=== PATIENT | female | born 1940 | race Caucasian/White ===

== ENCOUNTER 2017-02-10 20:47 | Observation (INO) | payer MEDICARE, OTHER ==
[2017-02-10 20:57] VITALS: BMI 27.1
--- NOTE | 2017-02-10 21:11 | ED PDOC ---
Arrival/HPI - General Chief Complaint: Dizziness/Lightheaded Time Seen by Provider: 02/10/17 21:02 Historian: Patient - History of Present Illness Narrative History of Present Illness (Text): 02/10/17 21:09 Susana Pena is a 76 year old female, whose past medical history includes CAD with 1 coronary stent, hypertension, cholelithiasis, and UTIs, who presents to the Emergency department complaining of near-syncope and high blood pressure. Patient states she has been feeling near-syncopal with unsteady gait, light-headedness, nausea, and dizziness since waking up this morning . Patient notes her blood pressure has been elevated throughout the day, around 180/90. Patient also complaining of frequent urination. Patient denies any fever, chills , chest pain, shortness of breath, vomiting, diarrhea, urinary symptoms, back pain, neck pain, or any other complaints. Time/Duration: Other (this morning) Symptom Onset: Gradual Symptom Course: Unchanged Activities at Onset: Rest, Light Context: Home Past Medical History - Provider Review Nursing Documentation Reviewed: Yes - Travel History If Yes, travel location?: [facility] - Infectious Disease Hx of Infectious Diseases: None - Tetanus Immunization Tetanus Immunization: Unknown - Cardiac Hx Cardiac Disorders: Yes Hx Hypertension: Yes - Pulmonary Hx Respiratory Disorders: No - Neurological Hx Neurological Disorder: No Hx Paralysis: No - HEENT Hx HEENT Disorder: Yes Hx Cataracts: Yes - Renal Hx Renal Disorder: Yes Hx Pyelonephritis: Yes - Endocrine/Metabolic Hx Endocrine Disorders: No - Hematological/Oncological Hx Blood Disorders: No Hx Blood Transfusions: No - Integumentary Hx Dermatological Disorder: No - Musculoskeletal/Rheumatological Hx Musculoskeletal Disorders: Yes (osteopenia, spinal stenosis) - Gastrointestinal Hx Gastrointestinal Disorders: Yes Hx Gastroesophageal Reflux: Yes - Genitourinary/Gynecological Hx Genitourinary Disorders: Yes Hx Urinary Tract Infection: Yes - Psychiatric Hx Psychophysiologic Disorder: No Hx Emotional Abuse: No Hx Physical Abuse: No Hx Substance Use: No - Surgical History Hx Cataract Extraction: Yes Hx Cardiac Catheterization: Yes Hx Coronary Stent: Yes - Anesthesia Hx Anesthesia Reactions: No Hx Malignant Hyperthermia: No - Suicidal Assessment Feels Threatened In Home Enviroment: No Family/Social History - Physician Review Nursing Documentation Reviewed: Yes Family/Social History: No Known Family HX Smoking Status: Never Smoked Hx Alcohol Use: No Hx Substance Use: No Hx Substance Use Treatment: No Allergies/Home Meds Allergies/Adverse Reactions: Allergies No Known Allergies Allergy (Verified 02/10/17 20:57) Home Medications: Home Meds Medication Instructions Recorded Confirmed Aspirin [Ecotrin] 81 mg PO DAILY 05/15/16 02/10/17 Clopidogrel [Plavix] 75 mg PO DAILY 05/15/16 02/10/17 Famotidine [Pepcid] 20 mg PO BID 05/15/16 02/10/17 Losartan [Cozaar] 25 mg PO DAILY 05/15/16 02/10/17 Metoprolol Tartrate [Lopressor] 50 mg PO BID 05/15/16 02/10/17 Simvastatin [Zocor] 40 mg PO DAILY 05/15/16 02/10/17 Ursodiol [Actigall] 300 mg PO BID 05/15/16 02/10/17 amLODIPine [Norvasc] 5 mg PO DAILY 05/15/16 02/10/17 Review of Systems - Physician Review All systems were reviewed & negative as marked: Yes - Review of Systems Constitutional: Normal. absent: Fevers Eyes: Normal ENT: Normal Respiratory: Normal. absent: SOB, Cough Cardiovascular: Other (+near-syncopal, +hypertension). absent: Chest Pain Gastrointestinal: Nausea. absent: Vomiting Genitourinary Female: Frequency. absent: Dysuria, Hematuria, Urine Output Changes Musculoskeletal: Normal. absent: Back Pain, Neck Pain Skin: Normal. absent: Rash Neurological: Dizziness, Gait Changes (+unsteady gait), Other (+light-headedness ) Endocrine: Normal Hemo/Lymphatic: Normal Psychiatric: Normal Physical Exam Vital Signs Reviewed: Yes Vital Signs Temp Pulse Resp BP Pulse Ox 02/11/17 01:30 98.3 F 68 16 148/74 98 02/11/17 00:01 61 16 129/74 100 02/10/17 20:57 98.4 F 62 16 159/80 H 98 Temperature: Afebrile Blood Pressure: Hypertensive Pulse: Regular Respiratory Rate: Normal Appearance: Positive for: Well-Appearing, Non-Toxic, Comfortable Pain Distress: None Mental Status: Positive for: Alert and Oriented X 3 - Systems Exam Head: Present: Atraumatic, Normocephalic Pupils: Present: PERRL Extroacular Muscles: Present: EOMI Conjunctiva: Present: Normal Mouth: Present: Moist Mucous Membranes Neck: Present: Normal Range of Motion Respiratory/Chest: Present: Clear to Auscultation, Good Air Exchange. No: Respiratory Distress, Accessory Muscle Use Cardiovascular: Present: Regular Rate and Rhythm, Normal S1, S2. No: Murmurs Abdomen: Present: Normal Bowel Sounds. No: Tenderness, Distention, Peritoneal Signs Back: Present: Normal Inspection Upper Extremity: Present: Normal Inspection. No: Cyanosis, Edema Lower Extremity: Present: Normal Inspection. No: Edema Neurological: Present: GCS=15, CN II-XII Intact, Speech Normal Skin: Present: Warm, Dry, Normal Color. No: Rashes Psychiatric: Present: Alert, Oriented x 3, Normal Insight, Normal Concentration Medical Decision Making ED Course and Treatment: 02/10/17 21:09 Impression: 76 year old female complaining of near-syncope, dizziness, light-headedness, dizziness, high blood pressure, and frequent urination. Differential Diagnosis include but are not limited to: near syncope vs hypertension Plan: -- CT Head w/o contrast -- EKG -- Chest X-ray -- Labs, cardiac enzymes -- Urinalysis -- Reassess and disposition Prior Visits: Notes and results from previous visits were reviewed. On 01/20/2015, pt was seen in the Emergency department for abdominal pain and chest pain. Pt was admitted to the hospital for further evaluation. Progress Notes: Reviewed EKG, NSR at [address]-segment elevations or depressions, no T-wave inversions, normal intervals. 02/10/17 23:41 Reviewed radiology, Chest X-ray shows no active disease. CT Head shows: Atrophy and small vessel disease, no bleed. 02/10/17 23:[address] Marcus, who is aware and agrees with plan. Accepts pt in to her service. Pt will go to [facility] for near-syncope and labile hypertension. Pt in no acute distress. Discussed results and plan with pt, who is aware and verbalizes understanding. - Lab Interpretations Lab Results: 02/10/17 21:52 02/10/17 21:52 Lab Results 02/10/17 21:52: WBC 9.3, RBC 4.49, Hgb 14.4, Hct 40.9, MCV 91.1, MCH 32.1, MCHC 35.2, RDW 12.2, Plt Count 360, MPV 8.3 02/10/17 21:52: Sodium 134, Potassium 4.1, Chloride 94 L, Carbon Dioxide 29, Anion Gap 15, BUN 19, Creatinine 0.8, Est GFR ( Amer) > 60, Est GFR (Non- Af Amer) > 60, Random Glucose 121 H, Calcium 10.0, Total Bilirubin 0.8, AST 39, ALT 35, Alkaline Phosphatase 84, Lactate Dehydrogenase 500, Total Creatine Kinase 110, Troponin I < 0.01, Total Protein 9.5 H, Albumin 4.7, Globulin 4.8, Albumin/Globulin Ratio 1.0 L 02/10/17 21:52: PT 10.3, INR 0.95, APTT 27.3 02/10/17 20:48: Urine Color Straw, Urine Appearance Sl cloudy, Urine pH 6.5, Ur Specific [place] <= 1.005, Urine Protein Negative, Urine Glucose (UA) Negative, Urine Ketones Negative, Urine Blood Trace-intact H, Urine Nitrate Negative, Urine Bilirubin Negative, Urine Urobilinogen 0.2, Ur Leukocyte Esterase Large H , Urine RBC 1 - 3, Urine WBC 20 - 25, Ur Epithelial Cells 3 - 4, Urine Bacteria Few I have reviewed the lab results: Yes - RAD Interpretation Narrative RAD Interpretations (Text): Chest X-ray shows no active disease. CT Head shows: Brain: There is dilatation of sulci gyri and ventricles. There is no midline shift. There is decreased attenuation in periventricular white matter. There are no focal masses. There are no focal hemorrhages.There are basal ganglia calcifications. Mandujano-white differentiation is visualized. Ventricles: See above. Bones: Cranial vault is intact. Soft tissues: unremarkable Vasculature: There are calcifications in the carotid siphons. Sinuses: There is no acute sinusitis. Ears and mastoids: Middle ears and mastoids are unremarkable. Orbits: There are no acute orbital abnormalities. There is deformity of the right globe area IMPRESSION: Atrophy and small vessel disease, no bleed. Radiology Orders: 02/10/17 21:09 HEAD W/O CONTRAST [CT] Stat 02/10/17 21:10 CHEST PORTABLE [RAD] Stat Library Consultant: ED Physician, Radiologist - EKG Interpretation Interpreted by ED Physician: Yes Type: 12 lead EKG - Scribe Statement The provider has reviewed the documentation as recorded by the El Zarate All medical record entries made by the El were at my direction and personally dictated by me. I have reviewed the chart and agree that the record accurately reflects my personal performance of the history, physical exam, medical decision making, and the department course for this patient. I have also personally directed, reviewed, and agree with the discharge instructions and disposition. Disposition/Present on Arrival - Present on Arrival Any Indicators Present on Arrival: No History of DVT/PE: No History of Uncontrolled Diabetes: No Urinary Catheter: No History of Decub. Ulcer: No History Surgical Site Infection Following: None - Disposition Have Diagnosis and Disposition been Completed?: Yes Diagnosis: Near syncope, Labile hypertension, UTI (urinary tract infection) Disposition: HOSPITALIZED Disposition Time: 23:56 Patient Problems: Current Active Problems Problem Status Onset Labile hypertension Acute Near syncope Acute Condition: GOOD
[2017-02-10 22:13] LABS: HEMATOCRIT 40.9 % (36.0-48.0); MEAN CELL VOLUME 91.1 fL (80.0-105.0); MEAN CORPUSCULAR HEMOGLOBIN 32.1 pg (25.0-35.0); MEAN CORPUSCULAR HGB CONC 35.2 g/dl (31.0-37.0); MEAN PLATELET VOLUME 8.3 fl (7.0-11.0); RED CELL DISTRIBUTION WIDTH 12.2 % (11.5-14.5); WHITE BLOOD COUNT 9.3 10^3/ul (4.5-11.0)
[2017-02-10 22:23] LABS: ALKALINE PHOSPHATASE 84 U/L (38-133); ALT/SGPT 35 U/L (7-56); AST/SGOT 39 U/L (15-39); BILIRUBIN,TOTAL 0.8 mg/dL (0.2-1.3); BLOOD UREA NITROGEN 19 mg/dL (7-21); CARBON DIOXIDE 29 mmol/L (21-33); CHLORIDE 94 mmol/L (98-107); GFR AFRICAN-AMERICAN > 60; GLUCOSE,RANDOM 121 mg/dL (70-110); POTASSIUM 4.1 mmol/L (3.6-5.0); SODIUM 134 mmol/L (132-148); TOTAL PROTEIN 9.5 g/dL (5.8-8.3)
[2017-02-10 22:38] LABS: INR 0.95 (0.93-1.08); PARTIAL THROMBOPLASTIN TIME 27.3 Seconds (23.7-30.8)
[2017-02-10 22:59] LABS: TROPONIN I < 0.01 ng/mL
--- NOTE | 2017-02-10 23:40 | CT ---
EXAM: CT Head Without Intravenous Contrast CLINICAL HISTORY: 76 years old, female; Signs and symptoms; Dizziness; Additional info: Near syncope TECHNIQUE: Axial computed tomography images of the head/brain without intravenous contrast. This CT exam was performed using one or more of the following dose reduction techniques: automated exposure control, adjustment of the mA and/or kV according to patient size, and/or use of iterative reconstruction technique. EXAM DATE/TIME: 02/10/2017 9:09 PM COMPARISON: There are no prior studies for comparison. FINDINGS: Brain: There is dilatation of sulci gyri and ventricles. There is no midline shift. There is decreased attenuation in periventricular white matter. There are no focal masses. There are no focal hemorrhages.There are basal ganglia calcifications. Mandujano-white differentiation is visualized. Ventricles: See above. Bones: Cranial vault is intact. Soft tissues: unremarkable Vasculature: There are calcifications in the carotid siphons. Sinuses: There is no acute sinusitis. Ears and mastoids: Middle ears and mastoids are unremarkable. Orbits: There are no acute orbital abnormalities. There is deformity of the right globe area IMPRESSION: Atrophy and small vessel disease, no bleed Additional findings as described above.
[2017-02-11 03:02] LABS: PH,URINE 6.5 (4.7-8.0); URINE APPEARANCE SL CLOUDY (CLEAR); URINE BILIRUBIN NEGATIVE (NEGATIVE); URINE BLOOD TRACE-INTACT (NEGATIVE); URINE COLOR STRAW (YELLOW); URINE GLUCOSE (UA) NEGATIVE (NEGATIVE); URINE KETONE NEGATIVE (NEGATIVE); URINE LEUKOCYTE ESTERASE LARGE Leu/uL (NEGATIVE); URINE PROTEIN NEGATIVE mg/dL (<30 mg/dL); URINE UROBILINOGEN 0.2 E.U./dL (<1 E.U./dL)
[2017-02-11 03:04] LABS: URINE WBC 20 - 25 /hpf (0-6)
[2017-02-11 03:05] LABS: URINE BACTERIA FEW (NEG)
[2017-02-11] MEDS ORDERED: cefTRIAXone 1 gm 1 GM/100 ML BAG IV STA (03:12)
--- NOTE | 2017-02-11 07:15 | RAD ---
HISTORY: fever COMPARISON: 01/19/2015 FINDINGS: LUNGS: No active pulmonary disease. PLEURA: No significant pleural effusion identified, no pneumothorax apparent. CARDIOVASCULAR: Normal. OSSEOUS STRUCTURES: Thoracic spondylosis VISUALIZED UPPER ABDOMEN: Normal. OTHER FINDINGS: None. IMPRESSION: No active disease.
[2017-02-11] MEDS ORDERED: cefTRIAXone 1 gm 100 ML IVPB SCH (10:00)
[2017-02-11 12:15] LABS: CHOLESTEROL 170 mg/dL (130-200)
--- NOTE | 2017-02-11 12:29 | CON ---
DATE: 02/11/2017 REASON FOR CONSULTATION: Cardiac evaluation, near syncope. BRIEF CLINICAL HISTORY: This is a 76-year-old female with a past medical history significant for justin betes, hypertension, hyperlipidemia, coronary artery disease status post PTCA of LAD with a drug-elut ing stent in 12/2008, came in to the hospital because complaining of nauseous feeling and has a UTI f or a couple of days. The patient feels that she is going to pass out, but did not pass out, so she c raj to the Emergency Room. Denies any chest pain, denies any palpitation, denies any shortness of br eath. PAST MEDICAL HISTORY: Significant for diabetes, hypertension, hyperlipidemia, obesity, coronary [place] disease status post PTCA of LAD with a drug-eluting stent on 01/13/2009. Repeat catheterization o n 01/18/2009 shows patent stent, unremarkable RCA and circ. Last stress test was that shows essentially normal, no reversible ischemia. The patient walked on the treadmill for 6 minutes and 9 seconds, ejection fraction ____%. The patient had a ____ echocardiography done in 12/2012 that shows normal ejection fraction 75%, mode rate mitral regurgitation, mild aortic regurgitation, mild tricuspid regurgitation. The patient had ____ echocardiography as mentioned ____ that mentioned normal chamber size, ejection fraction 60-65%, trace ____, ____ TR, mild ____, RV systolic pressure 34, dated ____. The patient had a Holter monitor on 06/30/2014 that shows no high grade AV block, sinus tachycardia, occasional APCs. The lowest heart rate was 44, maximum was 104, and recommendation does not need pac emaker at that time, and suggested to hold the beta jasen because the patient becomes very bradycar diac with the beta jasen at that time, and the patient's baseline ____ so she should not be on the beta jasen since then. After that, the patient restarted beta jasen, is tolerating well. Denies any chest pain, shortness of breath, any palpitation. SOCIAL HISTORY: Denies smoking. Denies any history of alcohol abuse. Last stress test, as mentioned, ____ was a Lexiscan scan, was essentially normal myocardial perfusion study, ejection fraction ____%. When compared from the previous stress test ____, no significant ch eleni. CURRENT MEDICATIONS: The patient is taking amlodipine 5 mg, Actigall 300, Zocor 40, metoprolol 50 mg b.i.d., losartan 25 daily, ____, Pepcid 20 mg, Plavix 75 mg, aspirin 81 mg. REVIEW OF SYSTEMS: A 14-point review of systems as per HPI, and found to be negative except as per H PI. PHYSICAL EXAMINATION: VITAL SIGNS: Temperature afebrile, heart rate 60, blood pressure 140/61. HEENT: PERRLA. Extraocular muscles intact. NECK: Supple. No carotid bruits. No thyromegaly. CHEST: Clear to auscultation. HEART: S1, S2 regular. ABDOMEN: Soft. EXTREMITIES: Clubbing and cyanosis negative. BLOOD WORKUP: As follows: WBC 9.3, hemoglobin 14.4, hematocrit 40.9, platelet count 360. Chemistry shows sodium 134, potassium 4.1, chloride 94, carbon dioxide 20, anion gap of 15, BUN 19, creatinine 0.9. Troponin 0.01. IMPRESSION: No evidence of acute myocardial infarction. Electrocardiogram shows normal sinus at rat e of 64. Nausea, vomiting, nauseous. Previous workup is negative. History of cardiac catheterization and percutaneous transluminal coronary angioplasty in 12/2008. Repeat catheterization after this because of the chest pain was a patent stent. Repeat stress test twice in 2012 and 2013 in June essentially negative. Echocardiogram also shows normal chamber size in ____, ____ mitral regurgitation, ____ tricuspid regu rgitation, right ventricular systolic pressure of 34. Rule out orthostatic hypotension, diabetes, hy pertension, hyperlipidemia. RECOMMENDATION: Will get echo to assess LV function, lipid profile, TSH, hemoglobin A1c. Will also get cardiac enzymes and get orthostatic hypotension. If remains stable, will discontinue telemetry. Thank you, Dr. Marcus, for providing the opportunity in taking care of this patient. Eleazar Odonnell MD cc:Pricila Marcus MD [id number] TT: 02/11/2017 12:25:50 Confirmation # [id number] Dictation # [id number] mn
[2017-02-11 12:31] LABS: TROPONIN I < 0.01 ng/mL
--- NOTE | 2017-02-11 13:32 | CON ---
DATE: 02/11/2017 CHIEF COMPLAINT: Dizziness and lightheadedness. HISTORY OF PRESENT ILLNESS: A 76-year-old woman with history of coronary artery disease, status post 1 stent, hypertension, cholelithiasis, history of UTIs, who presented with near syncope, felt like l ightheaded, nauseous and no spinning sensation of the room, but more lightheaded and felt pressure in her eyes. Her blood pressure was elevated throughout the day, approximately 180/90 mmHg. Currently , she was also complaining of frequent urination, found to have an elevated leukocyte esterase on her urine culture, was given 1 dose of Rocephin. Currently, she is no longer dizzy. She feels her head pressure is much more stable and her blood pressure is currently better controlled. She is moving a round with no difficulty. No focal neurological deficits. CT head showed no acute intracranial abno rmalities. PAST MEDICAL HISTORY: History of hypertension, cholelithiasis, UTIs, coronary artery disease, status post stent. FAMILY HISTORY: Noncontributory. MEDICATIONS: Reviewed via nurse's reconciliation sheet. ALLERGIES: No known drug allergies. REVIEW OF SYSTEMS: A 14-point review of systems negative except for the HPI. LABORATORY DATA: Sodium is 134, potassium 4.1, chloride 94, carbon dioxide 29, BUN of 19, creatinine 0.8. Random glucose 121. Triglycerides 246, LDL is pending, HDL is 74. PHYSICAL EXAMINATION: VITAL SIGNS: Temperature of 98, pulse rate of 70, blood pressure 135/74, respiratory rate of 16. GENERAL: The patient is sitting up in bed in no acute distress. HEENT: Atraumatic, normocephalic. PERRLA. Extraocular muscles intact. NECK: Supple, no JVD, no adenopathy noted. LUNGS: Clear to auscultation. No adventitious sounds. HEART: S1, S2, normal rate and rhythm. No murmurs, rubs, or gallops. ABDOMEN: Soft, nontender, nondistended. Bowel sounds are present. EXTREMITIES: No clubbing, no cyanosis. Peripheral pulses 2+ felt bilaterally. NEUROLOGIC: The patient is alert, oriented to person, place, month and year. Speech is fluent witho ut any errors. Cranial nerves II-XII are intact. MOTOR: Moves all extremities equally. Toes downgoing bilaterally. SENSORY: Light touch, pinprick, proprioception, and vibration intact. DTRs are 2+ throughout. COORDINATION: Irdgjl-[id number] intact. GAIT: Normal. ASSESSMENT AND PLAN: This is a 76-year-old woman with history of hypertension, coronary artery disea se, status post stent, cholelithiasis, history of urinary tract infections, who presented with dizzin ess, pressure behind the eye and nausea and found to have elevated systolic and diastolic blood press ure at home. Currently, her blood pressure is much more stabilized. Likely, she had a transient hyp ertensive urgency causing her dizziness and lightheadedness as well as head pressure behind the eyes as well as nausea. Currently, she is much more stable. Neurologic exam is nonfocal. At this time, continue with current present medical management. 1. Keep her blood pressure between 120-130 mmHg with Norvasc and metoprolol. 2. Aspirin 81 mg, Plavix 75 mg, and statin such as Lipitor 20 mg for stroke prevention. 3. Continue antibiotics of ceftriaxone for underlying urinary tract infection and continue with curr ent present medical history: No further neurological workup needed at this time. We will sign off. Please reconsult if necessary. Albino Mtz MD cc: [id number] TT: 02/11/2017 13:31:51 Confirmation # [id number] Dictation # [id number] tn
--- NOTE | 2017-02-11 16:29 | CARD ---
APPROVED REPORT EKG Measurement Heart [id number] <Conclusion> Normal sinus rhythm Normal ECG
--- NOTE | 2017-02-11 19:11 | CON ---
DATE: 02/11/2017 REFERRING PHYSICIAN: ____ REASON FOR CONSULT: Status post near syncopal episode, uncontrolled hypertension, may have sleep pecan sheller ea syndrome. HISTORY OF PRESENT ILLNESS: This is a 76-year-old female with past medical history significant for trisha pierre, hypertension, hyperlipidemia, obesity, coronary artery disease, history of coronary stent in the past, comes into the Emergency Room with near syncopal episodes, lying in the bed, feels okay, s till when she gets up feels like she is going to pass out. She admits to have loud snoring, daytime sleepy and tired. No cough, no sputum production, no nausea, no vomiting, no diarrhea. No leg pain or leg swelling. PAST MEDICAL HISTORY: As per history of present illness. SOCIAL HISTORY: Denied any smoking or alcohol use. FAMILY HISTORY: No significant cardiopulmonary disease reported. ALLERGIES: None known. MEDICATIONS: She is on Actigall 300 mg twice a day, Cozaar 25 mg daily, Ecotrin 81 mg daily, Lipitor 20 mg daily, metoprolol tartrate 50 mg twice a day, Norvasc 5 mg daily, Pepcid 20 mg twice a day, Pl avix 75 mg daily, Rocephin 1 g IV daily. REVIEW OF SYSTEMS: No headache, no rhinitis. Had a near-syncopal episode, feeling foggy in the bed. Admitted to have loud snoring, daytime sleepy and tired. No chest pain, no nausea, no vomiting, no diarrhea. No dysuria. No leg pain or leg swelling. PHYSICAL EXAMINATION: GENERAL: Lying in the bed in no acute distress. VITAL SIGNS: Temp is 98, heart rate is 92, respiratory rate is 20, blood pressure 135/74. There was some drop in blood pressure while standing up due to . HEENT: Moist mucous membrane. Crowded airway. Mallampati score is 4. NECK: Short, thick neck. LUNGS: Has a fair airflow with few rhonchi. HEART: S1, S2. ABDOMEN: Soft, nontender. No organomegaly. EXTREMITIES: There is no edema. NEUROLOGIC: Awake, alert, follows simple commands. LABORATORY DATA: Shows hemoglobin 14.4, hematocrit 40.9, WBC 9.3, platelet is . INR is 0.95, P TT is 27. Sodium 134, potassium 4.1, chloride 94, bicarbonate 29, BUN 19, creatinine 0.8, glucose 12 1, calcium 10, total bilirubin 0.8, AST 39, ALT 35, alkaline phosphatase is 84. LDH 431. Troponin l ess than 0.01, albumin 4.7. Triglycerides 246, cholesterol is 170. TSH is 1.65. Urinalysis shows l eukocyte esterase is positive. WBC 20-25. CAT scan of the head was done on admission in the ER and shows atrophy and small vessel disease. No other significant findings. Chest x-ray shows no infiltr ate or effusion. IMPRESSION AND PLAN: Near syncopal episodes, uncontrolled hypertension, coronary artery disease, his tory of coronary stent, cholelithiasis in the past, urinary tract infection. I spoke to the patient in detail. The patient was seen by neurology as well as cardiology. Blood pressure medicine being a djusted. There is no leg tenderness to suggest any deep venous thrombosis. We will get a venous Dop pler, anyway. Will suggest outpatient attempted sleep study to rule out sleep apnea syndrome. That may be one of the causes of uncontrolled hypertension. We will get ABG and make sure there is no CO2 retention. Thank you and we will follow with you. Eleazar Cruz MD cc: [id number] TT: 02/11/2017 19:10:24 Confirmation # [id number] Dictation # [id number] adal
--- NOTE | 2017-02-11 19:11 | US ---
HISTORY: Leg pain and swelling. Evaluate for DVT PHYSICIAN(S): Everett Garzon MD. TECHNIQUE: Duplex sonography and color-flow Doppler with graded compression were used to evaluate the deep venous systems of both lower extremities. FINDINGS: The visualized deep venous systems of both lower extremities are sonographically normal and compressible. Normal wave forms and augmentation are seen. There is no sonographic evidence for deep venous thrombosis in the visualized segments of both lower extremities. IMPRESSION: No sonographic evidence for deep venous thrombosis in the visualized segments of both lower extremities.
--- NOTE | 2017-02-11 19:55 | CARD ---
APPROVED REPORT EXAM: Two-dimensional and M-mode echocardiogram with Doppler and color Doppler. INDICATION Cardiac Disease: CAD NEAR SYNCOPE 2D DIMENSIONS Left Atrium (2D)3.9 (1.6-4.0cm)IVSd1.1 (0.7-1.1cm) LVDd3.7 (3.9-5.9cm)PWd1.0 (0.7-1.1cm) LVDs2.6 (2.5-4.0cm)FS (%) 29.3 % LVEF (%)57.2 (>50%) M-Mode DIMENSIONS Aortic Root3.40 (2.2-3.7cm)Aortic Cusp Exc.1.60 (1.5-2.0cm) Aortic Valve AoV Peak Nxwfoode630.0cm/Susan Peak GR.10mmHgAI P 1/2 [id number] Mitral Valve MV E Gqyyhvrd78.5cm/sMV A Dzgcchns24.1cm/sE/A ratio0.9 TDI Lateral E' Peak V5.85cm/sMedial E' Peak V6.73cm/sE/Lateral E'13.1 E/Medial E'11.4 Pulmonary Valve PV Peak Wthyidiu83.3cm/sPV Peak Grad.1mmHg Tricuspid Valve TR Peak Cgausmem773mc/sRAP [id number] Peak Gr.28mmHg [id number] LEFT VENTRICLE The left ventricle is normal size. There is normal left ventricular wall thickness. The left ventricular function is normal.EF-55-60% There is normal LV segmental wall motion. Transmitral Doppler flow pattern is Grade III-reversible restrictive diastolic dysfunction. No left ventricle thrombus noted on this study. There is no ventricular septal defect visualized. There is no left ventricular aneurysm. There is no mass noted in the left ventricle. RIGHT VENTRICLE The right ventricle is normal size. There is normal right ventricular wall thickness. The right ventricular systolic function is normal. ATRIA The left atrium size is normal. The right atrium size is normal. The interatrial septum is intact with no evidence for an atrial septal defect. AORTIC VALVE The aortic valve is calcified but opens well. The aortic valve is moderately sclerotic. There is mild aortic regurgitation. Aortic Sclerosis Vs Mild There is no aortic valvular vegetation. MITRAL VALVE The mitral valve is thickened but opens well. Mitral annular calcification is mild to moderate. Mitral regurgitation is mild. There is no mitral valve stenosis. There is no evidence of mitral valve prolapse. TRICUSPID VALVE The tricuspid valve leaflets are thickened , but open well. There is mild tricuspid regurgitation.RVSP-38 mmof hg. There is no tricuspid valve stenosis. There is no tricuspid valve prolapse or vegetation. PULMONIC VALVE The pulmonary valve is normal in structure. GREAT VESSELS The aortic root is normal in size. The ascending aorta is normal in size. The pulmonary artery is normal. The IVC is normal in size and collapses >50% with inspiration. PERICARDIAL EFFUSION There is no pleural effusion. There is no pericardial effusion. <Conclusion> Normal chamber Size. EF-55-60% There is mild aortic regurgitation. Aortic Sclerosis Vs Mild Mitral regurgitation is mild. There is mild tricuspid regurgitation.RVSP-38 mmof hg. The IVC is normal in size and collapses >50% with inspiration. There is no pericardial effusion.
--- NOTE | 2017-02-11 21:46 | HP ---
CHIEF COMPLAINT: Dizziness, lightheadedness, feeling of passing out. HISTORY OF PRESENT ILLNESS: The patient is a 76-year-old, my private patient, with past medical history of coronary artery disease with one coronary stent, hypertension, cholelithiasis, obstructive sleep apnea syndrome, multiple times UTIs, came to the Emergency Room with near syncope and high blood pressure. According to her home blood pressure check, it was really high. The patient stated that she is feeling like she will pass out, unsteady gait, lightheadedness, nausea and dizziness since waking up of last day of morning. The patient noted that her blood pressure has been elevated throughout the day, about 180/90. The patient is also complaining about frequent urination. The patient denies any fever, chills, chest pain, shortness of breath, vomiting, diarrhea, back pain, neck pain. PAST MEDICAL HISTORY: Hypertension, cataracts, pyelonephritis, osteopenia, spinal stenosis, gastroesophageal reflux disease, cataract extraction, cardiac catheterization, coronary stents. FAMILY HISTORY: Father and mother noncontributory. HABITS: No smoking, no drugs, no ethanol. ALLERGIES: The patient is not allergic to any medications. HOME MEDICATIONS: Ecotrin, Plavix, Pepcid, Cozaar, Lopressor, Zocor, Actigall, Norvasc. REVIEW OF SYSTEMS: The patient seen and examined on the bedside in the telemetry while having lunch. Feels a little bit better. No motor or dizziness. No more feelings of presyncope, but in ER she was having feeling of presyncope and high blood pressure, but patient is unsteady in gait. No dysuria , no hematuria. PHYSICAL EXAMINATION: VITAL SIGNS: Temperature 98, pulse 74, blood pressure 134/72, respiratory rate 20. HEENT: Head normocephalic, atraumatic. Eyes: PERRLA. Extraocular muscles intact. Conjunctivae are clear. Nose patent. Mucous membranes moist. NECK: Supple. No carotid bruit, JVD or thyromegaly. CHEST: Bilaterally symmetrical. HEART: S1, S2 positive. LUNGS: Clear to auscultation. ABDOMEN: Soft. Bowel sounds positive. No organomegaly. EXTREMITIES: No edema, no cyanosis. NEUROLOGIC: The patient is awake, alert. Moving all 4 extremities. No focal deficit. LABORATORY DATA: White blood cells 9.3, hemoglobin 14.4, hematocrit 40.9, platelets 360. Sodium 134, potassium 4.1, BUN 19, creatinine 0.9, random glucose 121, triglycerides 246. ASSESSMENT AND PLAN: The patient is a 76-year-old lady with hypertriglyceridemia, hematuria, urinary tract infection, presyncope, ataxia, lightheadedness, history of coronary artery disease, diabetes mellitus, hypertension, obesity, history of coronary artery stents in the past, near syncope, uncontrolled hypertension, cholelithiasis. Supervisor [employer] and neurologist on the case. Blood pressure medicine adjusted. No leg tenderness to suggest deep vein thrombosis, but according to Dr. Cruz, he will get a venous Doppler. Doppler ultrasound of the leg was done. According to Dr. Everett Garzon, no sonographic evidence of deep vein thrombosis in the visualized segment of both lower extremities. Seen by Dr. Albino Mtz, and tailor's aide , Dr. Odonnell. May be transient hypertensive urgency causes the dizziness, lightheadedness and presyncope. Keep blood pressure between 120 and 130. Aspirin, Plavix, Lipitor restarted. Continue antibiotics, ceftriaxone, for underlying urinary tract infection. Per Dr. Mtz, no neurological workup is required at this moment. Went for CAT scan of the head, reviewed by me. Called Dr. Odonnell. No evidence of acute myocardial infarction. Electrocardiogram shows normal sinus at a rate of 64. Has history of repeat stress test and catheterization. Dr. Odonnell is recommending again echocardiography to assess left ventricle function. Hemoglobin A1c, TSH, phospholipid profile ordered. Will restart medicine for hypertriglyceridemia. Out of bed, physical therapy. We will follow up. Pricila Marcus MD cc: [id number] TT: 02/11/2017 21:45:06 nuvia MARIN
[2017-02-12] MEDS ORDERED: cefTRIAXone 1 gm 1 GM/100 ML BAG IVPB SCH (10:00)
--- NOTE | 2017-02-12 15:06 | PN ---
DATE: 02/12/2017 REASON FOR CONSULTATION AND FOLLOWUP: Cardiac evaluation, near syncope. BRIEF CLINICAL HISTORY: This is a 76-year-old female with a past medical history significant for cor onary artery disease in 12/2008, repeat catheterization in 2012. Repeat catheterization because patient came with chest pain, had patent stent. Recent stress test was negative. Admitted with wing r syncope. The patient had a Holter monitor on the last admission, bradycardia beta blockers w ere kept on hold. The patient yesterday got beta jasen. Heart rate was slow, so it was discontinu ed. Denies any chest pain, shortness of breath, any palpitation. PHYSICAL EXAMINATION: VITAL SIGNS: Temperature afebrile, heart rate 60, blood pressure 130/80. HEENT: PERRLA. Extraocular muscles intact. NECK: Supple. No carotid bruits. No thyromegaly. CHEST: Clear to auscultation. HEART: S1, S2 regular. ABDOMEN: Soft. EXTREMITIES: Clubbing, cyanosis negative. BLOOD WORKUP: Pending as [employer] system is down. IMPRESSION: Near syncope, orthostatic hypotension, coronary artery disease, diabetes. RECOMMENDATION: Continue IV fluid. When the orthostatic resolves, IV fluid can be discontinued. Fo llow up the labs when the [employer] system is back. We will follow with you. Thank you, Dr. Marcus, for providing us the opportunity in taking care of the patient. Beta jasen is discontinued and advised not to take beta jasen because patient becomes very sensitive, becomes significant bradycardic. Eleazar Odonnell MD cc: [id number] TT: 02/12/2017 13:50:17 Confirmation # [id number] Dictation # [id number] en
--- NOTE | 2017-02-12 21:16 | PN ---
DATE: 02/12/2017 REFERRING PHYSICIAN: Dr. Marcus. SUBJECTIVE: She is lying in the bed, head at 45 degrees. Night was unremarkable. Feels a little be tter. Denies any dizzy spells at present time. No nausea, no vomiting, no diarrhea. No leg pain or leg swelling. OBJECTIVE: GENERAL: No acute distress. VITAL SIGNS: Temperature is 98, heart rate 74, respiratory rate is 20, blood pressure 134/72. HEENT: Moist mucous membranes. Crowded airway. Mallampati score is 4. NECK: Supple. No JVD. LUNGS: Have a fair airflow with few rhonchi. HEART: S1, S2. ABDOMEN: Soft, nontender. No organomegaly. EXTREMITIES: There is no edema. NEUROLOGIC: Awake, alert, follows simple commands. MEDICATIONS: She is on Actigall 300 mg twice a day, Cozaar 25 mg daily, Ecotrin 81 mg daily, Lipitor 20 mg daily, metoprolol tartrate 25 mg twice a day, Norvasc 5 mg daily, Pepcid 20 mg twice a day, Pl avix 75 mg daily, Rocephin 1 gram daily, Tricor 145 mg daily. LABORATORY DATA: Reviewed. No new lab is available. IMPRESSION AND PLAN: Near syncopal episode, uncontrolled hypertension, pulmonary artery disease, his tory of coronary stent, history of cholelithiasis, urinary tract infection, may have sleep apnea synd sadie. Had echocardiogram done, which shows right ventricular systolic pressure is 38, left ventricul ar ejection fraction 55%-60%, mild aortic regurg. Venous Doppler of lower extremity shows no deep dulce maria ous thrombosis. Once the cardiac workup is completed, after discharge, will need attended sleep stud y as outpatient to rule out sleep apnea syndrome. Will also get ABG for the morning to assess CO2. Will follow with you. Eleazar Cruz MD cc: [id number] TT: 02/12/2017 21:15:25 Confirmation # [id number] Dictation # [id number] nuvia
--- NOTE | 2017-02-12 21:54 | CP.PCM.PN ---
Subjective - Date & Time of Evaluation Date of Evaluation: 02/12/17 Time of Evaluation: 21:53 - Subjective Subjective: Patient was seen at bedside because she complained of chest pain and had pause of 4.61 sec. on monitor. States that she has 'tightness' for both side of chest in lower region of chest for past 10 minutes, never had a feeling like that before. Also felt like heavy breathing. Also has some sweating.Denies nausea, palpitation, cough. No other complaints. Medical record was reviewed. This 76 year old white woman was admitted with dizziness, lightheadedness, feeling of passing out, near syncope. Has PMH of HTN,CAD, coronary stent placement ,COPD, cataract ,pyelonephritis, GERD, spinal stenosis. Objective - Vital Signs/Intake and Output Vital Signs (last 24 hours): Temp Pulse Resp BP Pulse Ox 98 F 74 20 134/72 98 02/11/17 18:00 02/11/17 22:00 02/11/17 18:00 02/11/17 18:00 02/11/17 06:00 - Medications Medications: Current Medications Amlodipine Besylate (Norvasc) 5 mg PO DAILY [facility] Last Admin: 02/11/17 10:33 Dose: 5 mg Aspirin (Ecotrin) 81 mg PO DAILY [facility] Last Admin: 02/11/17 10:34 Dose: 81 mg Atorvastatin Calcium (Lipitor) 20 mg PO DAILY [facility] Last Admin: 02/11/17 10:34 Dose: 20 mg Clopidogrel Bisulfate (Plavix) 75 mg PO DAILY [facility] Last Admin: 02/11/17 10:34 Dose: 75 mg Famotidine (Pepcid) 20 mg PO BID [facility] Last Admin: 02/11/17 17:42 Dose: 20 mg Fenofibrate (Tricor) 145 mg PO DAILY [facility] Ceftriaxone Sodium (Rocephin 1 Gram Ivpb) 1 gm in 100 mls @ 100 mls/hr IVPB DAILY [facility] PRN Reason: Protocol Losartan Potassium (Cozaar) 25 mg PO DAILY [facility] Last Admin: 02/11/17 10:34 Dose: 25 mg Metoprolol Tartrate (Lopressor) 25 mg PO BRKDIN [facility] Ursodiol (Actigall) 300 mg PO BID [facility] Last Admin: 02/11/17 17:42 Dose: 300 mg - Labs Labs: PT 10.3 Seconds (9.9-11.8) 02/10/17 21:52 INR 0.95 (0.93-1.08) 02/10/17 21:52 APTT 27.3 Seconds (23.7-30.8) 02/10/17 21:52 - Constitutional Appears: Well, No Acute Distress - Head Exam Head Exam: ATRAUMATIC, NORMAL INSPECTION, NORMOCEPHALIC - Eye Exam Eye Exam: Normal appearance - ENT Exam ENT Exam: Normal External Ear Exam - Neck Exam Neck Exam: Normal Inspection - Respiratory Exam Respiratory Exam: NORMAL BREATHING PATTERN - Cardiovascular Exam Cardiovascular Exam: absent: JVD - GI/Abdominal Exam GI & Abdominal Exam: absent: Distended - Rectal Exam Rectal Exam: Deferred - Extremities Exam Extremities Exam: Normal Inspection - Back Exam Back Exam: NORMAL INSPECTION - Neurological Exam Neurological Exam: Alert, Oriented x3 - Psychiatric Exam Psychiatric exam: Normal Affect, Normal Mood - Skin Skin Exam: Normal Color Assessment and Plan - Assessment and Plan (Free Text) Assessment: A/P:Chest pain. CAD. HTN. GERD. EKG-------->NSR. Troponin ,serial. Sublingua NTG.----------> After 3rd NTG, chest pain was almost gone. Oxygen. Continue present management.
[2017-02-13 06:41] LABS: ARTERIAL BLOOD GAS HCO3 26.6 mmol/L (21-28); ARTERIAL BLOOD GAS O2 CAPACITY 20.4 mL/dl (16-24); ARTERIAL BLOOD GAS O2 CONTENT 20.1 ML/dl (15-23); ARTERIAL BLOOD GAS PH 7.42 (7.35-7.45); CARBOXYHEMOGLOBIN 0.8 % (0.5-1.5); HHB 1.6 % (0-5); METHEMOGLOBIN 0.5 % (0.0-3.0)
--- NOTE | 2017-02-13 11:54 | US ---
PROCEDURE: Ultrasound of the Kidneys HISTORY: rule out hydronephrosis COMPARISON: 06/21/2014. TECHNIQUE: Sonogram of the kidneys. FINDINGS: RIGHT KIDNEY: Measures: 4.6 x 11 cm. Normal in size, contour and echogenicity. No stone, solid mass lesion or hydronephrosis visualized. LEFT KIDNEY: Measures: 4.2 x 9.5 cm. Mildly atrophic left kidney compared to right a similar finding identified previously. No stone, solid mass lesion or hydronephrosis visualized. OTHER FINDINGS: None. IMPRESSION: No acute findings related to/accounting for the clinical presentation. No significant interval change compared to the prior examination(s).
[2017-02-13 14:00] LABS: BLOOD UREA NITROGEN 19 mg/dL (7-21); CALCIUM 9.6 mg/dL (8.4-10.5); CARBON DIOXIDE 28 mmol/L (21-33); CHLORIDE 100 mmol/L (98-107); GFR AFRICAN-AMERICAN > 60; GLUCOSE,RANDOM 96 mg/dL (70-110); POTASSIUM 4.4 mmol/L (3.6-5.0); SODIUM 139 mmol/L (132-148); TOTAL PROTEIN 8.5 g/dL (5.8-8.3)
[2017-02-13 14:01] LABS: ALKALINE PHOSPHATASE 86 U/L (38-133); ALT/SGPT 30 U/L (7-56); AST/SGOT 34 U/L (15-39); BILIRUBIN,TOTAL 0.8 mg/dL (0.2-1.3)
--- NOTE | 2017-02-13 15:07 | PN ---
DATE: 02/13/2017 SUBJECTIVE: The patient seen and examined on the bedside. Yesterday she had episode of chest pain, but today feels better. Seen by the mailroom assistant, but found patient has infection in the urine, getting antibiotics. Waiting for Dr. Daniels for checking the sensitivity and finalizing about antibiotics. PHYSICAL EXAMINATION: VITAL SIGNS: Temperature is 97.9, pulse rate of 98, blood pressure 144/93, respiratory rate 20. HEAD: Normocephalic, atraumatic. EYES: PERRLA. Extraocular muscles intact. Conjunctivae clear. Nose is patent. NECK: Supple. No carotid bruit, JVD or thyromegaly. CHEST: Bilaterally symmetrical. HEART: S1, S2 positive. LUNGS: Clear to auscultation. ABDOMEN: Soft. Bowel sounds present. No organomegaly. EXTREMITIES: No edema, no cyanosis. NEUROLOGIC: The patient is awake, alert. Moving all 4 extremities. No focal deficit. LABORATORY DATA: White blood cells 9.3, hemoglobin 14.4, hematocrit 40.9, platelets 360. Sodium 139, potassium 4.4, BUN 19, creatinine 0.9, Triglycerides 226. ASSESSMENT AND PLAN: The patient is a 76-year-old lady with hypertriglyceridemia, hypercholesterolemia, has hematuria, urinary tract infection. Went for ultrasound . No acute findings related to accounting for the clinical presentation. No significant interval change compared to prior examination, progress note of Dr. Varma, about patient's chest pain, anxiety, dizziness and shortness of breath. The patient came with a near syncopal attack , uncontrolled hypertension, pulmonary artery disease, history of coronary stent , history of cholelithiasis, sleep apnea syndrome. Had an echocardiography done and it shows right ventricular systolic , ejection fraction of 55, mild aortic regurgitation. Venous Doppler of the lower extremity shows no deep vein thrombosis. Cardiac workup is in the process. I reviewed Dr. Cruz's notes. According to him, the patient needs leg study and pulmonary function test as outpatient. Gastrointestinal and deep venous thrombosis prophylaxis. Repeat labs. We will follow up. Pricila Marcus MD cc: [id number] TT: 02/13/2017 15:06:38 Confirmation # [id number] Dictation # [id number] nuvia MARIN
[2017-02-13 16:56] LABS: HEMATOCRIT 41.3 % (36.0-48.0); MEAN CELL VOLUME 92.2 fL (80.0-105.0); MEAN CORPUSCULAR HEMOGLOBIN 31.7 pg (25.0-35.0); MEAN CORPUSCULAR HGB CONC 34.4 g/dl (31.0-37.0); MEAN PLATELET VOLUME 8.3 fl (7.0-11.0); RED CELL DISTRIBUTION WIDTH 12.5 % (11.5-14.5); WHITE BLOOD COUNT 8.7 10^3/ul (4.5-11.0)
--- NOTE | 2017-02-13 18:24 | PN ---
DATE: 02/13/2017 REFERRING PHYSICIAN: Dr. Marcus. SUBJECTIVE: She is sitting side of the bed, having lunch, night was unremarkable. Feels a little be tter. Decreased dizziness, did walk with help. No nausea, no vomiting, no diarrhea. No leg pain or leg swelling. OBJECTIVE: GENERAL: No acute distress. VITAL SIGNS: Temperature is 98, heart rate is 98, respiratory rate is 20, blood pressure 144/83, pul se ox 98% on room air. HEENT: Moist mucous membranes. Crowded airway. Mallampati score is 4. NECK: Supple. No JVD. LUNGS: Has a fair airflow with few rhonchi. HEART: S1, S2. ABDOMEN: Soft, nontender. No organomegaly. EXTREMITIES: There is not much edema. NEUROLOGIC: Awake, alert, follows simple commands. MEDICATIONS: Shows she is on Actigall 300 mg twice a day, Cozaar 25 mg daily, Ecotrin 81 mg daily, L ipitor 20 mg daily, metoprolol tartrate mg twice a day, Norvasc 5 mg daily, Pepcid 20 mg twice a day, Plavix 75 mg daily, Rocephin 1 gram daily, Tricor 145 mg daily. LABORATORY DATA: Reviewed. Troponin this morning was less than 0.01. Urine culture has Klebsiella pneumoniae. IMPRESSION AND PLAN: Urinary tract infection, near syncopal episode, still is unsteady on the feet, hypertension, pulmonary hypertension, history of coronary stent, cholelithiasis, urinary tract infect ion, may have sleep apnea syndrome. Continue antibiotics, bronchodilator, keep head elevated at 45 d egrees. Fall precaution. Physical therapy. Sleep apnea precaution. Outpatient attended sleep stud y. Thank you and we will follow with you. Eleazar Cruz MD cc: [id number] TT: 02/13/2017 18:24:17 Confirmation # [id number] Dictation # [id number] mn
--- NOTE | 2017-02-13 20:17 | CP.PCM.CON ---
History of Present Illness - History of Present Illness History of Present Illness: 76 year old female with PMH of CAD S/P PCI, HTN, history of cholelithiasis, history of UTI's came in because of near syncope and high blood pressure. Syncope work up is being done during this admission. The patient was also complaining of urinary frequency but no burning sensation on urination, no flank pain, no urinary urgency. She denies fever or chills, no nausea or vomiting, no headache, no blurring of vision, no chest pain, no SOB, no cough or colds, no diarrhea, no abdominal pain. She is currently being treated for possible UTI and Infectious diseases consult is requested to further evaluate and manage. Review of Systems - Review of Systems All systems: reviewed and no additional remarkable complaints except (as per HPI ) Past Patient History - Infectious Disease Hx of Infectious Diseases: None - Tetanus Immunizations Tetanus Immunization: Unknown - Past Social History Smoking Status: Never Smoked - CARDIAC Hx Cardiac Disorders: Yes Hx Hypertension: Yes - PULMONARY Hx Respiratory Disorders: No - NEUROLOGICAL Hx Neurological Disorder: No - HEENT Hx HEENT Problems: Yes Hx Cataracts: Yes - RENAL Hx Chronic Kidney Disease: Yes Hx Pyelonephritis: Yes - ENDOCRINE/METABOLIC Hx Endocrine Disorders: No - HEMATOLOGICAL/ONCOLOGICAL Hx Blood Disorders: No - INTEGUMENTARY Hx Dermatological Problems: No - MUSCULOSKELETAL/RHEUMATOLOGICAL Hx Falls: No - GASTROINTESTINAL Hx Gastrointestinal Disorders: Yes Hx Gastroesophageal Reflux: Yes - GENITOURINARY/GYNECOLOGICAL Hx Genitourinary Disorders: Yes Hx Urinary Tract Infection: Yes - PSYCHIATRIC Hx Psychophysiologic Disorder: No Hx Emotional Abuse: No Hx Physical Abuse: No - SURGICAL HISTORY Hx Surgeries: Yes Hx Cardiac Catheterization: Yes Hx Coronary Stent: Yes - ANESTHESIA Hx Anesthesia Reactions: No Hx Malignant Hyperthermia: No Meds Allergies/Adverse Reactions: Allergies Allergy/AdvReac Type Severity Reaction Status Date / Time No Known Allergies Allergy Verified 02/10/17 20:57 - Medications Medications: Current Medications Amlodipine Besylate (Norvasc) 5 mg PO DAILY [facility] Last Admin: 02/11/17 10:33 Dose: 5 mg Aspirin (Ecotrin) 81 mg PO DAILY [facility] Last Admin: 02/11/17 10:34 Dose: 81 mg Atorvastatin Calcium (Lipitor) 20 mg PO DAILY [facility] Last Admin: 02/11/17 10:34 Dose: 20 mg Clopidogrel Bisulfate (Plavix) 75 mg PO DAILY [facility] Last Admin: 02/11/17 10:34 Dose: 75 mg Famotidine (Pepcid) 20 mg PO BID [facility] Last Admin: 02/11/17 17:42 Dose: 20 mg Fenofibrate (Tricor) 145 mg PO DAILY [facility] Ceftriaxone Sodium (Rocephin 1 Gram Ivpb) 1 gm in 100 mls @ 100 mls/hr IVPB DAILY [facility] PRN Reason: Protocol Losartan Potassium (Cozaar) 25 mg PO DAILY [facility] Last Admin: 02/11/17 10:34 Dose: 25 mg Metoprolol Tartrate (Lopressor) 25 mg PO BRKDIN [facility] Ursodiol (Actigall) 300 mg PO BID [facility] Last Admin: 02/11/17 17:42 Dose: 300 mg Physical Exam - Constitutional Appears: Non-toxic, No Acute Distress - Head Exam Head Exam: NORMAL INSPECTION - ENT Exam ENT Exam: Mucous Membranes Moist - Neck Exam Neck exam: Negative for: Lymphadenopathy, Meningismus - Respiratory Exam Respiratory Exam: Decreased Breath Sounds - Cardiovascular Exam Cardiovascular Exam: +S1, +S2 - GI/Abdominal Exam GI & Abdominal Exam: Soft. absent: Tenderness Results - Vital Signs Recent Vital Signs: Last Vital Signs Temp 98.2 F 02/13/17 00:01 Pulse 60 02/13/17 02:00 Resp 20 02/13/17 00:01 BP 106/60 02/13/17 00:01 Pulse Ox 98 02/11/17 06:00 - Labs Result Diagrams: 02/12/17 07:05 02/12/17 07:05 Labs: Laboratory Results - last 24 hr 02/12/17 21:57 Troponin I < 0.01 Assessment & Plan - Assessment and Plan (Free Text) Plan: Assessment lower urinary tract infection with Klebsiella CAD S/P PCI HTN history of cholelithiasis history of UTI's Plan Continue Rocephin; when ready for discharge, she can be switched to PO Keflex to complete a 5-7 day course; reviewed renal ultrasound which did not show hydronephrosis will monitor clinically
--- NOTE | 2017-02-13 23:00 | CARD ---
APPROVED REPORT EKG Measurement Heart [id number] <Conclusion> Atrial fibrillation with rapid ventricular response Abnormal ECG
[2017-02-14 00:41] VITALS: RESP 20; O2SAT 95
[2017-02-14 13:12] VITALS: BP 144/87; PULSE 68; TEMP 98.2
--- NOTE | 2017-02-14 18:47 | CP.PCM.PN ---
Subjective - Date & Time of Evaluation Date of Evaluation: 02/14/17 Time of Evaluation: 08:20 - Subjective Subjective: Les urinary frequency, no fevers overnight, no nausea. Objective - Vital Signs/Intake and Output Vital Signs (last 24 hours): Temp Pulse Resp BP Pulse Ox 98.2 F 68 20 144/87 95 02/14/17 12:00 02/14/17 14:00 02/14/17 12:00 02/14/17 12:00 02/14/17 06:00 Intake and Output: 02/14/17 02/14/17 06:59 18:59 Intake Total 920 Balance 920 - Labs Labs: 02/12/17 07:05 02/12/17 07:05 PT 10.3 Seconds (9.9-11.8) 02/10/17 21:52 INR 0.95 (0.93-1.08) 02/10/17 21:52 APTT 27.3 Seconds (23.7-30.8) 02/10/17 21:52 - Constitutional Appears: No Acute Distress - Head Exam Head Exam: NORMAL INSPECTION - ENT Exam ENT Exam: Mucous Membranes Moist - Neck Exam Neck Exam: absent: Lymphadenopathy, Meningismus - Cardiovascular Exam Cardiovascular Exam: +S1, +S2 - GI/Abdominal Exam GI & Abdominal Exam: Soft. absent: Tenderness Assessment and Plan - Assessment and Plan (Free Text) Plan: Assessment lower urinary tract infection with Klebsiella CAD S/P PCI HTN history of cholelithiasis history of UTI's Plan on Rocephin; when ready for discharge, she can be switched to PO Keflex to complete a 5-7 day course; reviewed renal ultrasound which did not show hydronephrosis
--- NOTE | 2017-02-14 21:14 | PN ---
DATE: 02/14/2017 REFERRING PHYSICIAN: Dr. Marcus. SUBJECTIVE: She is out of bed to chair, being discharged home, feels better. Admitted to having jessica d snoring, daytime sleepy and tired. No nausea, no vomiting, no diarrhea. No leg pain or leg swelli ng. OBJECTIVE: GENERAL: In no acute distress. VITAL SIGNS: Temperature is 98, heart rate is 68, respiratory rate is 20, blood pressure 144/87 and pulse ox 97% on room air. HEENT: Moist mucous membranes. Small oral cavity. Crowded airway. NECK: Supple. No JVD. LUNGS: Has a fair airflow with a few rhonchi. HEART: S1, S2. ABDOMEN: Soft, nontender. No organomegaly. EXTREMITIES: There is no edema. NEUROLOGIC: Awake, alert, follows simple commands. MEDICATIONS: No new changes in medication reported since yesterday. LABORATORY DATA: No new lab is available since yesterday. Laboratory data reviewed and noted. IMPRESSION AND PLAN: Urinary tract infection, status post syncopal episode, hypertension, pulmonary hypertension, history of coronary stent, cholelithiasis, may have sleep apnea syndrome. I spoke to t he patient about sleep apnea and its relation to pulmonary hypertension and daytime sleepiness. Will schedule an outpatient attended sleep study. Fall precaution. Thank you. Eleazar Cruz MD cc: [id number] TT: 02/14/2017 21:13:30 Confirmation # [id number] Dictation # [id number] dn
--- NOTE | 2017-02-16 08:32 | PN ---
DATE: 02/13/2017 REASON FOR CONSULTATION AND FOLLOWUP: Near syncope. BRIEF CLINICAL HISTORY: This is a 76-year-old female with a past medical history significant for cor onary artery disease, status post PTCA of LAD with a drug-eluting stent 01/13/2009, came in with a com plaint of nauseous feeling and a urinary tract infection. The patient was readmitted after the stent for the chest pain, so at that time, a repeat catheterization was done after a week and found a oakes nt stent and no significant disease in circ and RCA. Recently, the patient admitted with bradycardia and beta jasen was held and repeat Holter was done that shows the lowest heart rate of 44 and the recommendation was no pacemaker needed on 07/27/2014. At this time, the patient was nauseous feeling and the patient was on metoprolol 50 b.i.d., resumed. The patient had slowed down yesterday a nd the patient had a 4-second pause so beta jasen was held and reduced to 12.5 b.i.d. Denies any c hest pain, shortness of breath or any palpitation. PHYSICAL EXAMINATION: VITAL SIGNS: Temperature afebrile, heart rate 50, blood pressure 144/83. HEENT: PERRLA. Extraocular muscles intact. NECK: Supple. No carotid bruits. No thyromegaly. CHEST: Clear to auscultation. HEART: S1, S2 regular. ABDOMEN: Soft. EXTREMITIES: Clubbing and cyanosis negative. LABORATORY DATA: Blood workup as follows: WBC 9.3, hemoglobin , hematocrit 40.9, platelet coun t 360. Chemistry shows sodium 139, potassium 4.4, chloride , carbon dioxide 20, anion gap 19, B UN 15, creatinine 0.9, troponin 0.01. IMPRESSION: No evidence of acute myocardial infarction, no evidence of acute coronary syndrome, his tory of coronary artery disease, status post percutaneous transluminal coronary angioplasty with a st ent in the left anterior descending 01/13/2009. Repeat cardiac catheterization a week after because o f chest pain, a patent stent in left anterior descending, no significant disease of circumflex and ri ght coronary artery dated 01/18/2009. Recent stress test was essentially negative. The patient walke d on a treadmill 6-minutes and 9 seconds and it was essentially negative. The patient had a signific ant bradycardia on 50 mg of beta jasen so it was held to 12.5 b.i.d. PLAN: The plan is to continue to observe and if the patient remains stable, possible discharge, but if the patient becomes tachybrady syndrome or hard to control heart rate, consider pacemaker in the l donte run, followed up with Dr. Lee as an outpatient. I discussed with the patient. The patient cu rrently has a UTI and is being evaluated for culture and sensitivity. Will follow with you. Thank you, Dr. Marcus, for providing the opportunity in taking care of this patient. Eleazar Odonnell MD cc: [id number] TT: 02/13/2017 18:42:09 Confirmation # [id number] Dictation # [id number] adal
--- NOTE | 2017-02-16 09:33 | CARD ---
APPROVED REPORT EKG Measurement Heart [id number] <Conclusion> Normal sinus rhythm Normal ECG
== END 2017-02-14 17:26 | disposition home or self-care (01) ==
LOC: ED 20:47 → ERH 23:49 → 2RNO 02-11 01:49 → INTOOBSV 02-11 20:57 → OBSVTOIN 02-11 20:57
PROVIDERS: ADMIT Internal Medicine; ATTEND Internal Medicine
DX: I16.0 Hypertensive urgency (principal); R55 Syncope and collapse; N39.0 Urinary tract infection, site not specified; I12.9 Hypertensive chronic kidney disease with stage 1 through stage 4 chronic kidney disease, or unspecified chronic kidney disease; E11.22 Type 2 diabetes mellitus with diabetic chronic kidney disease; N18.9 Chronic kidney disease, unspecified; I27.2 Other secondary pulmonary hypertension; K80.20 Calculus of gallbladder without cholecystitis without obstruction; B96.1 Klebsiella pneumoniae [K. pneumoniae] as the cause of diseases classified elsewhere; I25.10 Atherosclerotic heart disease of native coronary artery without angina pectoris; G47.33 Obstructive sleep apnea (adult) (pediatric); K21.9 Gastro-esophageal reflux disease without esophagitis; E78.1 Pure hyperglyceridemia; I08.3 Combined rheumatic disorders of mitral, aortic and tricuspid valves; J44.9 Chronic obstructive pulmonary disease, unspecified; M48.00 Spinal stenosis, site unspecified; R31.9 Hematuria, unspecified; Z79.82 Long term (current) use of aspirin; Z95.5 Presence of coronary angioplasty implant and graft
CPT/HCPCS: 36415; 70450; 71010; 76770; 80053; 80061; 81001; 82550; 82803; 83036; 83615; 84443; 84484; 85027; 85610; 85730; 87086; 87181; 93005; 93306; 93970; 96365; 96366; 99285; G0378; J0696

== ENCOUNTER 2017-07-07 18:44 | Inpatient (IN) | payer MEDICARE, OTHER ==
[2017-07-07 19:00] VITALS: BMI 28.1
--- NOTE | 2017-07-07 19:38 | ED PDOC ---
Arrival/HPI - General Chief Complaint: Dizziness/Lightheaded Time Seen by Provider: 07/07/17 19:09 Historian: Patient - History of Present Illness Narrative History of Present Illness (Text): 07/07/17 19:37 A 76 year old female, whose past medical history includes hypertension, cardiac stent, UTIs and cholelithiasis, presents to the emergency department complaining of dizziness, right sided headache and chills since this morning. Patient reports dizziness and lightheadedness worse when standing feels similar to previous symptoms. Notes right sided headache resolved after taking Tylenol. Patient reports high blood pressure in PMD office earlier this morning and was given medication. Notes nausea but denies any cough, vomiting, diarrhea or any other complaints at this time. PMD: Dr. Marcus Symptom Onset: Sudden Symptom Course: Unchanged Activities at Onset: Rest Context: Home Past Medical History - Provider Review Nursing Documentation Reviewed: Yes - Infectious Disease Hx of Infectious Diseases: None - Tetanus Immunization Tetanus Immunization: Unknown - Cardiac Hx Cardiac Disorders: Yes Hx Hypertension: Yes Other/Comment: cardiac cath x 1 stent - Pulmonary Hx Respiratory Disorders: No - Neurological Hx Neurological Disorder: No - HEENT Hx HEENT Disorder: Yes Hx Cataracts: Yes - Renal Hx Renal Disorder: Yes Hx Pyelonephritis: Yes - Endocrine/Metabolic Hx Endocrine Disorders: No - Hematological/Oncological Hx Blood Disorders: No - Integumentary Hx Dermatological Disorder: No - Musculoskeletal/Rheumatological Hx Falls: No - Gastrointestinal Hx Gastrointestinal Disorders: Yes Hx Gastroesophageal Reflux: Yes - Genitourinary/Gynecological Hx Genitourinary Disorders: Yes Hx Urinary Tract Infection: Yes - Psychiatric Hx Psychophysiologic Disorder: No Hx Emotional Abuse: No Hx Physical Abuse: No Hx Substance Use: No - Surgical History Hx Cardiac Catheterization: Yes Hx Coronary Stent: Yes - Anesthesia Hx Anesthesia: Yes Hx Anesthesia Reactions: No Hx Malignant Hyperthermia: No - Suicidal Assessment Feels Threatened In Home Enviroment: No Family/Social History - Physician Review Nursing Documentation Reviewed: Yes Family/Social History: Other (non contributory) Smoking Status: Never Smoked Hx Alcohol Use: No Hx Substance Use: No Hx Substance Use Treatment: No Allergies/Home Meds Allergies/Adverse Reactions: Allergies No Known Allergies Allergy (Verified 02/10/17 20:57) Home Medications: Home Meds Medication Instructions Recorded Confirmed Aspirin [Ecotrin] 81 mg PO DAILY 05/15/16 07/07/17 Clopidogrel [Plavix] 75 mg PO DAILY 05/15/16 07/07/17 Famotidine [Pepcid] 20 mg PO BID 05/15/16 07/07/17 Losartan [Cozaar] 50 mg PO DAILY 05/15/16 07/07/17 Metoprolol Tartrate [Lopressor] 50 mg PO DAILY 05/15/16 07/07/17 Simvastatin [Zocor] 40 mg PO DAILY 05/15/16 07/07/17 Ursodiol [Actigall] 300 mg PO BID 05/15/16 07/07/17 amLODIPine [Norvasc] 5 mg PO DAILY 05/15/16 07/07/17 Hydrochlorothiazide [Microzide] 1 tab PO DAILY 07/07/17 07/07/17 Review of Systems - Physician Review All systems were reviewed & negative as marked: Yes - Review of Systems Constitutional: Other (chills) Respiratory: absent: Cough Gastrointestinal: Nausea. absent: Diarrhea, Vomiting Neurological: Headache (right sided, currently resolved), Dizziness Physical Exam Vital Signs Reviewed: Yes Vital Signs Temp Pulse Resp BP Pulse Ox 07/07/17 19:33 97.9 F 07/07/17 19:08 166/69 H 07/07/17 19:01 97.6 F 74 18 199/83 H 98 Appearance: Positive for: Well-Appearing, Non-Toxic, Comfortable Pain Distress: None Mental Status: Positive for: Alert and Oriented X 3 Finger Stick Blood Glucose: 99 - Systems Exam Head: Present: Atraumatic, Normocephalic Pupils: Present: PERRL Extroacular Muscles: Present: EOMI Conjunctiva: Present: Normal Mouth: Present: Moist Mucous Membranes Neck: Present: Normal Range of Motion Respiratory/Chest: Present: Clear to Auscultation, Good Air Exchange. No: Respiratory Distress, Accessory Muscle Use Cardiovascular: Present: Regular Rate and Rhythm, Normal S1, S2. No: Murmurs Abdomen: Present: Normal Bowel Sounds. No: Tenderness, Distention, Peritoneal Signs Back: Present: Normal Inspection Upper Extremity: Present: Normal Inspection. No: Cyanosis, Edema Lower Extremity: Present: Normal Inspection. No: Edema Neurological: Present: GCS=15, CN II-XII Intact, Speech Normal Skin: Present: Warm, Dry, Normal Color. No: Rashes Psychiatric: Present: Alert, Oriented x 3, Normal Insight, Normal Concentration Medical Decision Making ED Course and Treatment: 07/07/17 20:48 EKG: Ordered, reviewed, and independently interpreted the EKG. Rate : 74 BPM Rhythm : NSR Interpretation : Normal axis, no STEMI CT Head Without Intravenous Contrast FINDINGS: Brain: Dzss-uh-btgmocqj atrophy. No intracranial hemorrhage. No mass. Senescent calcifications of basal ganglia. Few scattered foci of decreased attenuation within periventricular/subcortical white matter. No definite edema. Ventricles: No hydrocephalus. Bones/joints: No acute fracture. Soft tissues: Unremarkable. Vasculature: Atherosclerotic disease of intracranial arteries. Sinuses: No acute sinusitis. Mastoid air cells: Partial opacification of RIGHT mastoid, grossly stable. Orbits: Postsurgical changes of RIGHT globe. IMPRESSION: 1. Nonspecific white matter changes. Acute infarction may be CT occult within first 24 hours. If a focal deficit persists, consider followup CT or MRI for further evaluation. 2. Incidental/non-acute findings are described above. Dictated and Authenticated by: Philippe Morales MD 07/07/2017 9:45 PM Eastern Time ([place] & [place]) disc w Dr Marcus who will admit - Lab Interpretations Microbiology Results: Microbiology Results 07/07/17 20:10 Urine Urine Culture - Final Escherichia Coli Lab Results: 07/09/17 06:00 07/09/17 06:00 Lab Results 07/09/17 06:00: TSH 3rd Generation 1.28 07/09/17 06:00: Sodium 136, Potassium 4.4, Chloride 98, Carbon Dioxide 26, Anion Gap 16, BUN 21, Creatinine 1.1, Est GFR ( Amer) 58, Est GFR (Non- Af Amer) 48, Random Glucose 97, Calcium 9.4, Total Bilirubin 0.6, AST 35, ALT 27 , Alkaline Phosphatase 60, Total Protein 8.0, Albumin 4.3, Globulin 3.6, Albumin /Globulin Ratio 1.2, Triglycerides 102, Cholesterol 123 L, LDL Cholesterol Direct 35, HDL Cholesterol 60 07/09/17 06:00: WBC 10.6, RBC 4.54, Hgb 14.1, Hct 41.5, MCV 91.4, MCH 31.1, MCHC 34.0, RDW 12.4, Plt Count 346, MPV 8.0 07/07/17 20:10: Urine Color Yellow, Urine Appearance Clear, Urine pH 7.0, Ur Specific [place] 1.015, Urine Protein 30 H, Urine Glucose (UA) Negative, Urine Ketones Negative, Urine Blood Trace-intact H, Urine Nitrate Negative, Urine Bilirubin Negative, Urine Urobilinogen 0.2, Ur Leukocyte Esterase Small H, Urine RBC 1 - 3, Urine WBC 5 - 10, Ur Epithelial Cells 0 - 2, Urine Bacteria Few 07/07/17 19:39: Sodium 133, Potassium 4.7, Chloride 92 L, Carbon Dioxide 26, Anion Gap 20, BUN 23 H, Creatinine 1.1, Est GFR ( Amer) 58, Est GFR (Non- Af Amer) 48, Random Glucose 106, Calcium 9.9, Total Bilirubin 0.7, AST 54 H, ALT 24, Alkaline Phosphatase 64, Troponin I < 0.01, Total Protein 9.0 H, Albumin 4.8, Globulin 4.2, Albumin/Globulin Ratio 1.1 07/07/17 19:39: WBC 9.9, RBC 4.58, Hgb 14.5, Hct 41.7, MCV 91.0, MCH 31.7, MCHC 34.8, RDW 12.1, Plt Count 336, MPV 7.9, Gran % 56.2, Lymph % (Auto) 27.0, [place] % (Auto) 12.7 H, Eos % (Auto) 3.7, Baso % (Auto) 0.4, Gran # 5.54, Lymph # 2.7, [place] # 1.3 H, Eos # 0.4, Baso # 0.04 I have reviewed the lab results: Yes - RAD Interpretation Radiology Orders: 07/07/17 19:26 HEAD W/O CONTRAST [CT] Stat CHEST PORTABLE [RAD] Stat - EKG Interpretation Interpreted by ED Physician: Yes Type: 12 lead EKG - Medication Orders Current Medication Orders: Amlodipine Besylate (Norvasc) 5 mg PO DAILY [facility] Last Admin: 07/10/17 11:28 Dose: Aspirin (Ecotrin) 81 mg PO DAILY [facility] Last Admin: 07/10/17 11:27 Dose: Atorvastatin Calcium (Lipitor) 20 mg PO DIN [facility] Last Admin: 07/10/17 17:47 Dose: 20 mg Cephalexin Monohydrate (Keflex) 250 mg PO TID [facility] PRN Reason: Protocol Stop: 07/14/17 23:59 Last Admin: 07/10/17 17:47 Dose: 250 mg Clopidogrel Bisulfate (Plavix) 75 mg PO DAILY [facility] Last Admin: 07/10/17 11:28 Dose: Doxycycline Hyclate (Doryx) 100 mg PO Q12 [facility] PRN Reason: Protocol Last Admin: 07/10/17 11:07 Dose: 100 mg Fluticasone Propionate (Flonase) 1 actuation NS Q12 [facility] Last Admin: 07/10/17 11:36 Dose: 1 spr Hydrochlorothiazide (Microzide) 12.5 mg PO DAILY [facility] Last Admin: 07/10/17 11:27 Dose: Loratadine (Claritin) 10 mg PO DAILY [facility] Last Admin: 07/10/17 11:08 Dose: 10 mg Losartan Potassium (Cozaar) 50 mg PO DAILY [facility] Last Admin: 07/10/17 11:27 Dose: Metoprolol Tartrate (Lopressor) 25 mg PO BID [facility] Last Admin: 07/10/17 17:47 Dose: 25 mg MAR Pulse and Blood Pressure Document 07/10/17 17:47 SOUSV (Rec: 07/10/17 17:47 SOUSV [id number]) Pulse Pulse Rate (60-90) 61 Blood Pressure Blood Pressure (100/60-150/90) 129/72 Montelukast Sodium (Singulair) 10 mg PO HS [facility] Last Admin: 07/09/17 22:16 Dose: 10 mg Prednisone (Prednisone Tab) 10 mg PO DAILY [facility] Last Admin: 07/10/17 11:08 Dose: 10 mg Ursodiol (Actigall) 300 mg PO BID [facility] Last Admin: 07/10/17 17:47 Dose: 300 mg Discontinued Medications Atenolol (Tenormin) 12.5 mg PO STAT STA Stop: 07/09/17 18:43 Last Admin: 07/09/17 18:54 Dose: 12.5 mg MAR Pulse and Blood Pressure Document 07/09/17 18:54 SML (Rec: 07/09/17 18:54 SML [id number]) Pulse Pulse Rate (60-90) 99 Blood Pressure Blood Pressure (100/60-150/90) 157/99 Sodium Chloride (Sodium Chloride 0.9%) 1,000 mls @ 999 mls/hr IV .Q1H1M STA Stop: 07/07/17 22:56 Last Admin: 07/07/17 22:10 Dose: 999 mls/hr eMAR Start Stop Document 07/07/17 22:10 OCS (Rec: 07/07/17 22:10 OCS [id number]) Intravenous Solution Start Date 07/07/17 Start Time 22:10 Sodium Chloride (Sodium Chloride 0.9%) 1,000 mls @ 50 mls/hr IV .Q20H [facility] Stop: 07/10/17 20:00 Metoprolol Tartrate (Lopressor) 50 mg PO DAILY [facility] Last Admin: 07/09/17 09:31 Dose: 50 mg MAR Pulse and Blood Pressure Document 07/09/17 09:31 SML (Rec: 07/09/17 09:31 L [id number]) Pulse Pulse Rate (60-90) 70 Blood Pressure Blood Pressure (100/60-150/90) 112/66 Non-Formulary Medication (Simvastatin [Zocor]) 40 mg PO DAILY [facility] - Scribe Statement The provider has reviewed the documentation as recorded by the [place] Provider Scribe Attestation: All medical record entries made by the Estephanieibbiju were at my direction and personally dictated by me. I have reviewed the chart and agree that the record accurately reflects my personal performance of the history, physical exam, medical decision making, and the department course for this patient. I have also personally directed, reviewed, and agree with the discharge instructions and disposition. Disposition/Present on Arrival - Present on Arrival Any Indicators Present on Arrival: No History of DVT/PE: No History of Uncontrolled Diabetes: No Urinary Catheter: No History of Decub. Ulcer: No History Surgical Site Infection Following: None - Disposition Have Diagnosis and Disposition been Completed?: Yes Diagnosis: Near syncope Disposition: HOSPITALIZED Disposition Time: 22:50 Condition: STABLE
[2017-07-07 19:59] LABS: BASO # 0.04 K/mm3 (0.0-2.0); BASO % 0.4 % (0.0-3.0); EOS # 0.4 (0.0-0.7); EOS % 3.7 % (1.5-5.0); GRAN # 5.54 (1.4-6.5); GRAN % 56.2 % (50.0-68.0); HEMATOCRIT 41.7 % (36.0-48.0); LYMPH # 2.7 (1.2-3.4); MEAN CORPUSCULAR HEMOGLOBIN 31.7 pg (25.0-35.0); MEAN CORPUSCULAR HGB CONC 34.8 g/dl (31.0-37.0); MEAN PLATELET VOLUME 7.9 fl (7.0-11.0); MONO # 1.3 (0.1-0.6); MONO % 12.7 % (1.0-6.0); RED CELL DISTRIBUTION WIDTH 12.1 % (11.5-14.5); WHITE BLOOD COUNT 9.9 10^3/ul (4.5-11.0)
[2017-07-07 20:08] LABS: ALB/GLOB RATIO 1.1 (1.1-1.8); ALKALINE PHOSPHATASE 64 U/L (38-126); ALT/SGPT 24 U/L (7-56); AST/SGOT 54 U/L (14-36); BILIRUBIN,TOTAL 0.7 mg/dL (0.2-1.3); BLOOD UREA NITROGEN 23 mg/dL (7-21); CALCIUM 9.9 mg/dL (8.4-10.5); CARBON DIOXIDE 26 mmol/L (21-33); CHLORIDE 92 mmol/L (98-107); GFR AFRICAN-AMERICAN 58; GLUCOSE,RANDOM 106 mg/dL (70-110); POTASSIUM 4.7 mmol/L (3.6-5.0); SODIUM 133 mmol/L (132-148)
[2017-07-07 20:22] LABS: TROPONIN I < 0.01 ng/mL
[2017-07-07 20:30] LABS: URINE BILIRUBIN NEGATIVE (NEGATIVE); URINE BLOOD TRACE-INTACT (NEGATIVE); URINE GLUCOSE (UA) NEGATIVE (NEGATIVE); URINE KETONE NEGATIVE (NEGATIVE); URINE LEUKOCYTE ESTERASE SMALL Leu/uL (NEGATIVE); URINE PROTEIN 30 mg/dL (<30 mg/dL); URINE UROBILINOGEN 0.2 E.U./dL (<1 E.U./dL)
[2017-07-07 20:38] LABS: URINE APPEARANCE CLEAR (CLEAR); URINE COLOR YELLOW (YELLOW)
[2017-07-07 20:50] LABS: URINE BACTERIA FEW (NEG); URINE EPITHELIAL CELLS 0 - 2 /hpf (0-5)
--- NOTE | 2017-07-07 21:46 | CT ---
EXAM: CT Head Without Intravenous Contrast CLINICAL HISTORY: 76 years old, female; Signs and symptoms; Dizziness; Additional info: Dizzy headache TECHNIQUE: Axial computed tomography images of the head/brain without intravenous contrast. All CT scans at this facility use one or more dose reduction techniques, viz.: automated exposure control; ma/kV adjustment per patient size (including targeted exams where dose is matched to indication; i.e. head); or iterative reconstruction technique. COMPARISON: CT - HEAD W/O CONTRAST 02/10/2017 10:55:00 PM FINDINGS: Brain: Rpxo-xi-dylwomkf atrophy. No intracranial hemorrhage. No mass. Senescent calcifications of basal ganglia. Few scattered foci of decreased attenuation within periventricular/subcortical white matter. No definite edema. Ventricles: No hydrocephalus. Bones/joints: No acute fracture. Soft tissues: Unremarkable. Vasculature: Atherosclerotic disease of intracranial arteries. Sinuses: No acute sinusitis. Mastoid air cells: Partial opacification of RIGHT mastoid, grossly stable. Orbits: Postsurgical changes of RIGHT globe. IMPRESSION: 1. Nonspecific white matter changes. Acute infarction may be CT occult within first 24 hours. If a focal deficit persists, consider followup CT or MRI for further evaluation. 2. Incidental/non-acute findings are described above.
[2017-07-07] MEDS ORDERED: Sodium Chloride 0.9% 1,000 ML IV STA (21:56)
--- NOTE | 2017-07-08 09:30 | CP.PCM.CON ---
<RaysaAna - Last Filed: 07/08/17 12:35> History of Present Illness - History of Present Illness History of Present Illness: Neurology Consult Note for Clarissa Rincon PGY2 Reason for consult: near syncope This is a 76Y F with PMH HTN, CAD s/p stent and UTIs who came to ED for R sided headache and dizziness. Patient reports she woke up in the morning and felt dizzy with a R sided headache that radiated to her neck. The headache was relieved by Tylenol. Later that morning, she went to her appointment with Dr. Marcus and her BP was found to be elevated. She described her symptoms to Dr. Marcus and patient was sent to the ED. Patient denies having any vision changes , CP, SOB, n/v/d, numbness/tingling, weakness, fever/chills, dysuria or hematuria. In the ED, patient's head CT was noted to be negative and SBP was 199. In January 2017, Dr. Mtz saw the patient for similar symptoms with SBP in the 190s. Her symptoms were thought to be secondary to transient hypertensive urgency. This am, patient denies having any headache or dizziness. PMH: HTN, CAD s/p stent, UTIs PSH: cardiac stents Home meds: As per MAR All: NKDA SH: Denies EtOH, drug or tobacco use. Lives with . Review of Systems - Review of Systems All systems: reviewed and no additional remarkable complaints except Review of Systems: + headache, dizziness Past Patient History - Infectious Disease Hx of Infectious Diseases: None - Tetanus Immunizations Tetanus Immunization: Unknown - Past Social History Smoking Status: Never Smoked Alcohol: None Drugs: Denies Home Situation {Lives}: With Family - CARDIAC Hx Cardiac Disorders: Yes Hx Hypertension: Yes Other/Comment: cardiac cath x 1 stent - PULMONARY Hx Respiratory Disorders: No - NEUROLOGICAL Hx Neurological Disorder: No Hx Dizziness: Yes - HEENT Hx HEENT Problems: Yes Hx Cataracts: Yes - RENAL Hx Chronic Kidney Disease: Yes Hx Pyelonephritis: Yes - ENDOCRINE/METABOLIC Hx Endocrine Disorders: No - HEMATOLOGICAL/ONCOLOGICAL Hx Blood Disorders: No - INTEGUMENTARY Hx Dermatological Problems: No - MUSCULOSKELETAL/RHEUMATOLOGICAL Hx Falls: No - GASTROINTESTINAL Hx Gastrointestinal Disorders: Yes Hx Gastroesophageal Reflux: Yes - GENITOURINARY/GYNECOLOGICAL Hx Genitourinary Disorders: Yes Hx Urinary Tract Infection: Yes - PSYCHIATRIC Hx Psychophysiologic Disorder: No Hx Emotional Abuse: No Hx Physical Abuse: No Hx Substance Use: No - SURGICAL HISTORY Hx Surgeries: Yes Hx Cardiac Catheterization: Yes Hx Coronary Stent: Yes - ANESTHESIA Hx Anesthesia: Yes Hx Anesthesia Reactions: No Hx Malignant Hyperthermia: No Meds Allergies/Adverse Reactions: Allergies Allergy/AdvReac Type Severity Reaction Status Date / Time No Known Allergies Allergy Verified 02/10/17 20:57 Physical Exam - Constitutional Appears: No Acute Distress - Head Exam Head Exam: ATRAUMATIC, NORMAL INSPECTION, NORMOCEPHALIC - Eye Exam Eye Exam: Normal appearance, PERRL Pupil Exam: NORMAL ACCOMODATION, PERRL - ENT Exam ENT Exam: Mucous Membranes Moist - Respiratory Exam Respiratory Exam: Clear to Auscultation Bilateral, NORMAL BREATHING PATTERN. absent: Rales, Rhonchi, Wheezes - Cardiovascular Exam Cardiovascular Exam: REGULAR RHYTHM, +S1, +S2. absent: Gallop, Rubs, Systolic Murmur - GI/Abdominal Exam GI & Abdominal Exam: Normal Bowel Sounds, Soft. absent: Rigid, Tenderness - Extremities Exam Extremities exam: Positive for: normal inspection. Negative for: calf tenderness, pedal edema - Neurological Exam Neurological exam: Alert, CN II-XII Intact, Oriented x3 - Psychiatric Exam Psychiatric exam: Normal Affect, Normal Mood - Skin Skin Exam: Dry, Intact, Normal Color, Warm Results - Vital Signs Recent Vital Signs: Last Vital Signs Temp 97.9 F 07/08/17 01:16 Pulse 59 L 07/08/17 06:00 Resp 20 07/08/17 01:16 BP 143/77 07/08/17 01:16 Pulse Ox 98 07/07/17 19:01 - Labs Result Diagrams: 07/07/17 19:39 07/07/17 19:39 Assessment & Plan - Assessment and Plan (Free Text) Assessment: This is a 76Y F with PMH HTN, CAD s/p stent and UTIs who came to ED for R sided headache and dizziness. Head CT was noted to be negative and SBP on arrival was >190. Patient was evaluated for similar symptoms in January 2017. Dizziness and headache is secondary to transient hypertensive urgency. Plan: - Avoid fluctuations in BP (Maintain SBP <150) - Continue ASA, Lipitor, Plavix - No focal deficits noted at this time - Recommend low salt diet No further neurological work up needed. Thank you for this consultation. Will sign off. Please re-consult if needed. Case seen, discussed and reviewed with attending, Dr. Mtz. Clarissa Tabares PGY2 - Date & Time Date: 07/08/17 Time: 09:35 <Albino Mtz - Last Filed: 07/08/17 13:46> Meds - Medications Medications: Current Medications Amlodipine Besylate (Norvasc) 5 mg PO DAILY [facility] Aspirin (Ecotrin) 81 mg PO DAILY [facility] Atorvastatin Calcium (Lipitor) 20 mg PO DIN [facility] Clopidogrel Bisulfate (Plavix) 75 mg PO DAILY [facility] Hydrochlorothiazide (Microzide) 12.5 mg PO DAILY [facility] Losartan Potassium (Cozaar) 50 mg PO DAILY [facility] Metoprolol Tartrate (Lopressor) 50 mg PO DAILY [facility] Ursodiol (Actigall) 300 mg PO BID [facility] Results - Vital Signs Recent Vital Signs: Last Vital Signs Temp 97.9 F 07/08/17 01:16 Pulse 59 L 07/08/17 06:00 Resp 20 07/08/17 01:16 BP 143/77 07/08/17 01:16 Pulse Ox 98 07/07/17 19:01 - Labs Result Diagrams: 07/07/17 19:39 07/07/17 19:39 Attending/Attestation - Attestation I have personally seen and examined this patient.: Yes I have fully participated in the care of the patient.: Yes I have reviewed all pertinent clinical information: Yes
--- NOTE | 2017-07-08 10:22 | CARD ---
APPROVED REPORT EKG Measurement Heart [id number] <Conclusion> Normal sinus rhythm Normal ECG
--- NOTE | 2017-07-08 12:41 | RAD ---
HISTORY: dizzy COMPARISON: 02/10/2017 FINDINGS: LUNGS: No active pulmonary disease. PLEURA: No significant pleural effusion identified, no pneumothorax apparent. CARDIOVASCULAR: Normal. OSSEOUS STRUCTURES: No significant abnormalities. VISUALIZED UPPER ABDOMEN: Normal. OTHER FINDINGS: None. IMPRESSION: No active disease.
--- NOTE | 2017-07-08 15:14 | CON ---
DATE: 07/08/2017 LOCATION: The patient is in room 361, bed 2. REASON FOR CONSULTATION: Dizziness, unsteady gait, hypertension, coronary artery disease, history of stent insertion, history renal failure. HISTORY OF PRESENT ILLNESS: The patient is a 76-year-old female with known case of hypertension, coronary artery disease, history of stent insertion to LAD in 2007, hypertension since 1994, admitted with the history that on the day of admission, she started feeling dizzy and unsteady gait. She did not settle down, she did not pass out, but she felt like that she is going to fall down due to unsteady gait. Denies any chest pain, shortness of breath or palpitation associated with these symptoms. PAST MEDICAL HISTORY: The patient is known to have hypertension, coronary artery disease, history of stent insertion to LAD in 2007. The patient was also told that she had cholelithiasis and she also was treated for UTIs. PAST SURGICAL HISTORY: The patient had cataract surgery in both eyes. FAMILY HISTORY: Positive for high blood pressure. PERSONAL HISTORY: Denies smoking. Denies drinking. ALLERGIES: DENIES ANY ALLERGIES. LIST OF MEDICATIONS AT HOME: The patient was taking Lopressor 50 mg daily, Cozaar 50 daily, hydrochlorothiazide 1 tablet daily, Pepcid 20 mg b.i.d, Plavix 75 mg daily, Norvasc 5 mg daily, Zocor 40 mg daily. REVIEW OF SYSTEMS: All other systems reviewed. Positive mentioned in the history, others are negative. PHYSICAL EXAMINATION: VITAL SIGNS: Blood pressure 143/77. On admission, blood pressure was 199/83, respirations 20, pulse 62. The patient is afebrile. HEENT: Head is normocephalic. Eyes: Pupils normal. Conjunctivae normal. Nose and throat normal. NECK: JVP low. Carotids are equal. THORAX: AP diameter normal. LUNGS: Clear. CARDIOVASCULAR: S1 and S2. ABDOMEN: Soft and nontender. No organomegaly. Bowel sounds normal. EXTREMITIES: No clubbing. No cyanosis. LABORATORY DATA: Shows, WBC 9.9, hemoglobin 14.5, hematocrit 41.7, platelet 336. Sodium 133, potassium 4.7, BUN 23, creatinine 1.1, calcium 9.9, AST 54, ALT 24, troponin less than 0.01. Total protein 9.0, albumin 4.8. CAT scan of the head showed nonspecific white matter changes. EKG showed normal sinus rhythm. Chest x-ray lungs, no acute pulmonary disease. DIAGNOSES: Dizziness, unsteady gait, uncontrolled hypertension, coronary artery disease, history of stent insertion to left anterior descending, hyperlipidemia. CARDIAC WORKUP: The patient had a stress test on 05/15/2016 which was negative with LV ejection fraction of 78%. The patient had echo at our office on 04/24/2016, which showed normal size LV with LV function systolic normal with ejection fraction of 60% to 65%. Moderate aortic regurgitation, moderate mitral regurgitation, [id number] tricuspid regurgitation. PLAN: We will check the patient's orthostatic blood pressures. In the meantime, the patient is on Actigall 300 mg p.o. b.i.d., Losartan 50 daily, aspirin 81 mg daily, Lipitor 20 mg daily, metoprolol 50 mg daily, hydrochlorothiazide 12.5 mg p.o. daily, amlodipine 5 mg daily and Plavix 75 mg daily. We will check lipid profile and TSH also. We will continue present therapy. We will follow with you clinically. Cardiac status is stable. The patient has no anginal symptoms. Eleazar Lee MD
--- NOTE | 2017-07-09 04:32 | CON ---
PULMONARY CONSULTATION DATE: 07/08/2017 REFERRING PHYSICIAN: Pricila Marcus MD REASON FOR CONSULT: Dizzy spell, rhinitis, loud snoring, daytime sleepy, and tired. HISTORY OF PRESENT ILLNESS: This is a 76-year-old female with known history of hypertension, coronary artery disease, history of coronary stent, hypertension, seasonal allergy, has some stuffy nose with some rhinitis, and admitted with loud snoring in nighttime. Apparently, she got up and felt unsteady and dizzy spell, came to Emergency Room, presently sitting at side of the bed, and no acute distress. According to her , she had loud snoring, daytime sleepy, and tired. No chest pain. No nausea. No vomiting. No diarrhea. No leg pain. No leg swelling. PAST MEDICAL HISTORY: Hypertension, coronary artery disease, coronary stent, history of cholelithiasis, and seasonal allergies. ALLERGIES: DENIED ANY ALLERGIES. SOCIAL HISTORY: Denied any smoking or alcohol use. FAMILY HISTORY: Has high blood pressure. REVIEW OF SYSTEMS: No headache or rhinitis. Ringing of the right ear. Not much cough. No sputum production. No nausea. No vomiting. No diarrhea. No leg pain. No leg swelling. Daytime sleepy and tired. PHYSICAL EXAMINATION: GENERAL: Sitting at side of the bed, no acute distress. VITAL SIGNS: Temperature is 99, heart rate is 72, respiratory rate is 18, and blood pressure 146/86. There was no orthostatic hypotension. Respiratory rate is 20. Pulse ox 98% on room air. HEENT: Moist mucous membranes. Small oral cavity. Crowded airway. Mallampati score is IV. No facial tenderness. Nasal mucosa is mildly erythematous. NECK: Has a short thick neck. LUNGS: Fair airflow with few rhonchi. HEART: S1 and S2. ABDOMEN: Soft and nontender. No organomegaly. EXTREMITIES: There is no edema. NEUROLOGIC: Awake and alert. Follow simple command. MEDICATIONS: She is on Actigall 300 mg twice a day, Cozaar 50 mg daily, Ecotrin 81 mg daily, Lipitor 20 mg daily, metoprolol tartrate 50 mg daily, hydrochlorothiazide 12.5 mg daily, Norvasc 5 mg daily, and Plavix 75 mg daily. LABORATORY DATA: CAT scan of the head is unremarkable. Chest x-ray does not show any infiltrate. IMPRESSION AND PLAN: Admitted with dizzy spell, has a coronary artery disease, history of coronary stent, hypertension, and may have a sleep apnea syndrome. Case discussed with the patient and at the bedside, all the questions answered. We will add Flonase one spray each nostril twice a day, Singulair 10 mg at bedtime, and Claritin 10 mg at bedtime. We will give prednisone 20 mg in the morning, may give doxycycline 100 mg twice a day for 5 days, outpatient pulmonary function test and sleep study, and cardiac workup. The patient was seen by Neurology. Workup is in progress. Thank you and we will follow with you. Eleazar Cruz MD
[2017-07-09] MEDS: Fluticasone Nasal 50 mcg/Spray NS SCH ×3 (05:39→22:16)
--- NOTE | 2017-07-09 06:37 | HP ---
CHIEF COMPLAINT: Dizziness, lightheadedness. HISTORY OF PRESENT ILLNESS: Ms. Susana Pena is a 76-year-old female with past medical history of hypertension, cardiac stenting, UTIs, cholelithiasis, came to the Emergency Room Department complaining of dizziness, right-sided headache, chills since this morning. The patient report dizziness and lightheadedness, worse when standing and feeling similar to previous symptoms, noticed right-sided headache has resolved after taking Tylenol. The patient reports that her blood pressure was high. Actually, she came in my office daytime with the same complaints. At that time, her blood pressure was high and some changes was happening in her family, some family member and the patient was not satisfied with her current medication regimen then she was taking hydrochlorothiazide 25 and she do not want hydrochlorothiazide 25, I made 12.5 and I added amlodipine and told her if signs and symptoms will increase go to the emergency room; as per patient, her signs and symptoms increased that is why she came to the emergency room, seen by emergency room doctor. We admitted the patient for Cardiology consult and we started home medications. PAST MEDICAL HISTORY: Hypertension, cardiac cath with stenting, cataract, renal disorder, pyelonephritis, cholelithiasis, gastroesophageal reflux disease, urinary tract infection, coronary stent, cardiac catheterization. FAMILY HISTORY: Father and mother noncontributory. HABITS: Never smoked. No drug. No ethanol. ALLERGIES: THE PATIENT IS NOT ALLERGIC WITH ANY MEDICATIONS. HOME MEDICATIONS: Ecotrin, Plavix, Pepcid, Cozaar, Lopressor, Zocor, Actigall, Norvasc, hydrochlorothiazide. REVIEW OF SYSTEMS: The patient was seen and examined on the bedside in the room. Looking comfortable. No nausea, vomiting or diarrhea. No hematuria. No hematochezia. No swelling of the leg. No chest pain. No palpitation. Right now, no headache, no dizziness, resting comfortably. No dyspnea. No fever. No chills. PHYSICAL EXAMINATION: VITAL SIGNS: Temperature 97.6, pulse 74, respiratory rate 18, blood pressure 199/83, repeat was 156/69, pulse oximetry 98. HEENT: Head; normocephalic and atraumatic. Eyes; PERRLA. Extraocular muscles are intact. Conjunctivae are clear. Nose is patent. Mucous membranes are moist. NECK: Supple. No carotid bruits, JVD or thyromegaly. CHEST: Bilaterally symmetrical. HEART: S1 and S2 positive. LUNGS: Clear to auscultation. ABDOMEN: Soft. Bowel sounds positive. No organomegaly. EXTREMITIES: No edema. No cyanosis. NEUROLOGIC: The patient is awake and alert. Moving all four extremities. No focal deficits. LABORATORY DATA: White blood cells 9.9, hemoglobin 14.5, hematocrit 41.7, platelets 336. Sodium 133, potassium 4.7, BUN 23, creatinine 1.1, glucose 106. ASSESSMENT AND PLAN: Ms. Susana Pena is a 76-year-old lady came with headache, did CAT scan of the head, there is nonspecific white matter changes, acute infarction may be CT occurred within post 24 hours, hypertension, history of hypercholesterolemia, hypertriglyceridemia, hypercholesterolemia, cholelithiasis, history of coronary artery disease, status post cardiac stenting, history of cataract surgery, pyelonephritis, gastroesophageal reflux disease, dyspepsia, came with dizziness, lightheadedness, admitted, call Cardiac consult with Dr. Lee and Neurology with Dr. Mtz. Dr. Lee want to check the patient's orthostatic blood pressure and want to continue present medications. According to Dr. Lee, the patient do not have any anginal symptoms, seen by Dr. Albino Mtz; according to him, the patient has history of multiple urinary tract infections, discussion done with neurologist. We will continue home medication. BUN is a little bit high, carbon dioxide is a little bit low. We will follow up. Gastrointestinal and deep venous thrombosis prophylaxis. Pricila Marcus MD
[2017-07-09 06:39] LABS: HEMATOCRIT 41.5 % (36.0-48.0); MEAN CELL VOLUME 91.4 fl (80.0-105.0); MEAN CORPUSCULAR HEMOGLOBIN 31.1 pg (25.0-35.0); RED CELL DISTRIBUTION WIDTH 12.4 % (11.5-14.5); WHITE BLOOD COUNT 10.6 10^3/ul (4.5-11.0)
[2017-07-09 06:55] LABS: ALB/GLOB RATIO 1.2 (1.1-1.8); BILIRUBIN,TOTAL 0.6 mg/dL (0.2-1.3); CALCIUM 9.4 mg/dL (8.4-10.5); POTASSIUM 4.4 mmol/L (3.6-5.0)
--- NOTE | 2017-07-09 15:51 | PN ---
DATE: 07/09/2017 LOCATION: The patient is in room 361, bed 2. REASON FOR CONSULTATION: Dizziness, unsteady gait, hypertension, coronary artery disease, history of stent insertion. SUBJECTIVE: The patient is conscious and alert now. Denies any chest pain, shortness of breath, or palpitations. Denies unsteady gait now and her dizziness has also improved, but on the monitor the patient has episodes of bradycardia. The patient was on Lopressor. PHYSICAL EXAMINATION: VITAL SIGNS: Blood pressure lying down 113/57, sitting 122/67, standing 110/66; respirations 18; pulse 70; temperature 98.1. HEENT: Head is normocephalic. Eyes: Pupils are normal, conjunctivae normal. Nose and throat normal. NECK: JVP low. Carotids equal. THORAX: AP diameter normal. LUNGS: Clear. CARDIOVASCULAR: S1 and S2. ABDOMEN: Soft. No tenderness. No organomegaly. Bowel sounds normal. EXTREMITIES: No clubbing. No cyanosis. LABORATORY DATA: Sodium 136, potassium 4.4, BUN 21, creatinine 1.1. Calcium, bilirubin, AST, ALT normal. Total protein and albumin normal. TSH is 1.28. Total cholesterol 123, LDL 35, HDL 60. The patient's stress test on 05/15/2016 was normal with an ejection fraction of 78%. Echo on 04/24/2016 at our office showed normal sized LV and ejection fraction 60% to 65%, moderate aortic regurgitation, moderate mitral regurgitation, moderate tricuspid regurgitation. DIAGNOSES: Dizziness, unsteady gait, uncontrolled hypertension, coronary artery disease, history of stent insertion in the left anterior descending artery, hyperlipidemia, episodes of bradycardia this morning. PLAN: We will stop the patient's Lopressor and monitor the heart rate. In the meantime, blood pressure is under control. The patient will continue Actigall 300 mg p.o. b.i.d., Cozaar 50 mg daily, aspirin 81 mg daily, hydrochlorothiazide 12.5 mg daily, amlodipine 5 mg daily, Plavix 75 mg daily, prednisone 10 mg daily, Singulair 10 mg at bedtime. We will follow. Eleazar Lee MD
--- NOTE | 2017-07-09 17:37 | CARD ---
APPROVED REPORT EKG Measurement Heart [id number] <Conclusion> Sinus rhythm with frequent premature ventricular complexes Prolonged QT Abnormal ECG
--- NOTE | 2017-07-10 03:31 | PN ---
SUBJECTIVE: The patient is a 76-year-old female. The patient was seen and examined at the bedside. Looking comfortable. No nausea, vomiting or diarrhea. Daughter is sitting on the bedside also. Dizziness is a little bit better. Denies chest pain, shortness of breath, or palpitation. Denies unsteady gait. No shortness of breath. The patient has couple of time episodes of bradycardia. The patient was on Lopressor. We hold the Lopressor. PHYSICAL EXAMINATION: VITAL SIGNS: Blood pressure 113/54 lying down, sitting 122/67, standing 110/66; respiratory rate 18, pulse 70, temperature 98.1. HEENT: Head is normocephalic, atraumatic. Eyes; PERRLA. Extraocular muscles intact. Conjunctivae clear. Nose patent. Mucous membrane moist. NECK: Supple. No carotid bruits, JVD, or thyromegaly. CHEST: Bilaterally symmetrical. HEART: S1 and S2 positive. LUNGS: Clear to auscultation. ABDOMEN: Soft. Bowel sounds positive. No organomegaly. EXTREMITIES: No edema. No cyanosis. NEUROLOGICAL: The patient is awake and alert. Moving all four extremities. No focal deficit. MEDICATIONS: Actigall, Claritin, Cozaar, doxycycline, Ecotrin, Flonase, Lipitor, hydrochlorothiazide, Norvasc, Plavix, Singulair, Tenormin. LABORATORY DATA: White blood cells 10.6, hemoglobin 14.1, hematocrit 41.5, platelets 346. Sodium 136, potassium 4.4, BUN 21, creatinine 1.1. AST 54. Cholesterol 123. Reviewed results of old stress test and echocardiography. ASSESSMENT AND PLAN: The patient is a 76-year-old lady came with dizziness, light headedness, has episodes of bradycardia, uncontrolled hypertension, coronary artery disease, history of cardiac stenting in the left anterior descending artery, hypercholesterolemia, has episodes of bradycardia at least 2 to 3 times in 24 hours. Stop the Lopressor, but in the evening, nurse called me that now the patient is having at.fib. Orthostatic is negative. We will continue Actigall for cholelithiasis, aspirin, hydrochlorothiazide, amlodipine and Plavix 75 mg p.o. daily, the patient's prednisone also. Electrocardiography done. Sleep apnea syndrome. Dr. Cruz added the Flonase, add the doxycycline. EKG shows sinus rhythm with frequent premature ventricular complexes, prolonged Q-T interval, abnormal ECG. Scrap Wheeler is on the case. We will follow up. Pricila Marcus MD MTDConnie
[2017-07-10 09:27] LABS: BASO # 0.04 K/mm3 (0.0-2.0); BASO % 0.3 % (0.0-3.0); EOS # 0.3 (0.0-0.7); EOS % 2.2 % (1.5-5.0); GRAN # 7.42 (1.4-6.5); HEMATOCRIT 44.2 % (36.0-48.0); LYMPH % 25.3 % (22.0-35.0); MEAN CELL VOLUME 91.3 fl (80.0-105.0); MEAN CORPUSCULAR HEMOGLOBIN 31.8 pg (25.0-35.0); MEAN CORPUSCULAR HGB CONC 34.8 g/dl (31.0-37.0); MEAN PLATELET VOLUME 8.4 fl (7.0-11.0); MONO # 1.1 (0.1-0.6); MONO % 9.2 % (1.0-6.0); RED CELL DISTRIBUTION WIDTH 12.2 % (11.5-14.5); WHITE BLOOD COUNT 11.8 10^3/ul (4.5-11.0)
[2017-07-10 09:29] LABS: BLOOD UREA NITROGEN 25 mg/dL (7-21); CALCIUM 9.7 mg/dL (8.4-10.5); CARBON DIOXIDE 30 mmol/L (21-33); CHLORIDE 93 mmol/L (98-107); GFR AFRICAN-AMERICAN > 60; GLUCOSE,RANDOM 121 mg/dL (70-110); POTASSIUM 4.3 mmol/L (3.6-5.0); SODIUM 135 mmol/L (132-148)
[2017-07-10 09:31] LABS: INR 1.02 (0.93-1.08)
--- NOTE | 2017-07-10 10:40 | PN ---
REASON FOR CONSULTATION: Followup tachy-petra syndrome, sick sinus syndrome. SUBJECTIVE: The patient is sitting in the chair. Occasionally tired and feels dizzy. OBJECTIVE: Now sitting in a chair, not in apparent distress. Whole night went into tachy-petra syndrome. Went to atrial fibrillation. Heart rate went to 130 and then, dropped down to junctional 30. 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 PHYSICAL EXAMINATION: VITAL SIGNS: Temperature afebrile, heart rate 70, blood pressure 122/66. Orthostatic was as follows: lying blood pressure 113/57, sitting 122/67, standing 110/56. HEENT: Eyes: PERRLA, intact. NECK: Supple. No carotid bruits or thyromegaly. CHEST: Clear to auscultation. HEART: S1 and S2 regular. ABDOMEN: Soft. EXTREMITIES: Clubbing, cyanosis negative. LABORATORY DATA: Blood workup as follows: WBC 10.6, hemoglobin 14.0, hematocrit 41.5, platelet count 346. Chemistry shows, sodium 130, potassium 4.4, chloride 98, carbon dioxide 26, anion gap of 15, BUN 21, creatinine 1.1. Telemetry strip shows junctional petra heart rate of 30. Last night the patient's heart rate went to 130. Give 12.5 of atenolol but the patient becomes bradycardia. IMPRESSION: Sick sinus syndrome, tachy-petra syndrome, coronary artery disease status post multiple stents, that also needs a beta jasen. Without beta jasen the patient goes atrial fibrillation with rapid ventricular rate and with the beta jasen the patient's heart rate drops to 30 and symptomatic and dizziness and near syncope. The patient's recent stress test 05/15/2016 shows normal ejection fraction of 78%. Last echo 04/24/[address] Kaur's office showed ejection fraction 60 to 65% moderate aortic regurgitation, moderate mitral regurgitation, moderate tricuspid regurgitation. RECOMMENDATION: Discussed with the patient about pacemaker. The patient was in here in January and we put the Holter, did not show heart rate below 40. But this time patient shows significant bradycardia with typical sick sinus syndrome and multiple pauses. In view of the above, the patient is scheduled for pacemaker at 3 p.m. I explained the benefits to the patient, also explained to the patient's daughter Rosaline on telephone # [phone]. The patient has been scheduled for pacemaker at 3 p.m., we will keep n.p.o. after midnight. Also include the discussion with the nurse taking care at night. We will also notify Dr. Marcus of above development and the patient's condition and the plan. Eleazar Odonnell MD cc: Dr. Marcus.
[2017-07-10] MEDS: Fluticasone Nasal 50 mcg/Spray NS SCH ×2 (11:36→21:30)
--- NOTE | 2017-07-10 12:48 | CARD ---
APPROVED REPORT EKG Measurement Heart [id number] <Conclusion> Sinus bradycardia Otherwise normal ECG
[2017-07-10] MEDS ORDERED: Lidocaine 2% Inj (20ml) ONE (14:39)
[2017-07-10] MEDS ORDERED: Midazolam 2 MG/2 ML VIAL ONE ×2 (14:51→15:27)
--- NOTE | 2017-07-10 15:38 | CARD ---
APPROVED REPORT EKG Measurement Heart [id number] <Conclusion> Atrial fibrillation Moderate Rate.
[2017-07-10] MEDS ORDERED: Sodium Chloride 0.9% 1,000 ML IV SCH (16:30)
--- NOTE | 2017-07-10 16:50 | RAD ---
HISTORY: Post Pacemaker Technique: Single view portable semi erect @ 16:22. COMPARISON: 07/07/2017 FINDINGS: LUNGS: No active pulmonary disease. PLEURA: No significant pleural effusion identified, no pneumothorax apparent. CARDIOVASCULAR: No radiographic findings to suggest acute or significant cardiovascular disease. Position/ configuration of pacemaker device: Satisfactory. No adverse findings, no evidence of pneumothorax following unipolar pacemaker device insertion. OSSEOUS STRUCTURES: No significant abnormalities. VISUALIZED UPPER ABDOMEN: Normal. OTHER FINDINGS: None. IMPRESSION: Status post pacemaker insertion. No active pulmonary disease. No pneumothorax identified.
--- NOTE | 2017-07-10 18:22 | CARD ---
APPROVED REPORT HISTORY The Patient is a 76 year-old male with a history of SSS, tachy-petra , and PAF PROCEDURES Insertion Single Chamber Ventricle Pacemaker INDICATIONS Syncope Tachybrady Syndrome SSS PAF Multiple pauses CONSCIOUS SEDATION AGENTS Versed Fentanyl IMPLANTED DEVICES Medtronic Sensia OPERATIVE NOTE The patient was brought to the Cardiac Catheterization Laboratory in a fasting state and was prepped and draped in a sterile manner. The left subclavian region was infiltrated with 2% Lidocaine, subcutaneous anesthesia. A transverse incision was made in the left subclavicular area. The subcutaneous pocket was formed via blunt dissection, Percutaneous venous access was achieved and an introducer sheath was inserted into the Lt Subclavian vein. Through the introducer sheath, the ventricular lead wire was postitioned in the right ventricular apex utilizing fluoroscopic guidance. The ventricular was advanced over the wire under fluoroscopic guidance and positioned in the right ventricle. Capturing and sensing thresholds were verified. THE VENTRICULAR ELECTRODE PARAMETERS R WAVE 14.5 THRESHOLD0.4 RESISTANCE 994 The ventricular lead was then secured using Silk. The subcutaneous pocket was irrigated with Betadine. The ventricular lead was attached to the appropriate receptacle on the pulse generator and set screws firmly tightened to insure adequate contact and stability. The lead and pulse generator were placed into the subcutaneous pocket. Sharp and sponge counts were confirmed to be correct. At this time the pocket was closed subcutaneously with a Vicryl 2.0 and the skin was closed with a Vicryl 4.0 .The operative site was dressed in sterile fashion. The patient tolerated the procedure well and was transferred to the floor in stable condition. COMPLICATIONS The patient tolerated the procedure well and there were no complications associated with the procedure. CONCLUSION Successful Implantation of PPM, Medtronic Sensia, VVIR CC; / Jesus.
--- NOTE | 2017-07-10 21:08 | PN ---
DATE: 07/10/2017 PULMONARY PROGRESS NOTE REFERRING PHYSICIAN: Pricila Marcus MD. SUBJECTIVE: Lying in the bed. Overnight events noted. Has a petra-trachy syndrome even with paroxysmal atrial fibrillation. No cough, no sputum production. No nausea. No vomiting. No leg pain or leg swelling OBJECTIVE: GENERAL: In no acute distress. VITAL SIGNS: Temperature is 98, heart rate is 63, respiratory rate is 16, blood pressure is 129/66, pulse ox 97% on 3 liters nasal cannula. HEENT: Moist mucous membranes. Small oral cavity. Crowded airway. NECK: Supple. No JVD. LUNGS: Has a fair airflow with few rhonchi. HEART: S1 and S2. ABDOMEN: Soft and nontender. No organomegaly. EXTREMITIES: There is no edema. NEUROLOGICAL: Awake and alert. Follows simple commands. MEDICATIONS: She is on Actigall 300 mg twice a day, Claritin 10 mg daily, Cozaar 50 mg daily, doxycycline 100 mg twice a day, Ecotrin 81 mg daily, Flonase 1 spray each nostril twice a day, Keflex 250 mg 3 times a day, Lipitor 20 mg daily, metoprolol tartrate 25 mg twice a day, hydrochlorothiazide 12.5 mg daily, Norvasc 5 mg daily, Plavix 75 mg daily, prednisone 10 mg, Singulair 10 mg daily, IV fluid normal saline 50 mL/hour. LABORATORY DATA: Shows hemoglobin 15.4, hematocrit 44.2, WBC 11.8, platelets 391. INR is 1.02. Sodium 135, potassium 4.3, chloride 93, bicarbonate 30, BUN 25, creatinine 1.0, glucose is 121, calcium is 9.7. Urine culture has Escherichia coli. DIAGNOSTIC DATA: Chest x ray, which is done after the pacemaker insertion shows no active pulmonary disease, no pneumothorax identified. IMPRESSION AND PLAN: Coronary artery disease, history of coronary stents, hypertension, cardiac arrhythmia, paroxysmal atrial fibrillation overnight, also has a bradycardia. Pacemaker today, need to rule out sleep apnea syndrome. Also has history of bronchitis and rhinitis. Continue tapered dose of prednisone, Singulair, inhaled bronchodilator, keep at 45 degrees. After completing cardiac workup, will need to attend a sleep study to assure there is no sleep apnea syndrome. Thank you and we will follow with you. Eleazar Curz MD
--- NOTE | 2017-07-10 22:33 | PN ---
DATE: SUBJECTIVE: The patient is a 76-year-old female. The patient was seen and examined at the bedside early in the morning, sitting on the chair, Today has petra-tachy syndrome with paroxysmal atrial fibrillation. No cough. No shortness of breath. Still feeling dizzy and lightheadedness. No fever. No chills. No swelling of the legs. PHYSICAL EXAMINATION: VITAL SIGNS: Temperature 98, heart rate 63, respiratory rate 16, blood pressure 129/66 and pulse oximetry 97% on 3 L nasal cannula. HEENT: Head is normocephalic, atraumatic. Eyes; PERRLA. Extraocular muscles intact. Conjunctivae clear. Nose patent. Mucous membrane moist. NECK: Supple. No carotid bruits, JVD or thyromegaly. LUNGS: Has fair airflow with few rhonchi. HEART: S1 and S2 positive. ABDOMEN: Soft and nontender. No organomegaly. EXTREMITIES: No edema. No cyanosis. NEUROLOGICAL: The patient is awake and alert. Follows simple commands. Still feeling dizziness and lightheadedness. MEDICATIONS: Actigall, Claritin, Cozaar, doxycycline, Ecotrin, Flonase, Keflex, Lipitor, metoprolol, hydralazine, Norvasc, Plavix, prednisone, Singulair and IV fluids. LABORATORY DATA: Hemoglobin 15.4, hematocrit 44.2, white blood cells 11.8 and platelets 361. Sodium 135, potassium 4.3, BUN 25, creatinine 1.0 and glucose 121. Urine culture has E. coli. ASSESSMENT AND PLAN: The patient has pacemaker insertion today. Coronary artery disease, status post coronary artery stent, hypertension, cardiac arrhythmia, bradytachycardia, paroxysmal atrial fibrillation. Overnight, the patient has history of bradycardia. Need to rule out sleep apnea syndrome as per Dr. Cruz. History of bronchitis and rhinitis, cholelithiasis, hypertension. She is on tapering dose of steroid, having Singulair. We will watch the patient overnight after putting pacemaker. pacemaker reviewed by me. Gastrointestinal and deep venous thrombosis prophylaxis. Repeat labs. We will follow up. Pricila Marcus MD MTDD
[2017-07-11 07:35] VITALS: BP 123/74; RESP 20; TEMP 97.7; O2SAT 96
[2017-07-11] MEDS: Fluticasone Nasal 50 mcg/Spray NS SCH (09:27)
[2017-07-11 11:25] VITALS: PULSE 69
--- NOTE | 2017-07-11 12:07 | RAD ---
PROCEDURE: Chest 07/11/2017 HISTORY: S/p PPM R/o pneumothorax COMPARISON: Comparison chest 07/10/2017 FINDINGS: LUNGS: Minor bibasilar atelectasis. PLEURA: No pneumothorax or pleural fluid seen. CARDIOVASCULAR: Re- demonstrated is in situ single lead pacemaker unchanged. Heart size remains enlarged. OSSEOUS STRUCTURES: No significant abnormalities. VISUALIZED UPPER ABDOMEN: Normal. OTHER FINDINGS: None. IMPRESSION: No change single lead pacemaker. Cardiomegaly. No definitive radiographic evidence of a pneumothorax Minor bibasilar atelectasis
--- NOTE | 2017-07-11 14:27 | CARD ---
APPROVED REPORT EKG Measurement Heart [id number] <Conclusion> Electronic ventricular pacemaker Underlying NSR
--- NOTE | 2017-07-11 18:15 | PN ---
DATE: 07/11/2017 REASON FOR CONSULTATION AND FOLLOWUP: Tachybrady syndrome and sick sinus syndrome, status post permanent pacemaker, single chamber VVI. SUBJECTIVE: The patient denies any dizziness. Feels better. Feels a lot of energy. PHYSICAL EXAMINATION: VITAL SIGNS: As follows: Heart rate 69 and blood pressure /74. HEENT: PERRLA. Extraocular muscles intact. NECK: Supple. No carotid bruits or thyromegaly. CHEST: Clear to auscultation. HEART: S1 and S2 regular. ABDOMEN: Soft. EXTREMITIES: Clubbing and cyanosis negative. LABORATORY DATA: WBC as of yesterday 11.8, hemoglobin 15.4, hematocrit 44.2, and platelet count 391. Chemistry shows sodium 135, potassium 4.3, chloride 93, bicarbonate 30, anion gap of 16, BUN 25, and creatinine 1.0. IMPRESSION: Tachybrady syndrome, sick sinus syndrome, coronary artery disease status post permanent pacemaker, history of coronary artery disease, status post multiple stents, paroxysmal atrial fibrillation. Last stress test on 05/15/2016 showed normal ejection fraction of 78%. Last echocardiogram from 04/24/[address] Lee's office, 60% to 65% moderate aortic regurgitation, moderate mitral regurgitation, and moderate tricuspid regurgitation. RECOMMENDATION: Resume back beta-jasen. Continue aspirin. Continue Keflex for 5 days. Continue 25 mg of metoprolol tartrate. We will follow with you. The patient is okay to be discharged. Upon discharge, the patient will be followed up in office in 1 to [address] Marcus for the providing us the opportunity in taking care of Susana Pena. Eleazar Odonnell MD
--- NOTE | 2017-07-11 19:43 | PN ---
DATE: 07/11/2017 PULMONARY PROGRESS NOTE REFERRING PHYSICIAN: Pricila Marcus MD SUBJECTIVE: She is out of bed to chair. Night was unremarkable. Some soreness at the pacemaker site with some left shoulder discomfort. No nausea. No vomiting or diarrhea. No leg pain or leg swelling. OBJECTIVE: GENERAL: In no acute distress. VITAL SIGNS: Temperature is 98, heart rate is 69, respiratory rate is 20, blood pressure 123/74, pulse ox 96% on 3 liters nasal cannula. HEENT: Moist mucous membranes. Crowded airway. Mallampati score is IV. NECK: Supple. No JVD. LUNGS: Has a fair airflow with few rhonchi. Left upper chest has a pacemaker. HEART: S1 and S2. ABDOMEN: Soft and nontender. No organomegaly. EXTREMITIES: No edema. NEUROLOGICAL: Awake and alert. Follows simple commands. MEDICATIONS: Reviewed and noted. No new changes in medications since yesterday. LABORATORY DATA: Reviewed. No new lab is available since yesterday. Microbiology urine culture has E. coli. Chest x-ray done today shows no change in single lead pacemaker, cardiomegaly. No definite radiographic evidence of pneumothorax. Minor bibasilar atelectasis. IMPRESSION AND PLAN: Coronary artery disease, history of coronary stents, hypertension, cardiac arrhythmia with paroxysmal atrial fibrillation, bradycardia. May have a component of sleep apnea syndrome, status post cardiac pacemaker. Will be discharged home today. Outpatient, needs pulmonary function test and attended sleep study. Gastric prophylaxis. Thank you, and we will follow with you. Eleazar Cruz MD
--- NOTE | 2017-07-13 09:17 | DS ---
CHIEF COMPLAINT: Dizziness and lightheadedness. HISTORY OF PRESENT ILLNESS: Ms. Susana Pena is a 76-year-old female with past medical history of hypertension, cardiac stenting, UTI, cholelithiasis, came to the Emergency Room complaining of dizziness, right-sided headache , chills since this morning. The patient report dizziness and lightheadedness worse when standing up and feeling similar to the previous symptoms. We admitted the patient, did CAT scan of the head, consult called with Dr. Albino Mtz, Neurologist; Dr. Lee / Dr. Odonnell, Cell Efficiency Supervisor; Dr. Cruz, Breastfeeding Peer Counselor. The patient was admitted on the remote tele and the patient has bradycardia then we hold the beta-blockers then the patient went to atrial fibrillations and there was petra-tachy arrhythmias, so the patient went for veterinary laboratory diagnostician procedure, pacemaker was put by Dr. Odonnell. The patient tolerated the procedure very well. Discharge home with followup primary care physician and head strength and conditioning coach. PAST MEDICAL HISTORY: Hypertension, cardiac catheterization with stenting, cataract, renal disease, pyelonephritis, cholelithiasis, gastroesophageal reflux disease, urinary tract infection, coronary artery disease, cardiac stenting. FAMILY HISTORY: Father and mother noncontributory. HABITS: No smoking. No drug. No ethanol. ALLERGIES: THE PATIENT IS NOT ALLERGIC WITH ANY MEDICATIONS. HOME MEDICATIONS: Ecotrin, Plavix, Pepcid, Cozaar, Lopressor, Zocor, Actigall, Norvasc, hydrochlorothiazide. REVIEW OF SYSTEMS: The patient was seen and examined on the bedside, looking comfortable, tolerated the procedure very well. No nausea, vomiting, diarrhea. No hematuria. No hematochezia. No swelling of the leg. No chest pain except the place of pacemaker. PHYSICAL EXAMINATION: VITAL SIGNS: Temperature 98, heart rate 69, respiratory rate 20, blood pressure 123/74, pulse oximetry 96% on 3 liters nasal cannula. HEENT: Head is normocephalic, atraumatic. Eyes; PERRLA. Extraocular muscles intact. Conjunctivae clear. Nose patent. Mucous membrane moist. NECK: Supple. No carotid bruits. No JVD or thyromegaly. CHEST: Bilaterally symmetrical. HEART: S1 and S2 positive. LUNGS: Clear to auscultation. ABDOMEN: Soft. Bowel sounds positive. No organomegaly. EXTREMITIES: No edema. No cyanosis. NEUROLOGIC: The patient is awake and alert. Moving all four extremities. No focal deficit. MEDICATIONS: Reviewed by me. LABORATORY DATA: White blood cells 11.8, hemoglobin 15.4, hematocrit 44.2, platelets 391. Sodium 135, potassium 4.3, BUN 25, creatinine 1.0, glucose of 121. ASSESSMENT AND PLAN: Ms. Susana Pena is a 76-year-old lady with multiple medical problems; coronary artery disease, status post cardiac stenting; hypertension; cardiac arrhythmia with paroxysmal atrial fibrillation; bradytachycardia arrhythmias; sleep apnea syndrome, status post cardiac pacemaker. Discharged home today. We will followup primary care physician and head strength and conditioning coach. Gastrointestinal and deep venous thrombosis prophylaxis. Repeat labs. We will followup. Pricila Marcus MD MTDD
== END 2017-07-11 13:37 | disposition home or self-care (01) | DRG 244 ==
LOC: ED 18:44 → ERH 22:50 → 3RNO 07-08 00:58 → OBSVTOIN 07-09 21:33
PROVIDERS: ADMIT Internal Medicine; ATTEND Internal Medicine
PROC: 0JH604Z Insertion of Pacemaker, Single Chamber into Chest Subcutaneous Tissue and Fascia, Open Approach (ICD-10-PCS; principal; 2017-07-10)
PROC: 02HK3JZ Insertion of Pacemaker Lead into Right Ventricle, Percutaneous Approach (ICD-10-PCS; 2017-07-10)
DX: I49.5 Sick sinus syndrome (principal); R00.1 Bradycardia, unspecified; I08.3 Combined rheumatic disorders of mitral, aortic and tricuspid valves; I25.10 Atherosclerotic heart disease of native coronary artery without angina pectoris; E78.00 Pure hypercholesterolemia, unspecified; E78.1 Pure hyperglyceridemia; E78.5 Hyperlipidemia, unspecified; G47.30 Sleep apnea, unspecified; I12.9 Hypertensive chronic kidney disease with stage 1 through stage 4 chronic kidney disease, or unspecified chronic kidney disease; N18.9 Chronic kidney disease, unspecified; I16.0 Hypertensive urgency; I48.0 Paroxysmal atrial fibrillation; J31.0 Chronic rhinitis; K21.9 Gastro-esophageal reflux disease without esophagitis; K80.20 Calculus of gallbladder without cholecystitis without obstruction; Z79.02 Long term (current) use of antithrombotics/antiplatelets; Z79.82 Long term (current) use of aspirin; Z79.899 Other long term (current) drug therapy; Z87.440 Personal history of urinary (tract) infections; Z95.5 Presence of coronary angioplasty implant and graft; Z87.448 Personal history of other diseases of urinary system; Z98.42 Cataract extraction status, left eye; Z98.41 Cataract extraction status, right eye

== ENCOUNTER 2017-08-05 17:07 | Observation (INO) | payer MEDICARE, OTHER ==
[2017-08-05 17:07] VITALS: BMI 28.1
[2017-08-05] MEDS ORDERED: Metoprolol 1 mg/ml Inj IVP STA ×2 (17:23→18:04)
--- NOTE | 2017-08-05 17:34 | ED PDOC ---
Arrival/HPI - General Chief Complaint: Shortness Of Breath Time Seen by Provider: 08/05/17 17:13 Historian: Patient - History of Present Illness Narrative History of Present Illness (Text): 08/05/17 17:30 A 76 year old female, whose past medical history includes CAD with stents, paroxysmal atrial fibrillation, pacemaker placed on 07/12/15 for tachycardia- bradycardia syndrome and sick sinus syndrome on Metoprolol 25 mg BID, presents to the emergency department complaining of chest pain and palpitations since today. Contrary to triage patient denies shortness of breath on evaluation. Patient denies any fever, chills, nausea, vomiting, abdominal pain, urinary symptoms, cough or any other complaints. PMD: Dr. Marcus Time/Duration: Other (today) Symptom Course: Unchanged Quality: Other Context: Home Past Medical History - Provider Review Nursing Documentation Reviewed: Yes - Infectious Disease Hx of Infectious Diseases: None - Tetanus Immunization Tetanus Immunization: Unknown - Cardiac Hx Cardiac Disorders: Yes Hx Hypertension: Yes Hx Pacemaker: Yes (Jul 11 2017) Other/Comment: cardiac cath x 1 stent - Pulmonary Hx Respiratory Disorders: No - Neurological Hx Neurological Disorder: No - HEENT Hx HEENT Disorder: Yes Hx Cataracts: Yes - Renal Hx Renal Disorder: Yes Hx Pyelonephritis: Yes - Endocrine/Metabolic Hx Endocrine Disorders: No - Hematological/Oncological Hx Blood Disorders: No - Integumentary Hx Dermatological Disorder: No - Musculoskeletal/Rheumatological Hx Falls: No - Gastrointestinal Hx Gastrointestinal Disorders: Yes Hx Gastroesophageal Reflux: Yes - Genitourinary/Gynecological Hx Genitourinary Disorders: Yes Hx Urinary Tract Infection: Yes - Psychiatric Hx Psychophysiologic Disorder: No Hx Emotional Abuse: No Hx Physical Abuse: No Hx Substance Use: No - Surgical History Hx Cardiac Catheterization: Yes Hx Coronary Stent: Yes - Anesthesia Hx Anesthesia: Yes Hx Anesthesia Reactions: No Hx Malignant Hyperthermia: No - Suicidal Assessment Feels Threatened In Home Enviroment: No Family/Social History - Physician Review Nursing Documentation Reviewed: Yes Family/Social History: No Known Family HX Smoking Status: Never Smoked Hx Alcohol Use: No Hx Substance Use: No Hx Substance Use Treatment: No Allergies/Home Meds Allergies/Adverse Reactions: Allergies No Known Allergies Allergy (Verified 02/10/17 20:57) Home Medications: Home Meds Medication Instructions Recorded Confirmed Aspirin [Ecotrin] 81 mg PO DAILY 05/15/16 08/05/17 Clopidogrel [Plavix] 75 mg PO DAILY 05/15/16 08/05/17 Famotidine [Pepcid] 20 mg PO BID 05/15/16 08/05/17 Losartan [Cozaar] 50 mg PO DAILY 05/15/16 08/05/17 Ursodiol [Actigall] 300 mg PO BID 05/15/16 08/05/17 amLODIPine [Norvasc] 5 mg PO DAILY 05/15/16 08/05/17 Hydrochlorothiazide [Microzide] 1 tab PO DAILY 07/07/17 08/05/17 Review of Systems - Physician Review All systems were reviewed & negative as marked: Yes - Review of Systems Constitutional: absent: Fevers, Night Sweats Respiratory: absent: SOB, Cough Cardiovascular: Chest Pain, Palpitations Gastrointestinal: absent: Abdominal Pain, Nausea, Vomiting Genitourinary Female: absent: Dysuria, Frequency, Hematuria, Urine Output Changes Physical Exam Vital Signs Pulse Resp BP Pulse Ox 08/05/17 19:00 104 H 18 142/96 H 97 08/05/17 18:09 118 H 170/118 H 08/05/17 18:06 18 08/05/17 18:05 89 17 139/76 97 Appearance: Positive for: Well-Appearing, Non-Toxic, Comfortable Pain Distress: None Mental Status: Positive for: Alert and Oriented X 3 - Systems Exam Head: Present: Atraumatic, Normocephalic Pupils: Present: PERRL Extroacular Muscles: Present: EOMI Conjunctiva: Present: Normal Mouth: Present: Moist Mucous Membranes Neck: Present: Normal Range of Motion Respiratory/Chest: Present: Clear to Auscultation, Good Air Exchange, Other ( Surgical incision to left upper chest with no surrounding erythema). No: Respiratory Distress, Accessory Muscle Use Cardiovascular: Present: Normal S1, S2, Irregular Rhythm. No: Murmurs Abdomen: Present: Normal Bowel Sounds. No: Tenderness, Distention, Peritoneal Signs Back: Present: Normal Inspection Upper Extremity: Present: Normal Inspection. No: Cyanosis, Edema Lower Extremity: Present: Normal Inspection. No: Edema Neurological: Present: GCS=15, CN II-XII Intact, Speech Normal Skin: Present: Warm, Dry, Normal Color. No: Rashes Psychiatric: Present: Alert, Oriented x 3, Normal Insight, Normal Concentration Medical Decision Making ED Course and Treatment: 08/05/17 17:30 Impression: A 76 year old female with chest pain and palpitations Plan: -- Chest xray -- Labs -- Aspirin and Metoprolol -- Reassess and disposition Progress Notes: EKG shows atrial fibrillation at 119 BPM. Interpreted by me. Spoke with raised printer upon patients arrival to emergency room, recommends beta blockers for rate control. 08/05/17 18:04 Heart rate improved to 94 after 5mg lopressor. Cxray negative. Trop negative. Dr. Odonnell evaluating at bedside and will place additional orders. Spoke to Dr. Marcus and will admit to tele. - Lab Interpretations Lab Results: 08/05/17 17:20 08/05/17 17:20 Lab Results 08/05/17 17:20: Sodium 133, Potassium 5.0, Chloride 92 L, Carbon Dioxide 28, Anion Gap 18, BUN 21, Creatinine 0.9, Est GFR ( Amer) > 60, Est GFR (Non- Af Amer) > 60, Random Glucose 286 H, Calcium 10.3, Total Bilirubin 0.7, AST 34, ALT 38, Alkaline Phosphatase 102, Total Creatine Kinase 131, Troponin I < 0.01, NT-Pro-B Natriuret Pep 309, Total Protein 9.2 H, Albumin 5.0 H, Globulin 4.2, Albumin/Globulin Ratio 1.2 08/05/17 17:20: PT 10.5, INR 0.96, APTT 31.9 08/05/17 17:20: WBC 10.9, RBC 4.90, Hgb 15.6, Hct 45.2, MCV 92.2, MCH 31.8, MCHC 34.5, RDW 12.8, Plt Count 461 H, MPV 8.3, Gran % 82.6 H, Lymph % (Auto) 14.6 L, [place] % (Auto) 2.5, Eos % (Auto) 0.0 L, Baso % (Auto) 0.3, Gran # 9.04 H , Lymph # 1.6, [place] # 0.3, Eos # 0.0, Baso # 0.03 I have reviewed the lab results: Yes - RAD Interpretation Radiology Orders: 08/05/17 17:24 CHEST PORTABLE [RAD] Stat - Medication Orders Current Medication Orders: Apixaban (Eliquis) 5 mg PO BID ZOEY PRN Reason: Protocol Aspirin (Ecotrin) 81 mg PO DAILY ZOEY Atorvastatin Calcium (Lipitor) 20 mg PO DIN ZOEY Diltiazem HCl (Cardizem Cd) 120 mg PO DAILY ZOEY Hydrochlorothiazide (Microzide) 12.5 mg PO DAILY ZOEY Metoprolol Tartrate (Lopressor) 25 mg PO BID ZOEY Discontinued Medications Apixaban (Eliquis) 5 mg PO STAT STA PRN Reason: Protocol Stop: 08/05/17 19:11 Aspirin (Aspirin Chewable) 324 mg PO STAT STA Stop: 08/05/17 17:25 Last Admin: 08/05/17 17:48 Dose: 324 mg Diltiazem HCl (Cardizem) 30 mg PO STAT STA Stop: 08/05/17 19:12 Metoprolol Tartrate (Lopressor) 5 mg IVP STAT STA Stop: 08/05/17 18:05 Last Admin: 08/05/17 18:09 Dose: 5 mg IVP Administration Document 08/05/17 18:09 IT (Rec: 08/05/17 18:10 IT [id number]) Charges for Administration # of IVP Administrations 1 MAR Pulse and Blood Pressure Document 08/05/17 18:09 IT (Rec: 08/05/17 18:10 IT [id number]) Pulse Pulse Rate (60-90) 118 Blood Pressure Blood Pressure (100/60-150/90) 170/118 Metoprolol Tartrate (Lopressor) 25 mg PO STAT STA Stop: 08/05/17 19:09 - Scribe Statement The provider has reviewed the documentation as recorded by the [place] Provider Scribe Attestation: All medical record entries made by the Estephanieibbiju were at my direction and personally dictated by me. I have reviewed the chart and agree that the record accurately reflects my personal performance of the history, physical exam, medical decision making, and the department course for this patient. I have also personally directed, reviewed, and agree with the discharge instructions and disposition. Disposition/Present on Arrival - Present on Arrival Any Indicators Present on Arrival: No History of DVT/PE: No History of Uncontrolled Diabetes: No Urinary Catheter: No History of Decub. Ulcer: No History Surgical Site Infection Following: None - Disposition Have Diagnosis and Disposition been Completed?: Yes Diagnosis: Atrial fibrillation with RVR Disposition: HOSPITALIZED Disposition Time: 19:18 Patient Plan: Observation Condition: FAIR
[2017-08-05 17:38] LABS: BASO # 0.03 K/mm3 (0.0-2.0); BASO % 0.3 % (0.0-3.0); GRAN # 9.04 (1.4-6.5); GRAN % 82.6 % (50.0-68.0); HEMATOCRIT 45.2 % (36.0-48.0); LYMPH # 1.6 (1.2-3.4); LYMPH % 14.6 % (22.0-35.0); MEAN CELL VOLUME 92.2 fl (80.0-105.0); MEAN CORPUSCULAR HEMOGLOBIN 31.8 pg (25.0-35.0); MEAN CORPUSCULAR HGB CONC 34.5 g/dl (31.0-37.0); MEAN PLATELET VOLUME 8.3 fl (7.0-11.0); MONO # 0.3 (0.1-0.6); MONO % 2.5 % (1.0-6.0); RED CELL DISTRIBUTION WIDTH 12.8 % (11.5-14.5); WHITE BLOOD COUNT 10.9 10^3/ul (4.5-11.0)
[2017-08-05 17:47] LABS: ALB/GLOB RATIO 1.2 (1.1-1.8); ALKALINE PHOSPHATASE 102 U/L (38-126); ALT/SGPT 38 U/L (7-56); AST/SGOT 34 U/L (14-36); BILIRUBIN,TOTAL 0.7 mg/dL (0.2-1.3); BLOOD UREA NITROGEN 21 mg/dL (7-21); CALCIUM 10.3 mg/dL (8.4-10.5); CARBON DIOXIDE 28 mmol/L (21-33); CHLORIDE 92 mmol/L (98-107); GFR AFRICAN-AMERICAN > 60; GLUCOSE,RANDOM 286 mg/dL (70-110); SODIUM 133 mmol/L (132-148); TOTAL PROTEIN 9.2 g/dL (5.8-8.3)
[2017-08-05 17:48] LABS: INR 0.96 (0.93-1.08); PARTIAL THROMBOPLASTIN TIME 31.9 Seconds (25.1-36.5)
[2017-08-05 18:01] LABS: TROPONIN I < 0.01 ng/mL
--- NOTE | 2017-08-05 19:41 | CARD ---
APPROVED REPORT EKG Measurement Heart [id number] <Conclusion> Atrial fibrillation with rapid ventricular response Abnormal ECG
[2017-08-05] MEDS: Fluticasone Nasal 50 mcg/Spray NS SCH (23:11)
[2017-08-06 06:57] LABS: BASO # 0.04 K/mm3 (0.0-2.0); BASO % 0.3 % (0.0-3.0); EOS # 0.1 (0.0-0.7); EOS % 0.5 % (1.5-5.0); GRAN # 8.58 (1.4-6.5); GRAN % 60.4 % (50.0-68.0); HEMATOCRIT 41.6 % (36.0-48.0); LYMPH # 3.9 (1.2-3.4); LYMPH % 27.2 % (22.0-35.0); MEAN CORPUSCULAR HEMOGLOBIN 31.6 pg (25.0-35.0); MEAN CORPUSCULAR HGB CONC 34.4 g/dl (31.0-37.0); MONO # 1.7 (0.1-0.6); MONO % 11.6 % (1.0-6.0); WHITE BLOOD COUNT 14.2 10^3/ul (4.5-11.0)
[2017-08-06 07:19] LABS: ALB/GLOB RATIO 1.1 (1.1-1.8); ALKALINE PHOSPHATASE 88 U/L (38-126); ALT/SGPT 33 U/L (7-56); AST/SGOT 33 U/L (14-36); BILIRUBIN,TOTAL 0.9 mg/dL (0.2-1.3); BLOOD UREA NITROGEN 22 mg/dL (7-21); CALCIUM 9.7 mg/dL (8.4-10.5); CARBON DIOXIDE 29 mmol/L (21-33); CHLORIDE 96 mmol/L (98-107); CHOLESTEROL 163 mg/dL (130-200); GFR AFRICAN-AMERICAN > 60; GLUCOSE,RANDOM 97 mg/dL (70-110); PHOSPHOROUS 4.2 mg/dL (2.5-4.5); POTASSIUM 3.9 mmol/L (3.6-5.0); SODIUM 134 mmol/L (132-148); TOTAL PROTEIN 8.3 g/dL (5.8-8.3)
--- NOTE | 2017-08-06 08:21 | CON ---
DATE: 08/05/2017 REASON FOR CONSULTATION: Atrial fibrillation with rapid ventricular rate, recently permanent pacemaker placed, history of coronary artery disease. BRIEF CLINICAL HISTORY: This is a 76-year-old female with a past medical history of hypertension, coronary artery disease, history of stent placement in 2007, hypertension since 1994, admitted with complaint that the patient feels flushed face, palpitation and swollen all over the body, and chest pain, a little sharp pain in the left side of the chest then feel headache and dizzy, so called the [facility] and came to the Emergency Room. While the patient came to the Emergency Room found to be in Afib with a rate of 125 of AFib. Denies any syncope, but feel that head is little bit dizzy and she did not feel the symptoms , but feels that she is getting headache and she feel that she is going to pass out, but she did not pass out. PAST MEDICAL HISTORY: Significant for tachybrady syndrome, history of recently permanent pacemaker was placed and the patient admitted recently on 07/09/2014, found to be tachybrady syndrome, sick sinus syndrome. The patient goes AFib with rapid ventricular rate. On the last admission, the patient with tachybrady syndrome and multiple pauses was noted. While the patient was last time in the front desk monitor shows bradycardic heart rate of 35, then heart rate go to 130 and becomes very bradycardic, so pacemaker was placed dated 07/10/2017. Previous cardiac workup as follows. The patient has recently pacemaker was placed because of the tachybrady syndrome when the patient admitted with symptoms of dizziness, while in the front desk monitor, heart rate goes through 30 and then went to 130 and multiple pauses with junctional bradycardia, the patient had a pacemaker was done on 07/10/2017. History of coronary artery disease, history of stent in 2007, history of recent stress test was done on 05/15/2016 that shows normal myocardial perfusion study ejection fraction 78%. The patient had echocardiography on 02/11/2017 at [facility] that showed ejection fraction 55% to 60%, mild aortic regurgitation, aortic sclerosis, mild mitral regurgitation, mild tricuspid regurgitation, RV systolic pressure of 38, history of paroxysmal atrial fibrillation, history of multiple stent in the past. CURRENT MEDICATIONS: The patient is taking at home prednisone tapering dose, Norvasc 5 mg daily, Actigall, Singulair, Lopressor 25 b.i.d., Losartan 50 mg, loratadine 10 mg, hydrochlorothiazide, Flonase, Pepcid, clopidogrel, cephalexin, and Lipitor. REVIEW OF SYSTEMS: As per HPI. PHYSICAL EXAMINATION: VITAL SIGNS: As follows; temperature afebrile, heart rate 118, blood pressure 142/96. HEENT: PERRLA. Extraocular muscles intact. NECK: Supple. No carotid bruits or thyromegaly. CHEST: Clear to auscultation. HEART: S1 and S2 regular. ABDOMEN: Soft. EXTREMITIES: Clubbing and cyanosis negative. LABORATORY DATA: Blood workup as follows: WBC 10.9, hemoglobin 15.7, hematocrit 45.2 and platelet count 461. Chemistry shows sodium 130, potassium 5.9, chloride 92, carbon dioxide 28, anion gap of 18, BUN 21 and creatinine 0.9. Troponin 0.01. EKG shows atrial fibrillation at the rate of 120. IMPRESSION: Paroxysmal atrial fibrillation, tachybrady syndrome, sick sinus syndrome status post permanent pacemaker on 07/10/2017. The patient admitted with atrial fibrillation with rapid ventricular rate, paroxysmal atrial fibrillation, history of coronary artery disease, history of stent in 2007. The patient had percutaneous transluminal coronary angioplasty of left anterior descending with drug-eluting stent done in 01/13/2009 and then 5 days later the patient came in with chest pain, positive troponin and repeat CAT scan was done on 01/18/2009 that showed patent stent in RCA and circumflex. Recent stress test as mentioned in 2016, no reversible ischemia, recent echo as mentioned preserved left ventricular function, aortic sclerosis versus mild aortic stenosis preserved left ventricular function, mild tricuspid regurgitation and mild mitral regurgitation. Ejection fraction 55% to 60%, tachybrady syndrome, sick sinus syndrome status post permanent pacemaker 07/11/2017 admitted with atrial fibrillation with rapid ventricular rate, given 5 mg of Lopressor, converted to normal sinus. Currently, the patient is in normal sinus. RECOMMENDATIONS: We will start Eliquis, discontinue Plavix, discontinue Norvasc, discontinue Losartan because of the hacking cough is from the Losartan ARB and plan is we will give Lopressor 25 b.i.d., start Cardizem 30 mg stat and then 120 mg from tomorrow. Start Eliquis, continue baby aspirin. Continue Lipitor. We will get the lipid profile, TSH, hemoglobin A1c. I have discussed with the daughter. We will follow with you. If remain stable, possible discharge in a day or two. We will follow with you. We will repeat stat EKG to see the patient converted to normal sinus. Thank you Dr. Marcus for providing us the opportunity in taking care of Susana Pena. Eleazar Odonnell MD CC: MD Pricila Du MD
--- NOTE | 2017-08-06 08:45 | RAD ---
HISTORY: chest pain COMPARISON: 07/11/2017 FINDINGS: LUNGS: Minimal vascular congestion PLEURA: No significant pleural effusion identified, no pneumothorax apparent. CARDIOVASCULAR: Mild cardiomegaly. Single lead pacemaker OSSEOUS STRUCTURES: No significant abnormalities. VISUALIZED UPPER ABDOMEN: Normal. OTHER FINDINGS: None. IMPRESSION: No active disease.
--- NOTE | 2017-08-06 09:06 | HP ---
CHIEF COMPLAINT: Shortness of breath, palpitation. HISTORY OF PRESENT ILLNESS: Ms. 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 The patient denies shortness of breath on evaluation as per . The patient denies any fever, chills. No nausea, vomiting, or diarrhea. No urinary symptoms, coughing or other symptoms. PAST MEDICAL HISTORY: As above. Hypertension, pacemaker, cardiac catheterization, cataract, renal disorder, pyelonephritis, urinary tract infection, and coronary artery stenting. FAMILY HISTORY: Father and mother noncontributory. HABITS: No smoking, no drugs, no ethanol. ALLERGIES: THE PATIENT IS NOT ALLERGIC TO ANY MEDICATIONS. HOME MEDICATIONS: Aspirin, Plavix, Pepcid, Cozaar, Actigall, Norvasc, Microzide. REVIEW OF SYSTEMS: The patient seen and examined on the bedside, looking comfortable. No nausea, vomiting, or diarrhea. No hematuria or hematochezia. No swelling of the legs. The patient complaining of chest pain, palpitation, shortness of breath. No dysuria, no hematuria. PHYSICAL EXAMINATION VITAL SIGNS: Pulse 180, respiratory rate 18, blood pressure 142/96, pulse oxymetry 97%. HEENT: Head; normocephalic and atraumatic. Eyes; PERRLA. Extraocular muscle intact. Conjunctivae clear. Nose patent. Mucous membrane moist. NECK: Supple. No carotid bruits, JVD, or thyromegaly. CHEST: Bilateral symmetrical. HEART: S1, S2 positive. LUNGS: Clear to auscultation. ABDOMEN: Soft. Positive bowel sounds. No organomegaly. EXTREMITIES: No edema, no cyanosis. NEUROLOGICAL: The patient is awake, alert. Moving all four extremities. No focal deficits. LABORATORY DATA: White blood cells 10.9, hemoglobin 16.6, hematocrit 45.2, platelets 451. Sodium 133, potassium 5.0, BUN 21, creatinine 0.9, glucose 286. ASSESSMENT AND PLAN: Ms. Jean Meza is a 76-year-old lady with thrombocytosis, hyperglycemia, came with chest pain, atrial fibrillation with RVR, shortness of breath, history of coronary artery disease with stent, pacemaker placement on 07/12/2015 and tachybrady arrhythmia syndrome, sick sinus syndrome, cholelithiasis, history of chronic obstructive pulmonary disease, gastrointestinal and deep venous thrombosis prophylaxis. Cardiology consult called. Pulmonary consult called. We will follow. Pricila Marcus MD MTDD
--- NOTE | 2017-08-06 09:12 | CARD ---
APPROVED REPORT EKG Measurement Heart [id number] <Conclusion> Normal sinus rhythm Possible Left atrial enlargement
[2017-08-06] MEDS: diltiaZEM 120 mg/24 Hours CD Cap PO SCH (09:51)
[2017-08-06] MEDS: Fluticasone Nasal 50 mcg/Spray NS SCH ×2 (09:52→22:05)
[2017-08-06] MEDS: POLYETHYLENE GLYCOL 3350 17 GM/Dose PACKET PO SCH (17:53)
--- NOTE | 2017-08-07 03:05 | CON ---
PULMONARY CONSULTATION DATE: 08/06/2017 REFERRING PHYSICIAN: Pricila Marcus MD REASON FOR CONSULTATION: Admitted with shortness of breath and palpitations. HISTORY OF PRESENT ILLNESS: This is a 76-year-old female with a known history of coronary artery disease with history of stent, paroxysmal atrial fibrillation, recently had bradycardia, syncopal episode requiring pacemaker, found to have sick sinus syndrome. She is scheduled outpatient for sleep study, but awaiting further scheduled and then comes in with palpitations, found to have a atrial fibrillation with rapid ventricular response present. She feels better. No headache and no rhinitis. No nausea, vomiting or diarrhea. PAST MEDICAL HISTORY: As per history of present illness. FAMILY HISTORY: No significant cardiopulmonary disease reported. ALLERGIES: NONE KNOWN. SOCIAL HISTORY: Nonsmoker and nondrinker. MEDICATIONS: She is on Actigall 300 mg twice a day, Cardizem CD 120 mg daily, Claritin 10 mg daily, Ecotrin 81 mg daily, Eliquis 5 mg twice a day, Flonase 1 spray each nostril twice a day, Lipitor 20 mg daily, metoprolol tartarate 25 mg twice a day, hydrochlorothiazide 25 mg daily, MiraLax 17 grams twice a day, Pepcid 20 mg twice a day, and Singulair 10 mg daily. REVIEW OF SYSTEMS: No headache. Rhinitis is better and cough is better. No nausea, no vomiting, and no diarrhea. No leg pain or leg swelling. PHYSICAL EXAMINATION GENERAL: Sitting up on side of the bed, in no acute distress. VITAL SIGNS: Temperature is 98, heart rate is 69, respiratory rate is 18, blood pressure is 130/66 and pulse oximetry is 100% on room air. HEENT: Moist mucous membrane. Crowded airway. Mallampati score is 4. NECK: Supple. No JVD. LUNGS: Has a few scattered rhonchi. HEART: S1 and S2. ABDOMEN: Soft and nontender. No organomegaly. EXTREMITIES: No edema. NEUROLOGICAL: Awake and alert. Follow simple commands. LABORATORY DATA: Shows hemoglobin of 14.3, hematocrit of 41.6, WBC of 14.2, and platelet count is 396. Sodium is 134, potassium is 3.9, chloride is 96, bicarbonate is 29, BUN is 22, and creatinine is 1.0. Hemoglobin A1c is 6.6. Calcium is 9.7 and phosphorus is 4.2. AST is 33, ALT is 33, alkaline phosphatase is 88, albumin is 4.3, and cholesterol is 83. Chest x-ray done today shows no infiltrate or effusion. IMPRESSION AND PLAN: Cardiac arrhythmia, atrial fibrillation with rapid ventricular response, status post bradycardia requiring pacemaker, coronary artery disease with history of coronary stent, status post upper respiratory infection treated as outpatient, also has chronic obstructive lung disease. We will stabilize the heart rate and continue anticoagulants, outpatient PFT and attended sleep study, sleep apnea precaution . Thank you and we will follow with you. Eleazar Cruz MD
[2017-08-07 06:15] LABS: BASO # 0.06 K/mm3 (0.0-2.0); BASO % 0.5 % (0.0-3.0); EOS # 0.2 (0.0-0.7); EOS % 1.7 % (1.5-5.0); GRAN # 6.32 (1.4-6.5); GRAN % 52.2 % (50.0-68.0); HEMATOCRIT 41.3 % (36.0-48.0); MEAN CORPUSCULAR HEMOGLOBIN 31.2 pg (25.0-35.0); MEAN CORPUSCULAR HGB CONC 33.9 g/dl (31.0-37.0); MEAN PLATELET VOLUME 8.1 fl (7.0-11.0); MONO # 1.5 (0.1-0.6); MONO % 12.6 % (1.0-6.0); RED CELL DISTRIBUTION WIDTH 12.9 % (11.5-14.5); WHITE BLOOD COUNT 12.1 10^3/ul (4.5-11.0)
[2017-08-07 06:43] LABS: ALB/GLOB RATIO 1.1 (1.1-1.8); CALCIUM 9.4 mg/dL (8.4-10.5); MAGNESIUM 2.1 mg/dL (1.7-2.2); PHOSPHOROUS 4.6 mg/dL (2.5-4.5); POTASSIUM 4.6 mmol/L (3.6-5.0); TOTAL PROTEIN 7.8 g/dL (5.8-8.3)
--- NOTE | 2017-08-07 08:38 | PN ---
DATE: 08/06/2017 REASON FOR CONSULTATION: Followup atrial fibrillation with rapid ventricular rate. SUBJECTIVE: Recently permanent pacemaker placed, history of coronary artery disease. The patient denies any chest pain. Feels a lot better since yesterday. No palpitation. No chest pain. OBJECTIVE: GENERAL: Not in apparent distress. VITAL SIGNS: As follows: Temperature afebrile, heart rate 77, blood pressure 135/75. HEENT: PERRLA. Extraocular muscles intact. NECK: Supple. No carotid bruit or thyromegaly. CHEST: Clear to auscultation. HEART: S1 and S2, regular. ABDOMEN: Soft. EXTREMITIES: Clubbing and cyanosis negative. LABORATORY DATA: Blood workup as follows: WBC 14.2, hemoglobin 14.0, hematocrit 41.6, and platelet count 396. Chemistry shows sodium 134, potassium 3.9, chloride 96, carbon dioxide 29, anion gap of 13, BUN 20, and creatinine 1.0. TSH is 1.12. Total protein is 8.3, albumin 4.0, albumin-globulin ratio 1.1, triglycerides 144, cholesterol 163, LDL 47, HDL 83. EKG shows normal sinus. Admitting EKG atrial fibrillation. IMPRESSION: Paroxysmal atrial fibrillation, admitted with atrial fibrillation with rapid ventricular rate, tachybrady syndrome, history of coronary artery disease, history of stent in 2007 followed by repeat CAT because of chest pain, troponin positive, patent stent, history of stress test done in 05/15/2016 shows normal myocardial perfusion studies. Ejection fraction 78%. The patient had echo 02/11/2017 at [facility] with ejection fraction , mild aortic regurgitation, aortic sclerosis, mild mitral regurgitation, mild tricuspid regurgitation, RV systolic pressure 38. History of tachybrady syndrome on admission. Last admission with significant bradycardia multiple pauses as well as status post permanent pacemaker. Cough, possibly likely secondary to ARB inhibitor that is the patient's Losartan. RECOMMENDATION: Discontinue Losartan, discontinue Norvasc, continue metoprolol 25 mg b.i.d. Start Cardizem, yesterday, then I changed to Cardizem from this morning. I started also Eliquis 5 mg b.i.d., Discontinue Plavix if more than 9 years . Continue baby aspirin. Possible discharge home tonight or tomorrow if remain stable. We will follow with you. Thank you Dr. Marcus for providing us the opportunity in taking care of Susana Pena. I discussed with the patient and the daughter. Continue also hydrochlorothiazide 12.5 mg daily. We will follow with you. We will get EKG tomorrow and possible discharge home in either tonight or tomorrow. Eleazar Odonnell MD
--- NOTE | 2017-08-07 08:47 | PN ---
DATE: 08/06/2017 SUBJECTIVE: The patient was seen and examined on the bedside, looking comfortable, sitting on the bedside actually. No nausea, vomiting, or diarrhea. No shortness of breath. No chest pain. No palpitation. No headache, no dizziness. No fever, no chills. PHYSICAL EXAMINATION VITAL SIGNS: Temperature 98, pulse 77, blood pressure 135/75, respiratory rate 20. HEENT: Head: Normocephalic and atraumatic. Eyes: PERRLA. Extraocular muscles intact. Conjunctivae clear. Nose patent. NECK: Supple. No carotid bruits, JVD, or thyromegaly. CHEST: Bilaterally symmetrical. HEART: S1 and S2 positive. LUNGS: Clear to auscultation. ABDOMEN: Soft. Bowel sounds positive. No organomegaly. EXTREMITIES: No edema. No cyanosis. NEUROLOGICAL: The patient is awake and alert. Moving all 4 extremities. No focal deficit. MEDICATIONS: Risperdal, Actigall, Diltiazem, Claritin, Ecotrin, Eliquis, Flonase, Lipitor, metoprolol, hydrochlorothiazide, Pepcid, and Singulair. LABORATORY DATA: White blood cells 14.2, hemoglobin 14.3, hematocrit 41.6, platelet 396. Sodium 135, potassium 3.9, BUN 22, creatinine 1.0. Hemoglobin A1c 6.6. Cholesterol: HDL is 83. ASSESSMENT AND PLAN: a 76-year-old lady with hypochloridemia, increased BUN, uncontrolled diabetes mellitus, leukocytosis, history of cholelithiasis stable, history of tachybrady arrhythmia, recently got permanent pacemaker, sick sinus syndrome. The patient with atrial fibrillation with rapid ventricular response. On last admission, the patient's heart rate dropped to 35 and goes up to 130s, then pacemaker was placed. The patient had history of dizziness, history of coronary artery disease, Recent stress test done on 05/15/2016 that shows myocardial perfusion, ejection fraction of 78%. Started the patient on Eliquis, discontinued Plavix, discontinued Norvasc, Losartan because the hacking cough . Plan is we will give Lopressor, start Cardizem 30 mg and then 120 mg from tomorrow, Eliquis, continue baby aspirin and Lipitor. GI and prophylaxis. Repeats labs. We will follow up. The patient has constipation, we will add MiraLax. Pricila Marcus MD TOMAS
--- NOTE | 2017-08-07 09:07 | CARD ---
APPROVED REPORT EKG Measurement Heart [id number] <Conclusion> Demand pacemaker, interpretation is based on intrinsic rhythm Sinus rhythm with fusion complexes and premature atrial complexes Otherwise normal ECG
[2017-08-07] MEDS: diltiaZEM 120 mg/24 Hours CD Cap PO SCH (09:50)
[2017-08-07] MEDS: POLYETHYLENE GLYCOL 3350 17 GM/Dose PACKET PO SCH ×2 (09:50→17:32)
[2017-08-07] MEDS: Fluticasone Nasal 50 mcg/Spray NS SCH ×2 (09:52→21:30)
--- NOTE | 2017-08-07 13:20 | PN ---
DATE: 08/07/2017 REASON FOR CONSULTATION AND FOLLOWUP: AFib with rapid rate, recently placed pacemaker, history of coronary artery disease, converted to normal sinus. SUBJECTIVE: The patient feels a lot better, denies any chest pain, denies any dizziness, denies any shortness of breath. OBJECTIVE: GENERAL: Sitting at bedside, wanted to go home. VITAL SIGNS: Temperature afebrile, heart rate 62, blood pressure 109/62. HEENT: PERRLA, intact. NECK: Supple. No carotid bruit or thyromegaly. CHEST: Clear to auscultation. HEART: S1 and S2, regular. ABDOMEN: Soft. EXTREMITIES: Clubbing and cyanosis negative. LABORATORY DATA: Blood workup as follows: WBC 12.1, hemoglobin 14, hematocrit 41.3, platelet count 387. Chemistry shows sodium 130, potassium 4.6, chloride 93, carbon dioxide 31, anion gap of 11, BUN 26, creatinine 1.1. IMPRESSION: Paroxysmal atrial fibrillation, admitted with rapid ventricular rate, sick sinus syndrome, tachybrady syndrome, status post permanent pacemaker, history of coronary artery disease, status post a stent in the past, recent stress test on 05/15/2016, normal myocardial perfusion study, ejection fraction 78%. Recent echo on 02/11/[address] [facility], ejection fraction 55% to 60%, mild aortic regurgitation, aortic sclerosis, mild tricuspid regurgitation, mild mitral regurgitation, right ventricular systolic pressure 78. History of a stent in 2008 in left anterior descending, no evidence of acute myocardial infarction, but admitted with atrial fibrillation, converted to normal sinus. RECOMMENDATION: Continue Eliquis as mentioned, discontinue Plavix, continue baby aspirin, discontinue Norvasc, discontinue losartan because patient gets hacking cough from losartan, continue Lopressor 25 b.i.d., and continue Cardizem CD 120 mg daily. Explained the patient, discussed in length about the medication and went over. Possible discharge home today. The patient is stable from cardiology point of view. Thank you Dr. Marcus for providing us the opportunity in taking care of the patient, Susana Pena. Eleazar Odonnell MD [facility] # [id number]
--- NOTE | 2017-08-07 22:31 | CP.PCM.PN ---
<Nasrin Booth - Last Filed: 08/07/17 22:27> Subjective - Date & Time of Evaluation Date of Evaluation: 08/07/17 Time of Evaluation: 22:27 - Subjective Subjective: 76 yr female history of Cardiac Arrhythmia, Afib w/ RVR, s/p Bradycardia w / PPM/ICD insertion 07/14, CAD w/ stent, COPD, & URI. She is sitting comfortably on her bed with her at the bedside. She reports dry cough, constipation, and abdominal bloating. She denies any fever, chills, N/V, or urinary symptoms. No distress noted Objective - Vital Signs/Intake and Output Vital Signs (last 24 hours): Temp Pulse Resp BP Pulse Ox 98 F 67 16 129/87 98 08/07/17 11:38 08/07/17 18:00 08/07/17 11:38 08/07/17 17:32 08/07/17 09:00 Intake and Output: 08/07/17 08/08/17 18:59 06:59 Intake Total 540 Output Total 500 Balance 40 - Medications Medications: Current Medications Apixaban (Eliquis) 5 mg PO BID [facility] PRN Reason: Protocol Last Admin: 08/07/17 17:32 Dose: 5 mg Aspirin (Ecotrin) 81 mg PO DAILY [facility] Last Admin: 08/07/17 09:51 Dose: 81 mg Atorvastatin Calcium (Lipitor) 20 mg PO DIN [facility] Last Admin: 08/07/17 17:33 Dose: 20 mg Diltiazem HCl (Cardizem Cd) 120 mg PO DAILY [facility] Last Admin: 08/07/17 09:50 Dose: 120 mg Docusate Sodium (Colace) 100 mg PO BID [facility] Famotidine (Pepcid) 20 mg PO BID [facility] Last Admin: 08/07/17 17:33 Dose: 20 mg Fluticasone Propionate (Flonase) 1 actuation NS Q12 [facility] Last Admin: 08/07/17 21:30 Dose: 1 spr Hydrochlorothiazide (Microzide) 12.5 mg PO DAILY [facility] Last Admin: 08/07/17 09:51 Dose: 12.5 mg Loratadine (Claritin) 10 mg PO DAILY [facility] Last Admin: 08/07/17 09:51 Dose: 10 mg Metoprolol Tartrate (Lopressor) 25 mg PO BID [facility] Last Admin: 08/07/17 17:32 Dose: 25 mg Montelukast Sodium (Singulair) 10 mg PO HS [facility] Last Admin: 08/07/17 21:30 Dose: 10 mg Polyethylene Glycol (Miralax) 17 gm PO BID [facility] Last Admin: 08/07/17 17:32 Dose: 17 gm Ursodiol (Actigall) 300 mg PO BID [facility] Last Admin: 08/07/17 17:33 Dose: 300 mg - Labs Labs: 08/07/17 06:00 08/07/17 06:00 PT 10.5 SECONDS (9.4-12.5) 08/05/17 17:20 INR 0.96 (0.93-1.08) 08/05/17 17:20 APTT 31.9 Seconds (25.1-36.5) 08/05/17 17:20 - Constitutional Appears: Well, No Acute Distress - Head Exam Head Exam: NORMAL INSPECTION - Eye Exam Eye Exam: Normal appearance Pupil Exam: NORMAL ACCOMODATION - ENT Exam ENT Exam: Mucous Membranes Moist - Neck Exam Neck Exam: Full ROM - Respiratory Exam Respiratory Exam: Clear to Ausculation Bilateral Additional comments: (+) cough, dry, (-)sputum - Cardiovascular Exam Cardiovascular Exam: Irregular Rhythm, +S1, +S2 - GI/Abdominal Exam GI & Abdominal Exam: Distended, Tenderness, Normal Bowel Sounds - Extremities Exam Extremities Exam: Full ROM - Neurological Exam Neurological Exam: Alert, Awake, Oriented x3 - Psychiatric Exam Psychiatric exam: Normal Affect, Normal Mood - Skin Skin Exam: Dry, Intact, Normal Color, Warm Assessment and Plan (1) Leukocytosis Status: Acute (2) Liver function abnormality Status: Acute (3) Hyponatremia Status: Acute (4) Atrial fibrillation with RVR Status: Chronic (5) HTN (hypertension) Status: Chronic (6) COPD (chronic obstructive pulmonary disease) Status: Chronic (7) GERD (gastroesophageal reflux disease) Status: Chronic - Assessment and Plan (Free Text) Plan: Leukocytosis * WBC trending down WBC 12.1 Abnormal LFT * Lft trending up AST 46 * Will continue to monitor. Hyponatremia * Sodium trending down NA 130 * Needs replacement. Afib w RVR * Dr. Andrés Odonnell - Cardio * Paroxysmal Afib, rapid ventricular rate, sick sinus syndrome, tachybrady syndrome, EF = 55-60%, continue eliquis, D/C plavix HTN * 08/07/17 = ECG (-)WNL * Stable COPD * Dr. Cruz - Pulmonary * 08/05/17 = CXR (-)WNL * outpatient PFT, sleep apnea precautions GERD * Stable <Pricila Marcus - Last Filed: 08/08/17 09:10> Objective - Vital Signs/Intake and Output Vital Signs (last 24 hours): Temp Pulse Resp BP Pulse Ox 98.4 F 61 19 129/75 96 08/08/17 06:00 08/08/17 06:00 08/08/17 06:00 08/08/17 06:00 08/08/17 06:00 Intake and Output: 08/08/17 08/08/17 06:59 18:59 Intake Total 1070 Balance 1070 - Medications Medications: Current Medications Apixaban (Eliquis) 5 mg PO BID [facility] PRN Reason: Protocol Last Admin: 08/07/17 17:32 Dose: 5 mg Aspirin (Ecotrin) 81 mg PO DAILY [facility] Last Admin: 08/07/17 09:51 Dose: 81 mg Atorvastatin Calcium (Lipitor) 20 mg PO DIN [facility] Last Admin: 08/07/17 17:33 Dose: 20 mg Diltiazem HCl (Cardizem Cd) 120 mg PO DAILY [facility] Last Admin: 08/07/17 09:50 Dose: 120 mg Docusate Sodium (Colace) 100 mg PO BID [facility] Famotidine (Pepcid) 20 mg PO BID [facility] Last Admin: 08/07/17 17:33 Dose: 20 mg Fluticasone Propionate (Flonase) 1 actuation NS Q12 [facility] Last Admin: 08/07/17 21:30 Dose: 1 spr Hydrochlorothiazide (Microzide) 12.5 mg PO DAILY [facility] Last Admin: 08/07/17 09:51 Dose: 12.5 mg Loratadine (Claritin) 10 mg PO DAILY [facility] Last Admin: 08/07/17 09:51 Dose: 10 mg Metoprolol Tartrate (Lopressor) 25 mg PO BID [facility] Last Admin: 08/07/17 17:32 Dose: 25 mg Montelukast Sodium (Singulair) 10 mg PO HS [facility] Last Admin: 08/07/17 21:30 Dose: 10 mg Polyethylene Glycol (Miralax) 17 gm PO BID [facility] Last Admin: 08/07/17 17:32 Dose: 17 gm Ursodiol (Actigall) 300 mg PO BID [facility] Last Admin: 08/07/17 17:33 Dose: 300 mg - Labs Labs: 08/07/17 06:00 08/07/17 06:00 PT 10.5 SECONDS (9.4-12.5) 08/05/17 17:20 INR 0.96 (0.93-1.08) 08/05/17 17:20 APTT 31.9 Seconds (25.1-36.5) 08/05/17 17:20 Assessment and Plan - Assessment and Plan (Free Text) Assessment: 76 yr female history of Cardiac Arrhythmia, Afib w/ RVR, s/p Bradycardia w / PPM/ICD insertion 07/14, CAD w/ stent, COPD, & URI. She is sitting comfortably on her bed with her at the bedside. She reports dry cough, constipation, and abdominal bloating. She denies any fever, chills, N/V, or urinary symptoms. No distress not, pt is s/e at bed side , agreed all above , d/ d with N.P . ab. lft . will repeat and f/u
--- NOTE | 2017-08-08 01:43 | PN ---
DATE: 08/07/2017 PULMONARY PROGRESS NOTE REFERRING PHYSICIAN: Dr. Marcus. SUBJECTIVE: She is lying in the bed, head at 45 degrees, feels okay. No headache. No shortness of breath. Does have some rhinitis. No nausea. No vomiting. No diarrhea. No leg pain or leg swelling. OBJECTIVE: GENERAL: No acute distress. VITAL SIGNS: Temperature is 98, heart rate is 67, respiratory rate is 18, blood pressure 129/87 and pulse ox 98% on room air. HEENT: Moist mucous membranes. Carotid airway. NECK: Supple. No JVD. LUNGS: Has a fair airflow with few rhonchi. HEART: S1 and S2. ABDOMEN: Soft and nontender. No organomegaly. EXTREMITIES: No edema. NEUROLOGIC: Awake and alert. Follows simple commands. MEDICATIONS: She is on Actigall 300 mg twice a day, Cardizem CD 120 mg daily, Claritin 10 mg daily, Colace 100 mg twice a day, Ecotrin 81 mg daily, Eliquis 5 mg twice a day, Flonase one spray each nostril twice a day, Lipitor 20 mg daily, metoprolol tartrate 25 mg twice a day, hydrochlorothiazide 12.5 mg daily, MiraLax 17 g twice a day, Pepcid 20 mg twice a day and Singulair 10 mg daily. LABORATORY DATA: Shows hemoglobin 14.0, hematocrit 41.3, WBC 12.1 and platelets 387. Sodium 130, potassium 4.6, chloride 93, bicarbonate 31, BUN 26, creatinine 1.1, glucose 100, calcium is 9.4, phosphorus is 4.6, AST 46, ALT 43, alk phos is 73, albumin is 4.0. IMPRESSION AND PLAN: Cardiac arrhythmia, atrial fibrillation with rapid ventricular response, status post bradycardia requiring pacemaker, coronary artery disease, history of coronary stent, status post upper respiratory illness, chronic obstructive lung disease, presently stable, heart rate is under control. Pulmonary point of view, doing okay. Upon discharge, we will schedule sleep study and pulmonary function tests. We will follow with you. Eleazar Cruz MD
--- NOTE | 2017-08-08 10:10 | CARD ---
APPROVED REPORT EKG Measurement Heart [id number] <Conclusion> Normal sinus rhythm Inferior infarct, age undetermined Abnormal ECG
[2017-08-08] MEDS: Fluticasone Nasal 50 mcg/Spray NS SCH ×2 (11:00→22:17)
[2017-08-08] MEDS: diltiaZEM 120 mg/24 Hours CD Cap PO SCH (11:00)
[2017-08-08] MEDS: POLYETHYLENE GLYCOL 3350 17 GM/Dose PACKET PO SCH ×2 (11:05→17:54)
--- NOTE | 2017-08-08 11:44 | PN ---
DATE: 08/08/2017 REASON FOR CONSULTATION: Atrial fibrillation with rapid ventricular rate. Recently pacemaker, history of coronary artery disease converted into normal sinus. SUBJECTIVE: Feeling better. Denies any chest pain, shortness of breath, any palpitation, not in apparent distress, lying flat, had good night sleep. Cough also significantly reduced. PHYSICAL EXAMINATION: VITAL SIGNS: As follows: Temperature afebrile, heart rate of 60, blood pressure 110/75. HEENT: PERRLA. Extraocular muscles are intact. NECK: Supple. No carotid bruit or thyromegaly. CHEST: Clear to auscultation. HEART: S1 and S2 regular. ABDOMEN: Soft. EXTREMITIES: Clubbing and cyanosis negative. LABORATORY DATA: Blood workup as follows: WBC 12.3, hemoglobin 14, hematocrit 41.3, and platelet count 387. Chemistry shows sodium 130, potassium 4.3, chloride 96, carbon dioxide 31, anion gap of 11, BUN 26, and creatinine 1.1. Telemetry shows normal sinus. EKG shows normal sinus. IMPRESSION: Atrial fibrillation with rapid ventricular rate converted to normal sinus. Since then, the patient in normal sinus, tachybrady syndrome, sick sinus syndrome with status post permanent pacemaker. Most recent stress test on 05/15/2017, normal myocardial perfusion study. Recent echo 02/11/2017 at [facility] with ejection fraction 5 to 6%, mild aortic regurgitation, mild aortic stenosis, mild tricuspid regurgitation, mild mitral regurgitation, right ventricular systolic pressure of 78, history of percutaneous transluminal coronary angioplasty in 2008, left anterior descending artery, no evidence of acute myocardial infarction. RECOMMENDATIONS: Continue Eliquis as mentioned, discontinue Plavix as mentioned, continue Cardizem CD 120 mg daily, baby aspirin 81 mg daily, continue metoprolol 25 mg daily, continue hydrochlorothiazide 12.5 mg daily. The previous medication discontinued again, Plavix. Discontinue Norvasc and discontinue Losartan. The patient developed cough with BUSTER and ARB inhibitor, so should not be given. The bronchitis could be secondary to intolerance to ARB. Discussed with Discussed with . We will discontinue telemetry. CVS status is stable. Upon discharge, the patient will be followed up with doctors. Thank you Dr. Marcus for providing us the opportunity in taking care of the patient. Eleazar Odonnell MD TOMAS
--- NOTE | 2017-08-08 20:27 | PN ---
PULMONARY PROGRESS NOTE DATE: 08/08/2017 REFERRING PHYSICIAN: Pricila Marcus MD SUBJECTIVE: The patient is lying in the bed, head at 45 degrees. Night was unremarkable. Feels better. Decreased rhinitis, cough, and shortness of breath. No nausea, no vomiting, no diarrhea. No leg pain, no leg swelling. No palpitations. PHYSICAL EXAMINATION: GENERAL: No acute distress. VITAL SIGNS: Temperature is 98, heart rate is 72, respiratory rate is 20, blood pressure 145/88 and pulse oximetry 96% on room air. HEENT: Moist mucous membranes. Carotid airway. Mallampati score is 4. NECK: Supple. No JVD. LUNGS: Has a fair airflow with few rhonchi. HEART: S1 and S2. ABDOMEN: Soft and nontender. No organomegaly. EXTREMITIES: No edema. NEUROLOGIC: Awake and alert. Follows simple commands. MEDICATIONS: She is on Actigall 300 mg twice a day, Cardizem CD 120 mg daily, Claritin 10 mg daily, Colace 100 mg daily, Ecotrin 81 mg daily, Eliquis 5 mg twice a day, Flonase one spray each nostril twice a day, Lipitor 20 mg daily, metoprolol tartrate 25 mg twice a day, hydrochlorothiazide 12.5 mg daily, MiraLax 17 g twice a day, Pepcid 20 mg twice a day and Singulair 10 mg daily. LABORATORY DATA: Reviewed. No new lab is available since yesterday. Had EKG done today, which shows normal sinus rhythm rate of 76. IMPRESSION AND PLAN: Cardiac arrhythmia, atrial fibrillation presently in sinus rhythm, history of bradycardia requiring pacemaker, coronary artery disease, history of coronary stent. May have sleep apnea syndrome. May discharge if okay with Cardiology. Outpatient pulmonary function test and sleep study. Sleep apnea precaution, avoid sedation. Thank you, and we will follow with you. Eleazar Cruz MD
[2017-08-09 06:43] LABS: HEMATOCRIT 41.3 % (36.0-48.0); MEAN CELL VOLUME 91.2 fl (80.0-105.0); MEAN CORPUSCULAR HEMOGLOBIN 31.8 pg (25.0-35.0); MEAN CORPUSCULAR HGB CONC 34.9 g/dl (31.0-37.0); MEAN PLATELET VOLUME 8.2 fl (7.0-11.0); RED CELL DISTRIBUTION WIDTH 12.7 % (11.5-14.5); WHITE BLOOD COUNT 13.2 10^3/ul (4.5-11.0)
[2017-08-09 06:59] LABS: BLOOD UREA NITROGEN 18 mg/dL (7-21); CALCIUM 9.3 mg/dL (8.4-10.5); CARBON DIOXIDE 30 mmol/L (21-33); CHLORIDE 94 mmol/L (95-110); GFR AFRICAN-AMERICAN > 60; GLUCOSE,RANDOM 108 mg/dL (70-110); POTASSIUM 3.9 mmol/L (3.6-5.0); SODIUM 131 mmol/L (132-148)
[2017-08-09] MEDS: diltiaZEM 120 mg/24 Hours CD Cap PO SCH (09:39)
[2017-08-09] MEDS: POLYETHYLENE GLYCOL 3350 17 GM/Dose PACKET PO SCH ×2 (09:39→09:49)
[2017-08-09] MEDS: Fluticasone Nasal 50 mcg/Spray NS SCH (09:40)
[2017-08-09 09:49] VITALS: BP 148/82; PULSE 62
[2017-08-09 09:59] VITALS: RESP 20; TEMP 98; O2SAT 98
--- NOTE | 2017-08-10 00:10 | PN ---
DATE: 08/09/2017 REFERRING PHYSICIAN: Pricila Marcus MD SUBJECTIVE: She is lying in the bed, feels better. Not much cough or shortness of breath. No nausea, no vomiting. No diarrhea. No leg pain or leg swelling. OBJECTIVE: GENERAL: In no acute distress. VITAL SIGNS: Temperature is 98, heart rate is 62, respiratory rate is 20, blood pressure 148/82 and pulse ox 98% on room air. HEENT: Moist mucous membranes. Crowded airway. Mallampati score is 4. NECK: Supple. No JVD. LUNGS: Has a fair airflow with few rhonchi. HEART: S1 and S2. ABDOMEN: Soft and nontender. No organomegaly. EXTREMITIES: No edema. NEUROLOGIC: Awake and alert. Follows simple commands. MEDICATIONS: Reviewed. No new medications reported since yesterday. LABORATORY DATA: Reviewed and shows hemoglobin 14.4, hematocrit 41.3, WBC of 13.2 and platelets are 299. Sodium 131, potassium 3.9, chloride 94, bicarbonate 30, BUN 18, creatinine 0.9, glucose 108 and calcium 9.3. IMPRESSION AND PLAN: Cardiac arrhythmia; atrial fibrillation, currently in sinus rhythm; bradycardia requiring pacemaker; coronary artery disease, history of coronary stent. May have sleep apnea syndrome. From Pulmonary point of view, doing okay, to be discharged home. Outpatient sleep study and pulmonary function tests. Continue Singulair, Flonase, antihistamine for now. Thank you, and we will follow with you. Eleazar Cruz MD
--- NOTE | 2017-08-10 09:00 | CARD ---
APPROVED REPORT EKG Measurement Heart [id number] <Conclusion> Demand pacemaker, interpretation is based on intrinsic rhythm Undetermined rhythm Right bundle branch block Abnormal ECG
--- NOTE | 2017-08-10 09:15 | PN ---
DATE: 08/09/2017 REASON FOR CONSULTATION AND FOLLOWUP: Atrial fibrillation with rapid rate, recently placed pacemaker, history of coronary artery disease, converted to normal sinus, seemed to got stable. SUBJECTIVE: Feeling better. Denies any chest pain, shortness of breath or any palpitation. Last 2 nights slept well. Cough significantly decreased. PHYSICAL EXAMINATION GENERAL: Sitting at bedside, not in apparent distress. VITAL SIGNS: Temperature afebrile, heart rate 60 and blood pressure 142/82. HEENT: PERRLA. Extraocular muscles are intact. NECK: Supple. No carotid bruit or thyromegaly. CHEST: Clear to auscultation. HEART: S1 and S2, regular. ABDOMEN: Soft. EXTREMITIES: Clubbing and cyanosis negative. LABORATORY DATA: WBC 13.8, hemoglobin 14.5, hematocrit 41.3, and platelet count 399. Chemistry shows sodium of 131, potassium of 3.9, chloride of 94, carbon dioxide of 30, anion gap of 11, BUN of 18, and creatinine of 0.9. IMPRESSION: Paroxysmal atrial fibrillation with rapid ventricular rate, converted to normal sinus; cough secondary to BUSTER and ARB inhibitor; sick sinus syndrome, status post permanent pacemaker. Recent stress test on 05/15/2017, essentially normal, negative myocardial perfusion study. Echo on 02/11/2017 at [facility] with ejection fraction of 78% by stress test, mild aortic regurgitation, mild aortic stenosis, mild tricuspid regurgitation, mild mitral regurgitation, right ventricular systolic pressure of 38, consistent with hypertension, history of percutaneous transluminal coronary angioplasty with stent in left anterior descending artery in 2008. Followup repeat CAT in 2008 because of the chest pain. Cough is secondary to BUSTER and ARB inhibitor. RECOMMENDATIONS: Continue Cardizem CD 120 mg daily, continue metoprolol 25 mg b.i.d., continue atorvastatin, continue baby aspirin, and continue Apixaban. As mentioned in previous note, discontinue Losartan, discontinue Norvasc, and discontinue Plavix. CVS status is stable. We will follow with you. Thank you Dr. Marcus for providing us the opportunity in taking care of the patient, Jean Meza. Eleazar Odonnell MD
--- NOTE | 2017-08-10 09:37 | PN ---
DATE: 08/08/2017 SUBJECTIVE: The patient is a 76-year-old female. The patient seen and examined on the bedside, looking comfortable. was sitting on the bedside also. As per nurse, the patient has episodes of bradycardia, for this Dr. Odonnell circuit walker was informed and he got order to repeat EKG. Sometimes, the patient is feeling palpitations and shortness of breath. Also, no fever. No chills. No nausea, vomiting, or diarrhea. No hematemesis. No hematochezia. No swelling of the legs. No headache. No dizziness, but do not look like in apparent distress. No overnight episode happened, PHYSICAL EXAMINATION: VITAL SIGNS: Temperature 98.6, heart rate 60s and 40s, blood pressure 110/75, and respiratory rate 18. HEENT: Head is normocephalic and atraumatic. Eyes; PERRLA. Extraocular muscles intact. Conjunctivae clear. Nose patent. Mucous membranes moist. NECK: Supple. No carotid bruits, JVD, or thyromegaly. CHEST: Bilaterally symmetrical. HEART: S1 and S2 positive. LUNGS: Clear to auscultation. ABDOMEN: Soft. Bowel sounds positive. No organomegaly. EXTREMITIES: No edema. No cyanosis. NEUROLOGICAL: The patient is awake and alert. Moving all 4 extremities. No focal deficit. LABORATORY DATA: White blood cell 12.3, hemoglobin 14, hematocrit 41.3, and platelets 387. Sodium 130 and potassium 4.3. BUN 26 and creatinine 1.1. EKG shows normal sinus rhythm. ASSESSMENT AND PLAN: Ms. Susana Pena is a 76-year-old lady with atrial fibrillation with rapid ventricular rate, converted to normal sinus, the patient was in normal sinus rhythm. The patient had tachybrady syndrome and sick sinus syndrome with status post permanent pacemaker placement, history of coronary artery disease, angioplasty, history of cholelithiasis, history of coronary artery stent, out of bed, physical therapy, and leukocytosis improved. Liver function tests were trending up. Gastrointestinal and deep venous thrombosis prophylaxis. Repeat labs. We will follow. Pricila Marcus MD
== END 2017-08-09 15:22 | disposition home or self-care (01) ==
LOC: ED 17:07 → ERH 18:10 → 2RSO 20:57 → OBSVTOIN 08-06 12:20 → INTOOBSV 08-06 12:20 → 3RNO 08-08 18:21
PROVIDERS: ADMIT Internal Medicine; ATTEND Internal Medicine
DX: I48.0 Paroxysmal atrial fibrillation (principal); I25.10 Atherosclerotic heart disease of native coronary artery without angina pectoris; I10 Essential (primary) hypertension; J44.9 Chronic obstructive pulmonary disease, unspecified; E11.9 Type 2 diabetes mellitus without complications; K59.00 Constipation, unspecified; E87.1 Hypo-osmolality and hyponatremia; K21.9 Gastro-esophageal reflux disease without esophagitis; D72.829 Elevated white blood cell count, unspecified; I08.3 Combined rheumatic disorders of mitral, aortic and tricuspid valves; J31.0 Chronic rhinitis; Z79.02 Long term (current) use of antithrombotics/antiplatelets; Z79.82 Long term (current) use of aspirin; Z79.899 Other long term (current) drug therapy; Z95.5 Presence of coronary angioplasty implant and graft; Z95.810 Presence of automatic (implantable) cardiac defibrillator
CPT/HCPCS: 36415; 71010; 80048; 80053; 80061; 82550; 83036; 83735; 83880; 84100; 84443; 84484; 85025; 85027; 85610; 85730; 93005; 96374; 99285; G0378

== ENCOUNTER 2017-08-12 12:59 | Inpatient (IN) | payer MEDICARE, OTHER ==
[2017-08-12 13:15] VITALS: BMI 27.6
[2017-08-12 14:00] LABS: BASO # 0.04 K/mm3 (0.0-2.0); BASO % 0.3 % (0.0-3.0); EOS # 0.1 (0.0-0.7); EOS % 0.4 % (1.5-5.0); GRAN # 13.06 (1.4-6.5); GRAN % 81.9 % (50.0-68.0); LYMPH # 1.7 (1.2-3.4); LYMPH % 10.6 % (22.0-35.0); MEAN CELL VOLUME 87.9 fl (80.0-105.0); MEAN CORPUSCULAR HEMOGLOBIN 31.8 pg (25.0-35.0); MEAN CORPUSCULAR HGB CONC 36.2 g/dl (31.0-37.0); MEAN PLATELET VOLUME 8.4 fl (7.0-11.0); MONO # 1.1 (0.1-0.6); MONO % 6.8 % (1.0-6.0); RED CELL DISTRIBUTION WIDTH 12.1 % (11.5-14.5); WHITE BLOOD COUNT 15.9 10^3/ul (4.5-11.0)
[2017-08-12 14:08] LABS: INR 1.21 (0.93-1.08); PARTIAL THROMBOPLASTIN TIME 35.3 Seconds (25.1-36.5)
[2017-08-12 14:34] LABS: ALB/GLOB RATIO 1.1 (1.1-1.8); ALKALINE PHOSPHATASE 92 U/L (38-126); ALT/SGPT 30 U/L (7-56); AST/SGOT 45 U/L (14-36); BLOOD UREA NITROGEN 11 mg/dL (7-21); CALCIUM 9.6 mg/dL (8.4-10.5); CARBON DIOXIDE 23 mmol/L (21-33); CHLORIDE 80 mmol/L (98-107); GFR AFRICAN-AMERICAN > 60; GLUCOSE,RANDOM 136 mg/dL (70-110); SODIUM 117 mmol/L (132-148); TOTAL PROTEIN 8.9 g/dL (5.8-8.3)
[2017-08-12 14:36] LABS: TROPONIN I < 0.01 ng/mL
--- NOTE | 2017-08-12 15:02 | ED PDOC ---
Arrival/HPI - General Historian: Patient EM Caveat: Acuity of Condition - History of Present Illness Time/Duration: Prior to Arrival, 24 hours Symptom Onset: Gradual Symptom Course: Unchanged Quality: Aching, Pressure Severity Level: 4 Activities at Onset: Rest, Light Context: Sitting, Standing <Michelle Patel - Last Filed: 08/12/17 23:02> <Herbert Lawson - Last Filed: 08/13/17 19:20> - General Chief Complaint: Dizziness/Lightheaded Time Seen by Provider: 08/12/17 13:15 - History of Present Illness Narrative History of Present Illness (Text): 08/12/17 15:04 76 years old female with PMH afib, bradycardia requiring pacemaker (inserted [address] Odonnell), HTN, GERD, cardiac cath s/p stents, asthma, presents for dizziness that started last night. Pt also c/o generalized weakness, fatigue, nausea, and chest tightness, states that her heart rate is low in 40s as per her home monitor. She wanted to go her Cradiologist Dr Odonnell, but he is not available currently. Thus she decided to come to ED. Denies hearing changes, tinnitus, poor oral intake, diaphoresis, palpitations, syncope, vomiting, abdominal pain, vision changes, focal weakness, cough, sob. [employer] pacemaker PMD: Angeline Cardio Blas (Michelle Patel) Associated Symptoms (Text): 08/12/17 15:14 Denies hearing changes, poor oral intake, diaphoresis, palpitations, syncope, vomiting, abdominal pain, vision changes, focal weakness, cough, sob. (Michelle Patel) Past Medical History - Provider Review Nursing Documentation Reviewed: Yes - Infectious Disease Hx of Infectious Diseases: None - Tetanus Immunization Tetanus Immunization: Unknown - Reproductive Menopause: Yes - Cardiac Hx Cardiac Disorders: Yes Hx Hypertension: Yes Hx Pacemaker: Yes (Jul 11 2017) Other/Comment: cardiac cath x 1 stent - Pulmonary Hx Respiratory Disorders: No - Neurological Hx Neurological Disorder: No - HEENT Hx HEENT Disorder: Yes Hx Cataracts: Yes - Renal Hx Renal Disorder: Yes Hx Pyelonephritis: Yes - Endocrine/Metabolic Hx Endocrine Disorders: No - Hematological/Oncological Hx Blood Disorders: No - Integumentary Hx Dermatological Disorder: No - Musculoskeletal/Rheumatological Hx Falls: No - Gastrointestinal Hx Gastrointestinal Disorders: Yes Hx Gastroesophageal Reflux: Yes - Genitourinary/Gynecological Hx Genitourinary Disorders: Yes Hx Urinary Tract Infection: Yes - Psychiatric Hx Psychophysiologic Disorder: No Hx Substance Use: No - Surgical History Hx Cardiac Catheterization: Yes Hx Coronary Stent: Yes - Anesthesia Hx Anesthesia: Yes Hx Anesthesia Reactions: No Hx Malignant Hyperthermia: No - Suicidal Assessment Feels Threatened In Home Enviroment: No <Michelle Patel - Last Filed: 08/12/17 23:02> Family/Social History - Physician Review Nursing Documentation Reviewed: Yes Family/Social History: No Known Family HX Smoking Status: Never Smoked Hx Alcohol Use: No Hx Substance Use: No Hx Substance Use Treatment: No <Michelle Patel - Last Filed: 08/12/17 23:02> Allergies/Home Meds <Michelle Patel - Last Filed: 08/12/17 23:02> <Herbert Lawson - Last Filed: 08/13/17 19:20> Allergies/Adverse Reactions: Allergies No Known Allergies Allergy (Verified 08/12/17 17:02) Home Medications: Home Meds Medication Instructions Recorded Confirmed Aspirin [Ecotrin] 81 mg PO DAILY 05/15/16 08/12/17 Famotidine [Pepcid] 20 mg PO BID 05/15/16 08/12/17 Ursodiol [Actigall] 300 mg PO BID 05/15/16 08/12/17 Hydrochlorothiazide [Microzide] 12.5 mg PO DAILY 07/07/17 08/12/17 Review of Systems - Physician Review All systems were reviewed & negative as marked: Yes - Review of Systems Constitutional: Fatigue. absent: Fevers Eyes: absent: Vision Changes ENT: absent: Hearing Changes, Tinnitus Respiratory: absent: SOB, Cough Cardiovascular: Chest Pain. absent: Palpitations, Calf Pain, Orthopnea, Syncope Gastrointestinal: Nausea. absent: Abdominal Pain, Constipation, Diarrhea, Vomiting Genitourinary Female: absent: Dysuria, Hematuria Musculoskeletal: absent: Back Pain Skin: absent: Rash Neurological: Dizziness. absent: Headache, Focal Weakness Endocrine: absent: Diaphoresis Psychiatric: Anxiety <Michelle Patel - Last Filed: 08/12/17 23:02> Physical Exam Vital Signs Reviewed: Yes Temperature: Afebrile Blood Pressure: Hypertensive Pulse: Irregular Respiratory Rate: Normal Appearance: Positive for: Uncomfortable Pain Distress: Mild Mental Status: Positive for: Alert and Oriented X 3 - Systems Exam Head: Present: Atraumatic, Normocephalic Pupils: Present: PERRL Extroacular Muscles: Present: EOMI <Michelle Patel - Last Filed: 08/12/17 23:02> - Systems Exam Head: Present: Atraumatic, Normocephalic Pupils: Present: PERRL Extroacular Muscles: Present: EOMI Conjunctiva: Present: Normal Mouth: Present: Moist Mucous Membranes Pharnyx: Present: Normal Neck: Present: Normal Range of Motion Respiratory/Chest: Present: Clear to Auscultation, Good Air Exchange. No: Respiratory Distress Cardiovascular: Present: Regular Rate and Rhythm, Murmurs, Normal S1, S2 Abdomen: Present: Normal Bowel Sounds. No: Tenderness, Distention, Peritoneal Signs Upper Extremity: Present: Normal Inspection. No: Edema Lower Extremity: Present: Normal Inspection. No: CALF TENDERNESS Neurological: Present: GCS=15, Speech Normal Skin: Present: Warm, Dry. No: Rashes Psychiatric: Present: Alert, Oriented x 3, Normal Insight <Herbert Lawson P - Last Filed: 08/13/17 19:20> Vital Signs Temp Pulse Resp BP Pulse Ox 08/12/17 15:50 75 18 156/74 H 98 08/12/17 13:00 98.7 F 83 18 159/86 H 98 Medical Decision Making - Lab Interpretations I have reviewed the lab results: Yes Interpretation: Abnormal lab values - RAD Interpretation Model Maker Apprentice: Radiologist - EKG Interpretation Interpreted by ED Physician: Yes Type: 12 lead EKG Comparison: Com.w/previous EKG - Transfer of Care Patient signed out to Dr:: Angeline Awaiting call back from Dr:: Jesus <Michelle Patel - Last Filed: 08/12/17 23:02> <Herbert Lawson - Last Filed: 08/13/17 19:20> ED Course and Treatment: 08/12/17 14:59 76 years old female, with PMH afib, bradycardia requiring pacemaker, cardiac cath, presents for dizziness and chest pain: - CBC, CMP, Mg - EKG, CXR, UA - Check pacemaker - reassess 08/12/17 15:36 Negative orthostatic VS. Na low 117, Cl 80, leukocytosis 15.9. Needs pacemaker interrogation. Will admit to Tele. (Michelle Patel) Patient Seen With Resident: In agreement with resident note which contains more details about the patient. Patient was seen and evaluated with resident. Came up with plan and treatment together. pt was admitted for hyponatremia and pacemaker interrogation. given Maintenance fluids for repletion of sodium, however this is likely acute hyponatremia. perhaps diuretic induced. 08/13/17 19:18 (Herbert Lawson) - Lab Interpretations Narrative Lab Interpretation (Text): 08/12/17 18:01 Na 117 (Michelle Patel) Lab Results: 08/12/17 13:45 08/12/17 13:45 Lab Results 08/12/17 13:45: Serum Osmolality 329 H 08/12/17 13:45: Magnesium 1.7 08/12/17 13:45: Sodium 117 L*, Potassium 4.0, Chloride 80 L, Carbon Dioxide 23, Anion Gap 18, BUN 11, Creatinine 0.8, Est GFR ( Amer) > 60, Est GFR (Non- Af Amer) > 60, Random Glucose 136 H, Calcium 9.6, Total Bilirubin 1.0, AST 45 H , ALT 30, Alkaline Phosphatase 92, Lactate Dehydrogenase 616, Total Creatine Kinase 108, Troponin I < 0.01, Total Protein 8.9 H, Albumin 4.7, Globulin 4.2, Albumin/Globulin Ratio 1.1 08/12/17 13:45: PT 13.2 H, INR 1.21 H, APTT 35.3 08/12/17 13:45: WBC 15.9 H D, RBC 4.78, Hgb 15.2, Hct 42.0, MCV 87.9 D, MCH 31.8, MCHC 36.2, RDW 12.1, Plt Count 453 H, MPV 8.4, Gran % 81.9 H, Lymph % ( Auto) 10.6 L, [place] % (Auto) 6.8 H, Eos % (Auto) 0.4 L, Baso % (Auto) 0.3, Gran # 13.06 H, Lymph # 1.7, [place] # 1.1 H, Eos # 0.1, Baso # 0.04 - RAD Interpretation Narrative RAD Interpretations (Text): 08/12/17 15:41 CXR: no infiltrates or cardiomegaly. (AmandaMichelle) Radiology Orders: 08/12/17 13:42 CHEST PORTABLE [RAD] Stat - EKG Interpretation EKG Interpretation (Text): 08/12/17 15:42 EKG: HR 88. Irregular, not paced (AmandaMichelle) - Medication Orders Current Medication Orders: Apixaban (Eliquis) 5 mg PO BID [facility] PRN Reason: Protocol Last Admin: 08/13/17 18:26 Dose: 5 mg Aspirin (Ecotrin) 81 mg PO DAILY [facility] Last Admin: 08/13/17 09:26 Dose: 81 mg Atorvastatin Calcium (Lipitor) 20 mg PO DIN [facility] Last Admin: 08/13/17 18:26 Dose: 20 mg Fluticasone Propionate (Flonase) 1 actuation NS Q12 [facility] Last Admin: 08/13/17 09:26 Dose: Not Given Non-Admin Reason: Patient Refused Sodium Chloride (Hypertonic Saline 3%) 500 mls @ 30 mls/hr IV .[id number] [facility] Last Admin: 08/13/17 02:44 Dose: 30 mls/hr eMAR Start Stop Document 08/13/17 02:44 SBO (Rec: 08/13/17 02:44 SBO [id number]) Intravenous Solution Start Date 08/13/17 Start Time 02:44 Metoprolol Tartrate (Lopressor) 25 mg PO BID [facility] Last Admin: 08/13/17 18:26 Dose: 25 mg MAR Pulse and Blood Pressure Document 08/13/17 18:26 MELBA (Rec: 08/13/17 18:26 MELBA [id number]) Pulse Pulse Rate (60-90) 99 Blood Pressure Blood Pressure (100/60-150/90) 151/73 Montelukast Sodium (Singulair) 10 mg PO HS [facility] Last Admin: 08/12/17 22:04 Dose: 10 mg Ursodiol (Actigall) 300 mg PO BID [facility] Last Admin: 08/13/17 18:26 Dose: 300 mg Discontinued Medications Acetaminophen (Tylenol 325mg Tab) 650 mg PO ONCE ONE Stop: 08/12/17 19:51 Last Admin: 08/12/17 20:05 Dose: 650 mg MAR Pain/Vitals Document 08/12/17 20:05 SBO (Rec: 08/12/17 20:06 SBO [id number]) Pain Reassessment Is This A Pain ReAssessment? Yes Sleep Is patient sleeping during reassessment? No Presence of Pain Presence of Pain Yes Pain Scale Used Pain Scale Used Numeric Location Pain Location Body Site Chest Description Intermittent Intensity 8 Scale Used Numeric Pain Behavior Guarding Re-Assess: MAR Pain/Vitals Document 08/12/17 21:05 SBO (Rec: 08/12/17 23:54 SBO [id number]) Pain Reassessment Is This A Pain ReAssessment? Yes Sleep Is patient sleeping during reassessment? No Presence of Pain Presence of Pain No Al Hydrox/Mg Hydrox/Simethicone (Maalox Plus 30 Ml) 30 ml PO ONCE STA Stop: 08/12/17 20:21 Last Admin: 08/12/17 20:32 Dose: 30 ml Bisacodyl (Dulcolax) 10 mg RC ONCE ONE Stop: 08/12/17 20:23 Last Admin: 08/12/17 20:33 Dose: 10 mg Sodium Chloride (Sodium Chloride 0.9%) 1,000 mls @ 125 mls/hr IV .Q8H [facility] Last Admin: 08/12/17 15:41 Dose: 125 mls/hr eMAR Start Stop Document 08/12/17 15:41 SF (Rec: 08/12/17 15:41 SF [id number]) Intravenous Solution Start Date 08/12/17 Start Time 15:41 End Date 08/12/17 End time 23:41 Total Infusion Time 480 Sodium Chloride (Hypertonic Saline 3%) 500 mls @ 20 mls/hr IV .Q24H [facility] Last Admin: 08/12/17 18:41 Dose: 20 mls/hr eMAR Start Stop Document 08/12/17 18:41 JZA (Rec: 08/12/17 18:41 JZA [id number]) Intravenous Solution Start Date 08/12/17 Start Time 18:41 Sodium Chloride (Hypertonic Saline 3%) 500 mls @ 20 mls/hr IV .Q24H [facility] Last Admin: 08/12/17 19:07 Dose: 20 mls/hr eMAR Start Stop Document 08/12/17 19:07 JZA (Rec: 08/12/17 19:07 JZA [id number]) Intravenous Solution Start Date 08/12/17 Start Time 19:07 Pantoprazole Sodium (Protonix Ec Tab) 40 mg PO STAT STA Stop: 08/12/17 20:20 Last Admin: 08/12/17 20:32 Dose: 40 mg Pneumococcal Polyvalent Vaccine (Pneumovax 23 Vaccine) 0.5 ml IM .ONCE ONE Stop: 08/12/17 17:32 Last Admin: 08/12/17 17:42 Dose: Comments: up to date Immunization Registry Document 08/12/17 17:42 EleuterioKALE (Rec: 08/12/17 17:42 EleuterioKALE [id number]) Immunization Registry Consent Date 08/06/17 - PA / SPECIAL NEEDS TUTOR / Resident Statement / has reviewed & agrees with the documentation as recorded. / has examined the patient and agrees with the treatment plan. <Michelle Patel - Last Filed: 08/12/17 23:02> - PA / SPECIAL NEEDS TUTOR / Resident Statement CYRUS has examined the patient and agrees with the treatment plan. <Herbert Lawson - Last Filed: 08/13/17 19:20> Disposition/Present on Arrival - Present on Arrival Any Indicators Present on Arrival: No History of DVT/PE: No History of Uncontrolled Diabetes: No Urinary Catheter: No History of Decub. Ulcer: No History Surgical Site Infection Following: None - Disposition Have Diagnosis and Disposition been Completed?: Yes Disposition Time: 17:00 Patient Plan: Admission, Telemetry <Michelle Patel - Last Filed: 08/12/17 23:02> <Herbert Lawson - Last Filed: 08/13/17 19:20> - Disposition Diagnosis: Hyponatremia, Dizziness Disposition: HOSPITALIZED Patient Problems: Current Active Problems Problem Status Onset Chest pain Acute Dizziness Acute Hematuria Acute Hyponatremia Acute Condition: FAIR
[2017-08-12] MEDS ORDERED: Sodium Chloride 0.9% 1,000 ML IV SCH ×2 (15:15→16:35)
--- NOTE | 2017-08-12 15:35 | RAD ---
HISTORY: dizziness COMPARISON: 08/05/2017 FINDINGS: LUNGS: No active pulmonary disease. PLEURA: No significant pleural effusion identified, no pneumothorax apparent. CARDIOVASCULAR: Cardiomegaly similar. Pulmonary vascularity/ venous status- probably top-normal. Single lead pacemaker device as before. Aortic knob atherosclerotic vascular calcification OSSEOUS STRUCTURES: Thoracic spondylosis VISUALIZED UPPER ABDOMEN: Normal. OTHER FINDINGS: None. IMPRESSION: No interval cardiopulmonary pathology noted.
[2017-08-12 16:06] LABS: PH,URINE 6.5 (4.7-8.0); URINE BILIRUBIN NEGATIVE (NEGATIVE); URINE BLOOD MODERATE (NEGATIVE); URINE GLUCOSE (UA) NEGATIVE (NEGATIVE); URINE KETONE NEGATIVE (NEGATIVE); URINE LEUKOCYTE ESTERASE NEGATIVE Leu/uL (NEGATIVE); URINE PROTEIN 100 mg/dL (<30 mg/dL); URINE UROBILINOGEN 0.2 E.U./dL (<1 E.U./dL)
[2017-08-12 16:07] LABS: URINE APPEARANCE SL CLOUDY (CLEAR); URINE COLOR YELLOW (YELLOW)
[2017-08-12 16:19] LABS: URINE BACTERIA MOD (NEG); URINE RBC 25 - 30 /hpf (0-2)
--- NOTE | 2017-08-12 17:03 | CARD ---
APPROVED REPORT EKG Measurement Heart [id number] <Conclusion> Sinus rhythm with aberrantly conducted Atrial Bigeminy Possible Inferior infarct, age undetermined ST & T wave abnormality, consider lateral ischemia Abnormal ECG
[2017-08-12] MEDS ORDERED: Influenza Vaccine 60 mcg/0.5 mL SYR (4YR UP) IM ONE (17:31)
[2017-08-12] MEDS ORDERED: Pneumococcal 23-Valent Vaccine IM ONE (17:31)
[2017-08-12] MEDS ORDERED: Sodium Chloride 3% 500 ML IV SCH ×2 (18:30→19:15)
[2017-08-12 18:58] LABS: BLOOD UREA NITROGEN 10 mg/dL (7-21); CARBON DIOXIDE 25 mmol/L (21-33); CHLORIDE 81 mmol/L (98-107); GFR AFRICAN-AMERICAN > 60; GLUCOSE,RANDOM 136 mg/dL (70-110); POTASSIUM 4.4 mmol/L (3.6-5.0); SODIUM 116 mmol/L (132-148)
[2017-08-12 19:03] LABS: IRON 97 ug/dL (45-180)
[2017-08-12] MEDS ORDERED: Pantoprazole 40 mg EC Tab PO STA (20:19)
[2017-08-12] MEDS ORDERED: Alum-Mag Hydrox-Simethicone Susp (30 mL) PO STA (20:20)
--- NOTE | 2017-08-12 21:03 | CP.PCM.PN ---
Subjective - Date & Time of Evaluation Date of Evaluation: 08/12/17 Time of Evaluation: 20:10 - Subjective Subjective: Patient seen stat for her c/o epigastric discomfort,nausea,a bloated feeling in her abdomen,a feeling of tightness in her upper abdomen and constipation today. She also states she feels like she has to belch ,this makes her feel better. She denies c/o chest pain,back pain,SOB,calf pain or an other symptoms. Patient was admitted for her c/o dizziness and lightheadedness. Chart reviewed,labs noted.Pt has leukocytosis and hyponatremia. PMH: AFib,bradycardia,had a PPM placed on 07/17/17,HTN,Gerd,CAD,S/P stents, Asthma. Objective - Vital Signs/Intake and Output Vital Signs (last 24 hours): Temp Pulse Resp BP Pulse Ox 97.9 F 76 18 164/75 H 95 08/12/17 17:06 08/12/17 18:15 08/12/17 17:06 08/12/17 17:06 08/12/17 16:50 - Medications Medications: Current Medications Apixaban (Eliquis) 5 mg PO BID ON LICENSE OF [facility] PRN Reason: Protocol Last Admin: 08/12/17 17:43 Dose: 5 mg Aspirin (Ecotrin) 81 mg PO DAILY ON LICENSE OF [facility] Last Admin: 08/12/17 17:08 Dose: Not Given Atorvastatin Calcium (Lipitor) 20 mg PO DIN ON LICENSE OF [facility] Last Admin: 08/12/17 17:10 Dose: Not Given Fluticasone Propionate (Flonase) 1 actuation NS Q12 ON LICENSE OF [facility] Sodium Chloride (Hypertonic Saline 3%) 500 mls @ 20 mls/hr IV .Q24H ON LICENSE OF [facility] Last Admin: 08/12/17 19:07 Dose: 20 mls/hr Montelukast Sodium (Singulair) 10 mg PO HS ON LICENSE OF [facility] Ursodiol (Actigall) 300 mg PO BID ON LICENSE OF [facility] Last Admin: 08/12/17 17:43 Dose: 300 mg - Labs Labs: 08/12/17 18:32 PT 13.2 SECONDS (9.4-12.5) H 08/12/17 13:45 INR 1.21 (0.93-1.08) H 08/12/17 13:45 APTT 35.3 Seconds (25.1-36.5) 08/12/17 13:45 - Constitutional Appears: No Acute Distress - Head Exam Head Exam: ATRAUMATIC, NORMAL INSPECTION, NORMOCEPHALIC - Eye Exam Eye Exam: PERRL - ENT Exam ENT Exam: Mucous Membranes Moist - Neck Exam Neck Exam: Normal Inspection - Respiratory Exam Respiratory Exam: Clear to Ausculation Bilateral - Cardiovascular Exam Cardiovascular Exam: REGULAR RHYTHM Additional comments: PPM noted in L upper anterior chest wall. - GI/Abdominal Exam GI & Abdominal Exam: Soft, Tenderness (mild epigastric tenderness noted,no guarding.), Normal Bowel Sounds. absent: Rebound - Extremities Exam Extremities Exam: absent: Calf Tenderness, Pedal Edema - Neurological Exam Neurological Exam: Alert, Oriented x3 - Psychiatric Exam Psychiatric exam: Normal Affect - Skin Skin Exam: Dry, Normal Color, Warm Assessment and Plan - Assessment and Plan (Free Text) Assessment: Epigastric discomfort Constipation Leukocytosis. Plan: EKG done stat showed NSR,old inferior wall AR(same as before). Troponin 1 ordered stat.then to be repeated in AM Protonix,Maalox and Dulcolax suppository ordered now. Diiscussed with Dr Marcus who happened to be here,about Leukocytosis noted on pt 's labwork.She ordered blood and urine cultures.
[2017-08-12] MEDS: Fluticasone Nasal 50 mcg/Spray NS SCH (22:15)
[2017-08-12 23:28] LABS: FOLATE 9.3 ng/mL
[2017-08-13 00:01] LABS: SODIUM 115 mmol/L (132-148)
[2017-08-13 00:03] LABS: BLOOD UREA NITROGEN 11 mg/dL (7-21); CALCIUM 8.9 mg/dL (8.4-10.5); CARBON DIOXIDE 25 mmol/L (21-33); CHLORIDE 82 mmol/L (98-107); GFR AFRICAN-AMERICAN > 60; GLUCOSE,RANDOM 122 mg/dL (70-110); POTASSIUM 4.9 mmol/L (3.6-5.0)
[2017-08-13] MEDS ORDERED: Sodium Chloride 3% 500 ML IV SCH (02:06)
--- NOTE | 2017-08-13 06:06 | CP.PCM.CON ---
History of Present Illness - History of Present Illness History of Present Illness: 76 yo F w/ pmh of htn, CAD s/p stents, tachy-petra syndrome s/p PPM, afib on eliquis, presented with feeling of "dizziness" since 1 day; found to be severely hyponatremic with serum Na 117, nephrology therefore consulted; Patient was discharged from [facility] just 3 days before presentation with admission for afib w/ RVR; patient had her BP meds adjusted at that time with losartan and amlodipine being stopped, and cardizem being added; hydrochlorothiazide 12.5 mg was continued; patient also reports being started on bactrim upon d/c for UTI but this med is not listed in her list of d/ c meds; Patient reports that the first 1-2 days after d/c were uneventful; she does report somewhat decreased food intake; on the night before presentation, patient started having feeling of "dizziness" which she describes as being unsteady on her feet, denies feeling of room moving; she reports some nausea but no vomiting; also reports headache toward the back of her head/upper neck bilaterally which is new; only took tylenol (denies any other pain med including NSAIDS); she also reports increased urinary frequency lately but denies dysuria; Patient continued to take all her med including HCTZ and bactrim this morning before presentation; Review of Systems - EENT Eyes: absent: Change in Vision Additional comments: post nasal drip, recently started on flonase and singulair - Cardiovascular Cardiovascular: absent: Dyspnea on Exertion, Leg Edema Additional comments: pain on L lower lateral chest wall since PPM placement; feels slow heart rate at times; - Respiratory Respiratory: absent: Cough - Gastrointestinal Gastrointestinal: absent: Diarrhea, Vomiting - Genitourinary Genitourinary: As Per HPI - Musculoskeletal Additional comments: sciatica with L leg shooting pain; - Neurological Neurological: As Per HPI - Psychiatric Psychiatric: Abnormal Sleep Pattern - Hematologic/Lymphatic Hematologic: absent: Easy Bruising Past Patient History - Infectious Disease Hx of Infectious Diseases: None - Tetanus Immunizations Tetanus Immunization: Unknown - Past Medical History & Family History Pertinent Family History: HTN - Past Social History Smoking Status: Never Smoked - CARDIAC Hx Cardiac Disorders: Yes Hx Hypertension: Yes Hx Pacemaker: Yes (Jul 11 2017) Other/Comment: cardiac cath x 1 stent - PULMONARY Hx Respiratory Disorders: No - NEUROLOGICAL Hx Neurological Disorder: No - HEENT Hx HEENT Problems: Yes Hx Cataracts: Yes - RENAL Hx Chronic Kidney Disease: Yes Hx Pyelonephritis: Yes - ENDOCRINE/METABOLIC Hx Endocrine Disorders: No - HEMATOLOGICAL/ONCOLOGICAL Hx Blood Disorders: No - INTEGUMENTARY Hx Dermatological Problems: No - MUSCULOSKELETAL/RHEUMATOLOGICAL Hx Falls: No - GASTROINTESTINAL Hx Gastrointestinal Disorders: Yes Hx Gastroesophageal Reflux: Yes - GENITOURINARY/GYNECOLOGICAL Hx Genitourinary Disorders: Yes Hx Urinary Tract Infection: Yes - PSYCHIATRIC Hx Psychophysiologic Disorder: No Hx Substance Use: No - SURGICAL HISTORY Hx Cardiac Catheterization: Yes Hx Coronary Stent: Yes - ANESTHESIA Hx Anesthesia: Yes Hx Anesthesia Reactions: No Hx Malignant Hyperthermia: No Meds Allergies/Adverse Reactions: Allergies Allergy/AdvReac Type Severity Reaction Status Date / Time No Known Allergies Allergy Verified 08/12/17 17:02 - Medications Medications: Current Medications Apixaban (Eliquis) 5 mg PO BID [facility] PRN Reason: Protocol Last Admin: 08/12/17 17:43 Dose: 5 mg Aspirin (Ecotrin) 81 mg PO DAILY [facility] Last Admin: 08/12/17 17:08 Dose: Not Given Atorvastatin Calcium (Lipitor) 20 mg PO DIN [facility] Last Admin: 08/12/17 17:10 Dose: Not Given Fluticasone Propionate (Flonase) 1 actuation NS Q12 [facility] Last Admin: 08/12/17 22:15 Dose: Not Given Sodium Chloride (Hypertonic Saline 3%) 500 mls @ 30 mls/hr IV .[id number] [facility] Last Admin: 08/13/17 02:44 Dose: 30 mls/hr Montelukast Sodium (Singulair) 10 mg PO HS [facility] Last Admin: 08/12/17 22:04 Dose: 10 mg Ursodiol (Actigall) 300 mg PO BID [facility] Last Admin: 08/12/17 17:43 Dose: 300 mg Physical Exam - Constitutional Appears: Non-toxic, No Acute Distress - Head Exam Head Exam: NORMAL INSPECTION - Eye Exam Eye Exam: Normal appearance. absent: Scleral icterus - ENT Exam ENT Exam: Mucous Membranes Moist - Neck Exam Neck exam: Positive for: Normal Inspection. Negative for: Lymphadenopathy - Respiratory Exam Respiratory Exam: absent: Rhonchi, Wheezes, Respiratory Distress Additional comments: mild basal rales - Cardiovascular Exam Cardiovascular Exam: REGULAR RHYTHM, +S1, +S2 - GI/Abdominal Exam GI & Abdominal Exam: Soft. absent: Distended, Tenderness - Extremities Exam Extremities exam: Positive for: pedal pulses present Additional comments: no signficant leg edema - Neurological Exam Neurological exam: Alert, Oriented x3 - Psychiatric Exam Psychiatric exam: Normal Affect, Normal Mood - Skin Skin Exam: Normal Color Additional comments: no ulcers of feet; Results - Vital Signs Recent Vital Signs: Last Vital Signs Temp 98.4 F 08/13/17 05:53 Pulse 72 08/13/17 05:53 Resp 20 08/13/17 05:53 BP 137/72 08/13/17 05:53 Pulse Ox 98 08/13/17 05:53 - Labs Result Diagrams: 08/13/17 05:30 08/12/17 23:10 Labs: Laboratory Results - last 24 hr 08/12/17 08/12/17 08/12/17 15:54 15:54 15:55 Sodium Potassium Chloride Carbon Dioxide Anion Gap BUN Creatinine Est GFR ( Amer) Est GFR (Non-Af Amer) Random Glucose Hemoglobin A1c Calcium Iron TIBC % Saturation Troponin I Vitamin B12 Folate Urine Color Yellow Urine Appearance Sl cloudy Urine pH 6.5 Ur Specific [place] 1.025 Urine Protein 100 H Urine Glucose (UA) Negative Urine Ketones Negative Urine Blood Moderate H Urine Nitrate Negative Urine Bilirubin Negative Urine Urobilinogen 0.2 Ur Leukocyte Esterase Negative Urine RBC 25 - 30 Urine WBC 2 - 5 Ur Epithelial Cells 10 - 12 Urine Bacteria Mod Urine Osmolality 450 Ur Random Sodium 141 08/12/17 08/12/17 08/12/17 18:32 18:32 18:32 Sodium 116 L* Potassium 4.4 Chloride 81 L Carbon Dioxide 25 Anion Gap 14 BUN 10 Creatinine 0.8 Est GFR ( Amer) > 60 Est GFR (Non-Af Amer) > 60 Random Glucose 136 H Hemoglobin A1c 6.5 Calcium 9.0 Iron 97 TIBC 343 % Saturation 28 Troponin I Vitamin B12 490 Folate 9.3 Urine Color Urine Appearance Urine pH Ur Specific [place] Urine Protein Urine Glucose (UA) Urine Ketones Urine Blood Urine Nitrate Urine Bilirubin Urine Urobilinogen Ur Leukocyte Esterase Urine RBC Urine WBC Ur Epithelial Cells Urine Bacteria Urine Osmolality Ur Random Sodium 08/12/17 08/12/17 18:32 23:10 Sodium 115 L* Potassium 4.9 Chloride 82 L Carbon Dioxide 25 Anion Gap 13 BUN 11 Creatinine 0.8 Est GFR ( Amer) > 60 Est GFR (Non-Af Amer) > 60 Random Glucose 122 H Hemoglobin A1c Calcium 8.9 Iron TIBC % Saturation Troponin I < 0.01 Vitamin B12 Folate Urine Color Urine Appearance Urine pH Ur Specific [place] Urine Protein Urine Glucose (UA) Urine Ketones Urine Blood Urine Nitrate Urine Bilirubin Urine Urobilinogen Ur Leukocyte Esterase Urine RBC Urine WBC Ur Epithelial Cells Urine Bacteria Urine Osmolality Ur Random Sodium Assessment & Plan (1) Hyponatremia Assessment and Plan: Severe; etiology likely multifactorial; patient with mild but stable hyponatremia (Na 131) on day of d/c 3 days ago; may have represented some underlying propensity for hyponatremia (such as SIADH); has some possible iatrogenic causes for current worsening; reports starting bactrim recently which can cause hyponatremia by blocking distal tubular Na re-absorption (still need to confirm whether patient was actually on this med); furthermore, patient was on low dose HCTZ which can also predispose to hyponatremia; patient may have had decreased PO intake and increased free water intake which would have been contibutory; No overt signs of intravascular volume depletion (orthostatics reportedly normal ); -agree with 3% hypertonic saline at 20 cc/hr (desired increased in serum Na is ~ 8-10 meq per day) -will monitor bmp q4-6h -awaiting urine osm -fluid restriction to < 1L per day Status: Acute (2) UTI (urinary tract infection) Assessment and Plan: Patient still symptomatic with increased frequency; -repeat urine culture -avoid bactrim (will worsen hyponatremia) Status: Acute (3) HTN (hypertension) Assessment and Plan: BP elevated; continue current meds, agree with stopping HCTZ; Status: Chronic (4) Hematuria Assessment and Plan: Unclear why patient has hematuria and proteinuria by dipstick (UTI may be contributory to proteinuria); will repeat UA and order further workup as indicated; Status: Acute
[2017-08-13 06:35] LABS: HEMATOCRIT 39.4 % (36.0-48.0); MEAN CELL VOLUME 87.9 fl (80.0-105.0); MEAN CORPUSCULAR HEMOGLOBIN 31.3 pg (25.0-35.0); MEAN CORPUSCULAR HGB CONC 35.5 g/dl (31.0-37.0); MEAN PLATELET VOLUME 8.1 fl (7.0-11.0); RED CELL DISTRIBUTION WIDTH 12.4 % (11.5-14.5); WHITE BLOOD COUNT 12.2 10^3/ul (4.5-11.0)
[2017-08-13 07:21] LABS: TROPONIN I 0.02 ng/mL
[2017-08-13 08:02] LABS: ALB/GLOB RATIO 1.1 (1.1-1.8); ALKALINE PHOSPHATASE 81 U/L (38-126); ALT/SGPT 25 U/L (7-56); AST/SGOT 34 U/L (14-36); BILIRUBIN,TOTAL 1.3 mg/dL (0.2-1.3); BLOOD UREA NITROGEN 11 mg/dL (7-21); CARBON DIOXIDE 25 mmol/L (21-33); CHLORIDE 87 mmol/L (98-107); GFR AFRICAN-AMERICAN > 60; GLUCOSE,RANDOM 98 mg/dL (70-110); POTASSIUM 4.6 mmol/L (3.6-5.0); SODIUM 121 mmol/L (132-148); TOTAL PROTEIN 7.5 g/dL (5.8-8.3)
[2017-08-13] MEDS: Fluticasone Nasal 50 mcg/Spray NS SCH ×2 (09:26→22:20)
[2017-08-13 11:12] LABS: BLOOD UREA NITROGEN 12 mg/dL (7-21); CALCIUM 8.8 mg/dL (8.4-10.5); CARBON DIOXIDE 23 mmol/L (21-33); CHLORIDE 91 mmol/L (98-107); GFR AFRICAN-AMERICAN > 60; GLUCOSE,RANDOM 110 mg/dL (70-110); POTASSIUM 4.6 mmol/L (3.6-5.0); SODIUM 122 mmol/L (132-148)
--- NOTE | 2017-08-13 11:17 | CP.PCM.PN ---
Subjective - Date & Time of Evaluation Date of Evaluation: 08/13/17 Time of Evaluation: 11:09 - Subjective Subjective: 76 yo F w/ pmh of htn, CAD s/p stent, tachy-petra syndrome s/p PPM, afib on eliquis, admitted with severe hyponatremia; Patient reporting heartburn last night, gets this symptom periodically; no longer urinating frequently; reports drinking about 9 cups of water daily; Objective - Vital Signs/Intake and Output Vital Signs (last 24 hours): Temp Pulse Resp BP Pulse Ox 98.8 F 77 18 117/64 96 08/13/17 08:00 08/13/17 10:00 08/13/17 08:00 08/13/17 08:00 08/13/17 08:00 Intake and Output: 08/13/17 08/13/17 06:59 18:59 Intake Total 1000 Balance 1000 - Medications Medications: Current Medications Apixaban (Eliquis) 5 mg PO BID [facility] PRN Reason: Protocol Last Admin: 08/13/17 09:26 Dose: 5 mg Aspirin (Ecotrin) 81 mg PO DAILY [facility] Last Admin: 08/13/17 09:26 Dose: 81 mg Atorvastatin Calcium (Lipitor) 20 mg PO DIN [facility] Last Admin: 08/12/17 17:10 Dose: Not Given Fluticasone Propionate (Flonase) 1 actuation NS Q12 [facility] Last Admin: 08/13/17 09:26 Dose: Not Given Sodium Chloride (Hypertonic Saline 3%) 500 mls @ 30 mls/hr IV .[id number] [facility] Last Admin: 08/13/17 02:44 Dose: 30 mls/hr Montelukast Sodium (Singulair) 10 mg PO HS [facility] Last Admin: 08/12/17 22:04 Dose: 10 mg Ursodiol (Actigall) 300 mg PO BID [facility] Last Admin: 08/13/17 09:26 Dose: 300 mg - Labs Labs: 08/13/17 05:30 08/13/17 05:30 PT 13.2 SECONDS (9.4-12.5) H 08/12/17 13:45 INR 1.21 (0.93-1.08) H 08/12/17 13:45 APTT 35.3 Seconds (25.1-36.5) 08/12/17 13:45 - Constitutional Appears: Non-toxic, No Acute Distress - Head Exam Head Exam: NORMAL INSPECTION - Eye Exam Eye Exam: Normal appearance. absent: Scleral icterus - ENT Exam ENT Exam: Mucous Membranes Moist - Respiratory Exam Respiratory Exam: absent: Rhonchi, Wheezes, Respiratory Distress Additional comments: basal rales, more on L - Cardiovascular Exam Cardiovascular Exam: Irregular Rhythm, +S1, +S2. absent: Gallop - GI/Abdominal Exam GI & Abdominal Exam: Soft. absent: Distended, Tenderness - Extremities Exam Additional comments: no leg edema; - Neurological Exam Neurological Exam: Alert, Awake - Psychiatric Exam Psychiatric exam: Normal Affect, Normal Mood - Skin Skin Exam: Warm. absent: Cyanosis Assessment and Plan (1) Hyponatremia Assessment & Plan: Serum Na improving from 117 to 121 on 3% hypertonic saline, rate increased last night to 30 cc/hr after serum Na decreased further; etiology likely multifactorial with bactrim and HCTZ contributory; question of volume depletion ; no orthostatic changes on exam today, however, still complaining of lightheadedness, worse on standing; also, SBP has dropped from 160s to 110 on giving volume back (which can happen with a renin dependent htn); -awaiting repeat labs late this morning, will hold 3% until then (goal is no more than 8-10 meq/L increase in serum Na over 24 hrs); -awaiting repeat urine Na and osm; Status: Acute (2) UTI (urinary tract infection) Assessment & Plan: s/p treatment with bactrim for 3 days; awaiting urine culture; Status: Acute (3) HTN (hypertension) Assessment & Plan: BP on lower end of normal, BP meds on hold (cardizem, metoprolol and hctz); continue to hold for now; Status: Chronic (4) Hematuria Assessment & Plan: Has 2+ dipstick proteinuria as well; awaiting repeat UA; Status: Acute
[2017-08-13 12:12] LABS: URINE BILIRUBIN NEGATIVE (NEGATIVE); URINE BLOOD SMALL (NEGATIVE); URINE GLUCOSE (UA) NEGATIVE (NEGATIVE); URINE KETONE NEGATIVE (NEGATIVE); URINE LEUKOCYTE ESTERASE NEGATIVE Leu/uL (NEGATIVE); URINE PROTEIN 30 mg/dL (<30 mg/dL); URINE UROBILINOGEN 0.2 E.U./dL (<1 E.U./dL)
[2017-08-13 12:13] LABS: URINE APPEARANCE CLEAR (CLEAR); URINE COLOR YELLOW (YELLOW)
[2017-08-13 12:30] LABS: URINE AMORPHOUS SEDIMENT FEW; URINE BACTERIA MANY (NEG); URINE WBC 0 - 2 /hpf (0-6)
--- NOTE | 2017-08-13 15:20 | PN ---
DATE: 08/13/2017 REASON FOR CONSULTATION AND FOLLOWUP: Dizziness, lightheadedness, and admitted with hyponatremia who was recently discharged home with history of coronary artery disease, paroxysmal atrial fibrillation, sick sinus syndrome, history of tachy-petra syndrome, and status post permanent pacemaker. BRIEF CLINICAL HISTORY: This is a 76-year-old female with a past medical history significant for coronary artery disease, status post PTCA in 2008 with LAD, repeat catheterization after four months with a patent stent, recently stress test was abnormal, who recently admitted with paroxysmal atrial fibrillation and discharged on Eliquis, Cardizem, and metoprolol, went home with drinking a lot of water, came with dizziness, found to be hyponatremic, admitting sodium was 121. Denies any chest pain. Denies any palpitations with complaint of mild shortness of breath occasionally. PAST MEDICAL HISTORY: Past history significant for tachy-petra syndrome, sick sinus syndrome, status post permanent pacemaker, placed on 07/09/2014 in the left side of the chest secondary to tachy-petra syndrome, sick sinus syndrome, history of paroxysmal atrial fibrillation, on Eliquis. History of coronary artery disease status post stent in 2008. PREVIOUS CARDIAC WORKUP: As follows, history of coronary stent in 2007, history of recent stress test on 05/15/2016, does shows normal myocardial perfusion study, ejection fraction 78%. The patient had echocardiogram on 02/11/2017 at [facility], does shows ejection fraction 55% to 60%, mild aortic regurgitation, aortic sclerosis, mild mitral regurgitation, mild tricuspid regurgitation, RV systolic pressure 38, history of paroxysmal atrial fibrillation, history of multiple stent in the past, history of permanent pacemaker on 07/09/2014. SOCIAL HISTORY: Denies any history of smoking. Denies any history of alcohol abuse. CURRENT MEDICATIONS: The patient is taking at home Cardizem CD 120 mg daily, Eliquis 5 mg daily, aspirin 81 mg daily, atorvastatin 20 mg daily, and metoprolol 25 mg p.o. b.i.d. REVIEW OF SYSTEMS: As per HPI. PHYSICAL EXAMINATION: VITAL SIGNS: Temperature afebrile, heart rate 77, blood pressure 117/64. HEENT: PERRLA. Extraocular muscles intact. NECK: Supple. No carotid bruits. No thyromegaly. CHEST: Clear to auscultation. HEART: S1 and S2 regular. ABDOMEN: Soft. EXTREMITIES: Clubbing and cyanosis negative. LABORATORY DATA: EKG shows V-paced rhythm underlying sinus, but the telemetry sometimes shows AFib. Blood workup as follows; WBC 12.2, hemoglobin 14, hematocrit 39.4, platelet 424. Chemistry shows sodium 122, potassium 4.6, chloride 91, carbon dioxide 23, anion gap of 13, BUN 12, and creatinine 0.9. Troponin remains negative, flat as expected. Chest x-ray shows no CHF noted. IMPRESSION: A 76-year-old female with past medical history significant for coronary artery disease, status post percutaneous transluminal coronary angioplasty of left anterior descending in 2007, recent stress test was negative, history of tachy-petra syndrome, history of sick sinus syndrome, status post permanent pacemaker, single-chamber VVI on 07/07/2017, admitted with dizziness, found to be severe hyponatremic. Admitting sodium was 115. History of coronary artery disease, history of diabetes, hypertension, hyperlipidemia, obesity, and paroxysmal atrial fibrillation. RECOMMENDATION: Continue Eliquis, continue beta-jasen, hold Cardizem because of low blood pressure, 3% saline at 20 mL an hour, give Lasix for free excretion of the water. So far, no evidence of acute myocardial infarction. We will follow with you. Further recommendation depends on the hospital course. Discussed with the patient, discussed with the patient's . We will follow the repeat lytes in the morning given the TSH also. Continue interim Eliquis and atorvastatin as well as beta-jasen to prevent going into AFib. We will restart metoprolol. If the blood pressure remains okay in the lower side, then we will restart Cardizem, for now we will hold. Continue 3% saline, repeat the lytes in the morning. We will discontinue telemetry. Thank you Dr. Marcus, for providing us the opportunity in taking care of the patient, Susana Pena. Eleazar Odonnell MD
[2017-08-13 18:52] LABS: CALCIUM 8.9 mg/dL (8.4-10.5); POTASSIUM 4.7 mmol/L (3.6-5.0)
--- NOTE | 2017-08-13 19:59 | HP ---
CHIEF COMPLAINT: Dizziness and lightheadedness. HISTORY OF PRESENT ILLNESS: Ms. Susana Pena is a 76-year-old lady with a history of atrial fibrillation, petra-tachy arrhythmias, has pacemaker inserted on 07/17/[address] Odonnell, history of hypertension, GERD, dyspepsia, cholelithiasis, COPD, insomnia, history of cardiac catheterization, asthma, and came with dizziness that started last night. The patient is complaining of generalized weakness, fatigue, nauseous, and chest tightness. States that her heart rate is low in the 40s checked by her daughter according to home monitor. Actually, she called my office about complaints and then called Dr. Odonnell's office also by the patient's docking pilot and then the patient was informed to go to emergency room. Denies hearing changes, tinnitus, poor oral intake, feeling gassy, dyspepsia, feeling constipation, and bloating, but no vomiting. PAST MEDICAL HISTORY: As above. History of hypertension, pacemaker, cardiac cath with cardiac stenting, pyelonephritis, gastroesophageal reflux disease, history of urinary tract infection last admission, cardiac catheterization, coronary stent, and history of cholelithiasis. FAMILY HISTORY: Father and mother noncontributory. HABITS: Never smoked. No drugs. ALLERGIES: THE PATIENT IS NOT ALLERGIC WITH ANY MEDICATION. HOME MEDICATIONS: Ecotrin, Pepcid, Actigall, and hydrochlorothiazide. REVIEW OF SYSTEMS: The patient is seen and examined on the bedside in presence of the patient's nurse, Susanne, talked to house physician, Bel . The patient is feeling still dizzy, lightheadedness, feeling has constipation, and bloating. No back pain. No diaphoresis. Feeling a little bit anxious. No fever. No chills. No visual changes. No hearing changes. No tinnitus. No shortness of breath or coughing. PHYSICAL EXAMINATION: VITAL SIGNS: Temperature 98.7, pulse 83, respiratory rate 18, blood pressure 115/86, and pulse oximetry 98%. HEENT: Head is normocephalic and atraumatic. Eyes; PERRLA. Extraocular muscles intact. Conjunctivae clear. Nose patent. Mucous membranes moist. NECK: Supple. No carotid bruits, JVD, or thyromegaly. CHEST: Bilaterally symmetrical. HEART: S1 and S2 positive. LUNGS: Clear to auscultation. ABDOMEN: Soft. Bowel sounds present. No organomegaly. EXTREMITIES: No edema. No cyanosis. NEUROLOGIC: The patient is awake and alert. Moving all four extremities. No focal deficit. LABORATORY DATA: White blood cell is 15.9, hemoglobin 15.2, hematocrit 42.0, and platelets 453. Sodium 117, potassium 4, chloride 80, BUN 11, creatinine 0.8, and glucose 136. ASSESSMENT AND PLAN: Ms. Susana Pena is a 76-year-old lady with leukocytosis, thrombocytosis, hyponatremia, hyperglycemia, came with gastroesophageal reflux disease, dyspepsia, constipation, dizziness, lightheadedness, petra-tachy arrhythmias, we call consult with Dr. Amando Stern, coin rolling machine operator for hyponatremia, stop hydrochlorothiazide. The patient educated do not drink too much water, giving NS. The patient has a history of cholelithiasis, coronary artery disease, history of cardiac stenting, asthma, has recent admission for urinary tract infection, hydronephrosis, nephrolithiasis, and petra-tachy arrhythmias status post pacemaker. Discussion done with the patient, nursing staff, and rashawn Staples physician. We will follow up. Pricila Marcus MD MTDD
--- NOTE | 2017-08-13 20:15 | CON ---
DATE: 08/12/2017 LOCATION: The patient is in room 270, bed 1. REASON FOR CONSULTATION: Cardiac arrhythmia, PACs on EKG, history of pacemaker insertion, coronary artery disease, low sodium. HISTORY OF PRESENT ILLNESS: The patient is a 76-year-old female admitted with history since last two days she feeling weak and dizzy. The patient came to the emergency room, found to have sodium 117, which is a low. The patient is known case of coronary artery disease, history of stent placement, hypertension since 1994. The patient denies any chest pain, shortness of breath, or palpitations. 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 PREVIOUS CARDIAC WORKUP: As follows, the patient as mentioned above recently had pacemaker insertion. History of stent insertion in 2007 for coronary artery disease. Recent stress on 05/15/2016 showed normal with normal LV ejection fraction of 78%. Echo was done on 02/11/2017 at [facility] that showed ejection fraction of 55-60% mild aortic regurg, mild mitral regurg, mild tricuspid regurg, RV systolic pressure of 38 mmHg. The patient also has history of paroxysmal atrial fibrillation. PERSONAL HISTORY: Denies smoking. Denies drinking. ALLERGIES: THE PATIENT DENIES ANY ALLERGIES. REVIEW OF SYSTEMS: All the system reviewed, positive mentioned in the history, otherwise negative. HOME MEDICATIONS: Included Actigall 300 b.i.d, diltiazem CD 120 mg p.o. daily, Ecotrin 81 mg p.o. daily, Eliquis 5 mg b.i.d., Lipitor 20 mg daily, metoprolol tartrate 25 mg b.i.d, hydrochlorothiazide 12.5 mg daily, Pepcid 20 mg p.o. b.i.d., Singulair 10 mg daily. PHYSICAL EXAMINATION: VITAL SIGNS: Blood pressure 164/75, respirations 18, pulse 76, temperature 97.9. HEENT: Head is normocephalic. Eyes: Pupils normal, conjunctivae normal. Nose and throat normal. NECK: JVP low. Carotids equal. THORAX: AP diameter normal. LUNGS: Clear. CARDIOVASCULAR: S1 and S2. ABDOMEN: Soft. No tenderness. No organomegaly. Bowel sounds normal. EXTREMITIES: No clubbing, no cyanosis. LABORATORY DATA: WBC 15.9, hemoglobin 15.2, hematocrit 42.0, platelet 453. Sodium 117 repeat sodium 116, BUN 10, creatinine 0.8, random sugar 136, calcium 9.6, AST 45, ALT 30. Troponin less than 0.01. Total protein 8.9, albumin 4.7. Chest x-ray showed pacemaker electrode. EKG showed sinus rhythm with PACs, some of the PACs were apparently conducted. DIAGNOSES: Severe hyponatremia, coronary artery disease, history of stent insertion, recent pacemaker insertion for tachybrady syndrome, paroxysmal atrial fibrillation, mild mitral regurgitation, preserved left ventricular function. PLAN: Plan is to stop hydrochlorothiazide because the patient already sodium very low. We will give 3% sodium chloride, BUN and creatinine are normal, so I will give 3% sodium chloride. The patient getting Actigall 300 mg daily, aspirin 81 mg daily, Eliquis 5 mg b.i.d., Lipitor 20 daily, Singulair 10 mg at bedtime. Repeat SMA-7 in the morning and we will follow with you. Eleazar Lee MD
--- NOTE | 2017-08-13 22:14 | CARD ---
APPROVED REPORT EKG Measurement Heart [id number] CT 182P41 [id number] <Conclusion> Normal sinus rhythm Inferior infarct, age undetermined Abnormal ECG
--- NOTE | 2017-08-14 00:37 | PN ---
DATE: SUBJECTIVE: The patient is a 76-year-old female with a past medical history of coronary artery disease status post cardiac stenting, tachy-petra arrhythmias, status post PPM, atrial fibrillation on Eliquis, history of severe hyponatremia, came with lightheadedness, dizziness, and palpitation. No fever and no chills. No nausea, vomiting or diarrhea. Last night, has episodes of heart burn. She has got PPI and felt better. Actually upon interview, came to know the patient was drinking lot of water at home, at least 9 cups of water daily, and was urinating a lot. PHYSICAL EXAMINATION VITAL SIGNS: Temperature is 98.8, pulse is 77, respiratory rate is 18, blood pressure is 117/64, and pulse oximetry of 96%.. HEENT: Head is normocephalic and atraumatic. Eyes, PERRLA. Extraocular muscles intact. Conjunctivae clear. Nose is patent. Mucous membranes are moist. NECK: Supple. No carotid bruits. No JVD or thyromegaly. CHEST: Bilaterally symmetrical. HEART: S1 and S2 positive. LUNGS: Clear to auscultation. ABDOMEN: Soft. Bowel sounds positive. No organomegaly. EXTREMITIES: No edema and no cyanosis. NEUROLOGIC: The patient is awake and alert. Moving all 4 extremities. No focal deficits. MEDICATIONS: Eliquis, Ecotrin, Lipitor, Flonase, NS, Singulair, and Actigall. LABORATORY DATA: White blood cell count is 12.2, hemoglobin is 14.0, hematocrit is 39.4, and platelets are 424. Sodium is 141, potassium is 4.6, BUN is 11, creatinine is 1.0, and glucose is 98. ASSESSMENT AND PLAN: Susana Pena is a 76-year-old lady with leukocytosis, severe hyponatremia improving slowly, hypochloremia, hypertension is under control, holding Cardizem, metoprolol and hydrochlorothiazide. Hematuria, has 2+ dipstick proteinuria. Handicrafts Teacher is on the case. Urinary tract infection , treatment with Bactrim for three days, waiting for urine culture. Urine sodium on admission was 117, now 121 on 3% hypertonic saline. Etiology looks like multifactorial with Bactrim, hydrochlorothiazide and drinking lot of water. No orthostatic change on examination. Still having lightheadedness on standing. Blood pressure dropped from 116 to 110 on giving the volume back which can happen with renal independent hypertension. History of hypercholesterolemia and cholelithiasis. Continue present treatment. Gastrointestinal and deep venous thrombosis prophylaxis. Repeat laboratories. Pricila Marcus MD MTDConnie
--- NOTE | 2017-08-14 02:54 | CON ---
PULMONARY CONSULT REFERRING PHYSICIAN: Pricila Marcus MD REASON FOR CONSULTATION: Chronic lung disease, may have sleep apnea syndrome, cardiac arrhythmia requiring pacemaker, admitted with severe hyponatremia. HISTORY OF PRESENT ILLNESS: This is a 76-year-old female, recently discharged from the hospital after bradycardia and pacemaker install, comes in with lightheadedness, dizzy spell, found to have severe hyponatremia. According to the patient, she had been drinking a lot of free water, just trying to hydrate herself. She was started on hypertonic saline, admitted for further close follow up. PAST MEDICAL HISTORY: Chronic lung disease, history of sinusitis, may have sleep apnea syndrome, hypertension, cardiac arrhythmia requiring pacemaker, atrial fibrillation, history of pyelonephritis, GERD. ALLERGIES: NONE KNOWN. SOCIAL HISTORY: Nonsmoker, nondrinker. FAMILY HISTORY: No significant cardiopulmonary disease reported. MEDICATIONS: She is on Actigall 300 mg twice a day, Ecotrin 81 mg daily, Eliquis 5 mg twice a day, Flonase 1 spray each nostril twice a day, hypertonic saline 3%, 30 mL/hour, Lipitor 20 mg daily, metoprolol tartrate 25 mg daily, Singulair 10 mg daily. REVIEW OF SYSTEMS: Presently, there is no headache, no rhinitis, not much cough. No nausea, no vomiting, diarrhea. No leg pain or leg swelling. PHYSICAL EXAMINATION: GENERAL: Sitting at the side of the bed having dinner, no acute distress. VITAL SIGNS: Temperature is 98, heart rate 99, respiratory rate 20, blood pressure 151/73, pulse ox 96% on 2 L nasal cannula. HEENT: Moist mucous membrane. Crowded airway. NECK: Supple. No JVD. LUNGS: Has fair airflow with few rhonchi. HEART: S1 and S2. ABDOMEN: Soft, nontender. No organomegaly. EXTREMITIES: No edema. NEUROLOGIC: Awake and alert, follows simple commands. LABORATORY DATA: Shows hemoglobin 14.0, hematocrit 39.4, WBC 12.2, platelet count is 424. Sodium 128, potassium 4.7, chloride 96, bicarbonate 27, BUN 15, creatinine 1.1, glucose 147, calcium is 8.9. On admission, sodium was 115. IMPRESSION AND PLAN: Severe hyponatremia, probably secondary to water intoxication with taking a lot of free water, history of coronary artery disease, history of coronary stent, hypertension, cardiac arrhythmia requiring pacemaker, history of pyelonephritis, history of paroxysmal atrial fibrillation. From pulmonary point of view, she is doing okay. Keep head at 45 degrees. Continue Singulair. Continue Flonase, on hypertonic saline. SMA-7 in the morning. Spoke to the patient in detail, discussed about fluid intake. She expressed understanding. Followup labs in the morning. Thank you and we will follow with you. Eleazar Cruz MD
[2017-08-14 06:15] LABS: HEMATOCRIT 38.4 % (36.0-48.0); MEAN CORPUSCULAR HEMOGLOBIN 31.5 pg (25.0-35.0); MEAN CORPUSCULAR HGB CONC 34.6 g/dl (31.0-37.0); MEAN PLATELET VOLUME 8.1 fl (7.0-11.0); RED CELL DISTRIBUTION WIDTH 12.9 % (11.5-14.5); WHITE BLOOD COUNT 9.8 10^3/ul (4.5-11.0)
[2017-08-14 07:06] LABS: ALB/GLOB RATIO 1.1 (1.1-1.8); ALKALINE PHOSPHATASE 65 U/L (38-126); ALT/SGPT 38 U/L (7-56); AST/SGOT 45 U/L (14-36); BLOOD UREA NITROGEN 13 mg/dL (7-21); CALCIUM 9.2 mg/dL (8.4-10.5); CARBON DIOXIDE 27 mmol/L (21-33); CHLORIDE 100 mmol/L (98-107); GFR AFRICAN-AMERICAN > 60; GLUCOSE,RANDOM 90 mg/dL (70-110); POTASSIUM 4.4 mmol/L (3.6-5.0); SODIUM 133 mmol/L (132-148); TOTAL PROTEIN 7.3 g/dL (5.8-8.3)
--- NOTE | 2017-08-14 09:12 | CP.PCM.CON ---
Addendum entered and electronically signed by Juan Alberto Chin DO 08/14/17 12:49 : Addition to plan: -Avoid sudden drops in blood pressure; maintain SBP between 120-130 Original Note: <Juan Alberto Chin - Last Filed: 08/14/17 11:37> History of Present Illness - History of Present Illness History of Present Illness: Neurology consult note for Dr. Mtz's service - Manuela Chin PGY2 Reason for consult: dizziness HPI: Patient is a 76 year-old female with past medical history of atrial fibrillation on eliquis, tachy-petra syndrome s/p pacemaker placement by Dr. Odonnell on 06/2017, hypertension, GERD, CAD s/p PCI with stent placement and asthma presents [facility] with complaints of dizziness that started the night prior to presentation. She described her dizziness as unsteadiness on her feet (denied the perception of the room spinning) and was associated with generalized weakness, fatigue and chest discomfort. Of note, the patient was discharged from [facility] 3 days prior to presentation for atrial fibrillation with RVR at which time she had her medications adjusted and subsequently discharged home. Patient stated that her home heart monitor was notable for a heart rate in the 40's prompting her to come to the emergency room for evaluation. She denied focal weakness, numbness, tingling, loss of consciousness, vision/hearing changes including tinnitus, fever, chills, cough. Neurology consulted for evaluation of dizziness. 12point ROS as per HPI above otherwise negative PMH: as stated above PSH: medtronic pacemaker 06/2017 Allergies: NKDA Family Hx: Non-contributory Social Hx: Denies tobacco, alcohol and illicit drug use PMD: Dr. Marcus Bioinformatics Engineer: Dr. Odonnell Past Patient History - Infectious Disease Hx of Infectious Diseases: None - Tetanus Immunizations Tetanus Immunization: Unknown - Past Social History Smoking Status: Never Smoked - CARDIAC Hx Cardiac Disorders: Yes Hx Hypertension: Yes Hx Pacemaker: Yes (Jul 11 2017) Other/Comment: cardiac cath x 1 stent - PULMONARY Hx Respiratory Disorders: No - NEUROLOGICAL Hx Neurological Disorder: No - HEENT Hx HEENT Problems: Yes Hx Cataracts: Yes - RENAL Hx Chronic Kidney Disease: Yes Hx Pyelonephritis: Yes - ENDOCRINE/METABOLIC Hx Endocrine Disorders: No - HEMATOLOGICAL/ONCOLOGICAL Hx Blood Disorders: No - INTEGUMENTARY Hx Dermatological Problems: No - MUSCULOSKELETAL/RHEUMATOLOGICAL Hx Falls: No - GASTROINTESTINAL Hx Gastrointestinal Disorders: Yes Hx Gastroesophageal Reflux: Yes - GENITOURINARY/GYNECOLOGICAL Hx Genitourinary Disorders: Yes Hx Urinary Tract Infection: Yes - PSYCHIATRIC Hx Psychophysiologic Disorder: No Hx Substance Use: No - SURGICAL HISTORY Hx Cardiac Catheterization: Yes Hx Coronary Stent: Yes - ANESTHESIA Hx Anesthesia: Yes Hx Anesthesia Reactions: No Hx Malignant Hyperthermia: No Meds Allergies/Adverse Reactions: Allergies Allergy/AdvReac Type Severity Reaction Status Date / Time No Known Allergies Allergy Verified 08/12/17 17:02 - Medications Medications: Current Medications Apixaban (Eliquis) 5 mg PO BID [facility] PRN Reason: Protocol Last Admin: 08/13/17 18:26 Dose: 5 mg Aspirin (Ecotrin) 81 mg PO DAILY [facility] Last Admin: 08/13/17 09:26 Dose: 81 mg Atorvastatin Calcium (Lipitor) 20 mg PO DIN [facility] Last Admin: 08/13/17 18:26 Dose: 20 mg Diltiazem HCl (Cardizem Cd) 120 mg PO DAILY [facility] Fluticasone Propionate (Flonase) 1 actuation NS Q12 [facility] Last Admin: 08/13/17 22:20 Dose: 1 spr Meclizine HCl (Antivert) 25 mg PO TID [facility] Metoprolol Tartrate (Lopressor) 25 mg PO BID [facility] Last Admin: 08/13/17 18:26 Dose: 25 mg Montelukast Sodium (Singulair) 10 mg PO HS [facility] Last Admin: 08/13/17 22:20 Dose: 10 mg Ursodiol (Actigall) 300 mg PO BID [facility] Last Admin: 08/13/17 18:26 Dose: 300 mg Physical Exam - Constitutional Appears: No Acute Distress - Head Exam Head Exam: ATRAUMATIC, NORMAL INSPECTION, NORMOCEPHALIC - Eye Exam Eye Exam: EOMI, PERRL - ENT Exam ENT Exam: Mucous Membranes Moist - Neck Exam Neck exam: Positive for: Normal Inspection - Respiratory Exam Respiratory Exam: Clear to Auscultation Bilateral. absent: Rales, Rhonchi, Wheezes - Cardiovascular Exam Cardiovascular Exam: +S1, +S2. absent: Clicks, Gallop, JVD, Rubs - GI/Abdominal Exam GI & Abdominal Exam: Soft. absent: Distended, Firm, Guarding, Rebound, Tenderness - Extremities Exam Extremities exam: Positive for: normal inspection. Negative for: pedal edema - Back Exam Back exam: NORMAL INSPECTION - Neurological Exam Neurological exam: Alert, CN II-XII Intact, Oriented x3 Additional comments: awake, alert, oriented x3; answering questions appropriately EOMI PERRL CN2-12 grossly intact moves all extremities spontaneously sensory exam intact throughout proprioception intact no drift gait deferred - Psychiatric Exam Psychiatric exam: Normal Affect, Normal Mood - Skin Skin Exam: Dry, Intact, Normal Color, Warm Results - Vital Signs Recent Vital Signs: Last Vital Signs Temp 98 F 08/14/17 06:00 Pulse 59 L 08/14/17 06:00 Resp 20 08/14/17 06:00 BP 132/78 08/14/17 06:00 Pulse Ox 98 08/14/17 00:01 - Labs Result Diagrams: 08/14/17 05:35 08/14/17 05:35 Labs: Laboratory Results - last 24 hr 08/13/17 08/13/17 08/13/17 10:45 12:00 18:21 WBC RBC Hgb Hct MCV MCH MCHC RDW Plt Count MPV Sodium 122 L 128 L Potassium 4.6 4.7 Chloride 91 L 96 L Carbon Dioxide 23 27 Anion Gap 13 11 BUN 12 15 Creatinine 0.9 1.1 Est GFR ( Amer) > 60 58 Est GFR (Non-Af Amer) > 60 48 Random Glucose 110 147 H Calcium 8.8 8.9 Total Bilirubin AST ALT Alkaline Phosphatase Total Protein Albumin Globulin Albumin/Globulin Ratio Urine Color Yellow Urine Appearance Clear Urine pH 6.0 Ur Specific Epworth <= 1.005 Urine Protein 30 H Urine Glucose (UA) Negative Urine Ketones Negative Urine Blood Small H Urine Nitrate Negative Urine Bilirubin Negative Urine Urobilinogen 0.2 Ur Leukocyte Esterase Negative Urine RBC 10 - 15 Urine WBC 0 - 2 Ur Epithelial Cells 4 - 5 Amorphous Sediment Few Urine Bacteria Many Urine Other Uyeast 08/14/17 08/14/17 05:35 05:35 WBC 9.8 RBC 4.22 Hgb 13.3 Hct 38.4 MCV 91.0 D MCH 31.5 MCHC 34.6 RDW 12.9 Plt Count 430 MPV 8.1 Sodium 133 Potassium 4.4 Chloride 100 Carbon Dioxide 27 Anion Gap 10 BUN 13 Creatinine 1.0 Est GFR ( Amer) > 60 Est GFR (Non-Af Amer) 54 Random Glucose 90 Calcium 9.2 Total Bilirubin 1.0 AST 45 H D ALT 38 Alkaline Phosphatase 65 Total Protein 7.3 Albumin 3.9 Globulin 3.5 Albumin/Globulin Ratio 1.1 Urine Color Urine Appearance Urine pH Ur Specific Epworth Urine Protein Urine Glucose (UA) Urine Ketones Urine Blood Urine Nitrate Urine Bilirubin Urine Urobilinogen Ur Leukocyte Esterase Urine RBC Urine WBC Ur Epithelial Cells Amorphous Sediment Urine Bacteria Urine Other Assessment & Plan - Assessment and Plan (Free Text) Plan: 76yo female with history of afib, tachy-petra syndrome s/p PPM, hypertension, GERD, CAD s/p PCI with stent placement and asthma presents with c/o dizziness and chest discomfort. Neurology consulted for evaluation of dizziness. 1. Altered mental status/Dizziness 2. Tachy-petra syndrome s/p PPM 3. Atrial fibrillation on eliquis 4. CAD 5. HTN 6. GERD -Altered mental status/dizziness secondary to metabolic encephalopathy due to her notable hyponatremia of 117 of admission; recommend slowly correcting the sodium as per nephrology recommendations. -Delirium precautions -Avoid sedating medications -Physical therapy/occupational therapy evaluation -Continue ASA, eliquis and lipitor for stroke prevention -Recommend follow up with cardiology recommendations -CT Head reviewed; revealed no acute intracranial abnormalities and right-sided mastoiditis; recommend f/u regarding mastoiditis treatment -CXR and EKG reviewed; see full reports Patient seen and case to be discussed/reviewed with attending, Dr. Mtz - Date & Time Date: 08/14/17 Time: 09:27 <Albino Mtz - Last Filed: 08/14/17 16:22> Meds - Medications Medications: Current Medications Apixaban (Eliquis) 5 mg PO BID [facility] PRN Reason: Protocol Last Admin: 08/14/17 10:19 Dose: 5 mg Aspirin (Ecotrin) 81 mg PO DAILY [facility] Last Admin: 08/14/17 10:19 Dose: 81 mg Atorvastatin Calcium (Lipitor) 20 mg PO DIN [facility] Last Admin: 08/13/17 18:26 Dose: 20 mg Diltiazem HCl (Cardizem Cd) 120 mg PO DAILY [facility] Last Admin: 08/14/17 10:19 Dose: 120 mg Fluticasone Propionate (Flonase) 1 actuation NS Q12 [facility] Last Admin: 08/14/17 10:25 Dose: 1 spr Meclizine HCl (Antivert) 25 mg PO TID [facility] Last Admin: 08/14/17 13:53 Dose: 25 mg Metoprolol Tartrate (Lopressor) 25 mg PO BID [facility] Last Admin: 08/14/17 10:25 Dose: 25 mg Montelukast Sodium (Singulair) 10 mg PO HS [facility] Last Admin: 08/13/17 22:20 Dose: 10 mg Ursodiol (Actigall) 300 mg PO BID [facility] Last Admin: 08/14/17 10:19 Dose: 300 mg Results - Vital Signs Recent Vital Signs: Last Vital Signs Temp 97.5 F L 08/14/17 12:00 Pulse 62 08/14/17 12:00 Resp 20 08/14/17 12:00 BP 115/72 08/14/17 12:00 Pulse Ox 98 08/14/17 00:01 - Labs Result Diagrams: 08/14/17 05:35 08/14/17 05:35 Labs: Laboratory Results - last 24 hr 08/13/17 08/14/17 08/14/17 18:21 05:35 05:35 WBC 9.8 RBC 4.22 Hgb 13.3 Hct 38.4 MCV 91.0 D MCH 31.5 MCHC 34.6 RDW 12.9 Plt Count 430 MPV 8.1 Sodium 128 L 133 Potassium 4.7 4.4 Chloride 96 L 100 Carbon Dioxide 27 27 Anion Gap 11 10 BUN 15 13 Creatinine 1.1 1.0 Est GFR ( Amer) 58 > 60 Est GFR (Non-Af Amer) 48 54 Random Glucose 147 H 90 Calcium 8.9 9.2 Total Bilirubin 1.0 AST 45 H D ALT 38 Alkaline Phosphatase 65 Total Protein 7.3 Albumin 3.9 Globulin 3.5 Albumin/Globulin Ratio 1.1 Ur Random Sodium 08/14/17 15:50 WBC RBC Hgb Hct MCV MCH MCHC RDW Plt Count MPV Sodium Potassium Chloride Carbon Dioxide Anion Gap BUN Creatinine Est GFR ( Amer) Est GFR (Non-Af Amer) Random Glucose Calcium Total Bilirubin AST ALT Alkaline Phosphatase Total Protein Albumin Globulin Albumin/Globulin Ratio Ur Random Sodium 62 Attending/Attestation - Attestation I have personally seen and examined this patient.: Yes I have fully participated in the care of the patient.: Yes I have reviewed all pertinent clinical information: Yes
--- NOTE | 2017-08-14 09:56 | CT ---
PROCEDURE: CT HEAD WITHOUT CONTRAST. HISTORY: dizziness COMPARISON: 07/07/2017 TECHNIQUE: Axial computed tomography images were obtained through the head/brain without intravenous contrast. Radiation dose: Total exam DLP = 759 mGy-cm. This CT exam was performed using one or more of the following dose reduction techniques: Automated exposure control, adjustment of the mA and/or kV according to patient size, and/or use of iterative reconstruction technique. FINDINGS: HEMORRHAGE: No intracranial hemorrhage. BRAIN: No mass effect or edema. No atrophy or chronic microvascular ischemic changes. VENTRICLES: Unremarkable. No hydrocephalus. CALVARIUM: Unremarkable. PARANASAL SINUSES: Unremarkable as visualized. No significant inflammatory changes. MASTOID AIR CELLS: There is partial opacification of the right mastoid air cells which has increased since the previous study OTHER FINDINGS: None. IMPRESSION: No acute intracranial findings. Right-sided mastoiditis
[2017-08-14] MEDS: diltiaZEM 120 mg/24 Hours CD Cap PO SCH (10:19)
[2017-08-14] MEDS: Fluticasone Nasal 50 mcg/Spray NS SCH ×2 (10:25→22:05)
--- NOTE | 2017-08-14 12:44 | CP.PCM.PN ---
<Amando Stern - Last Filed: 08/14/17 12:44> Objective - Vital Signs/Intake and Output Vital Signs (last 24 hours): Temp Pulse Resp BP Pulse Ox 97.5 F L 62 20 115/72 98 08/14/17 12:00 08/14/17 12:00 08/14/17 12:00 08/14/17 12:00 08/14/17 00:01 Intake and Output: 08/14/17 08/14/17 06:59 18:59 Intake Total 720 Balance 720 - Medications Medications: Current Medications Apixaban (Eliquis) 5 mg PO BID [facility] PRN Reason: Protocol Last Admin: 08/14/17 10:19 Dose: 5 mg Aspirin (Ecotrin) 81 mg PO DAILY [facility] Last Admin: 08/14/17 10:19 Dose: 81 mg Atorvastatin Calcium (Lipitor) 20 mg PO DIN [facility] Last Admin: 08/13/17 18:26 Dose: 20 mg Diltiazem HCl (Cardizem Cd) 120 mg PO DAILY [facility] Last Admin: 08/14/17 10:19 Dose: 120 mg Fluticasone Propionate (Flonase) 1 actuation NS Q12 [facility] Last Admin: 08/14/17 10:25 Dose: 1 spr Meclizine HCl (Antivert) 25 mg PO TID [facility] Last Admin: 08/14/17 10:34 Dose: 25 mg Metoprolol Tartrate (Lopressor) 25 mg PO BID [facility] Last Admin: 08/14/17 10:25 Dose: 25 mg Montelukast Sodium (Singulair) 10 mg PO HS [facility] Last Admin: 08/13/17 22:20 Dose: 10 mg Ursodiol (Actigall) 300 mg PO BID [facility] Last Admin: 08/14/17 10:19 Dose: 300 mg - Labs Labs: 08/14/17 05:35 08/14/17 05:35 PT 13.2 SECONDS (9.4-12.5) H 08/12/17 13:45 INR 1.21 (0.93-1.08) H 08/12/17 13:45 APTT 35.3 Seconds (25.1-36.5) 08/12/17 13:45 Assessment and Plan (1) Hyponatremia Status: Acute (2) UTI (urinary tract infection) Status: Acute (3) HTN (hypertension) Status: Chronic (4) Hematuria Status: Acute <Pamela Mtz - Last Filed: 08/14/17 13:19> Subjective - Date & Time of Evaluation Date of Evaluation: 08/14/17 Time of Evaluation: 11:55 - Subjective Subjective: Nephrology Progress Note- Dr. Stern's service Patient seen and examined in no apparent acute distress. Patient's family member present bedside. Nurse practitioner also present as well. Nurse practitioner explained that she recently started patient on Bactrim after a suspected UTI a few days prior. Patient herself, indicated that she may have been drinking more water than her norm as well. Patient does report intermittent dizziness at times. She currently denies headaches, subjective fevers or chills or nausea at this time. Objective - Vital Signs/Intake and Output Vital Signs (last 24 hours): Temp Pulse Resp BP Pulse Ox 97.5 F L 62 20 115/72 98 08/14/17 12:00 08/14/17 12:00 08/14/17 12:00 08/14/17 12:00 08/14/17 00:01 Intake and Output: 08/14/17 08/14/17 06:59 18:59 Intake Total 720 Balance 720 - Medications Medications: Current Medications Apixaban (Eliquis) 5 mg PO BID [facility] PRN Reason: Protocol Last Admin: 08/14/17 10:19 Dose: 5 mg Aspirin (Ecotrin) 81 mg PO DAILY [facility] Last Admin: 08/14/17 10:19 Dose: 81 mg Atorvastatin Calcium (Lipitor) 20 mg PO DIN [facility] Last Admin: 08/13/17 18:26 Dose: 20 mg Diltiazem HCl (Cardizem Cd) 120 mg PO DAILY [facility] Last Admin: 08/14/17 10:19 Dose: 120 mg Fluticasone Propionate (Flonase) 1 actuation NS Q12 [facility] Last Admin: 08/14/17 10:25 Dose: 1 spr Meclizine HCl (Antivert) 25 mg PO TID [facility] Last Admin: 08/14/17 10:34 Dose: 25 mg Metoprolol Tartrate (Lopressor) 25 mg PO BID [facility] Last Admin: 08/14/17 10:25 Dose: 25 mg Montelukast Sodium (Singulair) 10 mg PO HS [facility] Last Admin: 08/13/17 22:20 Dose: 10 mg Ursodiol (Actigall) 300 mg PO BID [facility] Last Admin: 08/14/17 10:19 Dose: 300 mg - Labs Labs: 08/14/17 05:35 08/14/17 05:35 PT 13.2 SECONDS (9.4-12.5) H 08/12/17 13:45 INR 1.21 (0.93-1.08) H 08/12/17 13:45 APTT 35.3 Seconds (25.1-36.5) 08/12/17 13:45 - Constitutional Appears: Non-toxic, No Acute Distress - Head Exam Head Exam: ATRAUMATIC, NORMAL INSPECTION - Eye Exam Eye Exam: EOMI, Normal appearance - ENT Exam ENT Exam: Mucous Membranes Moist - Neck Exam Neck Exam: Full ROM - Respiratory Exam Respiratory Exam: NORMAL BREATHING PATTERN. absent: Wheezes - Cardiovascular Exam Cardiovascular Exam: +S1, +S2 - GI/Abdominal Exam GI & Abdominal Exam: Soft, Normal Bowel Sounds - Extremities Exam Extremities Exam: Full ROM Additional comments: trace edema in UE - Back Exam Back Exam: Full ROM - Neurological Exam Neurological Exam: Alert, Awake, Oriented x3 - Psychiatric Exam Psychiatric exam: Normal Affect, Normal Mood - Skin Skin Exam: Dry, Normal Color, Warm Assessment and Plan - Assessment and Plan (Free Text) Assessment: Hyponatremia Assessment & Plan: Serum Na today 133. Improved Etiology likely multifactorial with Bactrim and HCTZ contributory as well as increased PO water intake as well. Question of volume depletion Recommend monitoring orthostatics; Awaiting repeat Urine Na and Osm. Was ordered but not collected. Spoke with nursing team. Will F/U Monitor Dizziness Status: Acute UTI (urinary tract infection) Assessment & Plan: s/p treatment with bactrim for 3 days; UC negative at this time. If patient is in need of continued antibiotics per primary- would recommend switching to an alternative agent other than Bactrim Status: Acute Atrial Fibrillation Assessment & Plan: On Cardizem, Metoprolol and Eliquis Cont to monitor HTN (hypertension) Assessment & Plan: Normotensive- low end of normal. Improved from yesterday Discontinue HCTZ at this time due to increased risk of hyponatremia Cardizem and Metoprolol on board. Monitor HR. Recommend that parameters be placed for low HR Status: Chronic Hematuria Assessment & Plan: Proteinuria and Hematuria are improved Cont to monitor Status: Acute Discussed with attending Dr. Stern
--- NOTE | 2017-08-14 14:21 | PN ---
DATE: REASON FOR CONSULTATION AND FOLLOWUP: Dizziness and lightheadedness, admitted with hyponatremia, recently discharged, was on 3% normal saline. SUBJECTIVE: Denies any chest pain or shortness of breath. Dizziness significantly improved. PHYSICAL EXAMINATION: GENERAL: Not in apparent distress, sitting at the bedside. VITAL SIGNS: As follows: Temperature afebrile, heart rate 69, and blood pressure 132/78. HEENT: PERRLA. Extraocular muscles intact. NECK: Supple. No carotid bruits or thyromegaly. CHEST: Clear to auscultation. HEART: S1 and S2 regular. ABDOMEN: Soft. EXTREMITIES: Clubbing and cyanosis negative. LABORATORY DATA: Blood workup: WBC 9.8, hemoglobin 13.8, hematocrit 38.4, and platelet count 430. Chemistry shows sodium 130, potassium 4.0, chloride 100, carbon dioxide 27, anion gap of 10, BUN 13, and creatinine 1.0. Total protein 7.3, albumin 3.9, and albumin-globulin ratio 1.1. IMPRESSION: Hyponatremia probably secondary to polydipsia, dizziness, history of coronary artery disease status post stent in 2007, history of stress test on 05/15/2016, normal myocardial perfusion study, ejection fraction 78%, history of echocardiogram on 02/11/2017, ejection fraction , mild mitral regurgitation, mild tricuspid regurgitation 38, paroxysmal atrial fibrillation, status post permanent pacemaker. RECOMMENDATIONS: Discontinue telemetry. Continue aspirin. Continue Eliquis. Continue metoprolol. Consider restarting Cardizem CD 120 when the blood pressure goes above 140. For now, the patient came in with low blood pressure, so we will restart with holding parameters. We will follow with you. Thank you Dr. Marcus for providing us the opportunity in taking care of the patient Susana Pena and we will discontinue telemetry if she remains stable and possible discharge. Eleazar Odonnell MD
[2017-08-14] MEDS: Amoxicillin-Clav 875-125 mg Tab PO SCH (21:44)
--- NOTE | 2017-08-14 22:16 | PN ---
PULMONARY PROGRESS NOTE DATE: 08/14/2017 REFERRING PHYSICIAN: Pricila Marcus MD SUBJECTIVE: She is sitting side of the bed, at bedside. Still feels little dizzy. No vertigo today. No nausea, no vomiting, no diarrhea. No leg pain or leg swelling. PHYSICAL EXAMINATION: GENERAL: No acute distress. VITAL SIGNS: Temperature is 98, heart rate is 62, respiratory rate is 20, blood pressure 135/70 and pulse oximetry 98% on 2 liter nasal cannula. HEENT: Moist mucous membranes. No ulcer or thrush. NECK: Supple. No JVD. LUNGS: Has a fair airflow with few rhonchi. HEART: S1 and S2. ABDOMEN: Soft and nontender. No organomegaly. EXTREMITIES: No edema. NEUROLOGIC: Awake and alert. Follows simple commands. MEDICATIONS: She is on Actigall 300 mg twice a day, Antivert 25 mg three times a day, Cardizem 120 mg daily, Ecotrin 81 mg daily, Eliquis 5 mg twice a day, Flonase one spray each nostril twice a day, Lipitor 20 mg daily, metoprolol tartrate 25 mg twice a day, and Singulair 10 mg daily. LABORATORY DATA: Shows hemoglobin 13.3, hematocrit 38.4, WBC 9.8 and platelet count is 430. Sodium 133, potassium 4.4, chloride 100, bicarbonate 27, BUN 13, creatinine 1.0, glucose 90 and calcium is 9.2. AST 45, ALT 38, alkaline phosphatase is 65 and albumin is 3.9. Microbiology blood culture and urine culture, there is no growth. A CAT scan of the head shows no acute intracranial finding, right-sided mastoiditis. IMPRESSION AND PLAN: Severe hyponatremia status post hypertonic saline which is improved, mastoiditis, coronary artery disease, history of coronary stent, hypertension, cardiac arrhythmia requiring pacemaker, history of pyelonephritis in the past, paroxysmal atrial fibrillation, may have sleep apnea syndrome. Continue antibiotics doxycycline 100 mg twice a day, anticoagulation, fall precaution and physical therapy. Thank you, and we will follow with you. Eleazar Cruz MD
--- NOTE | 2017-08-14 23:52 | CP.PCM.PN ---
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 Her is at the bedside. She is sitting comfortably in hospital bed and reports relief from the dizziness. She denies any SOB, constipation, N/V, diarrhea, chills, urinary changes, or distress. Objective - Vital Signs/Intake and Output Vital Signs (last 24 hours): Temp Pulse Resp BP Pulse Ox 98.3 F 59 L 18 135/70 98 08/14/17 16:00 08/14/17 17:05 08/14/17 16:00 08/14/17 17:05 08/14/17 16:00 - Medications Medications: Current Medications Amoxicillin/Clavulanate Potassium (Augmentin 875 Mg-125 Mg Tab) 1 tab PO Q12 [facility] PRN Reason: Protocol Last Admin: 08/14/17 21:44 Dose: 1 tab Apixaban (Eliquis) 5 mg PO BID [facility] PRN Reason: Protocol Last Admin: 08/14/17 17:05 Dose: 5 mg Aspirin (Ecotrin) 81 mg PO DAILY [facility] Last Admin: 08/14/17 10:19 Dose: 81 mg Atorvastatin Calcium (Lipitor) 20 mg PO DIN [facility] Last Admin: 08/14/17 17:05 Dose: 20 mg Diltiazem HCl (Cardizem Cd) 120 mg PO DAILY [facility] Last Admin: 08/14/17 10:19 Dose: 120 mg Fluticasone Propionate (Flonase) 1 actuation NS Q12 [facility] Last Admin: 08/14/17 22:05 Dose: 1 spr Meclizine HCl (Antivert) 25 mg PO TID [facility] Last Admin: 08/14/17 17:05 Dose: 25 mg Metoprolol Tartrate (Lopressor) 25 mg PO BID [facility] Last Admin: 08/14/17 17:05 Dose: 25 mg Montelukast Sodium (Singulair) 10 mg PO HS [facility] Last Admin: 08/14/17 21:44 Dose: 10 mg Ursodiol (Actigall) 300 mg PO BID [facility] Last Admin: 08/14/17 17:05 Dose: 300 mg - Labs Labs: 08/14/17 05:35 08/14/17 05:35 PT 13.2 SECONDS (9.4-12.5) H 08/12/17 13:45 INR 1.21 (0.93-1.08) H 08/12/17 13:45 APTT 35.3 Seconds (25.1-36.5) 08/12/17 13:45 - Constitutional Appears: Well - Head Exam Head Exam: ATRAUMATIC - Eye Exam Pupil Exam: NORMAL ACCOMODATION - ENT Exam ENT Exam: Mucous Membranes Moist - Neck Exam Neck Exam: Normal Inspection - Respiratory Exam Respiratory Exam: Clear to Ausculation Bilateral, NORMAL BREATHING PATTERN - Cardiovascular Exam Cardiovascular Exam: +S1, +S2 - GI/Abdominal Exam GI & Abdominal Exam: Soft, Normal Bowel Sounds - Extremities Exam Extremities Exam: Full ROM - Neurological Exam Neurological Exam: Alert, Awake, Oriented x3 - Psychiatric Exam Psychiatric exam: Normal Affect, Normal Mood - Skin Skin Exam: Dry, Intact, Warm Additional comments: L chest wall PPM healing scar. Assessment and Plan (1) Hyponatremia Status: Acute (2) Dizziness Status: Acute (3) Mastoiditis Status: Acute (4) UTI (urinary tract infection) Status: Acute (5) Hematuria Status: Acute (6) Atrial fibrillation with RVR Status: Chronic (7) COPD (chronic obstructive pulmonary disease) Status: Chronic (8) HTN (hypertension) Status: Chronic - Assessment and Plan (Free Text) Plan: * Hyponatremia - improving w/ 3% NS * UTI - agumentin PO * Hematuria/Proteinuria - resolved. * Afib - Cardiezem, Metoprolol, eliquis * Mastoiditis - CT head (+) partial opacification of R mastoid air cells increase since previous study. * CAD - stable. * HTN - D/C HCTZ s/t hypotension. Dr. Cruz : augmentin abx, anticoagulation, falls precaution, Physical Therapy Dr. Bauman : Hyponatremia s/t HCTZ & Bactrim concurrent use Dr. Odonnell: D/C telemetry. Continue asa, eliquis, metoprolol. plans to restart cardizem CD. Reviewed ECG (+) NSR, inferior infarct, abn. <Pricila Marcus - Last Filed: 08/15/17 10:46> Objective - Vital Signs/Intake and Output Vital Signs (last 24 hours): Temp Pulse Resp BP Pulse Ox 98.0 F 67 20 123/82 98 08/15/17 08:05 08/15/17 10:23 08/15/17 08:05 08/15/17 10:23 08/15/17 08:05 Intake and Output: 08/15/17 08/15/17 06:59 18:59 Intake Total 240 Output Total 200 Balance 40 - Medications Medications: Current Medications Amoxicillin/Clavulanate Potassium (Augmentin 875 Mg-125 Mg Tab) 1 tab PO Q12 [facility] PRN Reason: Protocol Last Admin: 08/15/17 10:22 Dose: 1 tab Apixaban (Eliquis) 5 mg PO BID [facility] PRN Reason: Protocol Last Admin: 08/15/17 10:22 Dose: 5 mg Aspirin (Ecotrin) 81 mg PO DAILY [facility] Last Admin: 08/15/17 10:22 Dose: 81 mg Atorvastatin Calcium (Lipitor) 20 mg PO DIN [facility] Last Admin: 08/14/17 17:05 Dose: 20 mg Diltiazem HCl (Cardizem Cd) 120 mg PO DAILY [facility] Last Admin: 08/15/17 10:22 Dose: 120 mg Fluticasone Propionate (Flonase) 1 actuation NS Q12 [facility] Last Admin: 08/15/17 10:23 Dose: 1 spr Meclizine HCl (Antivert) 25 mg PO TID [facility] Last Admin: 08/15/17 10:22 Dose: 25 mg Metoprolol Tartrate (Lopressor) 25 mg PO BID [facility] Last Admin: 08/15/17 10:23 Dose: 25 mg Montelukast Sodium (Singulair) 10 mg PO HS [facility] Last Admin: 08/14/17 21:44 Dose: 10 mg Ursodiol (Actigall) 300 mg PO BID [facility] Last Admin: 08/15/17 10:22 Dose: 300 mg - Labs Labs: 08/15/17 06:00 08/15/17 06:00 PT 13.2 SECONDS (9.4-12.5) H 08/12/17 13:45 INR 1.21 (0.93-1.08) H 08/12/17 13:45 APTT 35.3 Seconds (25.1-36.5) 08/12/17 13:45 Assessment and Plan - Assessment and Plan (Free Text) Plan: pt is s/e at bed side . dizziness and gutierrez improving , agreed all above , cont, same treatment , d/d with rescue worker , pt staff and chart , labs noted , no acute event noted , dc telemetry , getting po anb , and pt , will f/u
[2017-08-15 00:56] VITALS: RESP 20
[2017-08-15 06:35] LABS: MEAN CELL VOLUME 91.5 fl (80.0-105.0); MEAN CORPUSCULAR HEMOGLOBIN 31.6 pg (25.0-35.0); MEAN CORPUSCULAR HGB CONC 34.5 g/dl (31.0-37.0); MEAN PLATELET VOLUME 8.3 fl (7.0-11.0); WHITE BLOOD COUNT 10.1 10^3/ul (4.5-11.0)
[2017-08-15 06:54] LABS: ALB/GLOB RATIO 1.1 (1.1-1.8); ALKALINE PHOSPHATASE 78 U/L (38-126); ALT/SGPT 31 U/L (7-56); AST/SGOT 32 U/L (14-36); BLOOD UREA NITROGEN 14 mg/dL (7-21); CALCIUM 9.3 mg/dL (8.4-10.5); CARBON DIOXIDE 23 mmol/L (21-33); CHLORIDE 103 mmol/L (98-107); GFR AFRICAN-AMERICAN > 60; GLUCOSE,RANDOM 94 mg/dL (70-110); POTASSIUM 4.3 mmol/L (3.6-5.0); SODIUM 135 mmol/L (132-148); TOTAL PROTEIN 7.6 g/dL (5.8-8.3)
[2017-08-15] MEDS: diltiaZEM 120 mg/24 Hours CD Cap PO SCH (10:22)
[2017-08-15] MEDS: Amoxicillin-Clav 875-125 mg Tab PO SCH (10:22)
[2017-08-15] MEDS: Fluticasone Nasal 50 mcg/Spray NS SCH (10:23)
--- NOTE | 2017-08-15 10:48 | CP.PCM.PN ---
Subjective - Date & Time of Evaluation Date of Evaluation: 08/15/17 Time of Evaluation: 10:41 - Subjective Subjective: 76 yo F w/ pmh of htn, CAD s/p stent, s/p PPM, afib on eliquis, admitted with severe hyponatremia, mastoiditis; Patient reports feeling well; tolerating diet; restricting her fluid intake; denies shortness of breath; Objective - Vital Signs/Intake and Output Vital Signs (last 24 hours): Temp Pulse Resp BP Pulse Ox 98.0 F 67 20 123/82 98 08/15/17 08:05 08/15/17 10:23 08/15/17 08:05 08/15/17 10:23 08/15/17 08:05 Intake and Output: 08/15/17 08/15/17 06:59 18:59 Intake Total 240 Output Total 200 Balance 40 - Medications Medications: Current Medications Amoxicillin/Clavulanate Potassium (Augmentin 875 Mg-125 Mg Tab) 1 tab PO Q12 [facility] PRN Reason: Protocol Last Admin: 08/15/17 10:22 Dose: 1 tab Apixaban (Eliquis) 5 mg PO BID [facility] PRN Reason: Protocol Last Admin: 08/15/17 10:22 Dose: 5 mg Aspirin (Ecotrin) 81 mg PO DAILY [facility] Last Admin: 08/15/17 10:22 Dose: 81 mg Atorvastatin Calcium (Lipitor) 20 mg PO DIN [facility] Last Admin: 08/14/17 17:05 Dose: 20 mg Diltiazem HCl (Cardizem Cd) 120 mg PO DAILY [facility] Last Admin: 08/15/17 10:22 Dose: 120 mg Fluticasone Propionate (Flonase) 1 actuation NS Q12 [facility] Last Admin: 08/15/17 10:23 Dose: 1 spr Meclizine HCl (Antivert) 25 mg PO TID [facility] Last Admin: 08/15/17 10:22 Dose: 25 mg Metoprolol Tartrate (Lopressor) 25 mg PO BID [facility] Last Admin: 08/15/17 10:23 Dose: 25 mg Montelukast Sodium (Singulair) 10 mg PO HS [facility] Last Admin: 08/14/17 21:44 Dose: 10 mg Ursodiol (Actigall) 300 mg PO BID [facility] Last Admin: 08/15/17 10:22 Dose: 300 mg - Labs Labs: 08/15/17 06:00 08/15/17 06:00 PT 13.2 SECONDS (9.4-12.5) H 08/12/17 13:45 INR 1.21 (0.93-1.08) H 08/12/17 13:45 APTT 35.3 Seconds (25.1-36.5) 08/12/17 13:45 - Constitutional Appears: Well, No Acute Distress - Head Exam Head Exam: NORMAL INSPECTION - Eye Exam Eye Exam: Normal appearance. absent: Scleral icterus - ENT Exam ENT Exam: Mucous Membranes Moist - Respiratory Exam Respiratory Exam: Clear to Ausculation Bilateral, NORMAL BREATHING PATTERN. absent: Rales, Rhonchi, Wheezes - Cardiovascular Exam Cardiovascular Exam: RRR, +S1, +S2 - GI/Abdominal Exam GI & Abdominal Exam: Soft. absent: Distended, Tenderness - Extremities Exam Additional comments: no leg edema; - Neurological Exam Neurological Exam: Alert, Awake - Psychiatric Exam Psychiatric exam: Normal Affect, Normal Mood - Skin Skin Exam: Warm. absent: Cyanosis Assessment and Plan (1) Hyponatremia Assessment & Plan: Resolved; etiology likely multifactorial; repeat urine osm while hyponatremia was still correcting would have been helpful but unfortunately sample seems to have been lost; -should avoid thiazide diuretic due to pre-disposition for hyponatremia; avoid bactrim use for this same reason (although no absolute contraindication for either of these agents); -patient can resume more liberal fluid intake but in moderation Status: Acute (2) UTI (urinary tract infection) Assessment & Plan: Resolved; see above regarding bactrim; Status: Acute (3) HTN (hypertension) Assessment & Plan: BP controlled on cardizem and metoprolol, continue same; Status: Chronic (4) Hematuria Assessment & Plan: With proteinuria also seen on urine dipstick; repeat UA shows improvement; etiology is unclear but may be related to UTI and/or drug reaction; should monitor periodically as outpatient; if hematuria/proteinuria persists, needs further renal evaluation; Status: Acute - Assessment and Plan (Free Text) Assessment: Patient is stable from nephrology perspective; we will sign off at this time; please feel free to call us back with any questions.
[2017-08-15 16:40] VITALS: BP 111/64; PULSE 62; TEMP 98.3; O2SAT 99
--- NOTE | 2017-08-15 18:39 | PN ---
DATE: 08/15/2017 PULMONARY PROGRESS NOTE REFERRING PHYSICIAN: Pricila Marcus MD SUBJECTIVE: The patient is sitting side of the bed. Night was unremarkable, feels better. She has some ear ringing, which is improved from yesterday. No nausea, no vomiting, no diarrhea. No leg pain or leg swelling. OBJECTIVE: GENERAL: No acute distress. VITAL SIGNS: Temperature is 98, heart rate is 67, respiratory rate is 20, blood pressure 123/82, and pulse oximetry 98% on room air. HEENT: Moist mucous membranes. No ulcer or thrush noted. NECK: Supple. No JVD. LUNGS: Has a fair airflow with few rhonchi. HEART: S1 and S2. ABDOMEN: Soft and nontender. No organomegaly. EXTREMITIES: There is no edema. NEUROLOGIC: Awake and alert. Follows simple commands. MEDICATIONS: She is on Actigall 300 mg twice a day, Antivert 25 mg three times a day, Augmentin 875 one tab twice a day, diltiazem CD 120 mg daily, Ecotrin 81 mg daily, Eliquis 5 mg twice a day, Flonase one spray each nostril twice a day, Lipitor 20 mg daily, metoprolol tartrate 25 mg twice a day, Singulair 10 mg daily. LABORATORY DATA: Shows hemoglobin 14.5, hematocrit 42.0, WBC 10.1 and platelet count is 422. Sodium 135, potassium 4.3, chloride 103, bicarbonate 23, BUN 14, creatinine 0.9, glucose 94 and calcium is 9.3. AST 32, ALT 31, alkaline phosphatase is 78 and albumin is 4.0. Microbiology, blood culture and urine culture, there is no growth. IMPRESSION AND PLAN: Severe hyponatremia, which is improved with hypotonic saline, mastoiditis, coronary artery disease, history of coronary stent, hypertension, cardiac arrhythmia, requiring pacemaker, history of pyelonephritis, paroxysmal atrial fibrillation. Pulmonary point of view, doing okay. Continue bronchodilator, antibiotics, anticoagulation, physical therapy, fall precaution, outpatient sleep study. Thank you, and we will follow with you. Eleazar Cruz MD
--- NOTE | 2017-08-17 09:19 | PN ---
DATE: 08/15/2017 LOCATION: The patient in room 570, bed 1. REASON FOR CONSULTATION AND FOLLOWUP: Dizziness, lightheadedness, hyponatremia, pacemaker insertion, coronary artery disease, history of stent insertion. SUBJECTIVE: The patient denies any chest pain, shortness of breath, or palpitation. Her dizziness is improving slowly. PHYSICAL EXAMINATION: VITAL SIGNS: Blood pressure is 123/83, respirations 20, pulse 67, temperature 98.0. HEENT: Head is normocephalic. Eyes; pupils normal. Conjunctivae are normal. Nose and throat normal. NECK: JVP low. Carotids equal. THORAX: AP diameter normal. LUNGS: Clear. Pacemaker site healing well. ABDOMEN: Soft. No tenderness. No organomegaly. Bowel sounds normal. EXTREMITIES: No clubbing. No cyanosis. LABORATORY DATA: WBC 10.1, hemoglobin 14.5, hematocrit 42.0, and platelet 422. Chemistry; sodium 135, potassium 4.3, BUN 14, creatinine 0.9. AST and ALT normal. Total protein and albumin normal. Calcium 9.3. DIAGNOSES: Severe hyponatremia. The patient on admission had sodium 117, now is 135. The patient shows clinical improvement, probably hyponatremia was due to polydipsia, coronary artery disease, status post stent in 2007, stress test 05/15/2016 was normal with normal ejection fraction 70% to 80%. Echo on 02/11/2017 showed normal LV function, status post permanent pacemaker insertion, history of paroxysmal atrial fibrillation, dizziness, which is also slowly improving. PLAN: The patient on Actigall 300 mg b.i.d., meclizine 25 mg t.i.d., Cardizem CD 120 mg daily, aspirin 81 mg daily, Eliquis 5 mg b.i.d., Lipitor 20 mg daily, metoprolol 25 mg b.i.d., Singulair 10 mg at bedtime. We will continue present therapy. We will follow with you. Eleazar Lee MD
== END 2017-08-15 18:11 | disposition home or self-care (01) | DRG 641 ==
LOC: ED 12:59 → ERH 15:25 → 2RSO 16:39 → 5RSO 08-14 15:27
PROVIDERS: ADMIT Internal Medicine; ATTEND Internal Medicine
DX: E87.1 Hypo-osmolality and hyponatremia (principal); E11.22 Type 2 diabetes mellitus with diabetic chronic kidney disease; E11.65 Type 2 diabetes mellitus with hyperglycemia; I49.5 Sick sinus syndrome; I08.3 Combined rheumatic disorders of mitral, aortic and tricuspid valves; N39.0 Urinary tract infection, site not specified; I48.0 Paroxysmal atrial fibrillation; J44.9 Chronic obstructive pulmonary disease, unspecified; I12.9 Hypertensive chronic kidney disease with stage 1 through stage 4 chronic kidney disease, or unspecified chronic kidney disease; E87.79 Other fluid overload; E87.8 Other disorders of electrolyte and fluid balance, not elsewhere classified; N18.9 Chronic kidney disease, unspecified; I25.10 Atherosclerotic heart disease of native coronary artery without angina pectoris; K21.9 Gastro-esophageal reflux disease without esophagitis; K59.00 Constipation, unspecified; R63.1 Polydipsia; Z79.01 Long term (current) use of anticoagulants; Z79.82 Long term (current) use of aspirin; E78.00 Pure hypercholesterolemia, unspecified; E78.5 Hyperlipidemia, unspecified; H70.90 Unspecified mastoiditis, unspecified ear; Z79.899 Other long term (current) drug therapy; Z82.49 Family history of ischemic heart disease and other diseases of the circulatory system; Z87.440 Personal history of urinary (tract) infections; Z87.442 Personal history of urinary calculi; Z95.0 Presence of cardiac pacemaker; Z95.5 Presence of coronary angioplasty implant and graft; H26.9 Unspecified cataract; R40.2412 Glasgow coma scale score 13-15, at arrival to emergency department; R31.9 Hematuria, unspecified; R42 Dizziness and giddiness; G47.00 Insomnia, unspecified; K80.20 Calculus of gallbladder without cholecystitis without obstruction; I25.2 Old myocardial infarction; D72.829 Elevated white blood cell count, unspecified; R80.9 Proteinuria, unspecified; G47.30 Sleep apnea, unspecified

== ENCOUNTER 2017-09-09 17:18 | Inpatient (IN) | payer MEDICARE, OTHER ==
[2017-09-09 17:28] VITALS: BMI 27.4
[2017-09-09] MEDS ORDERED: Albuterol-Ipratrop 3 mg / 0.5 (3 ml) UD IH STA (17:49)
--- NOTE | 2017-09-09 17:51 | ED PDOC ---
Arrival/HPI - General Time Seen by Provider: 09/09/17 17:45 Historian: Patient - History of Present Illness Narrative History of Present Illness (Text): 09/09/17 17:46 A 76 year old female, whose past medical history includes includes COPD, CHF, CAD with stents and pacemaker, presents to the emergency department complaining of shortness of breath since earlier today. Patient used her inhaler at home, with mild relief. She reports her blood pressure was high today. Patient notes associated left sided chest pain but denies any fever, chills, nausea, vomiting , abdominal pain or any other complaints. PMD: Dr. Marcus Time/Duration: Other (today) Symptom Course: Unchanged Quality: Other Context: Home Past Medical History - Provider Review Nursing Documentation Reviewed: Yes - Infectious Disease Hx of Infectious Diseases: None - Tetanus Immunization Tetanus Immunization: Unknown - Cardiac Hx Cardiac Disorders: Yes Hx Hypertension: Yes Hx Pacemaker: Yes (Jul 11 2017) Other/Comment: cardiac cath x 1 stent - Pulmonary Hx Respiratory Disorders: No - Neurological Hx Neurological Disorder: No - HEENT Hx HEENT Disorder: Yes Hx Cataracts: Yes - Renal Hx Renal Disorder: Yes Hx Pyelonephritis: Yes - Endocrine/Metabolic Hx Endocrine Disorders: No - Hematological/Oncological Hx Blood Disorders: No - Integumentary Hx Dermatological Disorder: No - Musculoskeletal/Rheumatological Hx Falls: No - Gastrointestinal Hx Gastrointestinal Disorders: Yes Hx Gastroesophageal Reflux: Yes - Genitourinary/Gynecological Hx Genitourinary Disorders: Yes Hx Urinary Tract Infection: Yes - Psychiatric Hx Psychophysiologic Disorder: No Hx Substance Use: No - Surgical History Hx Cardiac Catheterization: Yes Hx Coronary Stent: Yes - Anesthesia Hx Anesthesia: Yes Hx Anesthesia Reactions: No Hx Malignant Hyperthermia: No - Suicidal Assessment Feels Threatened In Home Enviroment: No Family/Social History - Physician Review Nursing Documentation Reviewed: Yes Family/Social History: No Known Family HX Smoking Status: Never Smoked Hx Alcohol Use: No Hx Substance Use: No Hx Substance Use Treatment: No Allergies/Home Meds Allergies/Adverse Reactions: Allergies No Known Allergies Allergy (Verified 08/12/17 17:02) Home Medications: Home Meds Medication Instructions Recorded Confirmed Aspirin [Ecotrin] 81 mg PO DAILY 05/15/16 08/12/17 Famotidine [Pepcid] 20 mg PO BID 05/15/16 08/12/17 Ursodiol [Actigall] 300 mg PO BID 05/15/16 08/12/17 Review of Systems - Physician Review All systems were reviewed & negative as marked: Yes - Review of Systems Constitutional: absent: Fevers, Night Sweats Respiratory: SOB Cardiovascular: Chest Pain Gastrointestinal: absent: Abdominal Pain, Nausea, Vomiting Physical Exam Vital Signs Reviewed: Yes Vital Signs Temp Pulse Resp BP Pulse Ox 09/09/17 17:37 97.6 F 66 19 193/93 H 96 Temperature: Afebrile Blood Pressure: Hypertensive Pulse: Regular Respiratory Rate: Normal Appearance: Positive for: Well-Appearing, Non-Toxic, Comfortable Pain Distress: None Mental Status: Positive for: Alert and Oriented X 3 - Systems Exam Head: Present: Atraumatic, Normocephalic Pupils: Present: PERRL Extroacular Muscles: Present: EOMI Conjunctiva: Present: Normal Mouth: Present: Moist Mucous Membranes Neck: Present: Normal Range of Motion Respiratory/Chest: Present: Good Air Exchange, Rales (coarses breath sounds at bases). No: Respiratory Distress, Accessory Muscle Use Cardiovascular: Present: Regular Rate and Rhythm, Normal S1, S2. No: Murmurs Abdomen: Present: Normal Bowel Sounds. No: Tenderness, Distention, Peritoneal Signs Back: Present: Normal Inspection Upper Extremity: Present: Normal Inspection. No: Cyanosis, Edema Lower Extremity: Present: Normal Inspection. No: Edema Neurological: Present: GCS=15, CN II-XII Intact, Speech Normal Skin: Present: Warm, Dry, Normal Color. No: Rashes Psychiatric: Present: Alert, Oriented x 3, Normal Insight, Normal Concentration Medical Decision Making ED Course and Treatment: 09/09/17 17:46 Impression: A 76 year old female with shortness of breath and left sided chest pain. On eliquis. Plan: -- Chest xray -- EKG -- Labs -- Urinalysis -- Duoneb and Aspirin -- Reassess and disposition Progress Notes: 09/09/17 18:46 EKG shows NSR at 87bpm with pvcs, t wave inversions in III, V3-V6, new when compared to prior 6 ekgs. Qtc:531. Cxray negative. WBC mildly elevated. Transfer to [facility] under Dr. Marcus due to chest pain, shortness of breath/copd and ekg changes. 09/09/17 18:[address] Fiore and she is requesting Dr. Odonnell and Dr. grady consults - Lab Interpretations Lab Results: 09/09/17 16:00 09/09/17 16:00 Lab Results 09/09/17 18:40: Urine Color Yellow, Urine Appearance Clear, Urine pH 7.0, Ur Specific [place] 1.010, Urine Protein 30 H, Urine Glucose (UA) Negative, Urine Ketones Negative, Urine Blood Small H, Urine Nitrate Negative, Urine Bilirubin Negative, Urine Urobilinogen 0.2, Ur Leukocyte Esterase Negative, Urine RBC Pending, Urine WBC Pending 09/09/17 16:00: Sodium 141, Potassium 4.2, Chloride 104, Carbon Dioxide 25, Anion Gap 16, BUN 15, Creatinine 0.8, Est GFR ( Amer) > 60, Est GFR (Non- Af Amer) > 60, Random Glucose 132 H, Calcium 9.6, Phosphorus 3.5, Magnesium 2.0 , Total Bilirubin 0.6, AST 48 H D, ALT 30, Alkaline Phosphatase 86, Lactate Dehydrogenase 637, Total Creatine Kinase 76, Troponin I < 0.01 D, NT-Pro-B Natriuret Pep 304, Total Protein 8.6 H, Albumin 4.5, Globulin 4.1, Albumin/ Globulin Ratio 1.1 09/09/17 16:00: WBC 14.9 H D, RBC 4.71, Hgb 15.2, Hct 44.4, MCV 94.3, MCH 32.3, MCHC 34.2, RDW 12.9, Plt Count 403, MPV 8.8, Gran % 80.7 H, Lymph % (Auto) 11.4 L, [place] % (Auto) 6.8 H, Eos % (Auto) 0.9 L, Baso % (Auto) 0.2, Gran # 12.07 H, Lymph # 1.7, [place] # 1.0 H, Eos # 0.1, Baso # 0.03 I have reviewed the lab results: Yes - RAD Interpretation Radiology Orders: 09/09/17 17:46 CHEST PORTABLE [RAD] Stat - Medication Orders Current Medication Orders: Discontinued Medications Albuterol/Ipratropium (Duoneb 3 Mg/0.5 Mg (3 Ml) Ud) 3 ml IH STAT STA Stop: 09/09/17 17:50 Last Admin: 09/09/17 17:56 Dose: 3 ml Aspirin (Aspirin Chewable) 324 mg PO STAT STA Stop: 09/09/17 17:50 Last Admin: 09/09/17 17:55 Dose: 324 mg - Scribe Statement The provider has reviewed the documentation as recorded by the [place] Provider Estephanieibe Attestation: All medical record entries made by the Estephanieibbiju were at my direction and personally dictated by me. I have reviewed the chart and agree that the record accurately reflects my personal performance of the history, physical exam, medical decision making, and the department course for this patient. I have also personally directed, reviewed, and agree with the discharge instructions and disposition. Disposition/Present on Arrival - Present on Arrival Any Indicators Present on Arrival: No History of DVT/PE: No History of Uncontrolled Diabetes: No Urinary Catheter: No History Surgical Site Infection Following: None - Disposition Have Diagnosis and Disposition been Completed?: Yes Diagnosis: Chest pain, Acute electrocardiogram changes, Shortness of breath Disposition: HOSPITALIZED Disposition Time: 18:48 Patient Plan: Observation Patient Problems: Current Active Problems Problem Status Onset Acute electrocardiogram changes Acute Chest pain Acute Condition: FAIR Discharge Instructions (ExitCare): Chest Pain (ED) Referrals: Arabella Chandler, [Primary Care Provider] - Follow up with primary
[2017-09-09 18:19] LABS: BASO # 0.03 K/mm3 (0.0-2.0); BASO % 0.2 % (0.0-3.0); EOS # 0.1 (0.0-0.7); EOS % 0.9 % (1.5-5.0); GRAN # 12.07 (1.4-6.5); GRAN % 80.7 % (50.0-68.0); HEMATOCRIT 44.4 % (36.0-48.0); LYMPH # 1.7 (1.2-3.4); LYMPH % 11.4 % (22.0-35.0); MEAN CELL VOLUME 94.3 fl (80.0-105.0); MEAN CORPUSCULAR HEMOGLOBIN 32.3 pg (25.0-35.0); MEAN CORPUSCULAR HGB CONC 34.2 g/dl (31.0-37.0); MEAN PLATELET VOLUME 8.8 fl (7.0-11.0); MONO % 6.8 % (1.0-6.0); RED CELL DISTRIBUTION WIDTH 12.9 % (11.5-14.5); WHITE BLOOD COUNT 14.9 10^3/ul (4.5-11.0)
[2017-09-09 18:37] LABS: ALB/GLOB RATIO 1.1 (1.1-1.8); ALKALINE PHOSPHATASE 86 U/L (38-126); ALT/SGPT 30 U/L (7-56); AST/SGOT 48 U/L (14-36); BILIRUBIN,TOTAL 0.6 mg/dL (0.2-1.3); BLOOD UREA NITROGEN 15 mg/dL (7-21); CALCIUM 9.6 mg/dL (8.4-10.5); CARBON DIOXIDE 25 mmol/L (21-33); CHLORIDE 104 mmol/L (98-107); GFR AFRICAN-AMERICAN > 60; GLUCOSE,RANDOM 132 mg/dL (70-110); PHOSPHOROUS 3.5 mg/dL (2.5-4.5); POTASSIUM 4.2 mmol/L (3.6-5.0); SODIUM 141 mmol/L (132-148); TOTAL PROTEIN 8.6 g/dL (5.8-8.3)
[2017-09-09 18:41] LABS: TROPONIN I < 0.01 ng/mL
[2017-09-09 18:54] LABS: URINE BILIRUBIN NEGATIVE (NEGATIVE); URINE BLOOD SMALL (NEGATIVE); URINE GLUCOSE (UA) NEGATIVE (NEGATIVE); URINE KETONE NEGATIVE (NEGATIVE); URINE LEUKOCYTE ESTERASE NEGATIVE Leu/uL (NEGATIVE); URINE PROTEIN 30 mg/dL (<30 mg/dL); URINE UROBILINOGEN 0.2 E.U./dL (<1 E.U./dL)
[2017-09-09 19:01] LABS: URINE APPEARANCE CLEAR (CLEAR); URINE COLOR YELLOW (YELLOW)
[2017-09-09 19:17] LABS: URINE BACTERIA FEW (NEG); URINE RBC NEGATIVE /hpf (0-2); URINE WBC 0 - 2 /hpf (0-6)
[2017-09-09 19:33] LABS: INR 1.43 (0.93-1.08)
[2017-09-09 19:34] LABS: PARTIAL THROMBOPLASTIN TIME 39.8 Seconds (25.1-36.5)
[2017-09-09 22:41] LABS: TROPONIN I < 0.01 ng/mL
[2017-09-10 04:52] LABS: BASO # 0.03 K/mm3 (0.0-2.0); BASO % 0.2 % (0.0-3.0); EOS # 0.4 (0.0-0.7); EOS % 2.3 % (1.5-5.0); GRAN % 77.8 % (50.0-68.0); HEMATOCRIT 42.5 % (36.0-48.0); LYMPH # 1.9 (1.2-3.4); LYMPH % 12.5 % (22.0-35.0); MEAN CELL VOLUME 95.3 fl (80.0-105.0); MEAN CORPUSCULAR HEMOGLOBIN 32.5 pg (25.0-35.0); MEAN CORPUSCULAR HGB CONC 34.1 g/dl (31.0-37.0); MEAN PLATELET VOLUME 8.4 fl (7.0-11.0); MONO # 1.1 (0.1-0.6); MONO % 7.2 % (1.0-6.0); RED CELL DISTRIBUTION WIDTH 13.2 % (11.5-14.5); WHITE BLOOD COUNT 15.4 10^3/ul (4.5-11.0)
[2017-09-10 05:10] LABS: ALB/GLOB RATIO 1.1 (1.1-1.8); ALKALINE PHOSPHATASE 97 U/L (38-126); ALT/SGPT 31 U/L (7-56); AST/SGOT 27 U/L (14-36); BLOOD UREA NITROGEN 14 mg/dL (7-21); CALCIUM 9.4 mg/dL (8.4-10.5); CARBON DIOXIDE 29 mmol/L (21-33); CHLORIDE 104 mmol/L (98-107); GFR AFRICAN-AMERICAN > 60; GLUCOSE,RANDOM 126 mg/dL (70-110); POTASSIUM 3.9 mmol/L (3.6-5.0); SODIUM 144 mmol/L (132-148)
[2017-09-10 05:13] LABS: TROPONIN I 0.01 ng/mL
--- NOTE | 2017-09-10 08:05 | RAD ---
HISTORY: chest pain COMPARISON: 08/12/2017 FINDINGS: LUNGS: No active pulmonary disease. PLEURA: No significant pleural effusion identified, no pneumothorax apparent. CARDIOVASCULAR: Mild cardiomegaly. Mild vascular congestion. Single lead pacemaker OSSEOUS STRUCTURES: No significant abnormalities. VISUALIZED UPPER ABDOMEN: Normal. OTHER FINDINGS: None. IMPRESSION: No active disease.
[2017-09-10] MEDS: diltiaZEM 120 mg/24 Hours CD Cap PO SCH (10:04)
[2017-09-10] MEDS: Fluticasone Nasal 50 mcg/Spray NS SCH (11:06)
--- NOTE | 2017-09-10 19:09 | CARD ---
APPROVED REPORT EKG Measurement Heart [id number] <Conclusion> Sinus rhythm with frequent premature ventricular complexes Possible Left atrial enlargement ST & T wave abnormality, consider anterolateral ischemia Prolonged QT Abnormal ECG
[2017-09-10] MEDS: MethylPREDNISolone 40 mg Vial IVP SCH (21:40)
--- NOTE | 2017-09-11 01:06 | CON ---
DATE: 09/10/2017 CONSULT SERVICE: Cardiology. REASON FOR CONSULTATION: Cardiac evaluation status post pacemaker, paroxysmal atrial fibrillation. BRIEF CLINICAL HISTORY: This is a 76-year-old female with a past medical history significant for coronary artery disease status post PTCA to distal LAD, repeat catheterization after four months, patent stent, recently admitted with paroxysmal atrial fibrillation, discharged on Eliquis and Cardizem. History of permanent pacemaker. Past history found to be uncontrolled hypertension, so the patient called Dr. Marcus's office as running out of the inhaler and also blood pressure, so the patient decided to come to the ER. PAST MEDICAL HISTORY: Significant for tachybrady syndrome, sick sinus syndrome, history of permanent pacemaker placed on 07/09/2014. History of coronary artery disease, status post stent in 2008. Previous cardiac workup as follows; history of a stent in 2007, history of recent stress test 05/05/2016 showed normal myocardial perfusion study, EF 78%. The patient had an echocardiogram 02/11/2017 at [facility], ejection fraction 55-60%, mild aortic sclerosis, mild mitral regurgitation, mild tricuspid regurgitation, RV systolic pressure 38, history of paroxysmal atrial fibrillation, history of multiple stents in the past, history of permanent pacemaker 07/09/2014. SOCIAL HISTORY: Denies smoking. Denies any history of alcohol abuse. CURRENT MEDICATIONS: The patient is taking Cardizem CD 120 mg daily, metoprolol 25 mg daily, meclizine 12.5 mg daily, atorvastatin 20 mg, aspirin, and Eliquis 5 mg daily. ALLERGIES: NO KNOWN DRUG ALLERGIES. REVIEW OF SYSTEMS: As per HPI. PHYSICAL EXAMINATION: As follows: VITAL SIGNS: Temperature is afebrile, heart rate 80, and blood pressure 150/60. HEENT: PERRLA. Extraocular muscles are intact. NECK: Supple. No carotid bruit or thyromegaly. CHEST: Clear to auscultation. HEART: S1 and S2 regular. ABDOMEN: Soft. EXTREMITIES: Clubbing and cyanosis negative. LABORATORY DATA: Blood workup as follows: WBC 15.2, hemoglobin 14.5, hematocrit 42.5, and platelet count 361. Chemistry shows sodium 140, potassium 3.9, chloride 104, carbon dioxide 29, anion gap of 15, BUN 14, and creatinine 0.8, troponin 0.01 negative. EKG shows normal sinus rhythm with acute ST-T wave changes noted. IMPRESSION: Uncontrolled hypertension, now is fairly stable; history of coronary artery disease status post stent in the past, recent stress test negative. No evidence of acute myocardial infarction, no evidence of arrhythmia. RECOMMENDATION: Continue Cardizem CD 120 mg daily, continue aspirin, continue Eliquis, continue metoprolol. CV status is stable. We will follow with you. If CV is stable, we will discontinue telemetry. The patient said that her is also admitted and she has a lot of stress because of that. Thank you Dr. Marcus for providing me the opportunity in taking care of the patient, Susana Pena. We will follow with you. Eleazar Odonnell MD
--- NOTE | 2017-09-11 02:40 | HP ---
CHIEF COMPLAINT: Chest pain, gassy stomach, shortness of breath. HISTORY OF PRESENT ILLNESS: Ms. Susana Pena is a 76-year-old female whose past medical history include COPD, congestive heart failure, coronary artery disease with stent, pacemaker, came to the emergency room complaining of shortness of breath. On the day of admission, the patient used her inhaler at home with mild relief. Actually, she called my office and she was just using albuterol. We added Symbicort and was educated of Symbicort twice a day. The patient reports her blood pressure was high. She started feeling palpitation and chest pain on the left side, but no fever, no chills, no nausea or vomiting, no diarrhea, no abdominal pain, no hematuria or hematochezia. PAST MEDICAL HISTORY: Hypertension, pacemaker, cardiac cath with cardiac stenting, history of cataract, pyelonephritis, gastroesophageal reflux disease (GERD), dyspepsia, history of urinary tract infection, cardiac catheterization with cardiac stenting, asthma, COPD, obstructive sleep apnea syndrome. ALLERGIES: THE PATIENT IS NOT ALLERGIC TO ANY MEDICATIONS. HOME MEDICATIONS: Reviewed by me. Aspirin, famotidine and ursodiol. FAMILY HISTORY: Father and mother are noncontributory. REVIEW OF SYSTEMS: The patient seen and examined on the bedside on 09/10/2017 early in the morning, looking comfortable. No nausea or vomiting. No diarrhea. No hematuria or hematochezia. No swelling of the legs. No chest pain or palpitation. Gas is little bit better. No headache, no dizziness. Chest pain comes and goes. PHYSICAL EXAMINATION: VITAL SIGNS: Temperature 97.6, pulse 66, respiratory rate 19 and blood pressure 193/93. HEENT: Head is normocephalic and atraumatic. Eyes; PERRLA. Extraocular movements are intact. Conjunctivae clear. Nose patent. Mucous membrane moist. NECK: Supple. No carotid bruit, JVD or thyromegaly. CHEST: Bilaterally symmetrical. HEART: S1 and S2 positive. LUNGS: Clear to auscultation. ABDOMEN: Soft. Bowel sounds present. No organomegaly. EXTREMITIES: No edema. No cyanosis. NEUROLOGIC: The patient is awake and alert. Moving all 4 extremities. No focal deficits. LABORATORY DATA: White blood cell count is 15.4, hemoglobin is 14.5, hematocrit is 42.5 and platelets 351. Sodium 144, potassium 3.9, BUN 14, creatinine 0.9 and glucose is 126. AST 48. ASSESSMENT AND PLAN: Ms. Susana Pena is a 76-year-old lady with leukocytosis, hyperglycemia, abnormal liver function test, proteinuria, hematuria, came in [facility] for chest pain, gastroesophageal reflux disease, dyspepsia, shortness of breath. Cardiology consult called with Dr. Odonnell. Waiting for the input, but cardiac enzymes are negative x4. Pulmonary consult called with Dr. Cruz for shortness of breath. The patient seen by Dr. Cruz also due to gassy stomach, abdominal pain, both left and right upper quadrant. We called consult with Dr. Jin. Dr. Jin is the patient's private data power consultant. The patient has history of chronic obstructive pulmonary disease, congestive heart failure, coronary artery disease, cardiac stenting, cardiac pacemaker, hypertension, history of cataract surgery, pyelonephritis, cholelithiasis, waiting for Dr. Jin's input, meanwhile gastrointestinal and deep venous thrombosis prophylaxis. Repeat labs. We will follow up. Pricila Marcus MD
--- NOTE | 2017-09-11 04:57 | CON ---
DATE: 09/10/2017 PULMONARY CONSULT REFERRING PHYSICIAN: Pricila Marcus MD. REASON FOR CONSULT: Cough, shortness of breath. HISTORY OF PRESENT ILLNESS: This is a 76-year-old female with past medical history significant for bradycardia requiring pacemaker, chronic obstructive lung disease, status post sinusitis, came into emergency room with shortness of breath, cough, also has some uncontrolled high blood pressure. No nausea. No vomiting, diarrhea. No leg pain or leg swelling. PAST MEDICAL HISTORY: Chronic obstructive lung disease, cardiomyopathy, cardiac arrhythmia requiring pacemaker, coronary artery disease, history of coronary stent, may have sleep apnea syndrome. ALLERGIES: NONE KNOWN. SOCIAL HISTORY: Nonsmoker, nondrinker. FAMILY HISTORY: Significant for cardiopulmonary disease reported. HOME MEDICATIONS: Actigall, Pepcid, and Ecotrin. OTHER MEDICATIONS: She is on Cardizem CD 120 mg daily, Claritin 10 mg daily, Ecotrin 81 mg daily, Eliquis 5 mg twice a day, Flonase one spray each nostril daily, Lipitor 20 mg daily, metoprolol tartrate 25 mg twice a day, Pepcid 20 mg twice a day, Singulair 10 mg daily. REVIEW OF SYSTEMS: No headache. Has some rhinitis, cough, shortness of breath. No nausea. No vomiting. No diarrhea. No dysuria. No leg pain or leg swelling. PHYSICAL EXAMINATION: GENERAL: No acute distress. VITAL SIGNS: Temperature is 99, heart rate 73, respiratory rate is 18, blood pressure 161/97, pulse ox 98% on 2 L nasal cannula. HEENT: Moist mucous membrane. Crowded airway. Mallampati score is 4. No facial tenderness. LUNGS: Have a few scattered rhonchi and wheezing. HEART: S1, S2. ABDOMEN: Soft, nontender. No organomegaly. EXTREMITIES: No edema. NEUROLOGIC: Awake, alert, follows simple commands. LABORATORY DATA: Shows hemoglobin 14.5, hematocrit 42.5, WBC 15.4, platelet is 361. INR 1.43. PTT is 40. Sodium 144, potassium 3.9, chloride 104, bicarbonate 29, BUN 14, creatinine 0.9, glucose 126, calcium 9.4. AST is 27, ALT 31, alk phos is 97, albumin is 4.1. Troponin less than 0.01. Chest x-ray done today shows no infiltrate or effusion. IMPRESSION AND PLAN: Chronic obstructive lung disease, may have sleep apnea syndrome, cardiac arrhythmia requiring pacemaker, coronary artery disease, history of coronary stent, history of hyponatremia. Agree with Dr. Marcus, with the present management. We will start her IV and inhaled bronchodilator, antibiotics. Keep head at 45 degrees. Sleep apnea precaution. Follow up electrolytes. Outpatient pulmonary function test and sleep study. Continue anticoagulation. She also has paroxysmal atrial fibrillation. Thank you and we will follow with you. Eleazar Cruz MD
--- NOTE | 2017-09-11 05:25 | CON ---
DATE: 09/10/2017 GASTROENTEROLOGY CONSULTATION REQUESTING PHYSICIAN: Dr. Marcus. REASON FOR CONSULT: I have been asked to see this 76-year-old female with known history of coronary artery disease, status post stent placement, history of sick sinus syndrome with recent permanent pacemaker placement approximately 2 months ago, known history of COPD, CHF, gallstones, who came to the emergency room with shortness of breath and was found to have uncontrolled hypertension. Her blood pressure in the emergency room was 193/93. I have been asked to see this patient for upper abdominal pain. The patient states that she gets the pain mostly at night when she is lying down. The pain radiates across her upper abdomen and around to her back. The pain is not related to meals. She also has sciatica on her left side. The patient states that she has a history of herniated disks. Again, her upper abdominal pain is not related to meals. She denies any nausea, vomiting, fevers, chills. She also has occasional left-sided chest pain and rib pain. PAST MEDICAL HISTORY: As above. Again, she has a history of coronary artery disease, stents, recent permanent pacemaker placement for sick sinus syndrome, congestive heart failure, COPD, gallstones, pyelonephritis, GERD. SOCIAL HISTORY: She denies cigarette smoking or alcohol use. FAMILY HISTORY: Noncontributory. REVIEW OF SYSTEMS: A 14-point review of systems is notable for shortness of breath, left-sided chest pain, upper abdominal pain. HOME MEDICATIONS: Include Cardizem CD 120 mg once a day, Actigall 300 mg b.i.d., Singulair 10 mg p.o. at bedtime, metoprolol 25 mg b.i.d., Antivert 12.5 mg three times a day, Claritin 10 mg once a day, Flonase twice a day, famotidine 20 mg twice a day, Lipitor 20 mg once a day, Ecotrin 81 mg daily, Eliquis 5 mg twice a day, and Augmentin 1 tablet q.12 hours. PHYSICAL EXAMINATION: GENERAL: A well-developed elderly female, lying in bed, in no acute distress. VITAL SIGNS: Reveal temperature of 99, blood pressure 161/97, heart rate is 73. HEENT: Reveals sclerae to be white. Conjunctivae pink. NECK: Supple. CHEST: Reveals scattered rhonchi. She has a pacemaker in the left subclavicular area. HEART: Reveals a regular rate and rhythm. ABDOMEN: Soft, nontender. No mass. EXTREMITIES: Show no edema. LABORATORY DATA: Reveal white blood cell count 15.4, hemoglobin 14.5. Chemistries reveal blood sugar of 126. AST, ALT, alk phos were all normal. IMPRESSION: A 76-year-old female with multiple comorbidities including coronary artery disease, chronic obstructive pulmonary disease, recent permanent pacemaker placement for sick sinus syndrome with upper abdominal pain radiating to around the back mostly at night while she is lying down. I suspect that this is a musculoskeletal pain, may be related to thoracic type radiculopathy. She also gives a history of lumbar radiculopathy with sciatica in her left leg. I do not believe that she has biliary colic, although she does have a history of gallstones. The patient had an endoscopy and colonoscopy several years ago, which revealed gastritis and a benign polyp. Given her multiple comorbidities, we would treat the patient symptomatically. RECOMMENDATIONS: 1. Continue Pepcid 20 mg b.i.d. 2. Can try a course of nonsteroidals for musculoskeletal abdominal pain. If symptoms become more severe, can consider radiographic imaging with a CT scan of the abdomen and pelvis. I do not feel that this is necessary at this point as her upper abdominal pain only occurs at night when she is lying down. Thank you this consult. Rakesh Jin MD
[2017-09-11 06:33] LABS: BASO # 0.03 K/mm3 (0.0-2.0); BASO % 0.3 % (0.0-3.0); GRAN # 7.49 (1.4-6.5); GRAN % 86.5 % (50.0-68.0); HEMATOCRIT 44.1 % (36.0-48.0); LYMPH % 11.8 % (22.0-35.0); MEAN CELL VOLUME 96.5 fl (80.0-105.0); MEAN CORPUSCULAR HEMOGLOBIN 32.2 pg (25.0-35.0); MEAN CORPUSCULAR HGB CONC 33.3 g/dl (31.0-37.0); MEAN PLATELET VOLUME 8.9 fl (7.0-11.0); MONO # 0.1 (0.1-0.6); MONO % 1.4 % (1.0-6.0); RED CELL DISTRIBUTION WIDTH 13.2 % (11.5-14.5); WHITE BLOOD COUNT 8.7 10^3/ul (4.5-11.0)
[2017-09-11 06:58] LABS: ALB/GLOB RATIO 1.1 (1.1-1.8); CALCIUM 9.8 mg/dL (8.4-10.5); MAGNESIUM 2.1 mg/dL (1.7-2.2); POTASSIUM 4.6 mmol/L (3.6-5.0); TOTAL PROTEIN 8.3 g/dL (5.8-8.3)
[2017-09-11] MEDS: MethylPREDNISolone 40 mg Vial IVP SCH ×2 (10:07→21:41)
[2017-09-11] MEDS: diltiaZEM 120 mg/24 Hours CD Cap PO SCH (10:08)
[2017-09-11] MEDS: Fluticasone Nasal 50 mcg/Spray NS SCH (10:09)
--- NOTE | 2017-09-11 13:15 | PN ---
DATE: REASON FOR CONSULTATION AND FOLLOWUP: Cardiac evaluation, followup status post pacemaker, paroxysmal atrial fibrillation. SUBJECTIVE: The patient denies any chest pain, shortness of breath or any palpitation, but feel gaseous stomach. PHYSICAL EXAMINATION: VITAL SIGNS: As follows, temperature afebrile, heart rate 76, and blood pressure 131/70. HEENT: PERRLA. Extraocular muscles intact. NECK: Supple. No carotid bruits or thyromegaly. CHEST: Clear to auscultation. HEART: S1 and S2 regular. ABDOMEN: Soft. EXTREMITIES: Clubbing and cyanosis negative. LABORATORY DATA: Blood workup as follows: WBC 8.7, hematocrit 44.1, and platelet count 398. Chemistry shows sodium 140, potassium 4.6, chloride 101, carbon dioxide 32, anion gap of 15, BUN 18, creatinine 1.1, AST 44, and ALT 22. Troponin remains 0.01 negative. IMPRESSION: A 76-year-old female with past medical history of coronary artery disease status post stent in the past, remote stress test negative recent dated 05/05/2016, stent in 2007, history of recent pacemaker done because of sick sinus syndrome, paroxysmal atrial fibrillation. The patient has history of chronic obstructive pulmonary disease and obesity. Yesterday came in because her nebulizer treatment ran out and felt short of breath and gaseous stomach. No chest pain. So far no evidence of acute myocardial infarction. Blood pressure is well controlled. RECOMMENDATIONS: Discontinue telemetry. Continue aggressive medical treatment. Blood pressure well controlled. No further cardiac workup is planned at this time. Aggressive medical treatment suggested including Cardizem CD 120 mg daily. Continue Eliquis 5 mg b.i.d. Continue aspirin. Continue metoprolol tartrate b.i.d. Once the patient is stable from Pulmonary and GI point of view, the patient can be discharged home. Eleazar Odonnell MD
--- NOTE | 2017-09-11 23:56 | PN ---
PULMONARY PROGRESS NOTE DATE: 09/11/2017 SUBJECTIVE: She is out of bed to chair. Night was unremarkable. Feels better. Decreased cough. No nausea. No vomiting. No diarrhea. No leg pain. OBJECTIVE: GENERAL: In no acute distress. VITAL SIGNS: Temperature is 98, heart rate 52, respiratory rate is 20, blood pressure 142/74 with 96% room air. HEENT: Moist mucous membranes. Crowded airway. Mallampati score is IV. NECK: Supple. No JVD. LUNGS: Has a few scattered rhonchi. HEART: S1 and S2. ABDOMEN: Soft, nontender, no organomegaly. EXTREMITIES: No edema. NEUROLOGICALLY: Awake, alert and follows simple command. MEDICATIONS: She is on Actigall 300 mg twice a day, Cardizem CD 150 mg daily, Claritin 10 mg daily, Ecotrin 85 mg daily, Eliquis 5 mg twice a day, Flonase one spray each nostril daily, Lidoderm patch affected area, Lipitor 20 mg daily, metoprolol tartrate 25 mg twice a day, Pepcid 20 mg twice a day, Singulair 10 mg daily, Solu-Medrol 40 mg q. 12 hours, Zithromax 500 mg daily. LABORATORY DATA: Shows hemoglobin 14.7, hematocrit 44.1, WBC 8.7 and platelet is 398. Sodium 143, potassium 4.6, chloride 101, bicarbonate 32, BUN 18, creatinine 1.1, glucose 177, calcium 9.8, phosphorus 4.0, magnesium 2.1, AST 44, ALT is 22, alk phos is 99. Albumin is 4.3. IMPRESSION AND PLAN: Chronic obstructive lung disease, may have sleep apnea syndrome, cardiac arrhythmia requiring pacemaker, history of paroxysmal atrial fibrillation, coronary artery disease, history of coronary stent. Pulmonary point of view, she is improved, feels better. Leukocytosis improved with decrease Solu-Medrol to 20 q. 12 hours. If feels okay discharge planning tomorrow, outpatient PFT, attended sleep study. Continue anticoagulation. Thank you and we will follow with you. Eleazar Cruz MD
--- NOTE | 2017-09-12 00:39 | PN ---
DATE: SUBJECTIVE: The patient seen and examined on the bedside, still coughing, having shortness of breath. No nausea, vomiting or diarrhea. No hematuria or hematochezia. Sometimes complaining about abdominal pain, especially when she is lying on bed. No headache. No dizziness. No fever. No chills. PHYSICAL EXAMINATION: VITAL SIGNS: Temperature is 98.6, pulse 76, blood pressure 130/70, respiratory rate 18. HEENT: Head is normocephalic and atraumatic. Eyes, PERRLA. Extraocular muscles intact. Conjunctivae clear. Nose is patent. Mucous membranes are moist. NECK: Supple. No carotid bruits. No JVD or thyromegaly. CHEST: Bilaterally symmetrical. HEART: S1 and S2 positive. LUNGS: Clear to auscultation. ABDOMEN: Soft. Bowel sounds present. No organomegaly. EXTREMITIES: No edema. No cyanosis. NEUROLOGIC: The patient is awake and alert. Moving all 4 extremities. No focal deficit. LABORATORY DATA: White blood cells 8.7, hematocrit 44.1, platelet 398. Sodium 140, potassium 4.6, BUN 18, creatinine 1.1, AST 44, ALT 22, troponin 0.01 and negative. MEDICATIONS: Reviewed by me. ASSESSMENT AND PLAN: Ms. Jean Meza is a 76-year-old lady with past medical history of multiple medical problems, coronary artery disease status post stent in the past, remote stress test negative, history of recent pacemaker insertion due to sick sinus syndrome, paroxysmal atrial fibrillation, is on Eliquis. The patient has a history of chronic obstructive pulmonary disease, gastroesophageal reflux disease, dyspepsia. According to Cardiology, no acute myocardial infarction. Blood pressure is well controlled. We will continue aggressive medical treatment. Continue Cardizem, Eliquis, aspirin, and metoprolol. Seen by Dr. Jin, patient's integrated campaign manager; Dr. Cruz, patient's clay artist. Continue Solu-Medrol and antibiotics. We will continue present treatment, GI and DVT prophylaxes, repeat labs. Rule out thoracic radiculopathy. We will follow up. Pricila Marcus MD [facility] # [id number] MTDD
[2017-09-12] MEDS: Fluticasone Nasal 50 mcg/Spray NS SCH (09:49)
[2017-09-12] MEDS: MethylPREDNISolone 40 mg Vial IVP SCH ×2 (09:50→21:25)
[2017-09-12] MEDS: diltiaZEM 120 mg/24 Hours CD Cap PO SCH (09:50)
[2017-09-12] MEDS ORDERED: Lidocaine 5% Patch TOP SCH (10:00)
[2017-09-12] MEDS ORDERED: POLYETHYLENE GLYCOL 3350 17 GM/Dose PACKET PO SCH (10:00)
--- NOTE | 2017-09-12 13:18 | CT ---
PROCEDURE: CT Thoracic Spine without contrast HISTORY: pain COMPARISON: None. TECHNIQUE: Axial computed tomography images were obtained of the thoracic spine without intravenous contrast. Coronal and sagittal reformatted images were created and reviewed. Radiation dose: Total exam DLP = 871 mGy-cm. This CT exam was performed using one or more of the following dose reduction techniques: Automated exposure control, adjustment of the mA and/or kV according to patient size, and/or use of iterative reconstruction technique. FINDINGS: VERTEBRAE: Unremarkable. No fracture. Normal alignment. DISCS/SPINAL CANAL/NEURAL FORAMINA: Within the limits of the CT technique, no disc herniation seen. No central canal or neural foraminal stenosis.. There are some marginal osteophytes along the right side of the spine. PARASPINAL SOFT TISSUES: Unremarkable. OTHER FINDINGS: There is mild scoliotic curvature with a Flanagan angle of 10 degrees convex to the right.. IMPRESSION: No evidence of vertebral compression fracture or metastatic disease. Mild scoliosis and degenerative changes
--- NOTE | 2017-09-12 13:33 | PN ---
DATE: 09/12/2017 SUBJECTIVE: The patient is lying in bed. She is comfortable. Her breathing is better. She denies shortness of breath or cough. She denies any abdominal pain. She complains of constipation. She states that she has not moved her bowels since several days. PHYSICAL EXAMINATION: VITAL SIGNS: Reveal temperature of 97.8, blood pressure of 132/69, and heart rate of 68. HEENT: Reveals sclerae to be white. Conjunctivae are pink. NECK: Supple. CHEST: Lungs are clear with some scattered rhonchi. Heart: Exam reveals a regular rate and rhythm. ABDOMEN: Soft and nontender. EXTREMITIES: Show no edema. LABORATORY DATA: Revealed white blood cell count of 8.7 and hemoglobin of 14.7. Chemistries revealed blood sugar of 177, AST of 44, and ALT of 22. IMPRESSION: 1. Exacerbation of chronic obstructive pulmonary disease, clinically improving. 2. Abdominal pain, most likely musculoskeletal. 3. Constipation. 4. Gastroesophageal reflux disease. RECOMMENDATIONS: 1. I will start the patient on MiraLax 17 grams p.o. b.i.d. She had been on Metamucil at home. 2. Continue Pepcid 20 mg b.i.d. Rakesh Jin MD
[2017-09-12] MEDS: POLYETHYLENE GLYCOL 3350 17 GM/Dose PACKET PO SCH (18:30)
--- NOTE | 2017-09-12 20:51 | PN ---
DATE: 09/12/2017 LOCATION: The patient in room 360, bed 2. REASON FOR CONSULTATION AND FOLLOWUP: Status post pacemaker insertion, paroxysmal atrial fibrillation. SUBJECTIVE: The patient is sitting in chair without any chest pain, shortness of breath, or palpitation. PHYSICAL EXAMINATION: VITAL SIGNS: Blood pressure 132/69, respirations 18, pulse 68, and temperature 97.8. HEENT: Head is normocephalic. Eyes; pupils are normal. Conjunctivae normal. Nose and throat normal. NECK: JVP low. Carotids equal. THORAX: AP diameter normal. LUNGS: Clear. CARDIOVASCULAR: S1 and S2. ABDOMEN: Soft and nontender. No organomegaly. Bowel sounds normal. EXTREMITIES: No clubbing. No cyanosis. LABORATORY DATA: WBC 8.7, hemoglobin 14.7, hematocrit 44.1, platelets 398. Sodium 143, potassium 4.6, BUN 18, creatinine 1.1, calcium 9.8, phosphorus 4.0, magnesium 2.1. Troponin x4 negative. Total protein 8.3, albumin 4.3. DIAGNOSES: Coronary artery disease, status post stent in the past, stent in 2007; stress test in 04/2016, negative; recent pacemaker insertion; paroxysmal atrial fibrillation; history of chronic obstructive pulmonary disease and obesity. Clinically, the patient's cardiac status is stable. We will continue present therapy and we will follow with you. Eleazar Lee MD
--- NOTE | 2017-09-12 21:37 | PN ---
PULMONARY PROGRESS NOTE DATE: 09/12/2017 REFERRING PHYSICIAN: Pricila Marcus MD SUBJECTIVE: She is out-of-bed to chair, had some overnight discomfort but feels much better. No nausea. No vomiting. No diarrhea. No leg pain or leg swelling. PHYSICAL EXAMINATION GENERAL: No acute distress. VITAL SIGNS: Temperature is 98, heart rate is 68, respiratory rate is 18, blood pressure 132/69, and pulse ox is 96% on room air. HEENT: Moist mucous membranes. Crowded airway. Mallampati score is IV. NECK: Supple. No JVD. LUNGS: Has few scattered rhonchi. HEART: S1 and S2. ABDOMEN: Soft and nontender. No organomegaly. EXTREMITIES: No edema. NEUROLOGIC: Awake and alert, follow simple command. MEDICATIONS: Reviewed. No new medication reported since yesterday. LABORATORY DATA: Reviewed. No new labs available since yesterday. Had a CT of the thoracic spine done today which shows no evidence of vertebral compression fracture or metastatic disease, mild scoliosis and degenerative changes reported. IMPRESSION AND PLAN: Chronic obstructive lung disease, recurrence sinusitis, cardiac arrhythmia requiring pacemaker, history of paroxysmal atrial fibrillation, coronary artery disease, history of coronary stent, may have a sleep apnea syndrome. Pulmonary point of view, she is doing okay. She can go on p.o. tapered dose of steroids and antibiotics. Continue Singulair, Flonase, inhaled bronchodilator. Will suggest outpatient attended sleep study and pulmonary function test. Thank you and we will follow with you. Eleazar Cruz MD
--- NOTE | 2017-09-12 21:54 | PN ---
DATE: SUBJECTIVE: The patient is 76-year-old female. The patient seen and examined on the bedside, looking comfortable, still coughing, sometimes getting back pain moving towards the abdomen. No nausea or vomiting. No diarrhea. No hematuria or hematochezia. Getting tipping dose of Solu-Medrol. No headache. No dizziness. No fever. No chills. PHYSICAL EXAMINATION: VITAL SIGNS: Temperature is 97.8, pulse 58, blood pressure 132/69, respiratory rate 18. HEENT: Head is normocephalic and atraumatic. Eyes, PERRLA. Extraocular muscles intact. Conjunctivae clear. Nose is patent. Mucous membranes are moist. NECK: Supple. No carotid bruits. No JVD or thyromegaly. CHEST: Bilaterally symmetrical. HEART: S1 and S2 positive. LUNGS: Clear to auscultation. ABDOMEN: Soft. Bowel sounds present. No organomegaly. EXTREMITIES: No edema. No cyanosis. NEUROLOGIC: The patient is awake and alert. Moving all 4 extremities. No focal deficit. MEDICATIONS: Actigall, Cardizem, Claritin, Ecotrin, Eliquis, Flonase, Lidoderm, Lipitor, Lopressor, Miralax, Pepcid, Singulair, Solu-Medrol, and Zithromax. LABORATORY DATA: White blood cells 8.4, hemoglobin 14.7, hematocrit 44.1, platelet 398. Sodium 143, potassium 4.6, BUN 18, creatinine 1.1, glucose 177, AST 44. ASSESSMENT AND PLAN: Ms. Susana Pena is a 76-year-old lady with hyperglycemia, abnormal liver function test, history of chololithiasis stable, history of leukocytosis improved, proteinuria, hematuria, went for CAT scan of the thoracic region. Want to do MRI, but could not because of pacemaker. No evidence of vertebral compression fracture or metastatic disease, mild scoliosis and degenerative changes, seen by Dr. 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 Odonnell. The patient gets exacerbation of chronic obstructive pulmonary disease clinically improving, abdominal pain, most likely musculoskeletal improving, constipation improving, gastroesophageal reflux disease, dyspepsia. Dr. Jin started on Miralax. The patient is on Metamucil at home. Continue Pepcid. Gastrointestinal and deep vein thrombosis prophylaxes, repeat labs. We will follow up. Pricila Marcus MD
[2017-09-13 08:02] VITALS: BP 134/95; PULSE 84; RESP 20; TEMP 97.7; O2SAT 95
[2017-09-13] MEDS ORDERED: Lidocaine 5% Patch TD SCH (10:00)
[2017-09-13] MEDS ORDERED: diltiaZEM 120 mg/24 Hours CD Cap PO SCH (10:00)
[2017-09-13] MEDS ORDERED: Fluticasone Nasal 50 mcg/Spray NS SCH (10:00)
[2017-09-13] MEDS: POLYETHYLENE GLYCOL 3350 17 GM/Dose PACKET PO SCH (10:31)
[2017-09-13] MEDS: MethylPREDNISolone 40 mg Vial IVP SCH (10:31)
--- NOTE | 2017-09-13 21:55 | PN ---
DATE: 09/13/2017 The patient is room 360, bed 2. REASON FOR CONSULTATION AND FOLLOWUP: Status post permanent pacemaker insertion, paroxysmal atrial fibrillation. SUBJECTIVE: Patient lying comfortably in bed without any chest pain, shortness of breath, or palpitation. PHYSICAL EXAMINATION VITAL SIGNS: Blood pressure 134/95, respirations 20, pulse 84 and temperature 97.7. HEENT: Head is normocephalic. Eyes; pupil normal. Conjunctivae, normal. Nose and throat, normal. NECK: JVP, low. Carotid equal. THORAX: AP diameter, normal. Pacemaker site, healing well, left upper chest. CARDIOVASCULAR: S1 and S2. LUNGS: Clear. ABDOMEN: Soft. No tenderness. No organomegaly. Bowel sounds normal. EXTREMITIES: No clubbing, no cyanosis. LABORATORY DATA: WBC 8.7, hemoglobin 14.7, hematocrit 44.1 and platelet 398. Sodium 143, potassium 4.6, BUN 18 and creatinine 1.1. Calcium, phosphorus and magnesium is normal. Total protein and albumin normal. Troponin x4 is normal. DIAGNOSES: Coronary artery disease status post stent in the past, in 2007. Stress test in 04/2016 was negative. Patient with pacemaker insertion, paroxysmal atrial fibrillation, history of chronic obstructive pulmonary disease, obesity. Clinically, patient's cardiac status is stable. Patient is maintaining sinus rhythm. We will continue present therapy and we will follow. Eleazar Lee MD
--- NOTE | 2017-09-14 09:26 | PN ---
DATE: 09/13/2017 PULMONARY PROGRESS NOTE REFERRING PHYSICIAN: . SUBJECTIVE: She is out of bed to chair. Night was unremarkable. Feels better, . Cough is better. No nausea. No diarrhea, leg pain, or leg swelling. OBJECTIVE: , heart rate is 84, respiratory rate is 25, blood pressure 134/95, pulse ox 95% on room air. HEENT: Moist mucous membranes. Crowded airway. NECK: Supple. No JVD. LUNGS: Has a fair airflow with few rhonchi. HEART: S1 and S2. ABDOMEN: Soft, nontender, no organomegaly. EXTREMITY: There is no edema. NEUROLOGICAL: Awake, alert, follows simple command. MEDICATIONS: She is on Actigall 300 mg twice a day, Cardizem CD 120 mg daily, Claritin 10 mg daily, Ecotrin 81 mg daily, Eliquis 5 mg twice a day, Flonase 1 spray to each nostril daily, Lidoderm patch to affected area, Lipitor 20 mg daily, metoprolol tartrate use 25 mg twice a day, MiraLax 17 g twice a day, Pepcid 20 mg twice a day, Singulair 10 mg at bedtime, Solu-Medrol 20 mg twice a day, Zithromax 500 mg daily. LABORATORY DATA: Shows hemoglobin 14.7, hematocrit 44.1, WBC 8.7, platelets are 398, that was yesterday. She had a thoracic spine x ray done which shows disease. IMPRESSION AND PLAN: Chronic obstructive lung disease, recurrent sinusitis, cardiac arrhythmia requiring pacemaker, paroxysmal atrial fibrillation, coronary artery disease, history of coronary stent, near sleep apnea syndrome. Pulmonary point of view, she is improved. Agree with discharge planning, on p.o. medication. Scheduled for sleep study next month. Thank you and we will follow with you. Eleazar Cruz MD
--- NOTE | 2017-09-16 08:09 | DS ---
CHIEF COMPLAINT: Chest pain, gassy stomach, shortness of breath. HISTORY OF PRESENT ILLNESS: Ms. Susana Pena is a 76-year-old lady with past medical history of multiple problems including COPD, congestive heart failure, coronary artery disease with a stent, pacemaker that came to the emergency room complaining of shortness of breath. The patient used inhalers at home with mild relief. Actually, she called my office. We educated her how to use inhaler. She was using albuterol. We added Symbicort, but still the patient was not feeling fine, came to the hospital emergency room, admitted, chest x-ray done, thoracic spine CT done, seen by Dr. Lee and Dr. Cruz, and because of her gassy feelings, was seen by Dr. Rakesh Jin and discharged home on 09/13/2017. Follow up with primary care physician, head holder, hedis abstractor, telecommunications repairer as outpatient. PAST MEDICAL HISTORY: Hypertension, pacemaker, cardiac cath with cardiac stenting, history of cataract, pyelonephritis, gastroesophageal reflux disease (GERD), dyspepsia, history of urinary tract infection, cardiac catheterization with cardiac stenting, asthma, COPD, obstructive sleep apnea syndrome. ALLERGIES: THE PATIENT IS NOT ALLERGIC TO ANY MEDICATIONS. HOME MEDICATIONS: Noted by me. FAMILY HISTORY: Father and mother are noncontributory. REVIEW OF SYSTEMS: The patient was seen and examined on the bedside on 09/13/2017, I am dictating discharge summary for 09/13/2017, looking comfortable. No nausea, vomiting, or diarrhea. No hematemesis or hematochezia. No swelling of the legs. No chest pain. No palpitation. No headache. No dizziness. Cough is better. Shortness of breath is better. PHYSICAL EXAMINATION: VITAL SIGNS: Temperature 98.6, heart rate 84, respiratory rate 20, blood pressure 134/95. HEENT: Head is normocephalic and atraumatic. Eyes; PERRLA. Extraocular movements are intact. Conjunctivae clear. Nose patent. Mucous membrane moist. NECK: Supple. No carotid bruit, JVD, or thyromegaly. CHEST: Bilaterally symmetrical. HEART: S1 and S2 positive. LUNGS: Clear to auscultation. ABDOMEN: Soft. Bowel sounds present. No organomegaly. EXTREMITIES: No edema. No cyanosis. NEUROLOGIC: The patient is awake and alert. Moving all 4 extremities. No focal deficits. MEDICATIONS: Actigall, Cardizem, Claritin, Ecotrin, Eliquis, Flonase, Lidoderm patch, Lipitor, metoprolol, MiraLAX, Pepcid, Singulair, Solu-Medrol tapering doses, sent home with Medrol Dosepak and Zithromax. LABORATORY DATA: Hemoglobin is 14.7, hematocrit 44.1, white blood cells 8.7, platelets 398. Thoracic spine CT scan done, read and reviewed by me. ASSESSMENT AND PLAN: Ms. 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 Pulmonary point of view, patient was doing good. Discharged home with p.o. Medrol Dosepak, to continue home medications. Repeat labs. We will follow up. Pricila Marcus MD
== END 2017-09-13 15:29 | disposition home or self-care (01) | DRG 192 ==
LOC: ED 17:18 → ERH 18:44 → 3RSO 21:19 → 3RNO 09-10 16:29 → OBSVTOIN 09-11 19:49 → UNDODISIN 09-12 15:46
PROVIDERS: ADMIT Internal Medicine; ATTEND Internal Medicine
DX: J44.1 Chronic obstructive pulmonary disease with (acute) exacerbation (principal); I11.0 Hypertensive heart disease with heart failure; I50.9 Heart failure, unspecified; I48.0 Paroxysmal atrial fibrillation; R31.9 Hematuria, unspecified; K21.9 Gastro-esophageal reflux disease without esophagitis; I25.10 Atherosclerotic heart disease of native coronary artery without angina pectoris; G47.33 Obstructive sleep apnea (adult) (pediatric); I49.5 Sick sinus syndrome; M54.32 Sciatica, left side; K80.20 Calculus of gallbladder without cholecystitis without obstruction; J32.9 Chronic sinusitis, unspecified; D72.829 Elevated white blood cell count, unspecified; R73.9 Hyperglycemia, unspecified; M54.14 Radiculopathy, thoracic region; M41.9 Scoliosis, unspecified; K59.00 Constipation, unspecified; Z87.440 Personal history of urinary (tract) infections; Z79.01 Long term (current) use of anticoagulants; Z79.82 Long term (current) use of aspirin; Z95.5 Presence of coronary angioplasty implant and graft; Z95.0 Presence of cardiac pacemaker

== ENCOUNTER 2017-11-27 16:03 | Inpatient (IN) | payer MEDICARE, OTHER ==
[2017-11-27 16:04] VITALS: BMI 27.4
[2017-11-27] MEDS ORDERED: Nitroglycerin 2% Ointment Foilpak UD TOP STA (16:51)
[2017-11-27] MEDS ORDERED: Morphine 4 mg/ml ISec IVP STA (16:51)
--- NOTE | 2017-11-27 16:58 | ED PDOC ---
Arrival/HPI - General Chief Complaint: Abdominal Pain Time Seen by Provider: 11/27/17 16:51 Historian: Patient, Spouse - History of Present Illness Narrative History of Present Illness (Text): 11/27/17 16:50 pt p/w + < 1 day onset of left lower chest wall/region pain; at most pain is 9- 10/10; with pain radiating to substernal chest region; pt states pain worsened this morning with + mild sob, + palpitations, + mild diaphoresis; pt also noted pain wax and wanes but mostly constant; taking tylenol does ease the pain; pt states she measured her BP and it was noted to be severely elevated, at 198/115 on one occasion; pt became alarmed contacted PCP office today and was instructed to come to ED for further eval; pt states with her chest pain, + mild lightheadedness, no loc, no fever/chills, no abd pain, no n/v, no new numbness/tingling, no urinary/bowel changes, no fall/trauma/sick contact, no travel. pt is here for further eval pt's without other complaints. PCP: Dr Marcus Cards: Dr Odonnell HX: + 1 2007? Time/Duration: 24 hours Symptom Onset: Sudden Symptom Course: Other (constant) Quality: Tightness, Cramping Severity Level: 10, Severe Activities at Onset: Rest Context: Home Past Medical History - Provider Review Nursing Documentation Reviewed: Yes - Travel History Have you recently traveled outside [place] w/in the past 3 mons?: No - Past History Past History: No Previous - Infectious Disease Hx of Infectious Diseases: None - Tetanus Immunization Tetanus Immunization: Unknown - Reproductive Menopause: Yes - Cardiac Hx Cardiac Disorders: Yes Hx Angina: Yes Hx Cardiac Arrhythmia: Yes (A-fib on Eliquis at home) Hx Hypertension: Yes Hx Pacemaker: Yes (Jul 11 2017) Hx Peripheral Edema: No - Pulmonary Hx Respiratory Disorders: No - Neurological Hx Neurological Disorder: No - HEENT Hx HEENT Disorder: Yes (wears glasses) Hx Cataracts: Yes (with bilateral surgery) - Renal Hx Renal Disorder: Yes Hx Pyelonephritis: Yes - Endocrine/Metabolic Hx Endocrine Disorders: No - Hematological/Oncological Hx Blood Disorders: No - Integumentary Hx Dermatological Disorder: No - Musculoskeletal/Rheumatological Hx Falls: No Hx Herniated Disk: Yes Hx Unsteady Gait: No Other/Comment: Sciatica pain - Gastrointestinal Hx Gastrointestinal Disorders: Yes Hx Gastroesophageal Reflux: Yes - Genitourinary/Gynecological Hx Genitourinary Disorders: Yes Hx Urinary Tract Infection: Yes - Psychiatric Hx Psychophysiologic Disorder: No Hx Substance Use: No - Surgical History Hx Cardiac Catheterization: Yes (x 1 stent) Hx Cholecystectomy: Yes Hx Coronary Stent: Yes - Anesthesia Hx Anesthesia: Yes Hx Anesthesia Reactions: No Hx Malignant Hyperthermia: No - Suicidal Assessment Feels Threatened In Home Enviroment: No Family/Social History - Physician Review Nursing Documentation Reviewed: Yes Family/Social History: No Known Family HX Smoking Status: Never Smoked Hx Alcohol Use: No Hx Substance Use: No Hx Substance Use Treatment: No Allergies/Home Meds Allergies/Adverse Reactions: Allergies No Known Allergies Allergy (Verified 08/12/17 17:02) Home Medications: Home Meds Medication Instructions Recorded Confirmed Aspirin [Ecotrin] 81 mg PO DAILY 05/15/16 09/09/17 Famotidine [Pepcid] 20 mg PO BID 05/15/16 09/09/17 Ursodiol [Actigall] 300 mg PO BID 05/15/16 09/09/17 Review of Systems - Review of Systems Constitutional: Fatigue Eyes: Normal ENT: Normal Respiratory: SOB Cardiovascular: Chest Pain. absent: Syncope Gastrointestinal: Normal Genitourinary Female: Normal Musculoskeletal: Normal Skin: Normal Neurological: Other (weakness). absent: Headache, Dizziness Endocrine: Normal Hemo/Lymphatic: Normal Psychiatric: Normal Physical Exam Vital Signs Reviewed: Yes Vital Signs Temp Pulse Resp BP Pulse Ox 11/27/17 18:55 62 18 161/70 H 96 11/27/17 16:28 98.0 F 81 22 117/96 H 99 Temperature: Afebrile Blood Pressure: Normal Pulse: Regular Respiratory Rate: Normal Appearance: Positive for: Well-Appearing, Non-Toxic, Uncomfortable, Other ( mildly uncomfortable, alert/awake, GCS = 15, oriented x 3, NAD, cooperative, resting in bed) Pain Distress: None Mental Status: Positive for: Alert and Oriented X 3 - Systems Exam Head: Present: Atraumatic, Normocephalic Pupils: Present: PERRL, Other (nystagmus, no photophobia, sclera anicteric) Extroacular Muscles: Present: EOMI Conjunctiva: Present: Normal Ears: Present: Normal Mouth: Present: Moist Mucous Membranes, Other (fair dentitions, no drooling/ stridor, no exudate/lesions, no dysphonia) Pharnyx: Present: Normal Nose (External): Present: Atraumatic Nose (Internal): Present: Normal Inspection Neck: Present: Normal Range of Motion, Trachea Midline. No: MIDLINE TENDERNESS Respiratory/Chest: Present: Clear to Auscultation, Good Air Exchange, Other ( CTA b/l, no w/r/r; no focal tenderness noted on exam, no crepitus) Cardiovascular: Present: Regular Rate and Rhythm, Normal S1, S2. No: Murmurs Abdomen: Present: Normal Bowel Sounds, Other (well nourished female) Back: Present: Normal Inspection. No: Midline Tenderness Upper Extremity: Present: Normal Inspection, Normal ROM, NORMAL PULSES, Neurovascularly Intact, Capillary Refill < 2s Lower Extremity: Present: Normal Inspection, NORMAL PULSES, Normal ROM, Neurovascularly Intact, Capillary Refill < 2 s Neurological: Present: GCS=15, CN II-XII Intact, Speech Normal, Normal Sensory Function Skin: Present: Warm, Normal Color Psychiatric: Present: Alert, Oriented x 3 Medical Decision Making ED Course and Treatment: 11/27/17 16:50 Impression: chest pain, elevated BP i have consider all the differential diagnosis regarding pt's chief medical complaints/clinical findings, including but are not limited to: chest pain, r/o acs; elevated BP A/P: chest pain, r/o acs; elevated BP - labs - iv - xray - acs eval - observe - supportive care 11/27/17 18:18 pt is currently chest pain free pt is made aware of her medical results pt agrees with admission/observation I spoke to Dr Marcus, made aware of pt's medical results, agrees with admission/ observation placement Re-evaluation Time: 16:58 Reassessment Condition: Improving,but remains with symptoms - Lab Interpretations Lab Results: 11/27/17 17:15 11/27/17 17:15 Lab Results 11/27/17 17:15: Sodium 138, Potassium 4.3, Chloride 99, Carbon Dioxide 27, Anion Gap 17, BUN 13, Creatinine 0.8, Est GFR ( Amer) > 60, Est GFR (Non- Af Amer) > 60, Random Glucose 122 H, Calcium 9.9, Magnesium 2.1, Total Bilirubin 0.6, AST 37 H, ALT 22, Alkaline Phosphatase 112, Lactate Dehydrogenase 657, Total Creatine Kinase 81, Troponin I < 0.01, NT-Pro-B Natriuret Pep 469 H, Total Protein 9.1 H, Albumin 4.7, Globulin 4.4, Albumin/ Globulin Ratio 1.1, Lipase 77 11/27/17 17:15: Urine Color Yellow, Urine Appearance Sl cloudy, Urine pH 7.0, Ur Specific [place] 1.020, Urine Protein >=300 H, Urine Glucose (UA) Negative, Urine Ketones Negative, Urine Blood Small H, Urine Nitrate Negative, Urine Bilirubin Negative, Urine Urobilinogen 0.2, Ur Leukocyte Esterase Negative, Urine RBC 5 - 10, Urine WBC 1 - 3, Ur Epithelial Cells 3 - 4 11/27/17 17:15: PT 12.4, INR 1.09 H, APTT 37.9 H 11/27/17 17:15: WBC 11.4 H D, RBC 5.36, Hgb 17.4 H D, Hct 50.0 H, MCV 93.3 D, MCH 32.5, MCHC 34.8, RDW 12.1, Plt Count 367, MPV 8.7, Gran % 65.7, Lymph % ( Auto) 24.8, [place] % (Auto) 8.0 H, Eos % (Auto) 1.1 L, Baso % (Auto) 0.4, Gran # 7.46 H, Lymph # (Auto) 2.8, [place] # (Auto) 0.9 H, Eos # (Auto) 0.1, Baso # (Auto ) 0.04 I have reviewed the lab results: Yes Interpretation: Abnormal lab values (mildly elevated BNP, otherwise WNL labs) - RAD Interpretation Narrative RAD Interpretations (Text): 11/27/17 18:48 CXR - cardiac device, mild cardiomeagly, cephalization of pulm vascularture - ? pulm edema, no PTX, as read by me Radiology Orders: 11/27/17 16:51 CHEST TWO VIEWS (PA/LAT) [RAD] Stat Care Transition Manager: ED Physician - EKG Interpretation EKG Interpretation (Text): 11/27/17 18:19 Demand pace rhythm at 75 bpm, normal axis, + atrial fib, + ectopy, no st changes , ABNL EKG; mild changes compare with old ekg 08/2017 Interpreted by ED Physician: Yes Type: 12 lead EKG Comparison: Different from prev. EKG - Medication Orders Current Medication Orders: Discontinued Medications Acetaminophen (Tylenol 325mg Tab) 650 mg PO STAT STA Stop: 11/27/17 18:00 Last Admin: 11/27/17 18:34 Dose: 650 mg MAR Pain/Vitals Document 11/27/17 18:34 GMD (Rec: 11/27/17 18:34 GMD [id number]) Pain Reassessment Is This A Pain ReAssessment? No Morphine Sulfate (Morphine) 4 mg IVP STAT STA Stop: 11/27/17 16:52 Last Admin: 11/27/17 17:56 Dose: Not Given Non-Admin Reason: Patient Refused Nitroglycerin (Nitro-Bid 2% Oint) 1 ea TOP STAT STA Stop: 11/27/17 16:52 Last Admin: 11/27/17 18:34 Dose: 1 ea Disposition/Present on Arrival - Present on Arrival Any Indicators Present on Arrival: No History of DVT/PE: No History of Uncontrolled Diabetes: No Urinary Catheter: No History of Decub. Ulcer: No History Surgical Site Infection Following: None - Disposition Have Diagnosis and Disposition been Completed?: Yes Diagnosis: Chest pain with moderate risk for cardiac etiology, Blood pressure instability Disposition: HOSPITALIZED Disposition Time: 18:00 Patient Plan: Admission, Observation Patient Problems: Current Active Problems Problem Status Onset Chest pain with moderate risk for cardiac etiology Acute Blood pressure instability Acute Condition: STABLE
[2017-11-27 17:25] LABS: BASO # 0.04 K/mm3 (0.0-2.0); BASO % 0.4 % (0.0-3.0); EOS # 0.1 (0.0-0.7); EOS % 1.1 % (1.5-5.0); GRAN # 7.46 (1.4-6.5); GRAN % 65.7 % (50.0-68.0); HEMOGLOBIN 17.4 g/dL (12.0-16.0); LYMPH # 2.8 (1.2-3.4); LYMPH % 24.8 % (22.0-35.0); MEAN CELL VOLUME 93.3 fl (80.0-105.0); MEAN CORPUSCULAR HEMOGLOBIN 32.5 pg (25.0-35.0); MEAN CORPUSCULAR HGB CONC 34.8 g/dl (31.0-37.0); MEAN PLATELET VOLUME 8.7 fl (7.0-11.0); MONO # 0.9 (0.1-0.6); RBC 5.36 10^6/uL (3.5-6.1); RED CELL DISTRIBUTION WIDTH 12.1 % (11.5-14.5); URINE BILIRUBIN NEGATIVE (NEGATIVE); URINE BLOOD SMALL (NEGATIVE); URINE GLUCOSE (UA) NEGATIVE (NEGATIVE); URINE LEUKOCYTE ESTERASE NEGATIVE Leu/uL (NEGATIVE); URINE NITRATE NEGATIVE (NEGATIVE); URINE PROTEIN >=300 mg/dL (<30 mg/dL); URINE UROBILINOGEN 0.2 E.U./dL (<1 E.U./dL); WHITE BLOOD COUNT 11.4 10^3/ul (4.5-11.0)
[2017-11-27 17:31] LABS: URINE APPEARANCE SL CLOUDY (CLEAR); URINE COLOR YELLOW (YELLOW)
[2017-11-27 17:34] LABS: ALB/GLOB RATIO 1.1 (1.1-1.8); ALBUMIN 4.7 g/dL (3.0-4.8); ALT/SGPT 22 U/L (7-56); AST/SGOT 37 U/L (14-36); BLOOD UREA NITROGEN 13 mg/dL (7-21); CALCIUM 9.9 mg/dL (8.4-10.5); GFR AFRICAN-AMERICAN > 60; GFR NON-AFRICAN AMERICAN > 60; LIPASE 77 U/L (23-300); MAGNESIUM 2.1 mg/dL (1.7-2.2)
[2017-11-27 17:35] LABS: INR 1.09 (0.93-1.08); PARTIAL THROMBOPLASTIN TIME 37.9 Seconds (25.1-36.5); PROTHROMBIN TIME 12.4 SECONDS (9.4-12.5)
[2017-11-27 17:46] LABS: B-TYPE NATRIURETIC PEPTIDE 469 pg/mL (0-450); TROPONIN I < 0.01 ng/mL
[2017-11-27 21:29] LABS: IRON 106 ug/dL (45-180)
[2017-11-27 21:30] LABS: HDL CHOLESTEROL 77 mg/dL (29-60)
[2017-11-27 21:40] LABS: % IRON SATURATION 30 % (20-55); TOTAL IRON BINDING CAPACITY 358 ug/dL (265-497)
[2017-11-27 21:41] LABS: LDL CHOLESTEROL 48 mg/dL (0-129)
[2017-11-27 21:42] LABS: TROPONIN I < 0.01 ng/mL
[2017-11-27] MEDS: Fluticasone Nasal 50 mcg/Spray NS SCH (22:57)
--- NOTE | 2017-11-28 08:08 | RAD ---
HISTORY: left chest pain COMPARISON: 09/09/2017 FINDINGS: LUNGS: No active pulmonary disease. PLEURA: No significant pleural effusion identified, no pneumothorax apparent. CARDIOVASCULAR: Mild cardiomegaly. Pacemaker. OSSEOUS STRUCTURES: No significant abnormalities. VISUALIZED UPPER ABDOMEN: Normal. OTHER FINDINGS: None. IMPRESSION: No active disease.
[2017-11-28 08:25] LABS: BLOOD UREA NITROGEN 17 mg/dL (7-21); CALCIUM 9.8 mg/dL (8.4-10.5); GFR AFRICAN-AMERICAN > 60; GFR NON-AFRICAN AMERICAN 54
[2017-11-28 08:39] LABS: HEMOGLOBIN 15.9 g/dL (12.0-16.0); MEAN CELL VOLUME 93.9 fl (80.0-105.0); MEAN CORPUSCULAR HEMOGLOBIN 32.3 pg (25.0-35.0); MEAN CORPUSCULAR HGB CONC 34.3 g/dl (31.0-37.0); MEAN PLATELET VOLUME 8.7 fl (7.0-11.0); RBC 4.93 10^6/uL (3.5-6.1); RED CELL DISTRIBUTION WIDTH 12.3 % (11.5-14.5); WHITE BLOOD COUNT 9.6 10^3/ul (4.5-11.0)
[2017-11-28] MEDS: Fluticasone Nasal 50 mcg/Spray NS SCH ×2 (09:19→22:36)
--- NOTE | 2017-11-28 09:36 | CARD ---
APPROVED REPORT EKG Measurement Heart [id number] <Conclusion> Demand pacemaker, interpretation is based on intrinsic rhythm Atrial fibrillation with premature ventricular or aberrantly conducted complexes Nonspecific T wave abnormality, probably digitalis effect Abnormal ECG
[2017-11-28] MEDS: Enoxaparin 80 mg Syringe SC SCH ×2 (12:32→22:35)
[2017-11-28 12:47] LABS: FOLATE 12.3 ng/mL
--- NOTE | 2017-11-28 21:02 | CON ---
DATE: SERVICE: Cardiology. REASON FOR CONSULTATION: Cardiac evaluation, coronary artery disease, status post pacemaker, AFib, admitted with unstable angina, acute coronary syndrome. BRIEF CLINICAL HISTORY: This is a 77-year-old female with a past medical history significant for coronary artery disease, status post PTCA of distal LAD in 2007, history of pacemaker on 07/10/2017, came in with the complaint of initially hypertension uncontrolled, but states that two episodes of chest pain radiating into the left rib and feels that she has been wearing very tight undergarment and wanted to loose it off and then has cold sweat and is squeezing her rib. Initially, the blood pressure was 160; she took extra hydralazine, did not get better, so called Dr. Marcus who advised to come to the hospital. PAST MEDICAL HISTORY: Significant for tachy-petra syndrome, sick sinus syndrome, paroxysmal atrial fibrillation, status post permanent pacemaker on 07/10/2017, history of coronary artery disease, status post in PTCA 2008, followed by patient had repeat CAT because patient came with chest pain. PREVIOUS CARDIAC WORKUP: As follows: Patient had a coronary stent in 2007; history of recent stress test on 05/05/2016 that shows normal myocardial perfusion study, ejection fraction 78%. Patient's last echocardiography on 02/11/2017 at [facility], ejection fraction 55% to 60%, mild aortic stenosis, mild mitral regurgitation, mild tricuspid regurgitation, RV systolic pressure of 38, history of paroxysmal atrial fibrillation, history of stent in the past as mentioned, history of permanent pacemaker 07/10/2017. History of atrial fibrillation, on Eliquis. SOCIAL HISTORY: Denies any smoking. Denies any history of alcohol abuse. CURRENT MEDICATIONS: Patient is taking Cardizem CD 120 mg daily, metoprolol 25 mg daily, meclizine 12.5 mg daily, atorvastatin 20 mg daily, aspirin 81 mg daily, and Eliquis that is 5 mg b.i.d. REVIEW OF SYSTEMS: As per HPI. PHYSICAL EXAMINATION: As follows: VITAL SIGNS: Temperature afebrile, heart rate 78, blood pressure 132/79. HEENT: PERRLA. Extraocular muscles intact. NECK: Supple. No carotid bruits or thyromegaly. CHEST: Clear to auscultation. HEART: S1 and S2, regular. ABDOMEN: Soft. EXTREMITIES: Clubbing and cyanosis, negative. LABORATORY DATA: Blood workup as follows: WBC 9.6, hemoglobin 15.9, hematocrit 46.3, platelet count 373. Sodium 141, potassium 4.5, chloride 98, carbon dioxide 31, anion gap of 16, BUN 17, creatinine 1.0. Troponin is 0.01 x2. BNP 469. Triglyceride 125, cholesterol 151, LDL 48, HDL 77, TSH 2.29. EKG showed underlying atrial fibrillation, V-paced rhythm. IMPRESSION: Acute coronary syndrome, unstable angina, diabetes, hypertension, hyperlipidemia, coronary artery disease, status post stent in 2008, history of multiple stents, history of permanent pacemaker on 07/10/2017, history of atrial fibrillation. RECOMMENDATION: We will discontinue Eliquis, start Lovenox, load with Plavix 300 mg now and then 75 mg from tomorrow. Keep n.p.o. after Thursday midnight for cardiac catheterization on Thursday at 8:30. We will try to reach family, , Jean, as well as Teri. I tried to reach , left a message at [phone], and I spoke to Teri Pena, the daughter, at [phone], updated the patient's condition and plan for cardiac catheterization on Thursday. We will keep n.p.o. after 12 midnight. We will also start low dose of IV fluid starting Thursday 7:00 p.m. I will to protect the renal function after the cardiac catheterization and prevent contrast-induced nephropathy. We will follow with you. Since the patient is afebrile, we will give three doses of Lovenox this morning and tomorrow. We will get lipid profile, TSH, hemoglobin A1c. Thank you, Dr. Marcus, for providing us the opportunity in taking care of the patient, Susana Pena. Eleazar Odonnell MD
--- NOTE | 2017-11-29 07:58 | HP ---
CHIEF COMPLAINT: Abdominal pain and chest pain. HISTORY OF PRESENT ILLNESS: Ms. Susana Pena is a 77-year-old female with past medical history of multiple medical problems, came with chest pain and left-sided abdominal pain, pain radiating to the substernal chest region. Patient states , on the day of admission with mild shortness of breath, palpitation and mild diaphoresis. Patient also noticed the pain waxed and waned, but mostly constant, taking Tylenol does relieve the pain. The patient states that she may have high blood pressure that was noticed to be severely elevated, almost 198/115 on one occasion, and the patient became alarmed, called my office. My office instructed her to go to the hospital and told her to take 2 tablets of hydralazine of 10 mg. Patient states that her chest pain is mild, lightheadedness; no loss of consciousness. No nausea, vomiting or diarrhea. No hematuria, hematochezia. No headache. No dizziness. No fever, no chills. PAST MEDICAL HISTORY: Anemia, atrial fibrillation on Eliquis, hypertension, pacemaker, history of cataract surgery, pyelonephritis, herniated disk, sciatica pain, gastroesophageal reflux disease, urinary tract infection, history of cardiac catheterization a long time ago, cholecystectomy, coronary artery stents, FAMILY HISTORY: Father and mother noncontributory. HABITS: Never smoked. No drugs. No ethanol. ALLERGIES: THE PATIENT IS NOT ALLERGIC TO ANY MEDICATIONS. HOME MEDICATIONS: Ecotrin, Pepcid, Actigall. REVIEW OF SYSTEMS: Patient is seen and examined on the bedside. was sitting on the bedside also. Still complaining about chest tightness, feeling fatigue, having shortness of breath. Absent syncope, absent headache or dizziness. PHYSICAL EXAMINATION: VITAL SIGNS: Temperature 98.0, pulse 81, respiratory rate 22, blood pressure 170/96, pulse oximetry 99. HEENT: Head is normocephalic and atraumatic. Eyes: PERRLA. Extraocular movements are intact. Conjunctivae clear. Nose patent. NECK: Supple. No carotid bruits, JVD or thyromegaly. CHEST: Bilaterally symmetrical. HEART: S1 and S2 positive. LUNGS: Clear to auscultation. ABDOMEN: Soft. Bowel sounds present. No organomegaly. EXTREMITIES: No edema, no cyanosis. NEUROLOGIC: Patient is awake, alert. Moving all four extremities. No focal deficit. LABORATORY DATA: White blood cell 11.4, hemoglobin 17.4, hematocrit 50.0, platelets 367. Sodium 130, potassium 4.3, BUN 13, creatinine 0.8, glucose noted ASSESSMENT AND PLAN: Ms. Susana Pena is a 77-year-old female with leukocytosis, anemia, hyperglycemia, came with chest pain, left-sided abdominal pain, accelerated hypertension. Discussion done with kept the patient under observation. Cardiology consult called. Seen by pharmacy intern, Dr. Eleazar Odonnell. Patient has a history of tachy-petra arrhythmia, sick sinus syndrome, paroxysmal atrial fibrillation, status post permanent pacemaker, history of coronary artery disease, status post percutaneous transluminal coronary angioplasty, acute coronary syndrome, unstable angina, diabetes mellitus, hypercholesterolemia, multiple stents, history of cholelithiasis, on Actigall. Dr. Odonnell discontinued the Eliquis, started on Lovenox, had loaded with Plavix. Keep n.p.o. after Thursday midnight for cardiac catheterization on Thursday as per Dr. Odonnell. Dr. Odonnell spoke to patient's . GI and deep venous thrombosis prophylaxis. of time I discussed this patient with the patient's . Treatment plan made. We will follow up. Pricila Marcus MD MTDD
[2017-11-29 08:20] LABS: BASO # 0.05 K/mm3 (0.0-2.0); BASO % 0.6 % (0.0-3.0); EOS # 0.3 (0.0-0.7); EOS % 2.9 % (1.5-5.0); GRAN # 4.79 (1.4-6.5); GRAN % 54.2 % (50.0-68.0); HEMOGLOBIN 15.4 g/dL (12.0-16.0); LYMPH # 2.9 (1.2-3.4); MEAN CELL VOLUME 95.3 fl (80.0-105.0); MEAN CORPUSCULAR HEMOGLOBIN 31.5 pg (25.0-35.0); MEAN PLATELET VOLUME 8.7 fl (7.0-11.0); MONO # 0.8 (0.1-0.6); MONO % 9.3 % (1.0-6.0); RBC 4.89 10^6/uL (3.5-6.1); RED CELL DISTRIBUTION WIDTH 12.4 % (11.5-14.5); WHITE BLOOD COUNT 8.8 10^3/ul (4.5-11.0)
[2017-11-29 08:43] LABS: ALB/GLOB RATIO 1.1 (1.1-1.8); ALT/SGPT 25 U/L (7-56); AST/SGOT 42 U/L (14-36); BLOOD UREA NITROGEN 17 mg/dL (7-21); CALCIUM 9.5 mg/dL (8.4-10.5); GFR AFRICAN-AMERICAN > 60; GFR NON-AFRICAN AMERICAN 54; MAGNESIUM 2.2 mg/dL (1.7-2.2)
[2017-11-29] MEDS: Enoxaparin 80 mg Syringe SC SCH (09:24)
[2017-11-29] MEDS: Fluticasone Nasal 50 mcg/Spray NS SCH ×2 (09:26→21:56)
[2017-11-29] MEDS: diltiaZEM 120 mg/24 Hours CD Cap PO SCH (12:29)
--- NOTE | 2017-11-29 14:35 | PN ---
DATE: REASON FOR CONSULTATION AND FOLLOWUP: Cardiac evaluation, coronary artery disease, status post pacemaker, AFib, admitted with unstable angina and acute coronary syndrome. SUBJECTIVE: The patient denies any chest pain, shortness of breath, or any palpitation. is at the bedside. PHYSICAL EXAMINATION: VITAL SIGNS: Temperature afebrile, heart rate 80, blood pressure 177/98. HEENT: PERRLA, intact. NECK: Supple. No carotid bruits or thyromegaly. CHEST: Clear to auscultation. HEART: S1 and S2, regular. ABDOMEN: Soft. EXTREMITIES: Clubbing and cyanosis negative. LABORATORY DATA: Blood workup as follows: WBC 8.8, hemoglobin 15.4, hematocrit 46.6, platelet count 358. Chemistry shows sodium 142, potassium 4.8, chloride 101, carbon dioxide 37, anion gap of 15. BUN 17, creatinine 1.0. IMPRESSION: Hypertension; unstable angina, so far no evidence of acute myocardial infection; diabetes; hyperlipidemia. RECOMMENDATIONS: We will start IV fluid 50 mL/hr to prevent going into contrast-induced nephropathy. Loaded with Plavix 300 yesterday. Continue aspirin, continue atorvastatin, continue beta-jasen. We will put back on Cardizem daily 120 mg from today because yesterday the patient had low blood pressure. Now, the patient is hypertensive as well as is going into atrial fibrillation with rapid ventricular rate. Eliquis is on hold because of possible cath tomorrow. Give the Lovenox last dose at 10 a.m. After this, we will hold Lovenox. We will follow with you. We will start low dose of beta-jasen as well as metoprolol b.i.d. now for the blood pressure, also put on hydralazine p.r.n., n.p.o. after midnight for cardiac catheterization tomorrow. Discussed with the patient's daughter yesterday, Nichole, discussed with the son, all agreed. The patient also agreed. We will proceed for cardiac catheterization tomorrow. We will put 50 mL of saline starting tonight at 7 p.m. for possible cardiac catheterization and to prevent the contrast-induced nephropathy. Thank you Dr. Marcus for providing us the opportunity in taking care of the patient, Susana Pena. Eleazar Odonnell MD
[2017-11-29] MEDS: Sodium Chloride 0.9% 1,000 ML IV SCH (21:54)
[2017-11-30 02:46] VITALS: O2SAT 98
[2017-11-30] MEDS ORDERED: Midazolam 2 MG/2 ML VIAL ONE (07:11)
[2017-11-30] MEDS ORDERED: Verapamil 0 ML ONE (07:11)
[2017-11-30] MEDS ORDERED: Lidocaine 2% Inj (20ml) ONE (07:11)
[2017-11-30] MEDS ORDERED: Nitroglycerin 50mg in D5W 0 MG/0 ML BOTTLE IV ONE (07:12)
[2017-11-30] MEDS ORDERED: HEPARIN SODIUM/NS 2,000 ML IV ONE (07:12)
[2017-11-30] MEDS ORDERED: Iodixanol 320 MG/ML 200 ML BOTTLE IV ONE (08:17)
--- NOTE | 2017-11-30 10:49 | PN ---
DATE: 11/29/2017 SUBJECTIVE: The patient is a 77-year-old female. The patient is seen and examined on the bedside, looking comfortable. Daughter was sitting on the bedside also. Chest pain is better. No headache. No dizziness. , no hematochezia. No swelling of the leg. No fever. No chills. Appetite is appropriate. Does not have bowel movement. Using prune fruit, I ordered prune juice for her. PHYSICAL EXAMINATION: VITAL SIGNS: Patient's temperature is 98.6, heart rate 80, blood pressure 177/98. HEENT: Head, normocephalic, atraumatic. Eyes: PERRLA. Extraocular movements intact. Conjunctivae clear. Nose patent. Mucous membrane moist. NECK: Supple. There are no carotid bruit, JVD, or thyromegaly. CHEST: Bilaterally symmetrical. HEART: S1, S2 positive. LUNGS: Clear to auscultation. ABDOMEN: Soft. Bowel sounds present. No organomegaly. EXTREMITIES: No edema. No cyanosis. NEUROLOGIC: Patient is awake, alert. Moving all four extremities. No focal deficits. MEDICATIONS: Actigall, Antivert, hydralazine,Cardizem, Claritin, Ecotrin, Flonase, Lipitor, Lopressor, Pepcid, Plavix, Singulair, NS, tramadol. LABORATORY DATA: White blood cell 6.8, hemoglobin 15.4, hematocrit 46.6, platelets 358. Sodium 143, potassium 4.3, BUN 17, creatinine 1.0, hemoglobin A1c 6.3. ASSESSMENT AND PLAN: Ms. Susana Pena is a 77-year-old female with history of leukocytosis, improved; polycythemia, hemoglobin is better now; hyperglycemia, abnormal liver function tests, proteinuria, hematuria, seen by the family service caseworker, Dr. Odonnell, has history of hypertension, unstable angina, so far no evidence of acute myocardial infarction; history of cholelithiasis, on Actigall; diabetes, hypercholesterolemia. Dr. Odonnell started the patient on intravenous fluid. Getting prune juice and prune fruit for constipation. To prevent ongoing contrast-induced nephropathy, Dr. Odonnell started intravenous fluid. Loaded with Plavix. Continue aspirin, atorvastatin, and beta blockers. Starting Cardizem today; blood pressure was high. Patient has history of atrial fibrillation with rapid ventricular response, Eliquis is on hold, getting Lovenox. Gastrointestinal and deep vein thrombosis prophylaxis. Repeat labs. Discussion done with patient and patient's daughter. All questions answered. Pricila Marcus MD
[2017-11-30] MEDS: diltiaZEM 120 mg/24 Hours CD Cap PO SCH (10:57)
[2017-11-30] MEDS: Fluticasone Nasal 50 mcg/Spray NS SCH (10:57)
--- NOTE | 2017-11-30 13:23 | CARD ---
APPROVED REPORT Procedure(s) performed: Left Heart Catheterization HISTORY The patient is a 77 year-old female with a history of : previous diagnostic cath, previous PCI (The PCI date was 09/28/2007), hypertension , dyslipidemia , admitted with ACS/ unstable angina. INDICATION The indication(s) include : unstable angina , chest pain, dyspnea. CASE TECHNIQUE The patient was brought urgently to the Cardiac Catheterization Laboratory in a fasting state and was prepped and draped in a sterile manner. The right femoral groin was infiltrated with 2% Lidocaine subcutaneous anesthesia. A 6 Fr x 11 cm Rena sheath was inserted into the right femoral artery without difficulty. Coronary angiography was performed using coronary diagnostic catheters. The left coronary system was accessed and visualized with a Diagnostic ,6 Fr JL 4 catheter. The right coronary system was accessed and visualized with a Diagnostic ,6 Fr JR 4 catheter. The left ventricle was accessed and visualized with a 6 Fr Pigtail catheter. Left ventricular/Aortic Valve gradient assessed on pullback. Left ventriculogram was performed in [place] projection. The patient tolerated the procedure well and there were no complications associated with the procedure. Vessel Analysis The patient's coronary anatomy is right dominant. The left main coronary artery is a large size vessel with diffuse calcification noted throughout this vessel and without significant stenosis. The left main bifurcates to the left anterior descending and circumflex. The left anterior descending artery is a medium size vessel with diffuse calcification noted throughout this vessel and without significant stenosis. Patent stent in proximal to mid LAD The first diagonal branch is a medium size vessel with intimal irregularities and without significant stenosis. The second diagonal branch is a small size vessel with diffuse calcification noted throughout this vessel and without significant stenosis. There is a 55% stenosis in the mid segment. Diffuse diseased The circumflex artery is a medium size vessel with diffuse calcification noted throughout this vessel and without significant stenosis. The first obtuse marginal branch is a medium size vessel with diffuse calcification noted throughout this vessel and without significant stenosis. The right coronary artery is a medium size vessel with diffuse calcification noted throughout this vessel and without significant stenosis. The right posterior descending artery is a medium size vessel with diffuse calcification noted throughout this vessel and without significant stenosis. The right posterolateral branch is a medium size vessel with diffuse calcification noted throughout this vessel and without significant stenosis. Left Ventricle The left ventricle is normal in size with normal contractility. There was no cardiomyopathy. The left ventricular ejection fraction is estimated to be 60-65%. The left ventricular end diastolic pressure is 15 mmHg. There was no gradient across the aortic valve upon pullback. Conclusion patent stent in proximal to Mid LAD Moderate diz in D2 55% diffuse diz, non flow limiting, small calibre vessel. preserved Lv Fx. EF-60-65%, EDP-15 mmof hg. Hx of Afib ( PAF) SSS S/p PMM Recommendations Aggressive Medical TherapyCardiac Risk Reduction Program Weight Loss Reduction Program Aggressive control of Bp Resume eliquis for A fib ( PAF). CC; Caitlin : Angeline/ Jesus
--- NOTE | 2017-11-30 14:16 | CP.PCM.DIS ---
<LeobardoNasrinkiki Flores - Last Filed: 11/30/17 14:23> Provider - Provider Date of Admission: 11/28/17 23:08 Attending physician: Pricila Marcus MD Primary care physician: Pricila Marcus MD Consults: Cardio - Dr. Blas Adan - Dr. Cruz Nephro - Dr. Bauman Time Spent in preparation of Discharge (in minutes): 45 Diagnosis - Discharge Diagnosis (1) Abnormal LFTs Status: Acute (2) Mild cardiomegaly Status: Acute (3) Pacemaker Status: Acute (4) Proteinuria Status: Acute (5) Prediabetes Status: Acute (6) Hematuria Status: Acute Hospital Course - Lab Results Lab Results: Most Recent Lab Values WBC 8.8 10^3/ul (4.5-11.0) 11/29/17 07:30 RBC 4.89 10^6/uL (3.5-6.1) 11/29/17 07:30 Hgb 15.4 g/dL (12.0-16.0) 11/29/17 07:30 Hct 46.6 % (36.0-48.0) 11/29/17 07:30 MCV 95.3 fl (80.0-105.0) 11/29/17 07:30 MCH 31.5 pg (25.0-35.0) 11/29/17 07:30 MCHC 33.0 g/dl (31.0-37.0) 11/29/17 07:30 RDW 12.4 % (11.5-14.5) 11/29/17 07:30 Plt Count 358 10^3/uL (120.0-450.0) 11/29/17 07:30 MPV 8.7 fl (7.0-11.0) 11/29/17 07:30 Gran % 54.2 % (50.0-68.0) 11/29/17 07:30 Lymph % (Auto) 33.0 % (22.0-35.0) 11/29/17 07:30 [place] % (Auto) 9.3 % (1.0-6.0) H 11/29/17 07:30 Eos % (Auto) 2.9 % (1.5-5.0) 11/29/17 07:30 Baso % (Auto) 0.6 % (0.0-3.0) 11/29/17 07:30 Gran # 4.79 (1.4-6.5) 11/29/17 07:30 Lymph # (Auto) 2.9 (1.2-3.4) 11/29/17 07:30 [place] # (Auto) 0.8 (0.1-0.6) H 11/29/17 07:30 Eos # (Auto) 0.3 (0.0-0.7) 11/29/17 07:30 Baso # (Auto) 0.05 K/mm3 (0.0-2.0) 11/29/17 07:30 PT 12.4 SECONDS (9.4-12.5) 11/27/17 17:15 INR 1.09 (0.93-1.08) H 11/27/17 17:15 APTT 37.9 Seconds (25.1-36.5) H 11/27/17 17:15 Sodium 143 mmol/L (132-148) 11/29/17 07:30 Potassium 4.7 mmol/L (3.6-5.0) 11/29/17 07:30 Chloride 101 mmol/L (98-107) 11/29/17 07:30 Carbon Dioxide 32 mmol/L (21-33) 11/29/17 07:30 Anion Gap 15 (10-20) 11/29/17 07:30 BUN 17 mg/dL (7-21) 11/29/17 07:30 Creatinine 1.0 mg/dl (0.7-1.2) 11/29/17 07:30 Est GFR ( Amer) > 60 11/29/17 07:30 Est GFR (Non-Af Amer) 54 11/29/17 07:30 Random Glucose 94 mg/dL (70-110) 11/29/17 07:30 Hemoglobin A1c 6.3 % (4.2-6.5) 11/27/17 21:17 Calcium 9.5 mg/dL (8.4-10.5) 11/29/17 07:30 Phosphorus 4.3 mg/dL (2.5-4.5) 11/29/17 07:30 Magnesium 2.2 mg/dL (1.7-2.2) 11/29/17 07:30 Iron 106 ug/dL (45-180) 11/27/17 21:17 TIBC 358 ug/dL (265-497) 11/27/17 21:17 % Saturation 30 % (20-55) 11/27/17 21:17 Total Bilirubin 1.0 mg/dL (0.2-1.3) 11/29/17 07:30 AST 42 U/L (14-36) H 11/29/17 07:30 ALT 25 U/L (7-56) 11/29/17 07:30 Alkaline Phosphatase 93 U/L (38-126) 11/29/17 07:30 Lactate Dehydrogenase 519 U/L (333-699) 11/27/17 21:17 Total Creatine Kinase 69 U/L (35-230) 11/27/17 21:17 Troponin I < 0.01 ng/mL 11/27/17 21:17 NT-Pro-B Natriuret Pep 469 pg/mL (0-450) H 11/27/17 17:15 Total Protein 7.5 g/dL (5.8-8.3) 11/29/17 07:30 Albumin 4.0 g/dL (3.0-4.8) 11/29/17 07:30 Globulin 3.6 gm/dL 11/29/17 07:30 Albumin/Globulin Ratio 1.1 (1.1-1.8) 11/29/17 07:30 Triglycerides 125 mg/dL (35-160) 11/27/17 21:17 Cholesterol 151 mg/dL (130-200) 11/27/17 21:17 LDL Cholesterol Direct 48 mg/dL (0-129) 11/27/17 21:17 HDL Cholesterol 77 mg/dL (29-60) H 11/27/17 21:17 Lipase 77 U/L (23-300) 11/27/17 17:15 Vitamin B12 497 pg/mL (239-931) 11/27/17 21:17 Folate 12.3 ng/mL 11/27/17 21:17 TSH 3rd Generation 2.29 mIU/mL (0.46-4.68) 11/28/17 07:00 Urine Color Yellow (YELLOW) 11/27/17 17:15 Urine Appearance Sl cloudy (CLEAR) 11/27/17 17:15 Urine pH 7.0 (4.7-8.0) 11/27/17 17:15 Ur Specific [place] 1.020 (1.005-1.035) 11/27/17 17:15 Urine Protein >=300 mg/dL (<30 mg/dL) H 11/27/17 17:15 Urine Glucose (UA) Negative mg/dL (NEGATIVE) 11/27/17 17:15 Urine Ketones Negative mg/dL (NEGATIVE) 11/27/17 17:15 Urine Blood Small (NEGATIVE) H 11/27/17 17:15 Urine Nitrate Negative (NEGATIVE) 11/27/17 17:15 Urine Bilirubin Negative (NEGATIVE) 11/27/17 17:15 Urine Urobilinogen 0.2 E.U./dL (<1 E.U./dL) 11/27/17 17:15 Ur Leukocyte Esterase Negative Juan/uL (NEGATIVE) 11/27/17 17:15 Urine RBC 5 - 10 /hpf (0-2) 11/27/17 17:15 Urine WBC 1 - 3 /hpf (0-6) 11/27/17 17:15 Ur Epithelial Cells 3 - 4 /hpf (0-5) 11/27/17 17:15 - Hospital Course Hospital Course: Chief complaint: chest pain, abdominal pain, labile blood pressure 77 yr female with h/o Afib (on eliquis), tachy petra syndrome (s/p PM on 06/[address] Odonnell), HTN, GERD, CAD (s/p PCI), and asthma. Pt admitted to [facility] [place] for LCW pain, abdominal pain, and elevated BP. Dr. Odonnell quill machine tender, started plavix PO. Cardiac Cath done 11/30/17, recommendation for aggressive medical therapy cardiac risk reduction program with plavix PO, weight loss reduction program, aggressive control of BP, & resume eliquis for Afib (PAF). Physical therapy will be done outpatient. Pt is cleared for discharge home with follow up in our office. Reviewed: CXR = mild cardiomegaly, pacemaker, no active disease Cardiac Cath = patent stent in proximal to mid LAD, perserved LV function EF 60- 65% abd US = ? - Date & Time of H&P Date of H&P: 11/30/17 Time of H&P: 11:40 Discharge Exam - Head Exam Head Exam: ATRAUMATIC, NORMAL INSPECTION, NORMOCEPHALIC - Eye Exam Eye Exam: EOMI, Normal appearance, PERRL Pupil Exam: NORMAL ACCOMODATION, PERRL - ENT Exam ENT Exam: Mucous Membranes Moist - Neck Exam Neck exam: Full Rom - Respiratory Exam Respiratory Exam: Clear to PA & Lateral, NORMAL BREATHING PATTERN - Cardiovascular Exam Cardiovascular Exam: +S1, +S2 - GI/Abdominal Exam GI & Abdominal Exam: Normal Bowel Sounds, Soft - Extremities Exam Additional comments: R groin, C/D/I, no hematoma - Back Exam Back exam: FULL ROM, NORMAL INSPECTION - Neurological Exam Neurological exam: Alert, CN II-XII Intact, Normal Gait, Oriented x3, Reflexes Normal - Psychiatric Exam Psychiatric exam: Normal Affect, Normal Mood - Skin Skin Exam: Dry, Intact, Normal Color, Warm Discharge Plan - Follow Up Plan Condition: STABLE Disposition: HOME/ ROUTINE Patient education suggested?: Yes Instructions: Cardiac Catheterization, Heart Healthy Diet, Apixaban, Pacemaker Check, Chest Pain (DC), Hypertension (DC) Additional Instructions: - Resume all home medications as prescribed. - Resume Eliquis tomorrow 12/01/17 at 6:00 P.M. - Continue Aspirin 81mg once daily. - Discontinue Plavix. - Follow up with Dr. Marcus in 1 week. - Follow up with Dr. Odonnell in 1-2 weeks. Referrals: Pricila Marcus MD [Primary Care Provider] - Eleazar Odonnell MD [Staff Provider] - <Pricila Marcus - Last Filed: 12/01/17 16:55> Provider - Provider Date of Admission: 11/28/17 23:08 Attending physician: Pricila Marcus MD Primary care physician: Pricila Marcus MD Hospital Course - Lab Results Lab Results: Most Recent Lab Values WBC 8.8 10^3/ul (4.5-11.0) 11/29/17 07:30 RBC 4.89 10^6/uL (3.5-6.1) 11/29/17 07:30 Hgb 15.4 g/dL (12.0-16.0) 11/29/17 07:30 Hct 46.6 % (36.0-48.0) 11/29/17 07:30 MCV 95.3 fl (80.0-105.0) 11/29/17 07:30 MCH 31.5 pg (25.0-35.0) 11/29/17 07:30 MCHC 33.0 g/dl (31.0-37.0) 11/29/17 07:30 RDW 12.4 % (11.5-14.5) 11/29/17 07:30 Plt Count 358 10^3/uL (120.0-450.0) 11/29/17 07:30 MPV 8.7 fl (7.0-11.0) 11/29/17 07:30 Gran % 54.2 % (50.0-68.0) 11/29/17 07:30 Lymph % (Auto) 33.0 % (22.0-35.0) 11/29/17 07:30 [place] % (Auto) 9.3 % (1.0-6.0) H 11/29/17 07:30 Eos % (Auto) 2.9 % (1.5-5.0) 11/29/17 07:30 Baso % (Auto) 0.6 % (0.0-3.0) 11/29/17 07:30 Gran # 4.79 (1.4-6.5) 11/29/17 07:30 Lymph # (Auto) 2.9 (1.2-3.4) 11/29/17 07:30 [place] # (Auto) 0.8 (0.1-0.6) H 11/29/17 07:30 Eos # (Auto) 0.3 (0.0-0.7) 11/29/17 07:30 Baso # (Auto) 0.05 K/mm3 (0.0-2.0) 11/29/17 07:30 PT 12.4 SECONDS (9.4-12.5) 11/27/17 17:15 INR 1.09 (0.93-1.08) H 11/27/17 17:15 APTT 37.9 Seconds (25.1-36.5) H 11/27/17 17:15 Sodium 143 mmol/L (132-148) 11/29/17 07:30 Potassium 4.7 mmol/L (3.6-5.0) 11/29/17 07:30 Chloride 101 mmol/L (98-107) 11/29/17 07:30 Carbon Dioxide 32 mmol/L (21-33) 11/29/17 07:30 Anion Gap 15 (10-20) 11/29/17 07:30 BUN 17 mg/dL (7-21) 11/29/17 07:30 Creatinine 1.0 mg/dl (0.7-1.2) 11/29/17 07:30 Est GFR ( Amer) > 60 11/29/17 07:30 Est GFR (Non-Af Amer) 54 11/29/17 07:30 Random Glucose 94 mg/dL (70-110) 11/29/17 07:30 Hemoglobin A1c 6.3 % (4.2-6.5) 11/27/17 21:17 Calcium 9.5 mg/dL (8.4-10.5) 11/29/17 07:30 Phosphorus 4.3 mg/dL (2.5-4.5) 11/29/17 07:30 Magnesium 2.2 mg/dL (1.7-2.2) 11/29/17 07:30 Iron 106 ug/dL (45-180) 11/27/17 21:17 TIBC 358 ug/dL (265-497) 11/27/17 21:17 % Saturation 30 % (20-55) 11/27/17 21:17 Total Bilirubin 1.0 mg/dL (0.2-1.3) 11/29/17 07:30 AST 42 U/L (14-36) H 11/29/17 07:30 ALT 25 U/L (7-56) 11/29/17 07:30 Alkaline Phosphatase 93 U/L (38-126) 11/29/17 07:30 Lactate Dehydrogenase 519 U/L (333-699) 11/27/17 21:17 Total Creatine Kinase 69 U/L (35-230) 11/27/17 21:17 Troponin I < 0.01 ng/mL 11/27/17 21:17 NT-Pro-B Natriuret Pep 469 pg/mL (0-450) H 11/27/17 17:15 Total Protein 7.5 g/dL (5.8-8.3) 11/29/17 07:30 Albumin 4.0 g/dL (3.0-4.8) 11/29/17 07:30 Globulin 3.6 gm/dL 11/29/17 07:30 Albumin/Globulin Ratio 1.1 (1.1-1.8) 11/29/17 07:30 Triglycerides 125 mg/dL (35-160) 11/27/17 21:17 Cholesterol 151 mg/dL (130-200) 11/27/17 21:17 LDL Cholesterol Direct 48 mg/dL (0-129) 11/27/17 21:17 HDL Cholesterol 77 mg/dL (29-60) H 11/27/17 21:17 Lipase 77 U/L (23-300) 11/27/17 17:15 Vitamin B12 497 pg/mL (239-931) 11/27/17 21:17 Folate 12.3 ng/mL 11/27/17 21:17 TSH 3rd Generation 2.29 mIU/mL (0.46-4.68) 11/28/17 07:00 Urine Color Yellow (YELLOW) 11/27/17 17:15 Urine Appearance Sl cloudy (CLEAR) 11/27/17 17:15 Urine pH 7.0 (4.7-8.0) 11/27/17 17:15 Ur Specific [place] 1.020 (1.005-1.035) 11/27/17 17:15 Urine Protein >=300 mg/dL (<30 mg/dL) H 11/27/17 17:15 Urine Glucose (UA) Negative mg/dL (NEGATIVE) 11/27/17 17:15 Urine Ketones Negative mg/dL (NEGATIVE) 11/27/17 17:15 Urine Blood Small (NEGATIVE) H 11/27/17 17:15 Urine Nitrate Negative (NEGATIVE) 11/27/17 17:15 Urine Bilirubin Negative (NEGATIVE) 11/27/17 17:15 Urine Urobilinogen 0.2 E.U./dL (<1 E.U./dL) 11/27/17 17:15 Ur Leukocyte Esterase Negative Juan/uL (NEGATIVE) 11/27/17 17:15 Urine RBC 5 - 10 /hpf (0-2) 11/27/17 17:15 Urine WBC 1 - 3 /hpf (0-6) 11/27/17 17:15 Ur Epithelial Cells 3 - 4 /hpf (0-5) 11/27/17 17:15 - Hospital Course Hospital Course: pt is seen and examined at bed side . looking comfortable , no n.v.d or gutierrez , happy to go home . cath . was done . will f/u
[2017-11-30] MEDS: Sodium Chloride 0.9% 1,000 ML IV SCH (15:00)
--- NOTE | 2017-11-30 15:08 | PN ---
DATE: REASON FOR CONSULTATION AND FOLLOWUP: Cardiac evaluation, coronary artery disease, admitted with AFib status post pacemaker with unstable angina. SUBJECTIVE: The patient denies any chest pain, shortness of breath, or any palpitations. OBJECTIVE: GENERAL: Not in apparent distress. VITAL SIGNS: Temperature afebrile, heart rate 76, blood pressure 150/86. HEENT: PERRLA. Extraocular muscles intact. NECK: Supple. No carotid bruit or thyromegaly. CHEST: Clear to auscultation. HEART: S1 and S2, regular. ABDOMEN: Soft. EXTREMITIES: Clubbing and cyanosis negative. ASSESSMENT: Unstable angina, coronary artery disease, status post percutaneous transluminal coronary angioplasty in 1999, and status post permanent pacemaker. The patient underwent cardiac catheterization that revealed left main essential for significant disease, patent stent in the left anterior descending artery, mild luminal irregularity noted, circumflex ostial 55% to 60% stenosis, right coronary with essentially significant disease, preserved left ventricular function, ejection fraction 55%-60%, EDP was in the range of 15. The patient demonstrates coronary artery disease, atrial fibrillation, paroxysmal hypertension. RECOMMENDATIONS: We will resume back Cardizem. Discontinue Plavix. Resume back aspirin 81 mg daily. Continue metoprolol 25 mg daily. Resume Eliquis 5 mg b.i.d from tomorrow afternoon. We will discuss with Dr. Marcus. The patient is okay to be discharged from cardiology point of view after 4 p.m. I discussed with the patient's , left the message to the daughter David on telephone number [phone]. Full cardiac cath report to follow. Continue IV fluid now and monitor renal function. If the patient remains stable, we will repeat the blood workup tomorrow. Thank you Dr. Marcus for providing me the opportunity in taking care of the patient, Jean Meza. Eleazar Odonnell MD
--- NOTE | 2017-11-30 16:15 | CT ---
PROCEDURE: CT Abdomen and Pelvis without intravenous contrast HISTORY: left flank pain COMPARISON: None. TECHNIQUE: Without contrast.. Contrast Dose: Radiation dose: Total exam DLP = 482 mGy-cm. This CT exam was performed using one or more of the following dose reduction techniques: Automated exposure control, adjustment of the mA and/or kV according to patient size, and/or use of iterative reconstruction technique. FINDINGS: LOWER THORAX: Unremarkable. LIVER: Unremarkable. No gross lesion or ductal dilatation. GALLBLADDER AND BILE DUCTS: Layering of dense sludge or stones in the gallbladder PANCREAS: Unremarkable. No gross lesion or ductal dilatation. SPLEEN: Unremarkable. ADRENALS: Unremarkable. No mass. KIDNEYS AND URETERS: Small amount of contrast is seen in the renal collecting systems related to earlier cardiac catheterization VASCULATURE: Unremarkable. No aortic aneurysm. BOWEL: Unremarkable. No obstruction. No gross mural thickening. APPENDIX: Unremarkable. Normal appendix. PERITONEUM: Unremarkable. No free fluid. No free air. LYMPH NODES: Unremarkable. No enlarged lymph nodes. BLADDER: Unremarkable. REPRODUCTIVE: Unremarkable. BONES: No acute fracture. OTHER FINDINGS: None. IMPRESSION: No acute intra-abdominal findings
[2017-11-30 17:27] VITALS: BP 147/93
[2017-11-30 18:15] VITALS: PULSE 72; RESP 19; TEMP 97.6
== END 2017-11-30 18:55 | disposition home or self-care (01) | DRG 287 ==
LOC: ED 16:03 → ERH 18:10 → 3RSO 19:59 → OBSVTOIN 11-28 23:08 → 2RNO 11-30 09:34
PROVIDERS: ADMIT Internal Medicine; ATTEND Internal Medicine
PROC: 4A023N7 Measurement of Cardiac Sampling and Pressure, Left Heart, Percutaneous Approach (ICD-10-PCS; principal; 2017-11-30)
PROC: B2111ZZ Fluoroscopy of Multiple Coronary Arteries using Low Osmolar Contrast (ICD-10-PCS; 2017-11-30)
PROC: B2151ZZ Fluoroscopy of Left Heart using Low Osmolar Contrast (ICD-10-PCS; 2017-11-30)
DX: I25.110 Atherosclerotic heart disease of native coronary artery with unstable angina pectoris (principal); E11.65 Type 2 diabetes mellitus with hyperglycemia; I48.0 Paroxysmal atrial fibrillation; D64.9 Anemia, unspecified; D72.829 Elevated white blood cell count, unspecified; E78.00 Pure hypercholesterolemia, unspecified; E78.5 Hyperlipidemia, unspecified; I08.3 Combined rheumatic disorders of mitral, aortic and tricuspid valves; I10 Essential (primary) hypertension; I49.5 Sick sinus syndrome; J45.909 Unspecified asthma, uncomplicated; K21.9 Gastro-esophageal reflux disease without esophagitis; K59.00 Constipation, unspecified; Z79.82 Long term (current) use of aspirin; Z87.440 Personal history of urinary (tract) infections; Z90.49 Acquired absence of other specified parts of digestive tract; Z95.0 Presence of cardiac pacemaker; Z95.5 Presence of coronary angioplasty implant and graft

== ENCOUNTER 2018-01-01 17:33 | Observation (INO) | payer MEDICARE ==
--- NOTE | 2018-01-01 17:59 | ED PDOC ---
"Arrival/HPI - General Chief Complaint: Dizziness/Lightheaded Time Seen by Provider: 01/01/18 17:45 Historian: Patient - History of Present Illness Narrative History of Present Illness (Text): 01/01/18 17:48 77 year old female, pmh includng htn/copd/a.fibb/pylonephritis, nkda, currently on the eliquis, complaining of near syncope at home today about 4 hours ago. Pt. stated that she took a dose of her unknown dose of hydralazine because her BP was elevated around 4pm which her systolic around 140s, shortly after she feels the facial is red and trying to get up, feels like she is about to pass out, still symptomatic, no chest pain or palpitation, no dizziness. Pt. also complaining that she has left thigh pain which been on going for weeks and told this is likely due to her lower back disc herniation, no numbness or tingling, no rash, no change in vision, no other medical or psychological complaints. Past Medical History - Provider Review Nursing Documentation Reviewed: Yes - Past History Past History: No Previous - Infectious Disease Hx of Infectious Diseases: None - Tetanus Immunization Tetanus Immunization: Unknown - Reproductive Menopause: Yes - Cardiac Hx Cardiac Disorders: Yes Hx Angina: Yes Hx Cardiac Arrhythmia: Yes (A-fib on Eliquis at home) Hx Hypertension: Yes Hx Pacemaker: Yes (Jul 11 2017) Hx Peripheral Edema: No - Pulmonary Hx Respiratory Disorders: No - Neurological Hx Neurological Disorder: No - HEENT Hx HEENT Disorder: Yes (wears glasses) Hx Cataracts: Yes (with bilateral surgery) - Renal Hx Renal Disorder: Yes Hx Pyelonephritis: Yes - Endocrine/Metabolic Hx Endocrine Disorders: No - Hematological/Oncological Hx Blood Disorders: No - Integumentary Hx Dermatological Disorder: No - Musculoskeletal/Rheumatological Hx Falls: No Hx Herniated Disk: Yes Hx Unsteady Gait: No Other/Comment: Sciatica pain - Gastrointestinal Hx Gastrointestinal Disorders: Yes Hx Gastroesophageal Reflux: Yes - Genitourinary/Gynecological Hx Genitourinary Disorders: Yes Hx Urinary Tract Infection: Yes - Psychiatric Hx Psychophysiologic Disorder: No Hx Substance Use: No - Surgical History Hx Cardiac Catheterization: Yes (x 1 stent) Hx Cholecystectomy: Yes Hx Coronary Stent: Yes - Anesthesia Hx Anesthesia: Yes Hx Anesthesia Reactions: No Hx Malignant Hyperthermia: No - Suicidal Assessment Feels Threatened In Home Enviroment: No Family/Social History - Physician Review Nursing Documentation Reviewed: Yes Family/Social History: Unknown Family HX Smoking Status: Never Smoked Hx Alcohol Use: No Hx Substance Use: No Hx Substance Use Treatment: No Allergies/Home Meds Allergies/Adverse Reactions: Allergies No Known Allergies Allergy (Verified 08/12/17 17:02) Home Medications: Home Meds Medication Instructions Recorded Confirmed Aspirin [Ecotrin] 81 mg PO DAILY 05/15/16 01/01/18 Famotidine [Pepcid] 20 mg PO BID 05/15/16 01/01/18 Ursodiol [Actigall] 300 mg PO BID 05/15/16 01/01/18 Albuterol HFA [Ventolin HFA 90 2 puff IH PRN PRN 01/01/18 01/01/18 mcg/actuation (8 g)] Review of Systems - Review of Systems Constitutional: absent: Fatigue, Fevers Eyes: absent: Vision Changes ENT: absent: Hearing Changes Respiratory: absent: SOB, Cough Cardiovascular: absent: Chest Pain, Syncope Gastrointestinal: absent: Nausea, Vomiting Skin: absent: Rash, Pruritis Neurological: absent: Headache, Dizziness Psychiatric: absent: Anxiety, Depression, Suicidal Ideation Physical Exam Vital Signs Reviewed: Yes Vital Signs Temp Pulse Pulse Resp BP Pulse Ox 01/01/18 21:17 97.6 F 64 64 18 154/88 H 01/01/18 20:03 64 18 154/88 H 100 01/01/18 17:55 97.6 F 62 20 149/78 100 Temperature: Afebrile Blood Pressure: Normal Pulse: Regular Respiratory Rate: Normal Appearance: Positive for: Well-Appearing, Non-Toxic, Comfortable Pain Distress: None Mental Status: Positive for: Alert and Oriented X 3 - Systems Exam Head: Present: Atraumatic, Normocephalic Pupils: Present: PERRL Extroacular Muscles: Present: EOMI Conjunctiva: Present: Normal Mouth: Present: Moist Mucous Membranes Neck: Present: Normal Range of Motion Respiratory/Chest: Present: Clear to Auscultation, Good Air Exchange. No: Respiratory Distress, Accessory Muscle Use Cardiovascular: Present: Regular Rate and Rhythm, Normal S1, S2. No: Murmurs Abdomen: No: Tenderness, Distention, Peritoneal Signs, Rebound, Guarding Back: Present: Normal Inspection Upper Extremity: Present: Normal Inspection, Normal ROM, NORMAL PULSES, Neurovascularly Intact, Capillary Refill < 2s. No: Cyanosis, Edema, Deformity Lower Extremity: Present: Normal Inspection, NORMAL PULSES, Normal ROM, Neurovascularly Intact, Capillary Refill < 2 s. No: Edema, Tenderness, Swelling , Deformity Neurological: Present: GCS=15, Speech Normal, Motor Func Grossly Intact, Gait Normal, Memory Normal, Other (no drift) Skin: Present: Warm, Dry, Normal Color. 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 Fibb @ 90 BPM, no acute ST or T wave changes compared with previous ekg. -CT head: No acute intracranial hemorrhage or acute territorial type infarct. There are periventricular foci of hypodensity, likely representing small vessel ischemic disease in a patient this age. Mild atrophy. Effusions are again visualized within the right mastoid air cells, consistent with mastoiditis. -Chest xray: no active disease -LLE Venuous doppler: as per preliminary report, no acute DVT -Labs show no acute findings except 11.4 -BNP within normal limit -1st set of Troponin is negative -Urinalysis show +UTI, IV rocephine ordered -Pt. feels well at this time. -The cause of this near syncope is unclear at this time, will observe the patient over night in telemetry. -Dr. Marcus paged for admission, case and labs discussed with the patient and family, agreed for the admission. 01/01/18 21:00 -I spoke to Dr. Marcus and Dr. Rodrigez about the case, discussed about the labs/ radiology result and vital signs, agreed this needs further evaluation and observation over night at least. 01/01/18 21:30 -Pt. stated that she is due for the eliquis 5mg/lopressor 25mg po/tramadol 1 tablet, I ordered. - Lab Interpretations Lab Results: 01/01/18 17:56 01/01/18 17:56 Lab Results 01/01/18 17:56: PT 12.0, INR 1.05, APTT 37.9 H 01/01/18 17:56: Sodium 139, Potassium 4.4, Chloride 99, Carbon Dioxide 29, Anion Gap 16, BUN 18, Creatinine 0.9, Est GFR ( Amer) > 60, Est GFR (Non- Af Amer) > 60, Random Glucose 103, Calcium 10.2, Magnesium 2.2, Total Bilirubin 1.0, AST 43 H, ALT 16, Alkaline Phosphatase 93, Lactate Dehydrogenase 625, Total Creatine Kinase 74, Troponin I < 0.01, NT-Pro-B Natriuret Pep 156, Total Protein 8.9 H, Albumin 4.6, Globulin 4.2, Albumin/Globulin Ratio 1.1 01/01/18 17:56: Urine Color Straw, Urine Appearance Sl cloudy, Urine pH 6.5, Ur Specific [place] 1.010, Urine Protein 100 H, Urine Glucose (UA) Negative, Urine Ketones Negative, Urine Blood Trace-intact H, Urine Nitrate Negative, Urine Bilirubin Negative, Urine Urobilinogen 0.2, Ur Leukocyte Esterase Small H, Urine RBC 0 - 2, Urine WBC 1 - 3, Ur Epithelial Cells 1 - 3 01/01/18 17:56: WBC 11.4 H D, RBC 5.06, Hgb 16.1 H, Hct 46.7, MCV 92.3 D, MCH 31.8, MCHC 34.5, RDW 12.6, Plt Count 369, MPV 8.6, Gran % 53.5, Lymph % (Auto) 37.4 H, [place] % (Auto) 7.3 H, Eos % (Auto) 1.6, Baso % (Auto) 0.2, Gran # 6.08, Lymph # (Auto) 4.3 H, [place] # (Auto) 0.8 H, Eos # (Auto) 0.2, Baso # (Auto) 0.02 I have reviewed the lab results: Yes - RAD Interpretation Radiology Orders: 01/01/18 17:55 HEAD W/O CONTRAST [CT] Stat CHEST ONE VIEW [RAD] Stat 01/01/18 17:57 DUPLEX LOWER EXTRM VEIN LEFT [US] Stat CT Head: Brain: There are periventricular foci of hypodensity, likely representing small vessel ischemic disease in a patient this age. The acuity of the white matter disease is indeterminate. The white-kauffman differentiation is preserved demonstrating no acute territorial type infarct. There are calcifications within the globus pallidus bilaterally, which are likely physiologic. No acute intracranial hemorrhage is seen. Midline shift: There is no midline shift. Ventricles: There is mild prominence of the ventricles and sulci, compatible with atrophy. Bones/joints: The calvarium demonstrates no evidence for a depressed fracture. Soft tissues: No acute abnormality. Vasculature: There is atherosclerotic calcification of the intracranial internal carotid arteries and distal left vertebral artery. Sinuses: Unremarkable as visualized. No acute sinusitis. Mastoid air cells: Effusions are again visualized within the right mastoid air cells, consistent with mastoiditis. MARIA VICTORIA BUITRAGOMINGO | Final Radiology Report CONFIDENTIALITY STATEMENT This report is intended only for use by the referring physician, and only in accordance with law. If you received this in error, call [phone]. Page 2 of 2 Orbits: Postoperative changes are visualized involving the right optic globe, which are stable. Tubes, lines and devices: There is a cavum septum pellucidum et vergae variant. IMPRESSION: 1. No acute intracranial hemorrhage or acute territorial type infarct. 2. There are periventricular foci of hypodensity, likely representing small vessel ischemic disease in a patient this age. 3. Mild atrophy. 4. Effusions are again visualized within the right mastoid air cells, consistent with mastoiditis. Thank you for allowing us to participate in the care of your patient. Dictated and Authenticated by: Kana Pal MD 01/01/2018 7:42 PM Eastern Time ([place] & [place]) LLE Venuous Doppler: as per preliminary report, no acute DVT Chest xray: no active disease Outside Residential Sales Professional: Radiologist - EKG Interpretation EKG Interpretation (Text): 01/01/18 18:21 -EKG: A. Fibb @ 90 BPM, no acute ST or T wave changes compared with previous ekg. Interpreted by ED Physician: Yes Type: 12 lead EKG Comparison: Com.w/previous EKG - Medication Orders Current Medication Orders: Apixaban (Eliquis) 5 mg PO BID ZOEY PRN Reason: Protocol Last Admin: 01/02/18 09:13 Dose: 5 mg Aspirin (Ecotrin) 81 mg PO DAILY [facility] Last Admin: 01/02/18 09:12 Dose: 81 mg Atorvastatin Calcium (Lipitor) 20 mg PO DIN [facility] Diltiazem HCl (Cardizem Cd) 120 mg PO DAILY [facility] Last Admin: 01/02/18 09:13 Dose: 120 mg MAR Pulse and Blood Pressure Document 01/02/18 09:13 KE (Rec: 01/02/18 09:[id number] Blood Pressure Blood Pressure (100/60-150/90) 161/85 Famotidine (Pepcid) 20 mg PO BID [facility] Last Admin: 01/02/18 09:12 Dose: 20 mg Fluticasone Propionate (Flonase) 1 actuation NS Q12 [facility] Last Admin: 01/02/18 09:13 Dose: 1 actuation Gabapentin (Neurontin) 100 mg PO BID [facility] PRN Reason: Protocol Metoprolol Tartrate (Lopressor) 25 mg PO BID [facility] Last Admin: 01/02/18 09:12 Dose: 25 mg MAR Pulse and Blood Pressure Document 01/02/18 09:12 KE (Rec: 01/02/18 09:12 [id number] Blood Pressure Blood Pressure (100/60-150/90) 161/85 Ursodiol (Actigall) 300 mg PO BID [facility] Last Admin: 01/02/18 09:12 Dose: 300 mg Discontinued Medications Apixaban (Eliquis) 5 mg PO STAT STA PRN Reason: Protocol Stop: 01/01/18 21:29 Last Admin: 01/01/18 21:56 Dose: 5 mg Ceftriaxone Sodium (Rocephin 1 Gram Ivpb) 1 gm in 100 mls @ 200 mls/hr IVPB STAT STA PRN Reason: Protocol Stop: 01/01/18 20:22 Last Admin: 01/01/18 20:00 Dose: 200 mls/hr eMAR Start Stop Document 01/01/18 20:00 AD (Rec: 01/01/18 20:51 AD [id number]) Intravenous Solution Start Date 01/01/18 Start Time 20:51 Metoprolol Tartrate (Lopressor) 25 mg PO STAT STA Stop: 01/01/18 21:29 Last Admin: 01/01/18 21:56 Dose: 25 mg MAR Pulse and Blood Pressure Document 01/01/18 21:56 KOPPS (Rec: 01/01/18 21:56 [facility] [id number] Pulse Pulse Rate (60-90) 76 Blood Pressure Blood Pressure (100/60-150/90) 187/102 Pneumococcal Polyvalent Vaccine (Pneumovax 23 Vaccine) 0.5 ml IM .ONCE ONE Stop: 01/01/18 21:35 Tramadol/Acetaminophen (Ultracet 37.5/325 Mg) 1 tab PO STAT STA Stop: 01/01/18 21:29 Last Admin: 01/01/18 21:56 Dose: 1 tab MAR Pain Assessment Document 01/01/18 21:56 KOPPS (Rec: 01/01/18 21:57 [facility] [id number] Pain Reassessment Is this a pain reassessment? No Sleep Is patient sleeping during reassessment? No Presence of Pain Presence of Pain Yes Pain Scale Used Pain Scale Used Numeric Location Left, Right or Bilateral Left Upper or Lower Lower Pain Location Body Site Thigh Description Description Constant Pain Behavior Guarding Aggravating Factors ADL's Changing Position Exercise/Activity Alleviating Factors/Management Medication Techniques Alleviating Factors Medication - PA / STOREKEEPER HELPER / Resident Statement MD/DO has reviewed & agrees with the documentation as recorded. Disposition/Present on Arrival - Present on Arrival Any Indicators Present on Arrival: No History of DVT/PE: No History of Uncontrolled Diabetes: No Urinary Catheter: No History of Decub. Ulcer: No History Surgical Site Infection Following: None - Disposition Have Diagnosis and Disposition been Completed?: Yes Diagnosis: Near syncope, UTI (urinary tract infection) Disposition: HOSPITALIZED Disposition Time: 18:09 Patient Plan: Admission, Telemetry Patient Problems: Current Active Problems Problem Status Onset Near syncope Acute UTI (urinary tract infection) Acute Condition: STABLE"
[2018-01-01 18:42] LABS: PH,URINE 6.5 (4.7-8.0); URINE BILIRUBIN NEGATIVE (NEGATIVE); URINE BLOOD TRACE-INTACT (NEGATIVE); URINE GLUCOSE (UA) NEGATIVE (NEGATIVE); URINE LEUKOCYTE ESTERASE SMALL Leu/uL (NEGATIVE); URINE PROTEIN 100 mg/dL (<30 mg/dL); URINE UROBILINOGEN 0.2 E.U./dL (<1 E.U./dL)
[2018-01-01 18:43] LABS: BASO # 0.02 K/mm3 (0.0-2.0); BASO % 0.2 % (0.0-3.0); EOS # 0.2 (0.0-0.7); EOS % 1.6 % (1.5-5.0); GRAN # 6.08 (1.4-6.5); GRAN % 53.5 % (50.0-68.0); HEMOGLOBIN 16.1 g/dL (12.0-16.0); LYMPH # 4.3 (1.2-3.4); LYMPH % 37.4 % (22.0-35.0); MEAN CELL VOLUME 92.3 fl (80.0-105.0); MEAN CORPUSCULAR HEMOGLOBIN 31.8 pg (25.0-35.0); MEAN CORPUSCULAR HGB CONC 34.5 g/dl (31.0-37.0); MEAN PLATELET VOLUME 8.6 fl (7.0-11.0); MONO # 0.8 (0.1-0.6); MONO % 7.3 % (1.0-6.0); RBC 5.06 10^6/uL (3.5-6.1); RED CELL DISTRIBUTION WIDTH 12.6 % (11.5-14.5); WHITE BLOOD COUNT 11.4 10^3/ul (4.5-11.0)
[2018-01-01 18:45] LABS: URINE APPEARANCE SL CLOUDY (CLEAR); URINE COLOR STRAW (YELLOW)
[2018-01-01 18:46] LABS: ALB/GLOB RATIO 1.1 (1.1-1.8); ALBUMIN 4.6 g/dL (3.0-4.8); CALCIUM 10.2 mg/dL (8.4-10.5); GFR AFRICAN-AMERICAN > 60; GFR NON-AFRICAN AMERICAN > 60; INR 1.05 (0.93-1.08); PARTIAL THROMBOPLASTIN TIME 37.9 Seconds (25.1-36.5)
[2018-01-01 18:50] LABS: URINE RBC 0 - 2 /hpf (0-2)
[2018-01-01 18:58] LABS: B-TYPE NATRIURETIC PEPTIDE 156 pg/mL (0-450); TROPONIN I < 0.01 ng/mL
[2018-01-01 19:00] LABS: ALT/SGPT 16 U/L (7-56); AST/SGOT 43 U/L (14-36); BLOOD UREA NITROGEN 18 mg/dL (7-21)
--- NOTE | 2018-01-01 19:42 | CT ---
EXAM: CT Head Without Intravenous Contrast EXAM DATE/TIME: 01/01/2018 5:55 PM CLINICAL HISTORY: The patient age is 77 years old and is female; Signs and symptoms; Malaise or fatigue; Additional info: Near syncope? > Facility exam id and description: Ct heads head w/o contrast TECHNIQUE: Axial computed tomography images of the head/brain without intravenous contrast. All CT scans at this facility use one or more dose reduction techniques, viz.: automated exposure control; ma/kV adjustment per patient size (including targeted exams where dose is matched to indication; i.e. head); or iterative reconstruction technique. Coronal and sagittal reformatted images were created and reviewed. COMPARISON: CT - HEAD W/O CONTRAST 2017-08-14 09:35 FINDINGS: Brain: There are periventricular foci of hypodensity, likely representing small vessel ischemic disease in a patient this age. The acuity of the white matter disease is indeterminate. The white-kauffman differentiation is preserved demonstrating no acute territorial type infarct. There are calcifications within the globus pallidus bilaterally, which are likely physiologic. No acute intracranial hemorrhage is seen. Midline shift: There is no midline shift. Ventricles: There is mild prominence of the ventricles and sulci, compatible with atrophy. Bones/joints: The calvarium demonstrates no evidence for a depressed fracture. Soft tissues: No acute abnormality. Vasculature: There is atherosclerotic calcification of the intracranial internal carotid arteries and distal left vertebral artery. Sinuses: Unremarkable as visualized. No acute sinusitis. Mastoid air cells: Effusions are again visualized within the right mastoid air cells, consistent with mastoiditis. Orbits: Postoperative changes are visualized involving the right optic globe, which are stable. Tubes, lines and devices: There is a cavum septum pellucidum et vergae variant. IMPRESSION: 1. No acute intracranial hemorrhage or acute territorial type infarct. 2. There are periventricular foci of hypodensity, likely representing small vessel ischemic disease in a patient this age. 3. Mild atrophy. 4. Effusions are again visualized within the right mastoid air cells, consistent with mastoiditis.
[2018-01-01] MEDS ORDERED: cefTRIAXone 1 gm 1 GM/100 ML BAG IVPB STA (19:53)
[2018-01-01] MEDS ORDERED: TraMADol/Apap 37.5/325 mg Tab PO STA (21:28)
[2018-01-01 21:33] VITALS: BMI 28.3
[2018-01-01] MEDS ORDERED: Pneumococcal 23-Valent Vaccine IM ONE (21:34)
[2018-01-01] MEDS: Fluticasone Nasal 50 mcg/Spray NS SCH (23:25)
--- NOTE | 2018-01-02 08:14 | RAD ---
PROCEDURE: CHEST RADIOGRAPH, 1 VIEW HISTORY: medical clearance COMPARISON: 11/27/2017 FINDINGS: LUNGS: Clear. PLEURA: No pneumothorax or pleural fluid seen. CARDIOVASCULAR: Mild cardiomegaly. Single lead pacemaker OSSEOUS STRUCTURES: No significant abnormalities. VISUALIZED UPPER ABDOMEN: Normal. OTHER FINDINGS: None. IMPRESSION: No active disease.
[2018-01-02] MEDS: Fluticasone Nasal 50 mcg/Spray NS SCH ×2 (09:13→21:35)
[2018-01-02] MEDS: diltiaZEM 120 mg/24 Hours CD Cap PO SCH (09:13)
--- NOTE | 2018-01-02 14:40 | CON ---
DATE: 01/02/2018 NEUROLOGY CONSULT CHIEF COMPLAINT: Dizziness and lightheadedness. HISTORY OF PRESENT ILLNESS: This is a 77-year-old woman with history of hypertension, COPD, AFib, on Eliquis who presented to the hospital with near syncope symptoms and in turns she says she took an unknown dose of hydralazine because she felt like her BP was elevated above 140 around 04:00 p.m. yesterday and then she felt like her face was red and flushed. She felt nauseous after going to the bathroom and when she gets up from sitting to standing position, she felt like she was going to pass out and lightheaded. No focal weakness of the extremities, no paresthesias of extremities. She is walking around without any difficulty except for she is limping with the leg a bit due to her chronic low back pain especially in the lower lumbar area. CT of the head showed no acute intracranial abnormalities. She did have some elevated systolic and diastolic blood pressures during her course of the hospital, but no focal weakness was seen. PAST MEDICAL HISTORY: History of COPD, AFib, pyelonephritis and hypertension. REVIEW OF SYSTEMS: A 14-point review of systems negative except as per the HPI. MEDICATIONS: Reviewed by nurse reconciliation sheet. FAMILY HISTORY: Noncontributory. SOCIAL HISTORY: No illicit drug use, smoking or EtOH abuse. LABORATORY DATA: Sodium is 139, potassium 4.4, chloride 99, carbon dioxide 29, BUN of 18, creatinine 0.9, random glucose of 103. PHYSICAL EXAMINATION: VITAL SIGNS: Temperature afebrile, 98.2; pulse rate 62; blood pressure 161/85; respiratory rate of 18. GENERAL: Patient is sitting up in bed, in no acute distress. HEENT: Head is atraumatic, normocephalic. PERRLA. Extraocular muscles intact. NECK: Supple. No JVD. No adenopathy noted. LUNGS: Clear to auscultation. No adventitious sounds. HEART: S1, S2. Normal rate and rhythm. No murmurs, rubs or gallops. ABDOMEN: Soft, nontender, nondistended. Bowel sounds are present. EXTREMITIES: No clubbing, no cyanosis. Peripheral pulses are 2+ felt bilaterally. NEUROLOGIC: Patient is alert, oriented to person, place, month and year. Speech is fluent without any errors. Cranial nerves II through XII intact. Motor: Moves all extremities equally. Toes downgoing bilaterally. Sensory: Light touch, pinprick, proprioception, vibration intact. DTRs are 2+ throughout and 1 at both knees and ankles. Coordination: [id number] intact. Gait is slightly wide-based and limping due to sciatic pain. MUSCULOSKELETAL: Lumbosacral tightness present. ASSESSMENT PLAN: This is a 77-year-old woman with history of pyelonephritis; history of atrial fibrillation, on Eliquis; history of hypertension and chronic obstructive pulmonary disease, who presents with near syncope symptoms. It is felt like her blood pressure was elevated around 04:00 p.m. yesterday, therefore took an unknown dose of hydralazine. After going to the bathroom, she felt flushed in terms of facial flushing, nauseous and felt like she is going to pass out. Therefore came to the hospital for further evaluation. Her near syncope is mostly of a vasovagal component with superimposed underlying hypertensive urgency since she has elevated systolic and diastolic blood pressures. Her lower back pain seems more of an underlying lumbosacral neuritis given that she has on her lumbar CT scan in 11/2017 shows lumbar stenosis at L3-L4 and L4-L5 in turns with a spinal stenosis. RECOMMENDATIONS: At this time, recommend: 1. Adequate hydration throughout the day. 2. Keep blood pressures between 130s to 140s systolic and diastolic 70s to 80s and adjust her blood pressure medications. 3. Orthostatic vital signs. 4. We will start her on gabapentin 100 mg p.o. b.i.d. for neuropathic relief and will follow up with my office for chronic low back pain. Will need outpatient physical therapy for lumbosacral stretching, myofascial pain release techniques, TENS unit, ultrasound therapy and therapeutic exercises by PT as an outpatient for lumbago. At this time, she is clinically stable from my standpoint. Thank you for this consult. Albino Mtz MD
--- NOTE | 2018-01-02 16:25 | CARD ---
APPROVED REPORT EKG Measurement Heart [id number] <Conclusion> Sinus rhythm with frequent APCs , some are aberrantly conducted Possible Left atrial enlargement Nonspecific T wave abnormality Prolonged QT Abnormal ECG
[2018-01-02] MEDS ORDERED: Mometasone 0.1% Cream(15 gm) TOP ONE (18:00)
[2018-01-03 00:54] VITALS: TEMP 97.9; O2SAT 97
[2018-01-03 06:56] LABS: IRON 135 ug/dL (45-180)
[2018-01-03 06:57] LABS: BLOOD UREA NITROGEN 18 mg/dL (7-21); CALCIUM 9.9 mg/dL (8.4-10.5); GFR AFRICAN-AMERICAN > 60; GFR NON-AFRICAN AMERICAN 54; HDL CHOLESTEROL 62 mg/dL (29-60)
[2018-01-03 06:58] LABS: HEMOGLOBIN 15.7 g/dL (12.0-16.0); MEAN CORPUSCULAR HEMOGLOBIN 31.5 pg (25.0-35.0); MEAN CORPUSCULAR HGB CONC 34.6 g/dl (31.0-37.0); MEAN PLATELET VOLUME 8.4 fl (7.0-11.0); RBC 4.99 10^6/uL (3.5-6.1); RED CELL DISTRIBUTION WIDTH 12.7 % (11.5-14.5); WHITE BLOOD COUNT 9.1 10^3/ul (4.5-11.0)
[2018-01-03 07:05] LABS: % IRON SATURATION 38 % (20-55); TOTAL IRON BINDING CAPACITY 357 ug/dL (265-497)
[2018-01-03 07:07] LABS: LDL CHOLESTEROL 38 mg/dL (0-129)
[2018-01-03] MEDS ORDERED: cefTRIAXone 1 gm 1 GM/100 ML BAG IVPB SCH (10:00)
[2018-01-03] MEDS: Fluticasone Nasal 50 mcg/Spray NS SCH (10:14)
[2018-01-03] MEDS: diltiaZEM 120 mg/24 Hours CD Cap PO SCH (10:15)
[2018-01-03] MEDS ORDERED: Potassium Chloride 20 mEq ER Tab PO ONE (12:15)
[2018-01-03 12:21] VITALS: BP 159/92; RESP 20
[2018-01-03 13:15] LABS: FOLATE 16.6 ng/mL
[2018-01-03 14:33] VITALS: PULSE 76
[2018-01-03] MEDS ORDERED: Mometasone 0.1% Cream(15 gm) TOP SCH (18:00)
--- NOTE | 2018-01-04 03:11 | CON ---
DATE: REASON FOR CONSULTATION: Cardiac evaluation, admitted with swelling of the left arm and face after having hydralazine and a [place] diet, history of coronary artery disease, history paroxysmal atrial fibrillation, history of stent and a pacemaker. BRIEF CLINICAL HISTORY: This is a 77-year-old female with past medical history of stent, pacemaker, paroxysmal atrial fibrillation, who said that she had high blood pressure, and took hydralazine and ate some [place] food. After half an hour, she noticed left side of the face is puffy and left arm swelling; so, decided to come to the emergency room. Denies any chest pain. Denies any shortness of breath. Denies any palpitations. PAST MEDICAL HISTORY: Significant for tachy-petra syndrome, sick sinus syndrome, paroxysmal atrial fibrillation status post permanent pacemaker dated 07/10/2017, history of coronary artery disease, history of multiple stents in 2008 and repeat cath because of chest pain is negative. Most recent cardiac workup is as follows; patient had most recently a cardiac catheterization done on 11/30/2017 because of having recurrent chest pain that revealed patent stent in the proximal LAD, moderate disease in the diagonal 2 branch, 55% diffuse disease, no non-flow obstructive stenosis, small caliber vessels, preserved ejection LV function, ejection fraction of 60% to 65%, EDP in the range of 15. History of paroxysmal atrial fibrillation, is status post permanent pacemaker. At that time, recommendation was made for medical treatment, weight loss reduction, aggressive control of blood pressure, resume Eliquis because of the paroxysmal atrial fibrillation. Prior to that, patient's echocardiogram on 02/11/2017 at [facility] does show an ejection fraction of 55% to 60%, mild aortic stenosis, mild mitral regurgitation, mild tricuspid regurgitation, RV systolic pressure of 38. History of permanent pacemaker 07/10/2013, history of paroxysmal atrial fibrillation, on Eliquis. SOCIAL HISTORY: Denies smoking, denies any history of alcohol abuse. CURRENT MEDICATIONS: Patient at home was taking Cardizem CD 120 mg daily, Actigall 300 mg daily, Singulair 10 mg daily, metoprolol 25 p.o. b.i.d., meclizine 12.5 mg daily, loratadine 10 mg daily, gabapentin 100 mg daily, Pepcid 20 p.o. daily, atorvastatin 20 mg daily, aspirin 81 mg daily, Eliquis 5 mg p.o. b.i.d., albuterol inhaler. REVIEW OF SYSTEMS: As per HPI. PHYSICAL EXAMINATION: VITAL SIGNS: Temperature afebrile, heart rate 84, blood pressure 144/78. HEENT: PERRLA. Extraocular muscles intact. NECK: Supple. No carotid bruit or thyromegaly. CHEST: Clear to auscultation. HEART: S1 and S2 regular. ABDOMEN: Soft. EXTREMITIES: Clubbing and cyanosis negative. LABORATORY DATA: Blood workup as follows. WBC 9.8, hemoglobin 15.7, hematocrit 45.4, platelet count 321. Chemistry shows sodium 139, potassium , chloride 101, carbon dioxide 27, anion gap of 15, BUN 18, creatinine 1. IMPRESSION: No evidence of acute myocardial infarction, no evidence of arrhythmia, besides the patient has underlying paroxysmal atrial fibrillation, but recent EKG shows normal sinus, left atrial abnormality, heart rate 90, coronary artery disease, status post percutaneous transluminal coronary angioplasty in 2008, status post cardiac catheterization twice, most recently on 11/30/2017, patent stent, preserved left ventricular function, mild aortic stenosis, mild mitral regurgitation, mild tricuspid regurgitation. RECOMMENDATION: Resume medications. Patient okay to be discharged; from Cardiology point of view, patient is fairly stable. Patient is going for CAT scan today, and possibly after the CAT scan, the patient is going to be discharged. From Cardiology point of view, the patient is stable and no further cardiac workup is planned. No evidence of acute MD. Continue Cardizem CD 120 mg, continue apixaban, continue baby aspirin. We will give 40 of K-Dur to supplement potassium. Thank you Dr. Marcus for providing us the opportunity in taking care of the patient, Susana Pena. Eleazar Odonnell MD cc: Pricila Marcus MD
--- NOTE | 2018-01-04 08:44 | US ---
PROCEDURE: Left lower extremity venous US HISTORY: Leg pain and swelling. Evaluate for DVT. PHYSICIAN(S): Everett Garzon MD. TECHNIQUE: Duplex sonography and color-flow Doppler with graded compression were used to evaluate the deep venous system of the left lower extremity. FINDINGS: The visualized deep venous system of the left lower extremity is sonographically normal and compressible. Normal wave forms and augmentation are seen. There is no sonographic evidence for deep venous thrombosis in the visualized segments of the left lower extremity. IMPRESSION: 1. No sonographic evidence for deep venous thrombosis in the visualized segments of the left lower extremity.
--- NOTE | 2018-01-04 10:17 | HP ---
CHIEF COMPLAINT: Dizziness, lightheadedness. HISTORY OF PRESENT ILLNESS: The patient is a 77-year-old female with past medical history of hypertension, COPD, atrial fibrillation, pyelonephritis, currently on Eliquis, came complaining of near syncope at home. The patient states that she took a dose of hydralazine because her blood pressure was elevated around 4:00 p.m., which her systolic around 140s; shortly after that, she started feeling of redness, trying to get up, feels like she is about to pass out, and then she came in the emergency room, she was still symptomatic, but even today she says the dizziness is better, but still there. No fever, no chills. No nausea, vomiting, or diarrhea. The patient is also complaining that she has left thigh pain, which has been ongoing for weeks because of her back pain. PAST MEDICAL HISTORY: As above, history of hypertension, coronary artery disease, angina, pacemaker, pyelonephritis, herniated disk, sciatic pain, urinary tract infection, cardiac catheterization, colostomy, coronary stents. FAMILY HISTORY: Father and mother noncontributory. HABITS: Never smoked. No drugs. No ethanol. ALLERGIES: THE PATIENT IS NOT ALLERGIC TO ANY MEDICATIONS. HOME MEDICATIONS: Aspirin, Pepcid, Actigall, Ventolin. REVIEW OF SYSTEMS: The patient is seen and examined at the bedside in her room ,sitting at the bedside also. Feeling still a bit dizzy, but no nausea, vomiting, or diarrhea. No hematuria or hematochezia. No headache or dizziness. No chest pain or palpitation. PHYSICAL EXAMINATION VITAL SIGNS: Temperature is 97.6, pulse is 8o , blood pressure 144/88, respiratory rate 20. HEENT: Head normocephalic, atraumatic. Eyes, PERRLA. Extraocular movements are intact. Conjunctivae clear. Nose patent. Mucous membranes are moist. NECK: Supple. No carotid bruit, JVD or thyromegaly. CHEST: Bilaterally symmetrical. HEART: S1 and S2 positive. LUNGS: Clear to auscultation. ABDOMEN: Soft. Bowel sounds are present. No organomegaly. EXTREMITIES: No edema. No cyanosis. NEUROLOGIC: The patient is awake and alert. Follows simple commands. LABORATORY DATA: White blood cells 11.4, hemoglobin 16.1, hematocrit 46.7, platelets 369. Sodium 139, potassium 4.4, BUN 18, creatinine 0.9. AST 53. ASSESSMENT AND PLAN: The patient is a 77-year-old lady with leukocytosis, abnormal liver function test, proteinuria, hematuria, urinary tract infection; came with presyncopal attack, seen by Dr. Albino Mtz, neurologist, CAT scan of the head is done; history of hypertension, chronic obstructive pulmonary disease; atrial fibrillation, on Eliquis; extremity ultrasound is done, results are pending; seen by Dr. Mtz; the patient has history of lumbar stenosis at L3-L4 and L4-L5 with the spinal stenosis. We will give adequate hydration. Keep blood pressure between 130s and 140s systolic, orthostatic vital signs, waiting for nuisance wildlife control operator input also. Start the patient on gabapentin 300 mg. Rule out neuropathy. Gastrointestinal and deep vein thrombosis prophylaxis. Repeat labs. We will follow up. Pricila Marcus MD MTDD
--- NOTE | 2018-01-04 10:19 | DS ---
CHIEF COMPLAINT: Headache, dizziness, feeling of passing out. HISTORY OF PRESENT ILLNESS: Ms. Susana Pena is a 77-year-old lady, my private patient, with multiple medical problems like hypertension, COPD, atrial fibrillation, pyelonephritis, came to [facility] Emergency Room with feelings of dizziness, lightheadedness and feeling of passing out. Patient noted her blood pressure was high at home and she took hydralazine. After that, she felt swelling in the left side of the face and even on joints, especially hands. Came to [facility] Emergency Room; recalled consult with neurologist, Dr. Mtz; test eng, Dr. Odonnell. A CAT scan of the head done, reviewed by me. A CAT scan shows sinusitis. We recommend ENT consult as outpatient and we will give p.o. antibiotics. PAST MEDICAL HISTORY: Hypertension, COPD, atrial fibrillation, pyelonephritis. Patient is on Eliquis. History of cholelithiasis, history of angina, pacemaker, history of bilateral cataract surgery, pyelonephritis, history of herniated disk in the back, sciatica pain, history of UTI multiple times, history of cardiac catheterization, coronary stents. ALLERGIES: PATIENT IS NOT ALLERGIC WITH ANY MEDICATION. FAMILY HISTORY: Father and mother, noncontributory. HABITS: No smoking. No drugs. No ethanol. REVIEW OF SYSTEMS: Patient is seen and examined on the bedside, looking comfortable. No nausea, vomiting, or diarrhea. No hematuria or hematochezia. No headache. No dizziness. Still feeling swelling of the left side of the face. No headache. No dizziness. No chest pain. No palpitation. No fever. No chills. Review of systems, 10-point is negative except as above. PHYSICAL EXAMINATION VITAL SIGNS: Temperature 97.9, pulse 76, blood pressure 159/92, respiratory rate 20. HEENT: Head: Normocephalic, atraumatic. Eyes: PERRLA. Extraocular movements intact. Conjunctivae clear. Nose patent. Mucous membrane moist. NECK: Supple. No carotid bruit. No JVD or thyromegaly. CHEST: Bilaterally symmetrical. HEART: S1 and S2 positive. LUNGS: Clear to auscultation. ABDOMEN: Soft. Bowel sounds present. No organomegaly. EXTREMITIES: No edema. No cyanosis. NEUROLOGIC: Patient is awake and alert. Moving all 4 extremities. No focal deficit. LABORATORY DATA: White blood cells 9.4, hemoglobin 15.7, hematocrit 45.4, platelet 321. Sodium 139, potassium 3.8, BUN 18, creatinine 1. Hemoglobin A1c 6.4. AST 43. ASSESSMENT AND PLAN: Ms. Susana Pena is a 77-year-old lady with a history of leukocytosis, improved; abnormal liver function test, history of proteinuria, hematuria, urinary tract infection, came with lightheadedness, dizziness, presyncope. Extremity ultrasound done. CAT scan of the head done. History of chronic obstructive pulmonary disease; atrial fibrillation, on Eliquis; history of pyelonephritis, hypertension, herniated disks at L3-L4 and L4-L5 intense with spinal stenosis, history of syncopal attack. Adequate hydration given. Orthostatic check. Gabapentin 300 mg p.o. daily started. Antibiotics given. Need ENT evaluation as outpatient and discussion done with the patient and patient's . All questions answered. Patient is cleared by Neurology and Cardiology for discharge. We will discharge the patient. We will follow up. Continue home medication. Pricila Marcus MD
--- NOTE | 2018-01-04 19:52 | CT ---
PROCEDURE: CT HEAD WITHOUT CONTRAST. HISTORY: sinus COMPARISON: 01/01/2018 TECHNIQUE: Axial computed tomography images were obtained through the head/brain without intravenous contrast. Radiation dose: Total exam DLP = 836 mGy-cm. This CT exam was performed using one or more of the following dose reduction techniques: Automated exposure control, adjustment of the mA and/or kV according to patient size, and/or use of iterative reconstruction technique. FINDINGS: HEMORRHAGE: No intracranial hemorrhage. BRAIN: No mass effect or edema. No atrophy or chronic microvascular ischemic changes. VENTRICLES: Unremarkable. No hydrocephalus. CALVARIUM: Unremarkable. PARANASAL SINUSES: Unremarkable as visualized. No significant inflammatory changes. MASTOID AIR CELLS: Unremarkable as visualized. No inflammatory changes. OTHER FINDINGS: None. IMPRESSION: No acute findings
== END 2018-01-03 15:33 | disposition home or self-care (01) ==
LOC: ED 17:33 → ERH 20:22 → 3RSO 21:33
PROVIDERS: ADMIT Internal Medicine; ATTEND Internal Medicine
DX: R55 Syncope and collapse (principal); R42 Dizziness and giddiness; J44.9 Chronic obstructive pulmonary disease, unspecified; I48.0 Paroxysmal atrial fibrillation; I10 Essential (primary) hypertension; M51.17 Intervertebral disc disorders with radiculopathy, lumbosacral region; M48.061 Spinal stenosis, lumbar region without neurogenic claudication; M51.26 Other intervertebral disc displacement, lumbar region; I25.118 Atherosclerotic heart disease of native coronary artery with other forms of angina pectoris; M54.30 Sciatica, unspecified side; I08.3 Combined rheumatic disorders of mitral, aortic and tricuspid valves; G62.9 Polyneuropathy, unspecified; I49.5 Sick sinus syndrome; Z95.0 Presence of cardiac pacemaker; Z95.5 Presence of coronary angioplasty implant and graft; Z93.3 Colostomy status; Z87.440 Personal history of urinary (tract) infections; Z79.01 Long term (current) use of anticoagulants; Z98.42 Cataract extraction status, left eye; Z98.41 Cataract extraction status, right eye
CPT/HCPCS: 36415; 70450; 71045; 80048; 80053; 80061; 81001; 82550; 82607; 82746; 83036; 83540; 83550; 83615; 83735; 83880; 84443; 84484; 85025; 85027; 85610; 85730; 87086; 93005; 93971; 99285; G0378; J0696

== ENCOUNTER 2018-03-07 04:49 | Observation (INO) | payer MEDICARE, OTHER ==
[2018-03-07 05:24] VITALS: BMI 27.8
[2018-03-07] MEDS ORDERED: Sodium Chloride 0.9% 500 ML IV STA (05:51)
--- NOTE | 2018-03-07 05:54 | ED PDOC ---
Arrival/HPI - General Historian: Patient - History of Present Illness Narrative History of Present Illness (Text): Patient is a 77 year old female with a past medical history of Htn, Copd, atrial fibrillation, pylonephritis, siacitica who presents to the emergency department of evaluation an treatment of left lower lumbar pain which began several months ago with no specific provoking event. States the pain originates in the low back and radiates to the left inguinal region and down the left lower extremity. Characterizes the pain as being burning in nature and is rated a 10/10. Denies fever, chills, headache, dizziness, fever, chills, chest pain, SOB, abdominal pain, nausea, vomitting, diarrhea, constipation, and urinary symptoms. Past Medical History - Provider Review Nursing Documentation Reviewed: Yes - Travel History Have you recently traveled outside [place] w/in the past 3 mons?: No - Past History Past History: No Previous - Infectious Disease Hx of Infectious Diseases: None - Tetanus Immunization Tetanus Immunization: Unknown - Cardiac Hx Cardiac Disorders: Yes Hx Angina: Yes Hx Cardiac Arrhythmia: Yes (A-fib on Eliquis at home) Hx Hypertension: Yes Hx Pacemaker: Yes (Jul 11 2017) Hx Peripheral Edema: No - Pulmonary Hx Respiratory Disorders: No - Neurological Hx Neurological Disorder: No - HEENT Hx HEENT Disorder: Yes (wears glasses) Hx Cataracts: Yes (with bilateral surgery) - Renal Hx Renal Disorder: Yes Hx Pyelonephritis: Yes - Endocrine/Metabolic Hx Endocrine Disorders: No - Hematological/Oncological Hx Blood Disorders: No - Integumentary Hx Dermatological Disorder: No - Musculoskeletal/Rheumatological Hx Falls: No Hx Herniated Disk: Yes Hx Unsteady Gait: No Other/Comment: Sciatica pain - Gastrointestinal Hx Gastrointestinal Disorders: Yes Hx Gastroesophageal Reflux: Yes - Genitourinary/Gynecological Hx Genitourinary Disorders: Yes Hx Urinary Tract Infection: Yes - Psychiatric Hx Psychophysiologic Disorder: No Hx Substance Use: No - Surgical History Hx Cardiac Catheterization: Yes (x 1 stent) Hx Cholecystectomy: Yes Hx Coronary Stent: Yes - Anesthesia Hx Anesthesia: Yes Hx Anesthesia Reactions: No Hx Malignant Hyperthermia: No - Suicidal Assessment Feels Threatened In Home Enviroment: No Family/Social History - Physician Review Nursing Documentation Reviewed: Yes Family/Social History: Unknown Family HX Smoking Status: Never Smoked Hx Alcohol Use: No Hx Substance Use: No Hx Substance Use Treatment: No Allergies/Home Meds Allergies/Adverse Reactions: Allergies No Known Allergies Allergy (Verified 03/07/18 05:24) Home Medications: Home Meds Medication Instructions Recorded Confirmed Aspirin [Ecotrin] 81 mg PO DAILY 05/15/16 03/07/18 Famotidine [Pepcid] 20 mg PO BID 05/15/16 03/07/18 Ursodiol [Actigall] 300 mg PO BID 05/15/16 03/07/18 Albuterol HFA [Ventolin HFA 90 2 puff IH PRN PRN 01/01/18 03/07/18 mcg/actuation (8 g)] Review of Systems - Physician Review All systems were reviewed & negative as marked: Yes - Review of Systems Constitutional: Normal Eyes: Normal ENT: Normal Respiratory: Normal Cardiovascular: Normal Gastrointestinal: Normal Genitourinary Female: Normal Musculoskeletal: Back Pain Skin: Normal Neurological: Normal Endocrine: Normal Hemo/Lymphatic: Normal Psychiatric: Normal Physical Exam Vital Signs Reviewed: Yes Vital Signs Temp Pulse Resp BP Pulse Ox 03/07/18 05:33 97.8 F 74 16 187/91 H 97 - Systems Exam Head: Present: Atraumatic, Normocephalic Pupils: Present: PERRL Extroacular Muscles: Present: EOMI Conjunctiva: Present: Normal Mouth: Present: Moist Mucous Membranes Neck: Present: Normal Range of Motion Respiratory/Chest: Present: Clear to Auscultation, Good Air Exchange. No: Respiratory Distress, Accessory Muscle Use Cardiovascular: Present: Regular Rate and Rhythm, Normal S1, S2. No: Murmurs Abdomen: No: Tenderness, Distention, Peritoneal Signs Back: Present: Pain with Leg Raise Upper Extremity: Present: Normal Inspection. No: Cyanosis, Edema Lower Extremity: Present: Normal Inspection. No: Edema Neurological: Present: GCS=15, CN II-XII Intact, Speech Normal Skin: Present: Warm, Dry, Normal Color. No: Rashes Psychiatric: Present: Alert, Oriented x 3, Normal Insight, Normal Concentration Medical Decision Making ED Course and Treatment: Assessment and Plan: Patient is a 77 year old female with a past medical history of Htn, Copd, atrial fibrillation, pylonephritis who presents to the emergency department of evaluation an treatment of left lower lumbar pain. Sciatic Pain Left sided Flank Pain 03/07/18 05:56 - CBC, CMP, Lipase - PTT and PT - Tordal - NS 1 Liter - Abdomen/pelvis noncontrast - UA 03/07/18 05:59 - RAD Interpretation Radiology Orders: 03/07/18 05:51 ABD & PELVIS W/O PO OR IV CONT [CT] Stat - Medication Orders Current Medication Orders: Sodium Chloride (Sodium Chloride 0.9%) 500 mls @ 999 mls/hr IV .Q31M STA Stop: 03/07/18 06:21 Discontinued Medications Ketorolac Tromethamine (Toradol) 30 mg IVP STAT STA Stop: 03/07/18 05:52 Disposition/Present on Arrival - Present on Arrival History of DVT/PE: No History of Uncontrolled Diabetes: No Urinary Catheter: No History Surgical Site Infection Following: None - Disposition
[2018-03-07 06:31] LABS: BASO # 0.04 K/mm3 (0.0-2.0); BASO % 0.4 % (0.0-3.0); EOS # 0.2 (0.0-0.7); EOS % 2.6 % (1.5-5.0); GRAN # 5.81 (1.4-6.5); GRAN % 64.1 % (50.0-68.0); HEMOGLOBIN 15.6 g/dL (12.0-16.0); LYMPH % 22.5 % (22.0-35.0); MEAN CELL VOLUME 91.4 fl (80.0-105.0); MEAN CORPUSCULAR HEMOGLOBIN 31.9 pg (25.0-35.0); MEAN CORPUSCULAR HGB CONC 34.9 g/dl (31.0-37.0); MEAN PLATELET VOLUME 8.1 fl (7.0-11.0); MONO # 0.9 (0.1-0.6); MONO % 10.4 % (1.0-6.0); RBC 4.89 10^6/uL (3.5-6.1); RED CELL DISTRIBUTION WIDTH 12.3 % (11.5-14.5); WHITE BLOOD COUNT 9.1 10^3/ul (4.5-11.0)
[2018-03-07 06:48] LABS: ALB/GLOB RATIO 1.1 (1.1-1.8); ALBUMIN 4.3 g/dL (3.0-4.8); ALT/SGPT 35 U/L (7-56); AST/SGOT 37 U/L (14-36); BLOOD UREA NITROGEN 16 mg/dL (7-21); CALCIUM 9.1 mg/dL (8.4-10.5); GFR AFRICAN-AMERICAN > 60; GFR NON-AFRICAN AMERICAN > 60; LIPASE 77 U/L (23-300); PH,URINE 6.5 (4.7-8.0); URINE BILIRUBIN NEGATIVE (NEGATIVE); URINE BLOOD NEGATIVE (NEGATIVE); URINE GLUCOSE (UA) NEGATIVE (NEGATIVE); URINE LEUKOCYTE ESTERASE TRACE Leu/uL (NEGATIVE); URINE PROTEIN TRACE mg/dL (<30 mg/dL); URINE UROBILINOGEN 0.2 E.U./dL (<1 E.U./dL)
[2018-03-07 06:54] LABS: URINE APPEARANCE CLEAR (CLEAR); URINE COLOR LIGHT YELLOW (YELLOW)
[2018-03-07 06:55] LABS: INR 1.11 (0.93-1.08); PARTIAL THROMBOPLASTIN TIME 35.9 Seconds (25.1-36.5); PROTHROMBIN TIME 12.8 SECONDS (9.4-12.5)
[2018-03-07 07:04] LABS: URINE RBC 0 - 2 /hpf (0-2); URINE WBC 0 - 2 /hpf (0-6)
[2018-03-07 07:05] LABS: URINE BACTERIA SMALL (NEG)
--- NOTE | 2018-03-07 07:11 | ED PDOC ---
Physical Exam Vital Signs Reviewed: Yes Vital Signs Temp Pulse Resp BP Pulse Ox 03/07/18 09:19 98.5 F 76 18 173/80 H 96 03/07/18 05:33 97.8 F 74 16 187/91 H 97 Temperature: Afebrile Appearance: Positive for: Uncomfortable Pain Distress: Moderate Medical Decision Making ED Course and Treatment: 03/07/18 07:00 Case signed out to me by Dr. Allen. Patient is a 77 year old female with a past medical history of hypertension, Copd, atrial fibrillation, pylonephritis, siacitica who presented to the emergency department complaining of left lower lumbar pain which began several months ago and radiates to the left inguinal region and down the left lower extremity. Currently pending CT scan. 03/07/18 07:36 Patient reports to me pain has been present for over a year, similar location on left side, although increased pain recently. No vesicular rash noted. No significant abdominal pain noted on palpation. Denies chest pain or shortness of breath. Denies nausea or vomiting. NV intact. Patient updated with treatment plan, pending CT. 03/07/18 07:45 CT abdomen and pelvis: Creator : JESSENIA ANN EXAM: CT Abdomen and Pelvis Without Intravenous Contrast COMPARISON: CT - ABD PELVIS W/O PO OR IV CONT 2017-11-30 15:23 FINDINGS: Lung bases: Unremarkable. No mass. No consolidation. ABDOMEN: Liver: Unremarkable. Gallbladder and bile ducts: Multiple calcified gallstones are present. No ductal dilation. Pancreas: Unremarkable. No ductal dilation. Spleen: Unremarkable. No splenomegaly. Adrenals: Unremarkable. No mass. Kidneys and ureters: The left kidney is atrophic. The right kidney is normal. Mild fullness of the collecting system and ureters bilaterally. No evidence of distal ureteral stone. Stomach and bowel: There is no wall thickening or pericolonic stranding to suggest colitis. No obstruction. PELVIS: Appendix: A normal appendix is identified. Bladder: There is a tiny bubble of gas in the bladder. The bladder is otherwise unremarkable. No stones. Reproductive: Unremarkable as visualized. ABDOMEN and PELVIS: Intraperitoneal space: Unremarkable. No free air. No significant fluid collection. Bones/joints: No acute fracture. No dislocation. Soft tissues: Unremarkable. Vasculature: The aorta demonstrates mild atherosclerotic calcification. No abdominal aortic aneurysm. Lymph nodes: Unremarkable. No enlarged lymph nodes. IMPRESSION: Mild fullness of the collecting system and ureters bilaterally. No evidence of distal ureteral stone. 03/07/18 08:20 There are multiple calcified gallstones noted on CT. Patient was reassessed, states she is having upper abdominal pain as well. Pain is more intense, will admit for biliary colic, surgical consult. Discussed with PMD Dr. Marcus, requests Dr. Montana for surgery consultation. There is palpable component to back pain, although specific persistent upper abdominal pain. 03/07/18 09:30 Chest X-ray: Creator : Josafat Jerome MD COMPARISON: 01/01/2018 FINDINGS: LUNGS: No active pulmonary disease. PLEURA: No significant pleural effusion identified, no pneumothorax apparent. CARDIOVASCULAR: Normal. OSSEOUS STRUCTURES: No significant abnormalities. VISUALIZED UPPER ABDOMEN: Normal. OTHER FINDINGS: None. IMPRESSION: No active disease. 03/07/18 13:29 - Lab Interpretations Lab Results: 03/07/18 06:21 03/07/18 06:21 Lab Results 03/07/18 06:21: Urine Color Light yellow, Urine Appearance Clear, Urine pH 6.5, Ur Specific [place] 1.010, Urine Protein Trace H, Urine Glucose (UA) Negative, Urine Ketones Negative, Urine Blood Negative, Urine Nitrate Negative, Urine Bilirubin Negative, Urine Urobilinogen 0.2, Ur Leukocyte Esterase Trace H, Urine RBC 0 - 2, Urine WBC 0 - 2, Ur Epithelial Cells 3 - 4, Urine Bacteria Small 03/07/18 06:21: Sodium 140, Potassium 4.0, Chloride 97 L, Carbon Dioxide 30, Anion Gap 17, BUN 16, Creatinine 0.9, Est GFR ( Amer) > 60, Est GFR (Non- Af Amer) > 60, Random Glucose 114 H, Calcium 9.1, Total Bilirubin 0.6, AST 37 H , ALT 35, Alkaline Phosphatase 102, Total Protein 8.1, Albumin 4.3, Globulin 3.8 , Albumin/Globulin Ratio 1.1, Lipase 77 03/07/18 06:21: PT 12.8 H, INR 1.11 H, APTT 35.9 03/07/18 06:21: WBC 9.1, RBC 4.89, Hgb 15.6, Hct 44.7, MCV 91.4, MCH 31.9, MCHC 34.9, RDW 12.3, Plt Count 346, MPV 8.1, Gran % 64.1, Lymph % (Auto) 22.5, [place] % (Auto) 10.4 H, Eos % (Auto) 2.6, Baso % (Auto) 0.4, Gran # 5.81, Lymph # (Auto ) 2.0, [place] # (Auto) 0.9 H, Eos # (Auto) 0.2, Baso # (Auto) 0.04 - RAD Interpretation Radiology Orders: 03/07/18 05:51 ABD & PELVIS W/O PO OR IV CONT [CT] Stat 03/07/18 08:26 CHEST PORTABLE [RAD] Stat Mechanical Design Engineer: Radiologist - Medication Orders Current Medication Orders: Discontinued Medications Famotidine (Pepcid) 20 mg IVP STAT STA Stop: 03/07/18 08:24 Last Admin: 03/07/18 09:25 Dose: 20 mg IVP Administration Document 03/07/18 09:25 SRE (Rec: 03/07/18 09:25 [email or web address] [id number]) Charges for Administration # of IVP Administrations 1 Sodium Chloride (Sodium Chloride 0.9%) 500 mls @ 999 mls/hr IV .Q31M STA Stop: 03/07/18 06:21 Last Admin: 03/07/18 06:25 Dose: 999 mls/hr eMAR Start Stop Document 03/07/18 06:25 FELIX (Rec: 03/07/18 06:25 FELIX [id number]) Intravenous Solution Start Date 03/07/18 Start Time 06:25 End Date 03/07/18 End time 07:25 Total Infusion Time 60 Ketorolac Tromethamine (Toradol) 30 mg IVP STAT STA Stop: 03/07/18 05:52 Last Admin: 03/07/18 06:24 Dose: 30 mg MAR Pain Assessment Document 03/07/18 06:24 FELIX (Rec: 03/07/18 06:24 FELIX [id number]) Pain Reassessment Is this a pain reassessment? No IVP Administration Document 03/07/18 06:24 FELIX (Rec: 03/07/18 06:24 FELIX [id number]) Charges for Administration # of IVP Administrations 1 - Scribe Statement The provider has reviewed the documentation as recorded by the [place] Provider Scribe Attestation: All medical record entries made by the Scribe were at my direction and personally dictated by me. I have reviewed the chart and agree that the record accurately reflects my personal performance of the history, physical exam, medical decision making, and the department course for this patient. I have also personally directed, reviewed, and agree with the discharge instructions and disposition. Disposition/Present on Arrival - Present on Arrival Any Indicators Present on Arrival: No History of DVT/PE: No History of Uncontrolled Diabetes: No Urinary Catheter: No History of Decub. Ulcer: No History Surgical Site Infection Following: None - Disposition Have Diagnosis and Disposition been Completed?: Yes Diagnosis: Abdominal pain, Gallstones, Back pain Disposition: HOSPITALIZED Disposition Time: 08:22 Patient Plan: Admission Patient Problems: Current Active Problems Problem Status Onset Abdominal pain Acute Gallstones Acute Condition: FAIR
--- NOTE | 2018-03-07 07:41 | CT ---
EXAM: CT Abdomen and Pelvis Without Intravenous Contrast CLINICAL HISTORY: 77 years old, female; Pain; Abdominal pain; Flank; Left; Prior surgery; Surgery type: Pacemaker, angioplasy; Additional info: Left flank pain TECHNIQUE: Axial computed tomography images of the abdomen and pelvis without intravenous contrast. All CT scans at this facility use one or more dose reduction techniques, viz.: automated exposure control; ma/kV adjustment per patient size (including targeted exams where dose is matched to indication; i.e. head); or iterative reconstruction technique. Coronal and sagittal reformatted images were created and reviewed. COMPARISON: CT - ABD PELVIS W/O PO OR IV CONT 2017-11-30 15:23 FINDINGS: Lung bases: Unremarkable. No mass. No consolidation. ABDOMEN: Liver: Unremarkable. Gallbladder and bile ducts: Multiple calcified gallstones are present. No ductal dilation. Pancreas: Unremarkable. No ductal dilation. Spleen: Unremarkable. No splenomegaly. Adrenals: Unremarkable. No mass. Kidneys and ureters: The left kidney is atrophic. The right kidney is normal. Mild fullness of the collecting system and ureters bilaterally. No evidence of distal ureteral stone. Stomach and bowel: There is no wall thickening or pericolonic stranding to suggest colitis. No obstruction. PELVIS: Appendix: A normal appendix is identified. Bladder: There is a tiny bubble of gas in the bladder. The bladder is otherwise unremarkable. No stones. Reproductive: Unremarkable as visualized. ABDOMEN and PELVIS: Intraperitoneal space: Unremarkable. No free air. No significant fluid collection. Bones/joints: No acute fracture. No dislocation. Soft tissues: Unremarkable. Vasculature: The aorta demonstrates mild atherosclerotic calcification. No abdominal aortic aneurysm. Lymph nodes: Unremarkable. No enlarged lymph nodes. IMPRESSION: Mild fullness of the collecting system and ureters bilaterally. No evidence of distal ureteral stone.
--- NOTE | 2018-03-07 09:25 | RAD ---
HISTORY: upper abdominal pain COMPARISON: 01/01/2018 FINDINGS: LUNGS: No active pulmonary disease. PLEURA: No significant pleural effusion identified, no pneumothorax apparent. CARDIOVASCULAR: Normal. OSSEOUS STRUCTURES: No significant abnormalities. VISUALIZED UPPER ABDOMEN: Normal. OTHER FINDINGS: None. IMPRESSION: No active disease.
--- NOTE | 2018-03-07 10:35 | CP.PCM.CON ---
<Katie Lazar - Last Filed: 03/07/18 13:59> History of Present Illness - History of Present Illness History of Present Illness: General surgery consult not for Dr. [place] Consulted for: abdominal pain, cholelithiasis Patient is a 77F with PMH including GERD, pyelonephritis and cholelithiasis for which she takes ursodiol at home. Patient states that for the past month she has intermittent, colickly left flank pain radiating to her abdomen at night. patient states that for the past several night the pain has worsened and has started spreading across her epigastrium to her RUQ. Pt also reports urinary frequency with nocturia 5x/night. Patient reports some heartburn refractory to PO antacid medication but denies any fevers, nausea, vomiting, postprandial pain , diarrhea, hematochezia, melena, dysuria, hematuria, or any other symptoms. Patient was diagnosed with gallstone previously but they have been asymptomatic. PMH: CAD, HTN, COPD, afib, GERD, pyelonephritis and cholelithiasis, sciatica PSH: pacemaker insertion, cardiac cath, cataracts ALL: NKDA Social: denies tobacco, ETOH, or illicit substances history Review of Systems - Review of Systems All systems: reviewed and no additional remarkable complaints except (as per HPI ) Past Patient History - Infectious Disease Hx of Infectious Diseases: None - Tetanus Immunizations Tetanus Immunization: Unknown - Past Medical History & Family History Past Medical History?: Yes Past Family History: Reviewed and not pertinent - Past Social History Smoking Status: Never Smoked Alcohol: None Drugs: Denies - CARDIAC Hx Cardiac Disorders: Yes Hx Angina: Yes Hx Atrial Fibrillation: Yes Hx Hypertension: Yes Hx Pacemaker: Yes (Jul 11 2017) Hx Peripheral Edema: No - PULMONARY Hx Respiratory Disorders: No Hx Chronic Obstructive Pulmonary Disease (COPD): Yes - NEUROLOGICAL Hx Neurological Disorder: No Other/Comment: sciatica - HEENT Hx HEENT Problems: Yes (wears glasses) Hx Cataracts: Yes (with bilateral surgery) - RENAL Hx Chronic Kidney Disease: Yes Hx Pyelonephritis: Yes - ENDOCRINE/METABOLIC Hx Endocrine Disorders: No - HEMATOLOGICAL/ONCOLOGICAL Hx Blood Disorders: No - INTEGUMENTARY Hx Dermatological Problems: No - MUSCULOSKELETAL/RHEUMATOLOGICAL Hx Falls: No Hx Herniated Disk: Yes Hx Unsteady Gait: No Other/Comment: Sciatica pain - GASTROINTESTINAL Hx Gastrointestinal Disorders: Yes Hx Gall Bladder Disease: Yes (cholelithiasis) Hx Gastroesophageal Reflux: Yes - GENITOURINARY/GYNECOLOGICAL Hx Genitourinary Disorders: Yes Hx Urinary Tract Infection: Yes Other/Comment: pyelonephritis - PSYCHIATRIC Hx Psychophysiologic Disorder: No Hx Substance Use: No - SURGICAL HISTORY Hx Cardiac Catheterization: Yes (x 1 stent) Hx Cholecystectomy: No Hx Coronary Stent: Yes - ANESTHESIA Hx Anesthesia: Yes Hx Anesthesia Reactions: No Hx Malignant Hyperthermia: No Meds Allergies/Adverse Reactions: Allergies Allergy/AdvReac Type Severity Reaction Status Date / Time No Known Allergies Allergy Verified 03/07/18 05:24 Physical Exam - Constitutional Appears: Well, Non-toxic, No Acute Distress Additional comments: Patient uncomfortable, continuously shifting position seeking pain relief - Head Exam Head Exam: ATRAUMATIC, NORMOCEPHALIC - Eye Exam Eye Exam: Normal appearance. absent: Conjunctival injection, Scleral icterus - ENT Exam ENT Exam: Mucous Membranes Moist, Normal Oropharynx - Respiratory Exam Respiratory Exam: NORMAL BREATHING PATTERN. absent: Accessory Muscle Use, Respiratory Distress - Cardiovascular Exam Cardiovascular Exam: RRR - GI/Abdominal Exam GI & Abdominal Exam: Soft, Tenderness (mild LUQ tenderness). absent: Distended Additional comments: negative nair's sign - Extremities Exam Extremities exam: Positive for: pedal pulses present. Negative for: calf tenderness, pedal edema - Back Exam Back exam: absent: CVA tenderness (L), CVA tenderness (R) - Neurological Exam Neurological exam: Alert, Oriented x3 - Psychiatric Exam Psychiatric exam: Normal Affect, Normal Mood - Skin Skin Exam: Dry, Intact, Normal Color, Warm Results - Vital Signs Recent Vital Signs: Last Vital Signs Temp 98 F 03/07/18 10:19 Pulse 79 03/07/18 10:19 Resp 18 03/07/18 10:19 BP 173/80 H 03/07/18 10:19 Pulse Ox 96 03/07/18 10:19 - Labs Result Diagrams: 03/07/18 06:21 03/07/18 06:21 Labs: Laboratory Results - last 24 hr 03/07/18 08:50 Amylase 102 Assessment & Plan - Assessment and Plan (Free Text) Assessment: 77F with abdominal pain consistent with renal pathology, less likely symptomatic cholelithiasis vs acute cholecystitis Plan: No emergent surgical intervention and this time--Patient has no signs of acute cholecystitis on ultrasound or CT scan but dilated renal collecting ducts and ureters, as well as possible UTI as indicated by UA F/U HIDA scan NPO until pain improves, NPO aftermidnight for HIDA Follow up urine cultures, recommend consult with her student education specialist--Dr. Stern trend CBC/CMP PRN pain and nausea medication IVF discussed with Dr. Montana, who agrees with above Katie Lazar, PGY2 <Sachin Montana - Last Filed: 03/08/18 21:12> Meds - Medications Medications: Current Medications Apixaban (Eliquis) 5 mg PO BID [facility] PRN Reason: Protocol Last Admin: 03/08/18 17:55 Dose: 5 mg Atorvastatin Calcium (Lipitor) 20 mg PO DIN [facility] Last Admin: 03/08/18 17:55 Dose: 20 mg Diltiazem HCl (Cardizem Cd) 120 mg PO DAILY [facility] Last Admin: 03/08/18 09:38 Dose: 120 mg Famotidine (Pepcid 20mg/50ml Premix) 20 mg in 50 mls @ 100 mls/hr IVPB Q12 [facility] Last Admin: 03/08/18 09:38 Dose: 100 mls/hr Metoprolol Tartrate (Lopressor) 25 mg PO BID [facility] Last Admin: 03/08/18 17:55 Dose: 25 mg Morphine Sulfate (Morphine) 4 mg IVP Q4H PRN PRN Reason: Pain, severe (8-10) Last Admin: 03/08/18 04:08 Dose: 4 mg Ondansetron HCl (Zofran Inj) 4 mg IVP Q6H PRN PRN Reason: Nausea/Vomiting Tramadol HCl (Ultram) 50 mg PO TID PRN PRN Reason: Pain, moderate (4-7) Results - Vital Signs Recent Vital Signs: Last Vital Signs Temp 98.4 F 03/08/18 18:00 Pulse 88 03/08/18 18:00 Resp 20 03/08/18 18:00 BP 138/63 03/08/18 18:00 Pulse Ox 98 03/08/18 18:00 - Labs Result Diagrams: 03/08/18 05:30 03/08/18 05:30 Labs: Laboratory Results - last 24 hr 03/08/18 03/08/18 05:30 05:30 WBC 9.6 RBC 5.05 Hgb 16.0 Hct 46.1 MCV 91.3 MCH 31.7 MCHC 34.7 RDW 12.4 Plt Count 347 MPV 8.3 Gran % 64.4 Lymph % (Auto) 24.5 [place] % (Auto) 8.6 H Eos % (Auto) 2.3 Baso % (Auto) 0.2 Gran # 6.21 Lymph # (Auto) 2.4 [place] # (Auto) 0.8 H Eos # (Auto) 0.2 Baso # (Auto) 0.02 Sodium 140 Potassium 4.2 Chloride 102 Carbon Dioxide 27 Anion Gap 16 BUN 12 Creatinine 0.7 Est GFR ( Amer) > 60 Est GFR (Non-Af Amer) > 60 Random Glucose 92 Calcium 9.1 Total Bilirubin 0.9 AST 26 ALT 31 Alkaline Phosphatase 91 Total Protein 6.7 Albumin 3.6 Globulin 3.1 Albumin/Globulin Ratio 1.2 Attending/Attestation - Attestation I have personally seen and examined this patient.: Yes I have fully participated in the care of the patient.: Yes I have reviewed all pertinent clinical information: Yes Notes (Text): Pt was seen and examined at bedside Agree with above note and assessment Pt with Gallstones and Left flank pain Abdominal pain is completely resolved. Abdomen: Soft, Mild tender, distended Labs and radiology reviewed Ass: Cholelithiasis, Flank pain due to Radiculopathy Plan: No need for any surgical intervention at present f.u as out pt c.w current mx Plan d.w pt and PMD in detail Risk and benefit explained in detail.
--- NOTE | 2018-03-07 10:41 | US ---
HISTORY: upper abdominal pain COMPARISON: None. TECHNIQUE: Sonographic evaluation of the abdomen. FINDINGS: LIVER: Measures 13.4 x 12.11 cm. Normal echogenicity of the liver parenchyma. No mass. No intrahepatic bile duct dilatation. GALLBLADDER: Gallstones and sludge COMMON BILE DUCT: Measures 6 mm. No stones. No dilatation. PANCREAS: Unremarkable as visualized. No mass. No ductal dilatation. RIGHT KIDNEY: Measures 9.86 x 4.68 x 5.85cm. Normal echogenicity. No calculus, mass, or hydronephrosis. LEFT KIDNEY: Measures 10.08 x 4.69 x 5.00cm. Normal echogenicity. No calculus, mass, or hydronephrosis. SPLEEN: Normal in size and contour. No mass. 9.04 x 4.09 cm AORTA: No aneurysmal dilatation. IVC: Unremarkable. OTHER FINDINGS: None. IMPRESSION: Gallstones and sludge in the gallbladder. No evidence of acute cholecystitis.
[2018-03-07] MEDS: Lactated Ringer's 1,000 ML IV SCH ×2 (11:10→21:33)
[2018-03-07] MEDS: Morphine 4 mg/ml ISec IVP PRN ×2 (11:11→18:52)
[2018-03-07 17:43] VITALS: RESP 20
[2018-03-08] MEDS: Morphine 4 mg/ml ISec IVP PRN (04:08)
[2018-03-08 06:53] LABS: BASO # 0.02 K/mm3 (0.0-2.0); BASO % 0.2 % (0.0-3.0); EOS # 0.2 (0.0-0.7); EOS % 2.3 % (1.5-5.0); GRAN # 6.21 (1.4-6.5); GRAN % 64.4 % (50.0-68.0); LYMPH # 2.4 (1.2-3.4); LYMPH % 24.5 % (22.0-35.0); MEAN CELL VOLUME 91.3 fl (80.0-105.0); MEAN CORPUSCULAR HEMOGLOBIN 31.7 pg (25.0-35.0); MEAN CORPUSCULAR HGB CONC 34.7 g/dl (31.0-37.0); MEAN PLATELET VOLUME 8.3 fl (7.0-11.0); MONO # 0.8 (0.1-0.6); MONO % 8.6 % (1.0-6.0); RBC 5.05 10^6/uL (3.5-6.1); RED CELL DISTRIBUTION WIDTH 12.4 % (11.5-14.5); WHITE BLOOD COUNT 9.6 10^3/ul (4.5-11.0)
[2018-03-08 07:17] LABS: ALB/GLOB RATIO 1.2 (1.1-1.8); ALBUMIN 3.6 g/dL (3.0-4.8); ALT/SGPT 31 U/L (7-56); AST/SGOT 26 U/L (14-36); BLOOD UREA NITROGEN 12 mg/dL (7-21); CALCIUM 9.1 mg/dL (8.4-10.5); GFR AFRICAN-AMERICAN > 60; GFR NON-AFRICAN AMERICAN > 60
[2018-03-08] MEDS: diltiaZEM 120 mg/24 Hours CD Cap PO SCH (09:38)
[2018-03-08] MEDS: Famotidine 20mg/50ml 20 MG/50 ML BAG IVPB SCH ×2 (09:38→21:36)
--- NOTE | 2018-03-08 09:45 | CARD ---
APPROVED REPORT EKG Measurement Heart [id number] MA [id number] <Conclusion> Sinus rhythm with premature supraventricular complexes Nonspecific T wave abnormality No change
--- NOTE | 2018-03-08 12:37 | CP.PCM.PN ---
<Isaura Rausch - Last Filed: 03/09/18 07:22> Subjective - Date & Time of Evaluation Date of Evaluation: 03/08/18 Time of Evaluation: 07:30 - Subjective Subjective: Surgery: Dr. Montana Pt seen and examined. No acute overnight events. States she feels ok and denies any complaints at this time. Denies N/V, F/C. Objective - Vital Signs/Intake and Output Vital Signs (last 24 hours): Temp Pulse Resp BP Pulse Ox 98.1 F 82 20 157/92 H 95 03/08/18 10:03 03/08/18 10:03 03/08/18 10:03 03/08/18 10:03 03/08/18 10:03 Intake and Output: 03/08/18 03/08/18 06:59 18:59 Intake Total 0 Output Total 700 Balance -700 - Medications Medications: Current Medications Apixaban (Eliquis) 5 mg PO BID [facility] PRN Reason: Protocol Atorvastatin Calcium (Lipitor) 20 mg PO DIN [facility] Diltiazem HCl (Cardizem Cd) 120 mg PO DAILY [facility] Last Admin: 03/08/18 09:38 Dose: 120 mg Lactated Ringer's (Lactated Ringer's) 1,000 mls @ 100 mls/hr IV .Q10H [facility] Last Admin: 03/07/18 21:33 Dose: 100 mls/hr Famotidine (Pepcid 20mg/50ml Premix) 20 mg in 50 mls @ 100 mls/hr IVPB Q12 [facility] Last Admin: 03/08/18 09:38 Dose: 100 mls/hr Metoprolol Tartrate (Lopressor) 25 mg PO BID [facility] Last Admin: 03/08/18 09:38 Dose: 25 mg Morphine Sulfate (Morphine) 4 mg IVP Q4H PRN PRN Reason: Pain, severe (8-10) Last Admin: 03/08/18 04:08 Dose: 4 mg Ondansetron HCl (Zofran Inj) 4 mg IVP Q6H PRN PRN Reason: Nausea/Vomiting Tramadol HCl (Ultram) 50 mg PO TID PRN PRN Reason: Pain, moderate (4-7) - Labs Labs: 03/08/18 05:30 03/08/18 05:30 PT 12.8 SECONDS (9.4-12.5) H 03/07/18 06:21 INR 1.11 (0.93-1.08) H 03/07/18 06:21 APTT 35.9 Seconds (25.1-36.5) 03/07/18 06:21 - Constitutional Appears: Well, No Acute Distress - Head Exam Head Exam: ATRAUMATIC, NORMOCEPHALIC - Eye Exam Eye Exam: Normal appearance - ENT Exam ENT Exam: Mucous Membranes Moist - Respiratory Exam Respiratory Exam: NORMAL BREATHING PATTERN - Cardiovascular Exam Cardiovascular Exam: RRR - GI/Abdominal Exam GI & Abdominal Exam: Soft. absent: Distended, Guarding, Tenderness - Neurological Exam Neurological Exam: Alert, Awake, Oriented x3 - Skin Skin Exam: Dry, Warm Assessment and Plan - Assessment and Plan (Free Text) Assessment: 77F with cholelithiasis; r/o cholecystitis Plan: - HIDA negative - no surgical intervention at this time - please reconsult if needed - d/w Dr. Rubén Rausch, PGY-3 <Sachin Montana B - Last Filed: 03/13/18 00:08> Objective - Vital Signs/Intake and Output Vital Signs (last 24 hours): Temp Pulse Resp BP Pulse Ox 97.6 F 82 20 152/82 H 98 03/09/18 08:26 03/09/18 10:50 03/09/18 08:26 03/09/18 10:50 03/09/18 08:26 - Labs Labs: 03/08/18 05:30 03/08/18 05:30 PT 12.8 SECONDS (9.4-12.5) H 03/07/18 06:21 INR 1.11 (0.93-1.08) H 03/07/18 06:21 APTT 35.9 Seconds (25.1-36.5) 03/07/18 06:21 Attending/Attestation - Attestation I have personally seen and examined this patient.: Yes I have fully participated in the care of the patient.: Yes I have reviewed all pertinent clinical information, including history, physical exam and plan: Yes Notes (Text): Pt was seen and examined at bedside Agree with above note and assessment Pt with Gallstones and left abdominal pain HIDA is negative No acute general surgical intervention required f.u in office as out pt. Plan d.w pt in detail Risk and benefit explained in detail.
--- NOTE | 2018-03-08 13:27 | NM ---
PROCEDURE: Nuclear Medicine Hepatobiliary Scan HISTORY: r/o acute cholecystitis COMPARISON: 03/07/2018 CT TECHNIQUE: 5.2 mCi of technetium 99m Mebrofenin was administered intravenously. Planar images of the abdomen were obtained at 5 min intervals to 60 mins. Delayed images were also obtained. FINDINGS: LIVER: Timely and homogenous uptake. COMMON BILE DUCT: identified at 15 mins. GALLBLADDER: identified at 40 mins. SMALL BOWEL: Identified at 80 mins. IMPRESSION: Normal Hepatobiliary Scan. The cystic duct is patent.
--- NOTE | 2018-03-08 16:00 | HP ---
DATE OF EXAM: 03/07/2018 Patient was seen and examined at the bedside on 03/07/2018. CHIEF COMPLAINT: Abdominal pain. HISTORY OF PRESENT ILLNESS: Ms. Susana Pena, 77-year-old female with past medical history of GERD, dyspepsia, pyelonephritis, cholelithiasis. She was recently discharged and then came back, has history of cholelithiasis episode while at home. Patient states that in the past few months she had intermittent colicky left flank pain, radiating to her abdomen at night. Patient also states that past several nights, the pain has been worsened and has started spreading across her epigastrium to her right upper quadrant. Patient also reports urinary frequency with nocturia 5 times every night. Patient reports some heartburn refractory to p.o. antacid medications. Denies fever, chills. No diarrhea, no hematochezia, no melena, no hematuria. Patient has attacks of abdominal pain but right now complaining about neck pain. PAST MEDICAL HISTORY: Coronary artery disease, hypertension, COPD exacerbation, GERD, pyelonephritis, cholelithiasis, sciatica. PAST SURGICAL HISTORY: Pacemaker insertion, cardiac catheterization, cataract. ALLERGIES: THE PATIENT IS NOT ALLERGIC TO ANY MEDICATIONS. SOCIAL HISTORY: No smoking, no drugs, no ethanol; as per the patient. REVIEW OF SYSTEMS: Patient was seen and examined at the bedside, looks comfortable, but complaining about abdominal pain and is sitting at the bedside also. LABORATORY DATA: Sodium 140, potassium 4, BUN noted , creatinine noted , glucose 114. ASSESSMENT AND PLAN: Ms. Susana Pena, 77-year-old my private Patient has hyperglycemia.cad , htn , cholelethiasis , copd , julio ,obesity , came with abdominal pain surgery saw the pt , Continue the same soft diet. Follow up in my office, pain management , and back sp. Repeat labs. We will follow up. Pricila Marcus MD [facility]
[2018-03-08] MEDS ORDERED: Lactated Ringer's 1,000 ML IV SCH (17:57)
[2018-03-08 18:09] VITALS: O2SAT 98
--- NOTE | 2018-03-08 23:00 | PN ---
DATE: 03/08/2018 SUBJECTIVE: The patient is 77-year-old female. The patient is seen and examined on the bedside. Today, I went 2 times to see her in her room. In the morning, when I went, the patient went for HIDA scan. Now, I saw her in the evening status post HIDA scan. Pain is better. No nausea, vomiting, diarrhea. No fever. No chills. No headache. No dizziness. PHYSICAL EXAMINATION: VITAL SIGNS: Temperature 98.4, pulse 88, blood pressure 138/63, respiratory rate 20. HEENT: Head normocephalic, atraumatic. Eyes PERRLA. Extraocular muscles intact. Conjunctivae clear. Nose patent. Mucous membrane moist. NECK: Supple. No carotid bruit. No JVD or thyromegaly. CHEST: Bilaterally symmetrical. HEART: S1 and S2 positive. LUNGS: Clear to auscultation. ABDOMEN: Soft. Bowel sounds positive. No organomegaly. EXTREMITIES: No edema. No cyanosis. NEUROLOGICAL: The patient is awake and alert. Moving all 4 extremities. No focal deficits. LABORATORY DATA: White blood cells 9.6, hemoglobin 16, hematocrit 46.1, platelets 347. Sodium noted , potassium 4.2, BUN 12, creatinine 0.7, AST 37. MEDICATIONS: Diltiazem, Eliquis, Lipitor, Lopressor, morphine, Pepcid, tramadol, Zofran. ASSESSMENT AND PLAN: Ms. Susana Pena, a 77-year-old lady with abnormal liver function tests, coming down, getting normalized; hyperglycemia; proteinuria; urinary tract infection; has history of nephrolithiasis; history of coronary artery disease; cardiac stenting. Rule out cholecystitis. HIDA scan is done that is negative. No surgical intervention at this time as per Dr. Montana. Length of time discussion done with Dr. Montana. 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 Continue soft diet. We will follow up. Pricila Marcus MD [facility]
[2018-03-09] MEDS: Morphine 4 mg/ml ISec IVP PRN (01:22)
--- NOTE | 2018-03-09 05:57 | CON ---
DATE: 03/08/2018 NEPHROLOGY CONSULTATION HISTORY OF PRESENT ILLNESS: The patient is a 77-year-old female with past medical history of hypertension, CAD status post stents, tachybrady syndrome, status post pacemaker placement, AFib, on Eliquis, presented with left-sided flank and abdominal pain. Nephrology is being consulted for possible pyelonephritis. The patient reports having above-mentioned pain going on since past few months. However, on day of presentation, pain was 10/10 in intensity. The patient denies any associated nausea, vomiting or diarrhea. She does report being constipated, but was given MiraLax and Dulcolax by GI recently, and had good bowel movement thereafter, including just before presentation. The patient denies any dysuria, although does report some increased urinary frequency. The patient denies any fevers or chills. Appetite has been well. PAST MEDICAL HISTORY: As above. Admission late last year for severe hyponatremia. SOCIAL HISTORY: Denies smoking. FAMILY HISTORY: Hypertension. REVIEW OF SYSTEMS: CONSTITUTIONAL: No fevers or chills. HEENT: Previous cataract surgery. RESPIRATORY: History of COPD, otherwise not short of breath. CARDIOVASCULAR: Cardiac history as above. No palpitations or chest pain. No leg swelling lately. GI: As per HPI. : As per HPI. MUSCULOSKELETAL: As per HPI. PSYCHIATRIC: Denies anxiety. PHYSICAL EXAMINATION: VITAL SIGNS: This morning, blood pressure 157/92, heart rate 82, respirations 20, temperature 98.1, O2 sat 95% on room air. GENERAL: No distress. Lying comfortably, speaking coherently in full sentences. HEENT: Moist mucous membranes. Nonicteric. No cervical lymphadenopathy. RESPIRATORY: Lungs clear to auscultation bilaterally. No rales, no rhonchi, no wheezes. CARDIOVASCULAR: Heart sounds S1 and S2 normal. No murmurs or gallops or rubs. GI: Abdomen soft, nontender, nondistended. : No bladder distention. EXTREMITIES: No lower leg edema. SKIN: Warm. No cyanosis. NEUROLOGIC: No resting tremor. PSYCHIATRIC: Normal mood, normal affect. LABORATORY DATA: This morning: CBC; WBC 9.6, hemoglobin 16.0, hematocrit 46.1, platelets 347. Chemistry panel; sodium 140, potassium 4.2, chloride 102, bicarb 27, BUN 12, creatinine 0.7, glucose 92, calcium 9.1, AST 26, ALT 31, albumin 3.6. UA; trace protein, trace leukocyte esterase, 0-2 wbc's per high-powered field, small bacteria at 5. Abdominal ultrasound and CT reviewed; no overt hydronephrosis. ASSESSMENT AND PLAN: 1. Left flank pain. The patient clinically does not appear to have pyelonephritis, as she is afebrile without any chills or dysuria. UA is also not suggestive of infection. No obvious etiology of pain at this point. Okay to give NSAIDs for pain as needed. 2. Hypertension. Blood pressure elevated, but the patient being on IV fluids. Currently on diltiazem 120 mg daily and metoprolol 25 mg b.i.d. We will decrease IV fluids to LR at 60 ml/hour. Thank you for this referral. We will be following up closely Amando Stern MD
[2018-03-09 08:27] VITALS: TEMP 97.6
[2018-03-09] MEDS: Famotidine 20mg/50ml 20 MG/50 ML BAG IVPB SCH (10:50)
[2018-03-09] MEDS: diltiaZEM 120 mg/24 Hours CD Cap PO SCH (10:50)
[2018-03-09 10:52] VITALS: BP 152/82; PULSE 82
== END 2018-03-09 13:00 | disposition home or self-care (01) ==
LOC: ED 04:49 → INTOOBSV 08:47 → ERH 08:47 → 3RSO 10:39
PROVIDERS: ADMIT Internal Medicine; ATTEND Internal Medicine
DX: K80.20 Calculus of gallbladder without cholecystitis without obstruction (principal); M54.10 Radiculopathy, site unspecified; K21.9 Gastro-esophageal reflux disease without esophagitis; I12.9 Hypertensive chronic kidney disease with stage 1 through stage 4 chronic kidney disease, or unspecified chronic kidney disease; N18.9 Chronic kidney disease, unspecified; Z90.49 Acquired absence of other specified parts of digestive tract; Z87.442 Personal history of urinary calculi; Z95.0 Presence of cardiac pacemaker; E66.9 Obesity, unspecified; G47.33 Obstructive sleep apnea (adult) (pediatric); I25.10 Atherosclerotic heart disease of native coronary artery without angina pectoris; I48.91 Unspecified atrial fibrillation; J44.9 Chronic obstructive pulmonary disease, unspecified; Z79.82 Long term (current) use of aspirin; Z79.899 Other long term (current) drug therapy; Z87.440 Personal history of urinary (tract) infections; Z95.5 Presence of coronary angioplasty implant and graft; H26.9 Unspecified cataract; Z68.27 Body mass index [BMI] 27.0-27.9, adult
CPT/HCPCS: 36415; 71045; 74176; 76700; 78227; 80053; 81001; 82150; 83690; 85025; 85610; 85730; 87086; 93005; 96361; 96365; 96366; 96375; 96376; 99284; A9537; G0378; J0360; J1885; J2270; J7040; J7120

== ENCOUNTER 2018-04-10 00:15 | Inpatient (IN) | payer MEDICARE, OTHER ==
[2018-04-10 00:22] VITALS: BMI 27.3
[2018-04-10] MEDS ORDERED: Morphine 4 mg/ml ISec IVP STA (00:36)
--- NOTE | 2018-04-10 00:44 | ED PDOC ---
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 Pt. states lt. sided flank/chest pain is radiating to the misternum region, and described as tight. Patient reports she woke up to the pain and immediately called an ambulance. She mentions she is currently being treated for UTI with levaquin. Patient denies any fever, chills , or any other complaints at this time. Time/Duration: 1/2 hour Symptom Onset: Sudden Past Medical History - Provider Review Nursing Documentation Reviewed: Yes - Past History Past History: No Previous - Infectious Disease Hx of Infectious Diseases: None - Tetanus Immunization Tetanus Immunization: Unknown - Cardiac Hx Cardiac Disorders: Yes Hx Angina: Yes Hx Hypertension: Yes Hx Pacemaker: Yes (Jul 11 2017) Hx Peripheral Edema: No - Pulmonary Hx Respiratory Disorders: No Hx Chronic Obstructive Pulmonary Disease (COPD): Yes - Neurological Hx Neurological Disorder: No Other/Comment: sciatica - HEENT Hx HEENT Disorder: Yes (wears glasses) Hx Cataracts: Yes (with bilateral surgery) - Renal Hx Renal Disorder: Yes Hx Pyelonephritis: Yes - Endocrine/Metabolic Hx Endocrine Disorders: No - Hematological/Oncological Hx Blood Disorders: No - Integumentary Hx Dermatological Disorder: No - Musculoskeletal/Rheumatological Hx Falls: No - Gastrointestinal Hx Gastrointestinal Disorders: Yes Hx Gall Bladder Disease: Yes (cholelithiasis) Hx Gastroesophageal Reflux: Yes - Genitourinary/Gynecological Hx Genitourinary Disorders: Yes Hx Urinary Tract Infection: Yes Other/Comment: pyelonephritis - Psychiatric Hx Psychophysiologic Disorder: No Hx Substance Use: No - Surgical History Hx Cardiac Catheterization: Yes (x 1 stent) Hx Cholecystectomy: No Hx Coronary Stent: Yes - Anesthesia Hx Anesthesia: Yes Hx Anesthesia Reactions: No Hx Malignant Hyperthermia: No - Suicidal Assessment Feels Threatened In Home Enviroment: No Family/Social History - Physician Review Nursing Documentation Reviewed: Yes Family/Social History: Unknown Family HX Smoking Status: Never Smoked Hx Alcohol Use: No Hx Substance Use: No Hx Substance Use Treatment: No Allergies/Home Meds Allergies/Adverse Reactions: Allergies No Known Allergies Allergy (Verified 03/07/18 05:24) Home Medications: Home Meds Medication Instructions Recorded Confirmed Aspirin [Ecotrin] 81 mg PO DAILY 05/15/16 03/07/18 Famotidine [Pepcid] 20 mg PO BID 05/15/16 03/07/18 Ursodiol [Actigall] 300 mg PO BID 05/15/16 03/07/18 Albuterol HFA [Ventolin HFA 90 2 puff IH PRN PRN 01/01/18 03/07/18 mcg/actuation (8 g)] Review of Systems - Physician Review All systems were reviewed & negative as marked: Yes - Review of Systems Constitutional: absent: Fatigue, Fevers, Night Sweats ENT: absent: Hearing Changes Respiratory: absent: SOB, Cough Cardiovascular: Chest Pain (left-side) Gastrointestinal: absent: Abdominal Pain, Nausea, Vomiting Musculoskeletal: Other (left-side flank pain) Skin: absent: Rash, Pruritis Neurological: absent: Headache, Dizziness Psychiatric: absent: Anxiety, Depression, Suicidal Ideation Physical Exam Vital Signs Temp Pulse Resp BP Pulse Ox 04/10/18 02:14 97.7 F 65 17 175/85 H 98 04/10/18 01:50 83 17 181/85 H 98 Appearance: Positive for: Well-Appearing, Non-Toxic Pain Distress: Severe Mental Status: Positive for: Alert and Oriented X 3 - Systems Exam Head: Present: Atraumatic, Normocephalic Pupils: Present: PERRL Extroacular Muscles: Present: EOMI Conjunctiva: Present: Normal Mouth: Present: Moist Mucous Membranes Neck: Present: Normal Range of Motion Respiratory/Chest: Present: Clear to Auscultation, Good Air Exchange. No: Respiratory Distress, Accessory Muscle Use Cardiovascular: Present: Regular Rate and Rhythm, Normal S1, S2. No: Murmurs Abdomen: No: Tenderness, Distention, Peritoneal Signs, Rebound, Guarding Back: Present: Normal Inspection, CVA Tenderness (positive left-side tenderness) . No: Midline Tenderness, Paraspinal Tenderness Upper Extremity: Present: Normal Inspection. No: Cyanosis, Edema Lower Extremity: Present: Normal Inspection. No: Edema Neurological: Present: GCS=15, CN II-XII Intact, Speech Normal, Motor Func Grossly Intact, Gait Normal, Memory Normal Skin: Present: Warm, Dry, Normal Color. No: Rashes Psychiatric: Present: Alert, Oriented x 3, Normal Insight, Normal Concentration Medical Decision Making ED Course and Treatment: 04/10/18 00:30 Impression: 77 year old female with left-side flank and chest pain. Differential Diagnoses: NE vs. Pylo vs. Pneumonia vs. Kidney Failure. Plan: -- EKG -- Abd/Pelvis CT -- Chest X-ray -- Labs/UA -- Morphine -- Nitroglycerin SL -- Urinalysis -- Oxygen 2L -- hospital monitor -- Reassess and disposition 04/10/18 02:13 -HEART Score is 6 -EKG: SR @ 94 BPM with PVC, non specific ST changes on the lead II/III/aVF and V5V6 region, compared with previous EKG -Chest xray show borderline cardiomegally, no active disease -CT abdomen and pelvis show: -Labs show no acute findings except wbc 11.9 -Lipase within normal limit. -BNP within normal limit -Troponin 1st set is negative -UA show +UTI, IV rocephine ordered -Pt. will need admission for observation for 24 hours troponin to rule out ACS as she stated that her pain relief with SL Nitro -I discussed all labs/radiology results with the patient and the daughter on the bed side, agreed to be admitted over night for observation -Paging Dr. Marcus for admission 04/10/18 02:18 -I spoke to Dr. Marcus about this case/labs/radiology study, agreed to admit the patient observation telemetry to her service with Dr. Odonnell on routine consult. -I discussed with DR. Rodgers, she will put in the admission order - Lab Interpretations Lab Results: 04/10/18 01:00 04/10/18 01:00 Lab Results 04/10/18 01:45: Urine Color Light yellow, Urine Appearance Clear, Urine pH 7.0, Ur Specific Harwood 1.020, Urine Protein 100 H, Urine Glucose (UA) Negative, Urine Ketones Negative, Urine Blood Trace-lysed H, Urine Nitrate Negative, Urine Bilirubin Negative, Urine Urobilinogen 0.2, Ur Leukocyte Esterase Trace H , Urine RBC 0 - 2, Urine WBC 1 - 3, Ur Epithelial Cells 1 - 3 04/10/18 01:00: Sodium 137, Potassium 4.0, Chloride 99, Carbon Dioxide 26, Anion Gap 16, BUN 10, Creatinine 0.8, Est GFR ( Amer) > 60, Est GFR (Non- Af Amer) > 60, Random Glucose 120 H, Calcium 9.2, Magnesium 1.9, Total Bilirubin 0.7, AST 33, ALT 30, Alkaline Phosphatase 103, Lactate Dehydrogenase 524, Total Creatine Kinase 57, Troponin I < 0.01, NT-Pro-B Natriuret Pep 350, Total Protein 8.3, Albumin 4.4, Globulin 3.9, Albumin/Globulin Ratio 1.1, Lipase 68 04/10/18 01:00: WBC 11.9 H D, RBC 5.18, Hgb 16.6 H, Hct 47.1, MCV 90.9, MCH 32.0 , MCHC 35.2, RDW 12.5, Plt Count 353, MPV 8.3, Gran % 57.9, Lymph % (Auto) 30.7 , Shoshone % (Auto) 9.7 H, Eos % (Auto) 1.4 L, Baso % (Auto) 0.3, Gran # 6.86 H, Lymph # (Auto) 3.6 H, Shoshone # (Auto) 1.2 H, Eos # (Auto) 0.2, Baso # (Auto) 0.03 - RAD Interpretation Radiology Orders: 04/10/18 00:35 ABD & PELVIS W/O PO OR IV CONT [CT] Stat CHEST PORTABLE [RAD] Stat Chest xray: --------- CT abdomen and pelvis: Circular Knitter: Radiologist - EKG Interpretation EKG Interpretation (Text): 04/10/18 01:07 -EKG: SR @ 94 BPM with PVC, non specific ST changes on the lead II/III/aVF and V5V6 region, compared with previous EKG Interpreted by ED Physician: Yes Type: 12 lead EKG Comparison: Com.w/previous EKG - Medication Orders Current Medication Orders: Sodium Chloride (Sodium Chloride 0.9%) 1,000 mls @ 100 mls/hr IV .Q10H ZOEY Ceftriaxone Sodium (Rocephin 1 Gram Ivpb) 1 gm in 100 mls @ 200 mls/hr IVPB STAT STA PRN Reason: Protocol Stop: 04/10/18 02:40 Discontinued Medications Morphine Sulfate (Morphine) 4 mg IVP STAT STA Stop: 04/10/18 00:37 Last Admin: 04/10/18 01:03 Dose: 4 mg MAR Pain Assessment Document 04/10/18 01:03 IT (Rec: 04/10/18 01:03 IT [id number]) Pain Reassessment Is this a pain reassessment? No Sleep Is patient sleeping during reassessment? No Presence of Pain Presence of Pain Yes Pain Scale Used Pain Scale Used Numeric Location Left, Right or Bilateral Left IVP Administration Document 04/10/18 01:03 IT (Rec: 04/10/18 01:03 IT [id number]) Charges for Administration # of IVP Administrations 1 Morphine Sulfate (Morphine) 2 mg IVP STAT STA Stop: 04/10/18 02:13 Nitroglycerin (Nitrostat Sl Tab) 0.3 mg SL STAT STA Stop: 04/10/18 00:37 Last Admin: 04/10/18 01:03 Dose: 0.3 mg Nitroglycerin (Nitrostat Sl Tab) 0.3 mg SL STAT STA Stop: 04/10/18 02:13 - PA / CLINICAL NURSE LEADER / Resident Statement MD/DO has reviewed & agrees with the documentation as recorded. - Scribe Statement The provider has reviewed the documentation as recorded by the El Montemayor Provider Scribe Attestation: All medical record entries made by the Estephanieibbiju were at my direction and personally dictated by me. I have reviewed the chart and agree that the record accurately reflects my personal performance of the history, physical exam, medical decision making, and the department course for this patient. I have also personally directed, reviewed, and agree with the discharge instructions and disposition. Disposition/Present on Arrival - Present on Arrival Any Indicators Present on Arrival: No History of DVT/PE: No History of Uncontrolled Diabetes: No Urinary Catheter: No History of Decub. Ulcer: No History Surgical Site Infection Following: None - Disposition Have Diagnosis and Disposition been Completed?: Yes Diagnosis: Chest pain, Abnormal EKG, UTI (urinary tract infection) Disposition: HOSPITALIZED Disposition Time: 01:34 Patient Plan: Observation, Telemetry Patient Problems: Current Active Problems Problem Status Onset Abnormal EKG Acute Chest pain Acute Pyelonephritis Acute Condition: GUARDED Discharge Instructions (ExitCare): Chest Pain (ED) Referrals: Pricila Marcus MD [Primary Care Provider] - Follow up with primary Forms: [email or web address] (Hungarian)
[2018-04-10 01:13] LABS: BASO # 0.03 K/mm3 (0.0-2.0); BASO % 0.3 % (0.0-3.0); EOS # 0.2 (0.0-0.7); EOS % 1.4 % (1.5-5.0); GRAN # 6.86 (1.4-6.5); GRAN % 57.9 % (50.0-68.0); HEMOGLOBIN 16.6 g/dL (12.0-16.0); LYMPH # 3.6 (1.2-3.4); LYMPH % 30.7 % (22.0-35.0); MEAN CELL VOLUME 90.9 fl (80.0-105.0); MEAN CORPUSCULAR HGB CONC 35.2 g/dl (31.0-37.0); MEAN PLATELET VOLUME 8.3 fl (7.0-11.0); MONO # 1.2 (0.1-0.6); MONO % 9.7 % (1.0-6.0); RBC 5.18 10^6/uL (3.5-6.1); RED CELL DISTRIBUTION WIDTH 12.5 % (11.5-14.5); WHITE BLOOD COUNT 11.9 10^3/ul (4.5-11.0)
[2018-04-10 01:20] LABS: ALB/GLOB RATIO 1.1 (1.1-1.8); ALBUMIN 4.4 g/dL (3.0-4.8); ALT/SGPT 30 U/L (7-56); AST/SGOT 33 U/L (14-36); BLOOD UREA NITROGEN 10 mg/dL (7-21); CALCIUM 9.2 mg/dL (8.4-10.5); GFR AFRICAN-AMERICAN > 60; GFR NON-AFRICAN AMERICAN > 60; LIPASE 68 U/L (23-300)
[2018-04-10 01:31] LABS: B-TYPE NATRIURETIC PEPTIDE 350 pg/mL (0-450); TROPONIN I < 0.01 ng/mL
[2018-04-10 01:57] LABS: URINE BILIRUBIN NEGATIVE (NEGATIVE); URINE BLOOD TRACE-LYSED (NEGATIVE); URINE GLUCOSE (UA) NEGATIVE (NEGATIVE); URINE LEUKOCYTE ESTERASE TRACE Leu/uL (NEGATIVE); URINE PROTEIN 100 mg/dL (<30 mg/dL); URINE UROBILINOGEN 0.2 E.U./dL (<1 E.U./dL)
[2018-04-10 02:09] LABS: URINE APPEARANCE CLEAR (CLEAR); URINE COLOR LIGHT YELLOW (YELLOW)
[2018-04-10 02:11] LABS: URINE RBC 0 - 2 /hpf (0-2)
[2018-04-10] MEDS ORDERED: cefTRIAXone 1 gm 1 GM/100 ML BAG IVPB STA (02:11)
[2018-04-10] MEDS ORDERED: Morphine 2 mg/ml ISec IVP STA (02:12)
[2018-04-10] MEDS: Sodium Chloride 0.9% 1,000 ML IV SCH ×4 (02:24→22:50)
[2018-04-10] MEDS ORDERED: Albuterol 0.083% Inhal Sol (2.5 mg/3 mL) UD IH PRN (05:40)
--- NOTE | 2018-04-10 08:35 | RAD ---
Date of service: 04/10/2018 HISTORY: chest pain COMPARISON: 03/07/2018 FINDINGS: LUNGS: No active pulmonary disease. PLEURA: No significant pleural effusion identified, no pneumothorax apparent. CARDIOVASCULAR: Mild cardiomegaly. Single lead pacemaker OSSEOUS STRUCTURES: No significant abnormalities. VISUALIZED UPPER ABDOMEN: Normal. OTHER FINDINGS: None. IMPRESSION: No active disease.
[2018-04-10] MEDS: diltiaZEM 120 mg/24 Hours CD Cap PO SCH (09:46)
[2018-04-10] MEDS: Fluticasone Nasal 50 mcg/Spray NS SCH ×2 (09:47→18:07)
--- NOTE | 2018-04-10 11:31 | CT ---
Date of service: 04/10/2018 PROCEDURE: CT Abdomen and Pelvis without intravenous contrast HISTORY: lt. flank pain COMPARISON: 03/07/2018 TECHNIQUE: Without contrast. Contrast dose: Radiation dose: Total exam DLP = 477 mGy-cm. This CT exam was performed using one or more of the following dose reduction techniques: Automated exposure control, adjustment of the mA and/or kV according to patient size, and/or use of iterative reconstruction technique. FINDINGS: LOWER THORAX: Unremarkable. LIVER: Unremarkable. No gross lesion or ductal dilatation. GALLBLADDER AND BILE DUCTS: Multiple stones are seen in the gallbladder PANCREAS: Unremarkable. No gross lesion or ductal dilatation. SPLEEN: Unremarkable. ADRENALS: Unremarkable. No mass. KIDNEYS AND URETERS: Unremarkable. No hydronephrosis. No solid mass. VASCULATURE: Unremarkable. No aortic aneurysm. BOWEL: Unremarkable. No obstruction. No gross mural thickening. APPENDIX: Unremarkable. Normal appendix. PERITONEUM: Unremarkable. No free fluid. No free air. LYMPH NODES: Unremarkable. No enlarged lymph nodes. BLADDER: Unremarkable. REPRODUCTIVE: Unremarkable. BONES: No acute fracture. OTHER FINDINGS: The report concurs with the preliminary [facility] report IMPRESSION: No evidence of urolithiasis. Gallstones
--- NOTE | 2018-04-10 12:22 | CP.PCM.CON ---
History of Present Illness - History of Present Illness History of Present Illness: 77 year old female with PMH of pre-DM, history of lower urinary tract infection with Klebsiella, CAD S/P PCI, HTN, history of cholelithiasis, history of UTI's was brought in to [facility] because of sudden onset lower back pain on the left as well as chest pain with tightness but no SOB. She was on Levaquin for probable UTI with symptoms of dysuria and finished her last (3rd dose) of Levaquin yesterday. She denies fever or chills, no nausea or vomiting, no chest pain, no SOB, no headache or dizziness, no abdominal pain, no flank pain, no diarrhea. She also has no more dysuria and has no hematuria. In the ED, she was noted to have high BP. Infectious diseases consult is requested to further evaluate and manage. Review of Systems - Review of Systems All systems: reviewed and no additional remarkable complaints except (as per HPI ) Past Patient History - Infectious Disease Hx of Infectious Diseases: None - Tetanus Immunizations Tetanus Immunization: Unknown - Past Medical History & Family History Past Medical History?: Yes - Past Social History Smoking Status: Never Smoked - CARDIAC Hx Cardiac Disorders: Yes Hx Angina: No Hx Cardia Arrhythmia: Yes (A Fib) Hx Circulatory Problems: No Hx Congestive Heart Failure: No Hx Heart Murmur: No Hx Heart Transplant: No Hx Hypercholesterolemia: Yes Hx Hypertension: Yes Hx Internal Defibrillator: No Hx Mitral Valve Prolapse: No Hx Pacemaker: Yes Hx Peripheral Edema: No Hx Peripheral Vascular Disease: No - PULMONARY Hx Respiratory Disorders: Yes Hx Asthma: Yes Hx Bronchitis: No Hx Chronic Obstructive Pulmonary Disease (COPD): Yes Hx Emphysema: No Hx Pneumonia: No Hx Respiratory Aspiration: No Hx Respiratory Tract Infection: No Hx Sleep Apnea: No Hx Tuberculosis: No - NEUROLOGICAL Hx Neurological Disorder: Yes (sciatica, tinnitus) Hx Alzheimer's Disease: No HX Cerebrovascular Accident: No Hx Dementia: No Hx Dizziness: No Hx Meningitis: No Hx Migraine: No Hx Parkinson's Disease: No Hx Seizures: No Hx Transient Ischemic Attacks (TIA): No - HEENT Hx HEENT Problems: Yes Hx Blind: No Hx Cataracts: Yes (removed) Hx Deafness: No Hx Difficulty Chewing: No Hx Epistaxis: No Hx Glaucoma: No Hx Macular Degeneration: No - RENAL Hx Chronic Kidney Disease: No Hx Dialysis: No Hx Kidney Stones: No Hx Neurogenic Bladder: No Hx Pyelonephritis: No Hx Renal (Kidney) Cancer: No Hx Renal Failure: No - ENDOCRINE/METABOLIC Hx Endocrine Disorders: No Hx Adrenal Cancer: No Hx Diabetes Insipidus: No Hx Diabetes Mellitus Type 1: No Hx Diabetes Mellitus Type 2: No Hx Hyperthyroidism: No Hx Hypothyroidism: No Hx Systemic Lupus Erythematosus: No - HEMATOLOGICAL/ONCOLOGICAL Hx Blood Disorders: No Hx AIDS: No Hx Anemia: No Hx Cancer: No Hx Chemotherapy: No Hx Cirrhosis: No Hx Hemophilia: No Hx Hepatitis A: No Hx Hepatitis B: No Hx Hepatitis C: No Hx Human Immunodeficiency Virus (HIV): No Hx Metastesis: No Hx Shingles: No Hx Sickle Cell Disease: No Hx Unexplained Bleeding: No - INTEGUMENTARY Hx Dermatological Problems: No Hx Basil Cell: No Hx Eczema: No Hx Melanoma: No Hx Psoriasis: No Hx Squamous Cell: No - MUSCULOSKELETAL/RHEUMATOLOGICAL Hx Musculoskeletal Disorders: Yes Hx Arthritis: Yes Hx Back Pain: Yes Hx Degenerative Joint Disease: No Hx Falls: No Hx Fractures: No Hx Gout: No Hx Herniated Disk: Yes Hx Myasthenia Gravis: No Hx Osteoarthritis: Yes Hx Osteomyelitis: No Hx Osteoporosis: No Hx Rhabdomyolysis: No Hx Spinal Stenosis: No Hx Unsteady Gait: No - GASTROINTESTINAL Hx Gastrointestinal Disorders: Yes (fatty liver) Hx Colostomy: No Hx Crohn's Disease: No Hx Diverticulitis: No Hx Gall Bladder Disease: Yes Hx Gastroesophageal Reflux: Yes Hx Ileostomy: No Hx Liver Failure: No Hx Pancreatitis: No HX Swallowing Problems: No Hx Ulcer: No - GENITOURINARY/GYNECOLOGICAL Hx Genitourinary Disorders: Yes Hx Hematuria: No Hx Incontinence: Yes Hx Sexually Transmitted Disorders: No Hx Urinary Tract Infection: Yes - PSYCHIATRIC Hx Psychophysiologic Disorder: No Hx Anxiety: No Hx Bipolar Disorder: No Hx Depression: No Hx Emotional Abuse: No Hx Hallucinations: No Hx Panic Symptoms: No Hx Paranoia: No Hx Post Traumatic Stress Disorder: No Hx Psychosis: No Hx Physical Abuse: No Hx Schizophrenia: No Hx Sexual Abuse: No Hx Substance Use: No - SURGICAL HISTORY Hx Surgeries: Yes (pacemaker insertion, cataract removal.) Hx Amputation: No Hx Appendectomy: No Hx Cardiac Catheterization: Yes (stent x1) Hx Cholecystectomy: No Hx Coronary Stent: Yes (x1) Hx Gastric Bypass Surgery: No Hx Hysterectomy: No Hx Joint Replacement: No Hx Kidney Transplant: No Hx Liver Transplant: No Hx Mastectomy: No Hx Musculoskeletal Surgery: No Hx Open Heart Surgery: No Hx Orthopedic Surgery: No Hx Splenectomy: No Hx Valve Replacement: No - ANESTHESIA Hx Anesthesia: Yes Hx Anesthesia Reactions: No Hx Malignant Hyperthermia: No Meds Allergies/Adverse Reactions: Allergies Allergy/AdvReac Type Severity Reaction Status Date / Time No Known Allergies Allergy Verified 03/07/18 05:24 - Medications Medications: Current Medications Albuterol Sulfate (Albuterol 0.083% Inhal Mignon (2.5 Mg/3 Ml) Ud) 2.5 mg IH [id number] PRN PRN Reason: Shortness of Breath Apixaban (Eliquis) 5 mg PO BID [facility] PRN Reason: Protocol Last Admin: 04/10/18 09:47 Dose: 5 mg Aspirin (Ecotrin) 81 mg PO DAILY [facility] Last Admin: 04/10/18 09:46 Dose: 81 mg Atorvastatin Calcium (Lipitor) 20 mg PO DIN [facility] Diltiazem HCl (Cardizem Cd) 120 mg PO DAILY [facility] Last Admin: 04/10/18 09:46 Dose: 120 mg Famotidine (Pepcid) 20 mg PO 1000,2200 [facility] Last Admin: 04/10/18 09:46 Dose: 20 mg Fluticasone Propionate (Flonase) 1 actuation NS BID [facility] Last Admin: 04/10/18 09:47 Dose: 1 spr Gabapentin (Neurontin) 300 mg PO DAILY [facility] PRN Reason: Protocol Last Admin: 04/10/18 09:46 Dose: 300 mg Sodium Chloride (Sodium Chloride 0.9%) 1,000 mls @ 100 mls/hr IV .Q10H [facility] Last Admin: 04/10/18 02:24 Dose: 100 mls/hr Loratadine (Claritin) 10 mg PO DAILY [facility] Last Admin: 04/10/18 09:46 Dose: 10 mg Meclizine HCl (Antivert) 12.5 mg PO TID [facility] Last Admin: 04/10/18 09:47 Dose: 12.5 mg Metoprolol Tartrate (Lopressor) 25 mg PO BID [facility] Last Admin: 04/10/18 09:46 Dose: 25 mg Montelukast Sodium (Singulair) 10 mg PO HS [facility] Ursodiol (Actigall) 300 mg PO BID [facility] Last Admin: 04/10/18 10:04 Dose: 300 mg Physical Exam - Constitutional Appears: Non-toxic, Chronically Ill - Head Exam Head Exam: NORMAL INSPECTION - ENT Exam ENT Exam: Mucous Membranes Moist - Neck Exam Neck exam: Negative for: Meningismus - Respiratory Exam Respiratory Exam: Decreased Breath Sounds. absent: Rales - Cardiovascular Exam Cardiovascular Exam: +S1, +S2 - GI/Abdominal Exam GI & Abdominal Exam: Soft. absent: Tenderness Results - Vital Signs Recent Vital Signs: Last Vital Signs Temp 98.1 F 04/10/18 06:00 Pulse 80 04/10/18 09:46 Resp 19 04/10/18 06:00 BP 177/93 H 04/10/18 09:46 Pulse Ox 97 04/10/18 06:00 - Labs Result Diagrams: 04/10/18 01:00 04/10/18 01:00 Assessment & Plan - Assessment and Plan (Free Text) Plan: Assessment lower tract UTI treated with 3 days of levaquin lower urinary tract infection with Klebsiella CAD S/P PCI HTN history of cholelithiasis history of UTI's Plan was also given a dose of Rocephin in the ED; reviewed urinalysis which only shows 1-3 WBC and no bacteria - will monitor off antibiotics and check urine cx
--- NOTE | 2018-04-10 14:33 | CON ---
DATE: 04/10/[address] Odonnell. HISTORY: The patient is a 77-year-old woman with a history of hypertension, pacemaker placement, hypercholesterolemia and recurrent dizziness. She has chronic atrial fibrillation, in which she is currently on Eliquis at home. She was taking her blood pressure while she was having pain from her sciatica and which was elevated; according to her, it was 180-190 systolic. This caused her have an anxiety issue and she came into the hospital. A catheterization performed recently reported by the family was with normal coronary arteries. SOCIAL HISTORY: The patient does not smoke. REVIEW OF SYSTEMS: Marked by marked anxiety. She takes her blood pressure five times a day. She is compliant with medications. No chest pain noted. PHYSICAL EXAMINATION: VITAL SIGNS: Blood pressure varies from 144 to 177 systolic, heart rates in the 80s. NECK: Negative JVD. LUNGS: Without rales. HEART: Reveal S1, S2. EXTREMITIES: Without edema. DATA: The EKG shows normal sinus rhythm with PVCs. First troponin is negative. Glucose is 120, hemoglobin is 16.6. IMPRESSION: 1. Marked anxiety. 2. Paroxysmal atrial fibrillation. 3. Premature ventricular contractions. 4. Diabetes mellitus. 5. History of pacemaker placement. 6. Sciatica. Given these findings, we will add lisinopril to her medical regimen. We will discontinue her beta-blockers. We will begin ambulation. We will observe for serial troponins. Everett Clancy MD
--- NOTE | 2018-04-10 21:00 | CARD ---
APPROVED REPORT Date of service: 04/10/2018 EKG Measurement Heart [id number] <Conclusion> Sinus rhythm with frequent premature ventricular complexes in a pattern of bigeminy Possible Left atrial enlargement ST & T wave abnormality, consider anterolateral ischemia Abnormal ECG
[2018-04-11 07:29] LABS: HEMOGLOBIN 14.9 g/dL (12.0-16.0); MEAN CELL VOLUME 91.1 fl (80.0-105.0); MEAN CORPUSCULAR HEMOGLOBIN 31.6 pg (25.0-35.0); MEAN CORPUSCULAR HGB CONC 34.7 g/dl (31.0-37.0); MEAN PLATELET VOLUME 8.2 fl (7.0-11.0); RBC 4.71 10^6/uL (3.5-6.1); RED CELL DISTRIBUTION WIDTH 12.5 % (11.5-14.5); WHITE BLOOD COUNT 9.9 10^3/ul (4.5-11.0)
[2018-04-11 08:00] LABS: BLOOD UREA NITROGEN 10 mg/dL (7-21); CALCIUM 9.1 mg/dL (8.4-10.5); GFR AFRICAN-AMERICAN > 60; GFR NON-AFRICAN AMERICAN > 60; HDL CHOLESTEROL 59 mg/dL (29-60)
[2018-04-11 08:03] LABS: IRON 113 ug/dL (45-180)
[2018-04-11 08:14] LABS: % IRON SATURATION 35 % (20-55); TOTAL IRON BINDING CAPACITY 321 ug/dL (265-497)
[2018-04-11 08:22] LABS: LDL CHOLESTEROL < 30 mg/dL (0-129)
[2018-04-11] MEDS: diltiaZEM 120 mg/24 Hours CD Cap PO SCH (09:57)
[2018-04-11] MEDS: Fluticasone Nasal 50 mcg/Spray NS SCH ×2 (10:02→18:10)
--- NOTE | 2018-04-11 12:47 | PN ---
DATE: 04/11/2018 CARDIOLOGY FOLLOWUP SUBJECTIVE: Patient is feeling much better, less anxiety, less palpitations. OBJECTIVE: VITAL SIGNS: Blood pressure 171/97, heart rate is in the 70s. NECK: Negative JVD. LUNGS: Without rales. HEART: S1, S2. EXTREMITIES: Without edema. LABORATORY DATA: Hemoglobin is 14.9. Chemistries, BUN and creatinine are unremarkable. IMPRESSION: 1. Resolution of palpitations. 2. Hypertension. 3. Paroxysmal atrial fibrillation. 4. Diabetes mellitus. Given these findings, we will discontinue telemetry today. We will increase her lisinopril to 5 for better blood pressure control. In the morning, we will return the care of the patient back to Dr. Odonnell. Everett Clancy MD
--- NOTE | 2018-04-11 13:49 | CON ---
DATE: 04/11/2018 GASTROENTEROLOGY CONSULTATION REQUESTING PHYSICIAN: Pricila Marcus MD REASON FOR CONSULTATION: I have been asked to see this 77-year-old female with multiple comorbidities including poorly controlled hypertension, atrial fibrillation on Eliquis, status post permanent pacemaker placement, hypercholesterolemia, urinary tract infection, anxiety, gallstones, who comes to the hospital for dizziness and elevated blood pressure. The patient took her blood pressure at home and it was noted to be between 180 and 190, prompting her to come to the emergency room. The patient recently had a cardiac catheterization which was apparently normal. She is known to have gallstones, but this is asymptomatic without any reports of biliary colic. Hepatobiliary scan done several months ago was negative. Again, she denies any abdominal pain, nausea, vomiting. She does admit to occasional bloating, abdominal distention and constipation which is relieved by prune juice. PAST MEDICAL HISTORY: As above. Again, she has a history of atrial fibrillation on Eliquis, hypertension, urinary tract infection, hyperlipidemia, anxiety disorder. PAST SURGICAL HISTORY: Notable for permanent pacemaker placement. SOCIAL HISTORY: She denies cigarette smoking or alcohol use. FAMILY HISTORY: Noncontributory. REVIEW OF SYSTEMS: A 14-point review of systems is just noted for dizziness and occasional abdominal bloating. MEDICATIONS AT HOME: Include ursodiol, albuterol, Antivert, diltiazem, Claritin, aspirin, Eliquis, fluticasone, Lipitor, Neurontin, Pepcid, Singulair, tramadol and lisinopril. PHYSICAL EXAMINATION: GENERAL: Well-developed female, lying in bed, in no acute distress. VITAL SIGNS: Reveal temperature of 98.4, blood pressure 171/97, heart rate of 73. HEENT: Reveal sclerae to be white. Conjunctivae pink. NECK: Supple. CHEST: Lungs are clear. HEART: Reveals an irregular rate. ABDOMEN: Softly distended, nontender. No mass. EXTREMITIES: Show no edema. LABORATORY DATA: Reveal white blood cell count 9.9, hemoglobin 14.9. Chemistries reveal normal electrolytes. AST, ALT, alk phos were all normal. IMPRESSION: 1. Uncontrolled hypertension. 2. Chronic atrial fibrillation. 3. Asymptomatic gallstones. RECOMMENDATIONS: 1. Continue current treatment as per Cardiology. 2. No further GI treatment or workup is needed at this time. 3. Low-fat diet. Rakesh Jin MD [facility] # [id number]
--- NOTE | 2018-04-11 14:44 | CP.PCM.PN ---
Subjective - Date & Time of Evaluation Date of Evaluation: 04/11/18 Time of Evaluation: 09:55 - Subjective Subjective: Patient is still anxious about her blood pressure and her left sided sciatica. Denies dysuria, no flank pain, no hematuria, no fevers. Objective - Vital Signs/Intake and Output Vital Signs (last 24 hours): Temp Pulse Resp BP Pulse Ox 98.4 F 78 20 155/90 H 97 04/11/18 06:00 04/11/18 06:00 04/11/18 06:00 04/11/18 06:00 04/11/18 06:00 Intake and Output: 04/10/18 04/11/18 18:59 06:59 Intake Total 2040 240 Output Total 600 650 Balance 1440 -410 - Medications Medications: Current Medications Albuterol Sulfate (Albuterol 0.083% Inhal Mignon (2.5 Mg/3 Ml) Ud) 2.5 mg IH [id number] PRN PRN Reason: Shortness of Breath Apixaban (Eliquis) 5 mg PO BID [facility] PRN Reason: Protocol Last Admin: 04/10/18 18:03 Dose: 5 mg Aspirin (Ecotrin) 81 mg PO DAILY [facility] Last Admin: 04/10/18 09:46 Dose: 81 mg Atorvastatin Calcium (Lipitor) 20 mg PO DIN [facility] Last Admin: 04/10/18 18:03 Dose: 20 mg Diltiazem HCl (Cardizem Cd) 120 mg PO DAILY [facility] Last Admin: 04/10/18 09:46 Dose: 120 mg Famotidine (Pepcid) 20 mg PO 1000,2200 [facility] Last Admin: 04/10/18 22:46 Dose: 20 mg Fluticasone Propionate (Flonase) 1 actuation NS BID [facility] Last Admin: 04/10/18 18:07 Dose: 1 spr Gabapentin (Neurontin) 300 mg PO DAILY [facility] PRN Reason: Protocol Last Admin: 04/10/18 09:46 Dose: 300 mg Sodium Chloride (Sodium Chloride 0.9%) 1,000 mls @ 100 mls/hr IV .Q10H [facility] Last Admin: 04/10/18 13:50 Dose: 100 mls/hr Lisinopril (Zestril) 2.5 mg PO DAILY [facility] Last Admin: 04/10/18 11:59 Dose: 2.5 mg Loratadine (Claritin) 10 mg PO DAILY [facility] Last Admin: 04/10/18 09:46 Dose: 10 mg Meclizine HCl (Antivert) 12.5 mg PO TID [facility] Last Admin: 04/10/18 18:03 Dose: 12.5 mg Montelukast Sodium (Singulair) 10 mg PO HS [facility] Last Admin: 04/10/18 22:46 Dose: 10 mg Tramadol HCl (Ultram) 50 mg PO Q8 PRN PRN Reason: Pain Last Admin: 04/11/18 06:00 Dose: 50 mg Ursodiol (Actigall) 300 mg PO BID [facility] Last Admin: 04/10/18 18:03 Dose: 300 mg - Constitutional Appears: Non-toxic, Chronically Ill - Head Exam Head Exam: NORMAL INSPECTION - Neck Exam Neck Exam: absent: Meningismus - Respiratory Exam Respiratory Exam: Decreased Breath Sounds - Cardiovascular Exam Cardiovascular Exam: +S1, +S2 - GI/Abdominal Exam GI & Abdominal Exam: Soft. absent: Tenderness Assessment and Plan - Assessment and Plan (Free Text) Plan: Assessment lower tract UTI treated with 3 days of levaquin lower urinary tract infection with Klebsiella CAD S/P PCI HTN history of cholelithiasis history of UTI's Plan was also given a dose of Rocephin in the ED; reviewed urinalysis which only shows 1-3 WBC and no bacteria - will continue to monitor off antibiotics and follow up urine cx
--- NOTE | 2018-04-12 07:28 | CP.PCM.PN ---
Subjective - Date & Time of Evaluation Date of Evaluation: 04/12/18 Time of Evaluation: 06:20 - Subjective Subjective: Awake, alert, no distress, denies chest pain, claimed blood pressure is high in this morning, left hip pain due to sciatica Reason for consultation and follow up: Cardiac evaluation for chest pain, history of atrial fibrillation on Eliquis, diabetes,hypertension,hyperlipidemia, COPD, coronary artery disease with stent, PPM (2016). Being treated for urinary tract infection prior to admission. Seen and examined by me and Dr. Odonnell Objective - Vital Signs/Intake and Output Vital Signs (last 24 hours): Temp Pulse Resp BP Pulse Ox 98.1 F 77 19 175/96 H 98 04/11/18 18:00 04/11/18 18:00 04/11/18 18:00 04/12/18 06:26 04/11/18 18:00 - Medications Medications: Current Medications Albuterol Sulfate (Albuterol 0.083% Inhal Mignon (2.5 Mg/3 Ml) Ud) 2.5 mg IH [id number] PRN PRN Reason: Shortness of Breath Apixaban (Eliquis) 5 mg PO BID [facility] PRN Reason: Protocol Last Admin: 04/11/18 18:09 Dose: 5 mg Aspirin (Ecotrin) 81 mg PO DAILY [facility] Last Admin: 04/11/18 09:56 Dose: 81 mg Atorvastatin Calcium (Lipitor) 20 mg PO DIN [facility] Last Admin: 04/11/18 18:08 Dose: 20 mg Diltiazem HCl (Cardizem Cd) 120 mg PO DAILY [facility] Last Admin: 04/11/18 09:57 Dose: 120 mg Famotidine (Pepcid) 20 mg PO 1000,2200 [facility] Last Admin: 04/11/18 21:37 Dose: 20 mg Fluticasone Propionate (Flonase) 1 actuation NS BID [facility] Last Admin: 04/11/18 18:10 Dose: 1 spr Gabapentin (Neurontin) 300 mg PO HS [facility] PRN Reason: Protocol Lisinopril (Zestril) 5 mg PO DAILY [facility] Loratadine (Claritin) 10 mg PO DAILY [facility] Last Admin: 04/11/18 09:57 Dose: 10 mg Meclizine HCl (Antivert) 12.5 mg PO TID [facility] Last Admin: 04/11/18 18:09 Dose: 12.5 mg Montelukast Sodium (Singulair) 10 mg PO HS [facility] Last Admin: 04/11/18 21:37 Dose: 10 mg Tramadol HCl (Ultram) 50 mg PO Q8 PRN PRN Reason: Pain Last Admin: 04/12/18 06:26 Dose: 50 mg Ursodiol (Actigall) 300 mg PO BID [facility] Last Admin: 04/11/18 18:09 Dose: 300 mg - Constitutional Appears: No Acute Distress - ENT Exam ENT Exam: Mucous Membranes Moist - Respiratory Exam Respiratory Exam: Clear to Ausculation Bilateral, NORMAL BREATHING PATTERN - Cardiovascular Exam Cardiovascular Exam: +S1, +S2 Additional comments: PPM denies chest pain - GI/Abdominal Exam GI & Abdominal Exam: Soft, Normal Bowel Sounds - Extremities Exam Extremities Exam: Normal Capillary Refill Additional comments: pain left hip due to sciatica - Neurological Exam Neurological Exam: Alert, Awake, Oriented x3 - Psychiatric Exam Psychiatric exam: Anxious - Skin Skin Exam: Dry, Normal Color, Warm Assessment and Plan - Assessment and Plan (Free Text) Assessment: A 77 year old female, who came in to the ER due to left side/flank pain radiating to chest.Patient has urinary tract infection prior to admission and being treated with Levaquin. She also has history of sciatica.History of atrial fibrillation on Eliquis, diabetes,hypertension hyperlipidemia, COPD,GERD, nephrolithiasis, cholelithiasis, coronary artery disease with stent, Sick sinus syndrome/PPM (2016). Review of previous cardiac work up: 02/11/17 ECHO LVEF 55-50% Mild AR/MR/TR 11/30/17- Cardiac catheterization done ( admitted due to unstable angina) Patent stent of proximal LAD (previous PCI 09/28/2007) Moderate disease of Diagonal 2 -56%, diffuse disease,non flow, small caliber vessel, LVEF 60-65%. Optimal medical therapy at that time. Plan: Atypical chest pain Left hip pain radiating to chest due to sciatica Uncontrolled blood pressure Given IV Hydralazine On Eliquis 5 mg daily,ASA 81 mg daily,Lipitor 20 mg daily, Cardizem CD 120 mg daily Lisinopril 5 mg daily Will order Echo to evaluate LV function Troponin x 2 normal Tramadol PRN for left hip pain ID on consult for UTI, completed Levaquin Continue current treatment Continue current medications Will follow up Plan and treatment discussed with Dr. Odonnell
[2018-04-12] MEDS: diltiaZEM 120 mg/24 Hours CD Cap PO SCH (08:11)
--- NOTE | 2018-04-12 08:25 | HP ---
CHIEF COMPLAINT: Chest pain. HISTORY OF PRESENT ILLNESS: Ms. Susana Pena is a 77-year-old female with past medical history of prediabetic hypertension, hypercholesterolemia, COPD, atrial fibrillation, pyelonephritis, cholelithiasis, came to the Emergency Department complaining of sudden onset of left-sided flank and chest pain started 30 minutes before she came. The patient states that flank and chest pain was radiating to the midsternum region. Described as sharp pain. The patient reports that she woke up at night with pain, immediately called the ambulance. She mentioned that she is currently being treated for UTI. Actually, she had repeated UTI. We did her culture and sensitivity; however, she was sensitive to Levaquin. I gave her 3 days dose of Levaquin and now we will repeat her urine test again. The patient denies any fever, chills or any other complaints. PAST MEDICAL HISTORY: As above. Angina, hypertension, COPD, pacemaker , pyelonephritis, cholelithiasis, UTI, cardiac catheterization. FAMILY HISTORY: Father and mother, noncontributory. HABITS: No smoking. No drugs. No ethanol. ALLERGIES: THE PATIENT IS NOT ALLERGIC WITH ANY MEDICATIONS. HOME MEDICATIONS: Aspirin, Pepcid, ursodiol, Ventolin. REVIEW OF SYSTEMS: The patient was seen and examined on the bedside. was sitting on the bedside also. At that moment, she is still having chest pain and flank pain. No fatigue, fever, night sweats. No hearing changes. No shortness of breath or coughing. Chest pain on the left side. No abdominal pain, nausea, or vomiting. Having left-sided flank pain. No rash or pruritus. No headache or dizziness. No anxiety, depression or suicidal ideation. PHYSICAL EXAMINATION: VITAL SIGNS: Temperature 97.7, pulse 65, respiratory rate 17, blood pressure 175/85, p 98. HEENT: Head normocephalic, atraumatic. Eyes: PERRLA. Extraocular muscles intact. Conjunctivae clear. Nose patent. Mucous membranes moist. NECK: Supple. No carotid bruit. No JVD or thyromegaly. CHEST: Bilaterally symmetrical. HEART: S1 and S2 positive. LUNGS: Clear to auscultation. ABDOMEN: Soft. Bowel sounds present. No organomegaly. EXTREMITIES: No edema, no cyanosis. NEUROLOGICAL: Patient is awake and alert. Moving all four extremities. No focal deficits. LABORATORY DATA: White blood cell 11.9, hemoglobin 15.6, hematocrit 47.1, platelets 353. Sodium 137, potassium 4, BUN 10, creatinine 0.8, glucose 120. ASSESSMENT AND PLAN: Mr. Susana Pena is a 77-year-old lady with leukocytosis, abnormal EKG, chest pain, rule out pyelonephritis, history of prediabetes, hypercholesterolemia, hypertension, chronic obstructive pulmonary disease, atrial fibrillation, on blood thinner, pyelonephritis, history of urinary tract infection, completed a course of Levaquin. We will repeat urinalysis. Infectious Disease is on the case. Legal Paraprofessional is on the case. Appreciated Dr. Everett Clancy's input. History of herniated disk and spinal stenosis, getting treatment from Dr. Tristen Maher. He already gave her one intrathecal injection, waiting for the second one. Continue present treatment, gastrointestinal and deep venous thrombosis prophylaxis. Repeat labs. We will follow up. Pricila Marcus MD MTDConnie
--- NOTE | 2018-04-12 08:42 | PN ---
DATE: 04/11/2018 SUBJECTIVE: Patient was seen and examined on the bedside, looking comfortable, less anxiety, but still complaining about pain, chest pain, back pain, flank pain. No hematuria or hematochezia. No swelling of the leg. No headache. No dizziness. PHYSICAL EXAMINATION: VITAL SIGNS: Temperature 98.4, blood pressure 171/97, heart rate 73. HEENT: Head: Normocephalic, atraumatic. Eyes: PERRLA. Extraocular muscles intact. Conjunctivae clear. Nose patent. Mucous membrane moist. NECK: Supple. No carotid bruit, JVD, or thyromegaly. CHEST: Bilaterally symmetrical. HEART: S1 and S2 positive. LUNGS: Clear to auscultation. ABDOMEN: Soft. Bowel sounds present. No organomegaly. EXTREMITIES: No edema. No cyanosis. NEUROLOGIC: Patient is awake and alert. Moving all 4 extremities. No focal deficits. MEDICATIONS: Actigall, Antivert, Cardizem, loratadine, Ecotrin, Eliquis, Lipitor, Neurontin, Pepcid, Singulair, tramadol and Zestril. LABORATORY DATA: White blood cells 9.9, hemoglobin 14.9, hematocrit 42.9, platelets 297. Sodium 141, potassium 4.3, BUN 10, creatinine 0.7, hemoglobin A1c 6.3. ASSESSMENT AND PLAN: Ms. Susana Pena is a 77-year-old female with leukocytosis ,uncontrolled diabetes mellitus, uncontrolled hypertension; history of atrial fibrillation, on Eliquis; urinary tract infection, hypercholesterolemia, history of anxiety disorder; asymptomatic gallstones, gastroesophageal reflux disease, dyspepsia. Continue present treatment as per Cardiology. According to GI, no further treatment. Low-fat diet. She has been seen by Dr. Lj Heath for history of urinary tract infection. Patient had urinary tract infection with Klebsiella. Got a dose of Rocephin. Now, ID want to monitor the patient, off the antibiotics, and follow up urine cultures. Gastrointestinal and deep vein thrombosis prophylaxis. Repeat labs. We will follow up. Pricila Marcus MD MTDConnie
[2018-04-12] MEDS: Fluticasone Nasal 50 mcg/Spray NS SCH ×2 (10:40→18:03)
--- NOTE | 2018-04-12 14:56 | CP.PCM.PN ---
Subjective - Date & Time of Evaluation Date of Evaluation: 04/12/18 Time of Evaluation: 11:50 - Subjective Subjective: Patient denies fever, no dysuria, has occasional urinary frequency which she attributes to her overactive bladder. Objective - Vital Signs/Intake and Output Vital Signs (last 24 hours): Temp Pulse Resp BP Pulse Ox 97.8 F 92 H 18 175/96 H 97 04/12/18 08:38 04/12/18 08:38 04/12/18 08:38 04/12/18 08:38 04/12/18 08:38 - Medications Medications: Current Medications Albuterol Sulfate (Albuterol 0.083% Inhal Mignon (2.5 Mg/3 Ml) Ud) 2.5 mg IH [id number] PRN PRN Reason: Shortness of Breath Apixaban (Eliquis) 5 mg PO BID [facility] PRN Reason: Protocol Last Admin: 04/12/18 10:39 Dose: 5 mg Aspirin (Ecotrin) 81 mg PO DAILY [facility] Last Admin: 04/12/18 10:39 Dose: 81 mg Atorvastatin Calcium (Lipitor) 20 mg PO DIN [facility] Last Admin: 04/11/18 18:08 Dose: 20 mg Diltiazem HCl (Cardizem Cd) 120 mg PO DAILY [facility] Last Admin: 04/12/18 08:11 Dose: 120 mg Famotidine (Pepcid) 20 mg PO 1000,2200 [facility] Last Admin: 04/12/18 10:40 Dose: 20 mg Fluticasone Propionate (Flonase) 1 actuation NS BID [facility] Last Admin: 04/12/18 10:40 Dose: 1 spr Gabapentin (Neurontin) 300 mg PO [facility] PRN Reason: Protocol Hydralazine HCl (Apresoline) 10 mg IVP Q6 [facility] Lisinopril (Zestril) 5 mg PO DAILY [facility] Last Admin: 04/12/18 08:10 Dose: 5 mg Loratadine (Claritin) 10 mg PO DAILY [facility] Last Admin: 04/12/18 10:39 Dose: 10 mg Meclizine HCl (Antivert) 12.5 mg PO TID [facility] Last Admin: 04/12/18 10:39 Dose: 12.5 mg Montelukast Sodium (Singulair) 10 mg PO HS [facility] Last Admin: 04/11/18 21:37 Dose: 10 mg Tramadol HCl (Ultram) 50 mg PO Q8 PRN PRN Reason: Pain Last Admin: 04/12/18 06:26 Dose: 50 mg Ursodiol (Actigall) 300 mg PO BID [facility] Last Admin: 04/12/18 10:39 Dose: 300 mg - Constitutional Appears: Non-toxic, Chronically Ill - Head Exam Head Exam: NORMAL INSPECTION - ENT Exam ENT Exam: Mucous Membranes Moist - Neck Exam Neck Exam: absent: Meningismus - Respiratory Exam Respiratory Exam: Decreased Breath Sounds - Cardiovascular Exam Cardiovascular Exam: +S1, +S2 - GI/Abdominal Exam GI & Abdominal Exam: Soft. absent: Tenderness Assessment and Plan - Assessment and Plan (Free Text) Plan: Assessment lower tract UTI treated with 3 days of levaquin lower urinary tract infection with Klebsiella CAD S/P PCI HTN history of cholelithiasis history of UTI's Plan was also given a dose of Rocephin in the ED; reviewed urinalysis which only shows 1-3 WBC and no bacteria, repeat urine cx is showing contamination - will continue to monitor off antibiotics
--- NOTE | 2018-04-12 18:13 | CARD ---
APPROVED REPORT Date of service: 04/12/2018 EXAM: Two-dimensional and M-mode echocardiogram with Doppler and color Doppler. INDICATION LV Function:SystolicDiastolic 2D DIMENSIONS Left Atrium (2D)3.7 (1.6-4.0cm)IVSd1.4 (0.7-1.1cm) LVDd3.4 (3.9-5.9cm)PWd1.5 (0.7-1.1cm) LVDs2.3 (2.5-4.0cm)FS (%) 32.8 % LVEF (%)62.6 (>50%) M-Mode DIMENSIONS Aortic Root3.20 (2.2-3.7cm)Aortic Cusp Exc.1.20 (1.5-2.0cm) Aortic Valve AoV Peak Yrbnsfme807.0cm/Susan Peak GR.16mmHg Mitral Valve MV E Hskchgsg06.1cm/sMV A Auvaizmr73.0cm/sE/A ratio0.7 TDI E/Lateral E'0.0E/Medial E'0.0 Tricuspid Valve TR Peak Fmpdiewd285kq/sRAP [id number] Peak Gr.18mmHg [id number] LEFT VENTRICLE The left ventricle is normal size. There is mild concentric left ventricular hypertrophy. The left ventricular function is normal.EF-65% There is normal LV segmental wall motion. Transmitral Doppler flow pattern is Grade III-reversible restrictive diastolic dysfunction. No left ventricle thrombus noted on this study. There is no ventricular septal defect visualized. There is no left ventricular aneurysm. There is no mass noted in the left ventricle. RIGHT VENTRICLE The right ventricle is normal size. There is normal right ventricular wall thickness. The right ventricular systolic function is normal. There is a pacemaker lead in the right ventricle. ATRIA The left atrium is mildly dilated. The right atrium size is normal. There is a catheter/pacemaker lead seen in the right atrium. The interatrial septum is intact with no evidence for an atrial septal defect. AORTIC VALVE The aortic valve is thickened but opens well. The aortic valve is moderately sclerotic. There is mild aortic regurgitation. There is no aortic valvular stenosis. There is no aortic valvular vegetation. MITRAL VALVE The mitral valve is thickened but opens well. Mitral regurgitation is trace. There is no mitral valve stenosis. There is no evidence of mitral valve prolapse. TRICUSPID VALVE The tricuspid valve leaflets are thickened , but open well. There is mild tricuspid regurgitation.RVSP-28 mmof hg. There is no tricuspid valve stenosis. There is no tricuspid valve prolapse or vegetation. PULMONIC VALVE The pulmonic valve is borderline thickened. There is trace pulmonic valvular regurgitation. There is no pulmonic valvular stenosis. GREAT VESSELS The aortic root is normal in size. The ascending aorta is normal in size. The pulmonary artery is normal. The IVC is normal in size and collapses >50% with inspiration. PERICARDIAL EFFUSION There is no pleural effusion. There is no pericardial effusion. <Conclusion> The left ventricle is normal size. There is mild concentric left ventricular hypertrophy. The left ventricular function is normal.EF-65% There is mild aortic regurgitation. There is no aortic valvular stenosis. There is mild tricuspid regurgitation.RVSP-28 mmof hg. The IVC is normal in size and collapses >50% with inspiration. There is no pericardial effusion. There is a pacemaker lead in the right ventricle.
--- NOTE | 2018-04-13 06:00 | CP.PCM.PN ---
Subjective - Date & Time of Evaluation Date of Evaluation: 04/13/18 Time of Evaluation: 06:20 - Subjective Subjective: Awake, alert, no distress, moderate to severe left hip pain due to sciatica Reason for consultation and follow up: Cardiac evaluation for chest pain, history of atrial fibrillation on Eliquis, diabetes,hypertension,hyperlipidemia, COPD, coronary artery disease with stent, PPM (2016). Being treated for urinary tract infection prior to admission. Seen and examined by me and Dr. Odonnell Objective - Vital Signs/Intake and Output Vital Signs (last 24 hours): Temp Pulse Resp BP Pulse Ox 97.8 F 93 H 18 117/71 97 04/12/18 08:38 04/12/18 10:30 04/12/18 08:38 04/12/18 18:04 04/12/18 08:38 Intake and Output: 04/12/18 04/13/18 18:59 06:59 Intake Total 600 Balance 600 - Medications Medications: Current Medications Albuterol Sulfate (Albuterol 0.083% Inhal Mignon (2.5 Mg/3 Ml) Ud) 2.5 mg IH [id number] PRN PRN Reason: Shortness of Breath Apixaban (Eliquis) 5 mg PO BID [facility] PRN Reason: Protocol Last Admin: 04/12/18 18:03 Dose: 5 mg Aspirin (Ecotrin) 81 mg PO DAILY [facility] Last Admin: 04/12/18 10:39 Dose: 81 mg Atorvastatin Calcium (Lipitor) 20 mg PO DIN [facility] Last Admin: 04/12/18 18:04 Dose: 20 mg Diltiazem HCl (Cardizem Cd) 120 mg PO DAILY [facility] Last Admin: 04/12/18 08:11 Dose: 120 mg Famotidine (Pepcid) 20 mg PO 1000,2200 [facility] Last Admin: 04/12/18 21:41 Dose: 20 mg Fluticasone Propionate (Flonase) 1 actuation NS BID [facility] Last Admin: 04/12/18 18:03 Dose: 1 spr Gabapentin (Neurontin) 300 mg PO HS [facility] PRN Reason: Protocol Last Admin: 04/12/18 21:40 Dose: 300 mg Hydralazine HCl (Apresoline) 10 mg PO QID PRN PRN Reason: for SBP>170 Lisinopril (Zestril) 5 mg PO DAILY [facility] Last Admin: 04/12/18 08:10 Dose: 5 mg Loratadine (Claritin) 10 mg PO DAILY [facility] Last Admin: 04/12/18 10:39 Dose: 10 mg Meclizine HCl (Antivert) 12.5 mg PO TID [facility] Last Admin: 04/12/18 18:03 Dose: 12.5 mg Metoprolol Tartrate (Lopressor) 25 mg PO BID [facility] Last Admin: 04/12/18 18:04 Dose: 25 mg Montelukast Sodium (Singulair) 10 mg PO HS [facility] Last Admin: 04/12/18 21:41 Dose: 10 mg Tramadol HCl (Ultram) 50 mg PO Q8 PRN PRN Reason: Pain Last Admin: 04/12/18 21:48 Dose: 50 mg Ursodiol (Actigall) 300 mg PO BID [facility] Last Admin: 04/12/18 18:03 Dose: 300 mg - Constitutional Appears: No Acute Distress - Head Exam Head Exam: NORMOCEPHALIC - Eye Exam Eye Exam: Normal appearance - ENT Exam ENT Exam: Mucous Membranes Moist - Respiratory Exam Respiratory Exam: Decreased Breath Sounds, Clear to Ausculation Bilateral, NORMAL BREATHING PATTERN - Cardiovascular Exam Cardiovascular Exam: +S1, +S2 Additional comments: PPM - GI/Abdominal Exam GI & Abdominal Exam: Soft, Normal Bowel Sounds - Extremities Exam Additional comments: left hip pain, non tender, no redness - Neurological Exam Neurological Exam: Alert, Awake, Oriented x3 - Psychiatric Exam Psychiatric exam: Normal Affect - Skin Skin Exam: Intact, Normal Color, Warm Assessment and Plan - Assessment and Plan (Free Text) Assessment: A 77 year old female, who came in to the ER due to left side/flank pain radiating to chest.Patient has urinary tract infection prior to admission and being treated with Levaquin. She also has history of sciatica.History of atrial fibrillation on Eliquis, diabetes,hypertension hyperlipidemia, COPD,GERD, nephrolithiasis, cholelithiasis, coronary artery disease with stent, Sick sinus syndrome/PPM (2016). 02/11/17 ECHO LVEF 55-50%, Mild AR/MR/TR 11/30/17- Cardiac catheterization done ( admitted due to unstable angina) Patent stent of proximal LAD (previous PCI 09/28/2007) Moderate disease of Diagonal 2 -56%, diffuse disease,non flow, small caliber Plan: Echo done -LVEF 65%, Mild AR/TR, no vegetation, pacemaker leads intact. Denies chest pain Moderate to severe Left hip pain Verbalized Toradol not really relieving pain Will give low dose Morphine for severe pain Controlled blood pressure On Eliquis 5 mg daily,ASA 81 mg daily,Lipitor 20 mg daily, Cardizem CD 120 mg daily Lisinopril 5 mg daily ID on consult for UTI, completed Levaquin Continue current treatment Continue current medications Will follow up Plan and treatment discussed with Dr. Odonnell
[2018-04-13 06:31] LABS: BASO # 0.02 K/mm3 (0.0-2.0); BASO % 0.2 % (0.0-3.0); EOS # 0.5 (0.0-0.7); EOS % 4.2 % (1.5-5.0); GRAN # 6.14 (1.4-6.5); GRAN % 55.6 % (50.0-68.0); HEMOGLOBIN 16.1 g/dL (12.0-16.0); LYMPH # 3.1 (1.2-3.4); LYMPH % 28.5 % (22.0-35.0); MEAN CORPUSCULAR HEMOGLOBIN 32.2 pg (25.0-35.0); MEAN CORPUSCULAR HGB CONC 34.6 g/dl (31.0-37.0); MEAN PLATELET VOLUME 8.6 fl (7.0-11.0); MONO # 1.3 (0.1-0.6); MONO % 11.5 % (1.0-6.0); RED CELL DISTRIBUTION WIDTH 12.9 % (11.5-14.5)
[2018-04-13 06:53] LABS: ALB/GLOB RATIO 1.2 (1.1-1.8); ALBUMIN 4.5 g/dL (3.0-4.8); ALT/SGPT 24 U/L (7-56); AST/SGOT 31 U/L (14-36); BLOOD UREA NITROGEN 8 mg/dL (7-21); CALCIUM 9.6 mg/dL (8.4-10.5); GFR AFRICAN-AMERICAN > 60; GFR NON-AFRICAN AMERICAN > 60
[2018-04-13] MEDS ORDERED: Morphine 2 mg/ml ISec IVP PRN (07:20)
[2018-04-13 08:50] VITALS: BP 166/98; PULSE 76; RESP 20; TEMP 97.5; O2SAT 98
--- NOTE | 2018-04-13 10:04 | PN ---
DATE: 04/12/2018 SUBJECTIVE: The patient was seen and examined on the bedside on 04/12/2018. Awake, alert. No distress. No shortness of breath. No nausea, vomiting, diarrhea. No chest pain at that moment. was sitting on the bedside also. Complained about left hip pain due to sciatica. PHYSICAL EXAMINATION: VITAL SIGNS: Temperature 98.1, pulse 77, respiratory rate 19, blood pressure 175/96, pulse oximetry 98. HEENT: Head normocephalic, atraumatic. Eyes PERRLA. Extraocular muscles intact. Conjunctivae clear. Nose patent. Mucous membrane moist. NECK: Supple. No carotid bruit. No JVD or thyromegaly. CHEST: Bilaterally symmetrical. HEART: S1 and S2 positive. LUNGS: Clear to auscultation. ABDOMEN: Soft. Bowel sounds positive. No organomegaly. EXTREMITIES: No edema. No cyanosis. NEUROLOGICAL: The patient is awake and alert. Moving all 4 extremities. No focal deficits. MEDICATIONS: Albuterol, Eliquis, Ecotrin, atorvastatin, Cardizem, Pepcid, Neurontin, Zestril, Claritin, Antivert, Singulair, tramadol, Actigall. ASSESSMENT AND PLAN: Ms. Susana Pena, 77-year-old lady with multiple medical problems. Came with left-sided chest pain, flank pain radiating to the chest. The patient has urinary tract infection prior to admission and being treated with Levaquin 3 days as outpatient. The patient has history of sciatica; herniated disk; atrial fibrillation, on Eliquis; diabetes mellitus; hypertension; hypercholesterolemia; chronic obstructive pulmonary disease; gastroesophageal reflux disease; dyspepsia; nephrolithiasis; cholelithiasis; coronary artery disease with stent; sick sinus syndrome and got pacemaker. According to gse mechanic, chest pain is atypical, left hip pain is atypical due to sciatica. Getting hydralazine for uncontrolled hypertension, Eliquis, aspirin, Lipitor, Cardizem and lisinopril. Flatware Maker ordered echocardiography to evaluate left ventricular function. Troponin x2 is normal. Tramadol p.r.n. for left hip pain. Infectious Disease was consulted to make sure that the patient not have complicated urinary tract infection. Completed Levaquin. Gastrointestinal, deep venous thrombosis prophylaxis. Repeat labs. Waiting for Cardiology clearance. We will follow up. Pricila Marcus MD [facility] # [id number]
[2018-04-13] MEDS: diltiaZEM 120 mg/24 Hours CD Cap PO SCH (10:59)
[2018-04-13] MEDS: Fluticasone Nasal 50 mcg/Spray NS SCH (11:00)
--- NOTE | 2018-04-13 11:23 | RAD ---
Date of service: 04/13/2018 PROCEDURE: Pelvis and left hip HISTORY: left hip pain COMPARISON: TECHNIQUE: Two views FINDINGS: There is severe joint space narrowing with bony sclerosis and subchondral cyst formation in the left hip. The right hip is unremarkable. 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
--- NOTE | 2018-04-14 04:45 | PN ---
DATE: 04/13/2018 SUBJECTIVE: Patient is in bed, in no acute distress, nontoxic. PHYSICAL EXAMINATION: VITAL SIGNS: Temperature 97, blood pressure 150/90, respiratory rate of 20. HEENT: Unremarkable. NECK: Supple. LUNGS: Have decreased breath sounds. HEART: Normal S1 and S2. ABDOMEN: Soft. LABORATORY DATA: Reveals a white count of 11,000, hemoglobin of 16, platelets of 338. Chemistries reveal BUN of 8, creatinine of 0.7. Urinalysis is noted. Microbiology is noted. ASSESSMENT AND PLAN: This is a 77-year-old female, who was seen early this morning in room 375, bed 2, with lower urinary tract infection, treated with 3 days of Levaquin, coronary artery disease, hypertension. She was given antibiotics. She is currently off of antibiotics. She is afebrile. She is at risk of developing nosocomial infections. Olvin Doherty MD
== END 2018-04-13 15:08 | disposition home or self-care (01) | DRG 690 ==
LOC: ED 00:15 → ERH 02:26 → 2RSO 02:50 → 3RSO 04-11 16:32 → OBSVTOIN 04-11 22:42
PROVIDERS: ADMIT Internal Medicine; ATTEND Internal Medicine
DX: N12 Tubulo-interstitial nephritis, not specified as acute or chronic (principal); N32.81 Overactive bladder; E11.65 Type 2 diabetes mellitus with hyperglycemia; E78.00 Pure hypercholesterolemia, unspecified; E78.5 Hyperlipidemia, unspecified; F41.9 Anxiety disorder, unspecified; I10 Essential (primary) hypertension; I25.10 Atherosclerotic heart disease of native coronary artery without angina pectoris; I48.0 Paroxysmal atrial fibrillation; I48.2 Chronic atrial fibrillation; I49.3 Ventricular premature depolarization; J44.9 Chronic obstructive pulmonary disease, unspecified; K21.9 Gastro-esophageal reflux disease without esophagitis; K59.00 Constipation, unspecified; K76.0 Fatty (change of) liver, not elsewhere classified; K80.20 Calculus of gallbladder without cholecystitis without obstruction; M54.42 Lumbago with sciatica, left side; B96.1 Klebsiella pneumoniae [K. pneumoniae] as the cause of diseases classified elsewhere; Z79.01 Long term (current) use of anticoagulants; Z79.82 Long term (current) use of aspirin; Z87.440 Personal history of urinary (tract) infections; Z87.442 Personal history of urinary calculi; Z95.0 Presence of cardiac pacemaker; Z95.5 Presence of coronary angioplasty implant and graft

== ENCOUNTER 2018-09-18 18:52 | Observation (INO) | payer MEDICARE, OTHER ==
[2018-09-18 18:52] VITALS: BMI 27.3
--- NOTE | 2018-09-18 19:20 | ED PDOC ---
Arrival/HPI - General Chief Complaint: Female Genitourinary Historian: Patient, Spouse () - History of Present Illness Narrative History of Present Illness (Text): 09/18/18 19:20 A 77 year old female, whose past medical history includes a pacemaker, afib on eliquis, angioplasty, pyelonephritis, neuropathy, pre-diabetic, and hypertension, presents to the emergency department complaining of dysuria and left flank pain resulting in lightheadedness for over 3 days. Patient reports her primary care doctor prescribed her a 3 day antibiotic treatment that ran out recently and states once the antibiotics ran out her dysuria and symptoms worsened. Patient also states she is peeing excessively and her left flank pain radiates to her back. No vaginal d/c or rash. No abdominal rash. Patient reports experiencing associated chills. Patient denies any hematuria, fever, shortness of breath, chest pain, diarrhea, constipation, nausea, vomiting, neck pain, headache, or any other complaints. No midline abdominal pain. No enuresis, encoparesis or loss of sensation in legs. PMD: Dr. Marcus Time/Duration: Other (3+ days) Symptom Onset: Gradual Symptom Course: Unchanged Activities at Onset: Light Context: Home Past Medical History - Provider Review Nursing Documentation Reviewed: Yes - Past History Past History: No Previous - Infectious Disease Hx of Infectious Diseases: None - Tetanus Immunization Tetanus Immunization: Unknown - Cardiac Hx Cardiac Disorders: Yes Hx Angina: Yes Hx Hypertension: Yes Hx Pacemaker: Yes (Jul 11 2017) Hx Peripheral Edema: No - Pulmonary Hx Respiratory Disorders: No Hx Chronic Obstructive Pulmonary Disease (COPD): Yes - Neurological Hx Neurological Disorder: No Other/Comment: sciatica - HEENT Hx HEENT Disorder: Yes (wears glasses) Hx Cataracts: Yes (with bilateral surgery) - Renal Hx Renal Disorder: Yes Hx Pyelonephritis: Yes - Endocrine/Metabolic Hx Endocrine Disorders: No - Hematological/Oncological Hx Blood Disorders: No - Integumentary Hx Dermatological Disorder: No - Musculoskeletal/Rheumatological Hx Falls: No - Gastrointestinal Hx Gastrointestinal Disorders: Yes Hx Gall Bladder Disease: Yes (cholelithiasis) Hx Gastroesophageal Reflux: Yes - Genitourinary/Gynecological Hx Genitourinary Disorders: Yes Hx Urinary Tract Infection: Yes Other/Comment: pyelonephritis - Psychiatric Hx Psychophysiologic Disorder: No Hx Substance Use: No - Surgical History Hx Cardiac Catheterization: Yes (x 1 stent) Hx Cholecystectomy: No Hx Coronary Stent: Yes - Anesthesia Hx Anesthesia: Yes Hx Anesthesia Reactions: No Hx Malignant Hyperthermia: No - Suicidal Assessment Feels Threatened In Home Enviroment: No Family/Social History - Physician Review Nursing Documentation Reviewed: Yes Family/Social History: No Known Family HX Smoking Status: Never Smoked Hx Alcohol Use: No Hx Substance Use: No Hx Substance Use Treatment: No Allergies/Home Meds Allergies/Adverse Reactions: Allergies No Known Allergies Allergy (Verified 03/07/18 05:24) Home Medications: Home Meds Medication Instructions Recorded Confirmed Aspirin [Ecotrin] 81 mg PO DAILY 05/15/16 03/07/18 Famotidine [Pepcid] 20 mg PO BID 05/15/16 03/07/18 Ursodiol [Actigall] 300 mg PO BID 05/15/16 03/07/18 Albuterol HFA [Ventolin HFA 90 2 puff IH PRN PRN 01/01/18 03/07/18 mcg/actuation (8 g)] Review of Systems - Physician Review All systems were reviewed & negative as marked: Yes - Review of Systems Constitutional: Other (chills). absent: Fatigue, Weight Change, Fevers Eyes: absent: Vision Changes, Photophobia ENT: absent: Hearing Changes, Tinnitus, TMJ Pain Respiratory: absent: SOB, Cough, Sputum, Wheezing Cardiovascular: absent: Chest Pain, Palpitations, Edema Gastrointestinal: Other (left flank pain radiating to her back). absent: Constipation, Diarrhea, Nausea, Vomiting, Appetite Changes, Hematochezia, Hematemesis, Anorexia, Food Intolerance Genitourinary Female: Dysuria. absent: Frequency, Hematuria, Vaginal Bleeding, Vaginal Discharge Musculoskeletal: Back Pain (pain radiating from left flank). absent: Arthralgias, Neck Pain, Joint Swelling Skin: absent: Rash, Pruritis, Skin Lesions, Laceration, Abscess Neurological: Dizziness (lightheadedness). absent: Headache Physical Exam Vital Signs Reviewed: Yes Vital Signs Temp Pulse Resp BP Pulse Ox 09/18/18 18:52 97.6 F 75 18 175/92 H 100 Temperature: Afebrile Blood Pressure: Hypertensive Pulse: Regular Respiratory Rate: Normal Appearance: Positive for: Well-Appearing, Non-Toxic Mental Status: Positive for: Alert and Oriented X 3 - Systems Exam Head: Present: Atraumatic, Normocephalic Pupils: Present: PERRL Extroacular Muscles: Present: EOMI Conjunctiva: Present: Normal Mouth: Present: Moist Mucous Membranes Neck: Present: Normal Range of Motion. No: Meningeal Signs, MIDLINE TENDERNESS, Paraspinal Tenderness Respiratory/Chest: Present: Clear to Auscultation, Good Air Exchange, Other (Pacemaker). No: Accessory Muscle Use, Wheezes, Decreased Breath Sounds Cardiovascular: Present: Regular Rate and Rhythm, Normal S1, S2. No: Murmurs Abdomen: Present: Normal Bowel Sounds. No: Tenderness, Distention, Peritoneal Signs, Rebound, Guarding Back: Present: Normal Inspection, CVA Tenderness (+left CVA tenderness). No: Midline Tenderness, Paraspinal Tenderness, Pain with Leg Raise, Decubitus Ulcer Upper Extremity: Present: Normal Inspection. No: Cyanosis, Edema Lower Extremity: Present: Normal Inspection. No: Edema Neurological: Present: GCS=15, CN II-XII Intact, Speech Normal Skin: Present: Warm, Dry, Normal Color. No: Rashes Psychiatric: Present: Alert, Oriented x 3, Normal Insight, Normal Concentration Medical Decision Making ED Course and Treatment: 09/18/18 19:24 Impression: A 77 year old female presents to the emergency department complaining of dysuria and left flank pain resulting in lightheadedness. Extensive cardiac history, afib on eliquis, angiolplasty, but no complaints of SOB or CP, Will seek troponin however given lightheadedness w/ flank pain and hx of pre-diabetic female w/ known cardiac hx. Was previously treated w/ levoquin for UTI. Questionably failed outpt rx of UTI, and now w/ possible pyelo. Will also seek CT to rule out stone. No meningeal signs. Plan: -- CT of abdomen and pelvis -- EKG -- Labs -- CBC -- Morphine -- IV fluids -- Urine culture -- Influenza A B stat -- Urinalysis -- Reassess and disposition Prior Visits: Notes and results from previous visits were reviewed. Progress Notes: 09/18/18 20:02 Pt in NAD at this time. pending labs, imaging. 09/18/18 20:56 Procedure: CT Abdomen without IV contrast Time: Sep 18, 2018 8:49:34 PM Dictator:Dr. Lambert Sesay M.D. Impression: 1. Severe respiratory motion limiting evaluation. 2. Distended gallbladder with calcifications a gallbladder neck. 3. Small left kidney. No left nephrolithiasis or perinephric fat stranding. 4. A calculus within the urinary tract is not identified. 5. Hepatic and splenic calcifications consistent with prior granulomatous disease. 6. Multiple coronary artery stents. pacemaker present. 7. Pulmonary base is well aerated. 09/18/18 21:174 EKG shows Sinus Rhythm at 61 BPM with T-wave inversions on the lateral leads. In terpreted by me. No chest pain. 09/18/18 21:38 pain improved labs largely unremarkable Urine 2-5 wbcs in setting of recently rx x2d of levoquin Case discussed with Dr. Marcus who is aware and is requesting admit for clinical pyelo- failed outpt rx. No SIRS vitals or labs- obs. Accepts patient into her service. Pt in NAD and agreeable to plan abx ordered- previously on levo- no allergy to pencillin / cephlasporin per pt. - Lab Interpretations I have reviewed the lab results: Yes - EKG Interpretation Interpreted by ED Physician: Yes Type: 12 lead EKG - Scribe Statement The provider has reviewed the documentation as recorded by the El Maynard All medical record entries made by the Estephanieibe were at my direction and personally dictated by me. I have reviewed the chart and agree that the record accurately reflects my personal performance of the history, physical exam, medical decision making, and the department course for this patient. I have also personally directed, reviewed, and agree with the discharge instructions and disposition. Disposition/Present on Arrival - Present on Arrival Any Indicators Present on Arrival: No History of DVT/PE: No History of Uncontrolled Diabetes: No Urinary Catheter: No History of Decub. Ulcer: No History Surgical Site Infection Following: None - Disposition Have Diagnosis and Disposition been Completed?: Yes Diagnosis: UTI (urinary tract infection) Disposition Time: 21:51 Patient Problems: Current Active Problems Problem Status Onset UTI (urinary tract infection) Acute Condition: GOOD Referrals: Pricila Marcus MD [Primary Care Provider] - Follow up with primary Forms: [employer] (Arabic)
[2018-09-18] MEDS ORDERED: Morphine 4 mg/ml ISec IVP STA (19:31)
[2018-09-18] MEDS: Sodium Chloride 0.9% 1,000 ML IV SCH (20:50)
[2018-09-18 20:54] LABS: BASO # 0.02 K/mm3 (0.0-2.0); BASO % 0.2 % (0.0-3.0); EOS # 0.2 (0.0-0.7); EOS % 1.7 % (1.5-5.0); GRAN # 6.74 (1.4-6.5); GRAN % 70.8 % (50.0-68.0); HEMOGLOBIN 16.3 g/dL (12.0-16.0); LYMPH # 1.6 (1.2-3.4); LYMPH % 16.4 % (22.0-35.0); MEAN CELL VOLUME 90.9 fl (80.0-105.0); MEAN CORPUSCULAR HEMOGLOBIN 31.4 pg (25.0-35.0); MEAN CORPUSCULAR HGB CONC 34.5 g/dl (31.0-37.0); MEAN PLATELET VOLUME 8.4 fl (7.0-11.0); MONO % 10.9 % (1.0-6.0); RBC 5.19 10^6/uL (3.5-6.1); RED CELL DISTRIBUTION WIDTH 12.7 % (11.5-14.5); WHITE BLOOD COUNT 9.5 10^3/uL (4.5-11.0)
[2018-09-18 21:03] LABS: ALB/GLOB RATIO 1.1 (1.1-1.8); ALBUMIN 4.2 g/dL (3.0-4.8); ALT/SGPT 37 U/L (7-56); AST/SGOT 39 U/L (14-36); BLOOD UREA NITROGEN 10 mg/dL (7-21); CALCIUM 9.2 mg/dL (8.4-10.5); GFR NON-AFRICAN AMERICAN > 60; LIPASE 95 U/L (23-300)
[2018-09-18 21:11] LABS: PH,URINE 7.5 (4.7-8.0); URINE BILIRUBIN NEGATIVE (NEGATIVE); URINE BLOOD TRACE-INTACT (NEGATIVE); URINE GLUCOSE (UA) NEGATIVE (NEGATIVE); URINE LEUKOCYTE ESTERASE NEGATIVE Leu/uL (NEGATIVE); URINE PROTEIN 30 mg/dL (<30 mg/dL); URINE UROBILINOGEN 0.2 E.U./dL (<1 E.U./dL)
[2018-09-18 21:13] LABS: URINE APPEARANCE CLEAR (CLEAR); URINE COLOR YELLOW (YELLOW)
[2018-09-18 21:14] LABS: TROPONIN I 0.01 ng/mL
[2018-09-18 21:18] LABS: URINE BACTERIA MOD /hpf
[2018-09-18] MEDS ORDERED: cefTRIAXone 1 gm 1 GM/100 ML BAG IVPB STA (21:46)
--- NOTE | 2018-09-19 09:32 | CARD ---
APPROVED REPORT Date of service: 09/18/2018 EKG Measurement Heart [id number] FL [id number] [id number] <Conclusion> Normal sinus rhythm ST & T wave abnormality, consider anterolateral ischemia, new Prolonged QT
[2018-09-19] MEDS: diltiaZEM 120 mg/24 Hours CD Cap PO SCH (10:17)
[2018-09-19] MEDS: Fluticasone Nasal 50 mcg/Spray NS SCH ×2 (10:18→22:39)
--- NOTE | 2018-09-19 10:50 | CT ---
Date of service: 09/18/2018 PROCEDURE: CT Abdomen and Pelvis without intravenous contrast HISTORY: Left flank pain. History of urinary tract infections. COMPARISON: 04/10/2018. CT abdomen and pelvis. TECHNIQUE: Unenhanced. Neither IV nor oral contrast administered Radiation dose: Total exam DLP = 91.08. mGy-cm. This CT exam was performed using one or more of the following dose reduction techniques: Automated exposure control, adjustment of the mA and/or kV according to patient size, and/or use of iterative reconstruction technique. FINDINGS: LOWER THORAX: Unremarkable. LIVER: Unremarkable. No gross lesion or ductal dilatation. GALLBLADDER AND BILE DUCTS: Cholelithiasis without CT evidence of acute cholecystitis. Distended gallbladder. PANCREAS: Unremarkable. No gross lesion or ductal dilatation. SPLEEN: Unremarkable. ADRENALS: Unremarkable. No mass. KIDNEYS AND URETERS: Atrophic left kidney. No hydronephrosis. No solid mass. VASCULATURE: Tortuous abdominal aorta. No aortic aneurysm. Atherosclerotic calcification and mural plaque present. Findings are seen throughout the aorta, mild in degree. BOWEL: Unremarkable. No obstruction. No gross mural thickening. APPENDIX: Unremarkable. Normal appendix. PERITONEUM: Unremarkable. No free fluid. No free air. LYMPH NODES: Unremarkable. No enlarged lymph nodes. BLADDER: Unremarkable. REPRODUCTIVE: Unremarkable. BONES: No acute fracture. Severe degenerative changes both hips left greater than right. Mild multilevel degenerative changes identified lumbar spine. OTHER FINDINGS: None. IMPRESSION: No acute findings related to/ accounting for the clinical presentation. Additional benign and/or incidental findings described above. No significant interval change compared to the prior examination(s). Concordant results (preliminary interpretation) provided by [employer]. Procedure Completed: 19:56. Preliminary Report: Dictated and Authenticated: 20:49. Final Interpretation: 10:46. September 19, 2018
[2018-09-19] MEDS: Sodium Chloride 0.9% 1,000 ML IV SCH (17:25)
[2018-09-19] MEDS ORDERED: POLYETHYLENE GLYCOL 3350 17 GM/Dose PACKET PO ONE (20:33)
[2018-09-19] MEDS ORDERED: HYDROmorphone 0.5 mg/0.5 ml ISec IVP PRN (21:52)
[2018-09-20 07:19] LABS: HEMOGLOBIN 17.7 g/dL (12.0-16.0); MEAN CELL VOLUME 92.5 fl (80.0-105.0); MEAN CORPUSCULAR HEMOGLOBIN 31.6 pg (25.0-35.0); MEAN CORPUSCULAR HGB CONC 34.2 g/dl (31.0-37.0); MEAN PLATELET VOLUME 8.6 fl (7.0-11.0); RBC 5.6 10^6/uL (3.5-6.1); RED CELL DISTRIBUTION WIDTH 13.1 % (11.5-14.5); WHITE BLOOD COUNT 10.2 10^3/uL (4.5-11.0)
[2018-09-20 07:30] LABS: BLOOD UREA NITROGEN 9 mg/dL (7-21); CALCIUM 9.5 mg/dL (8.4-10.5); GFR NON-AFRICAN AMERICAN > 60; HDL CHOLESTEROL 91 mg/dL (29-60)
[2018-09-20 07:40] LABS: TOTAL IRON BINDING CAPACITY 318 ug/dL (265-497)
[2018-09-20 07:41] LABS: LDL CHOLESTEROL 65 mg/dL (0-129)
[2018-09-20 07:47] LABS: % IRON SATURATION 68 % (20-55); IRON 215 ug/dL (45-180)
--- NOTE | 2018-09-20 07:52 | CP.PCM.CON ---
History of Present Illness - History of Present Illness History of Present Illness: Awake, alert, no distress Reason for consultation:Cardiac evaluation of uncontrolled hypertension, admitted for dysuria Brief history of present illness:A 77 year old female who came in to the ER due to dysuria and left flank pain and lightheadedness. History of PPM (07/11/2017) atrial fibrillation on Eliquis, coronary artery disease post stents, pyelonephritis, neuropathy, pre-diabetic, and hypertension,COPD, Sciatica,GERD, cholelithiasis. Seen and examined by me and Dr. Odonnell Review of Systems - Review of Systems All systems: reviewed and no additional remarkable complaints except Review of Systems: as per HPI Past Patient History - Infectious Disease Hx of Infectious Diseases: None - Tetanus Immunizations Tetanus Immunization: Unknown - Past Medical History & Family History Past Medical History?: Yes - Past Social History Smoking Status: Never Smoked - CARDIAC Hx Cardia Arrhythmia: Yes (A Fib.) Hx Hypertension: Yes Hx Pacemaker: Yes - PULMONARY Hx Respiratory Disorders: No Hx Chronic Obstructive Pulmonary Disease (COPD): Yes - NEUROLOGICAL Hx Neurological Disorder: No Other/Comment: sciatica - HEENT Hx Cataracts: Yes (Tom.- 1999) - RENAL Hx Chronic Kidney Disease: Yes Hx Pyelonephritis: Yes - ENDOCRINE/METABOLIC Hx Endocrine Disorders: No - HEMATOLOGICAL/ONCOLOGICAL Hx Blood Disorders: No - INTEGUMENTARY Hx Dermatological Problems: No - MUSCULOSKELETAL/RHEUMATOLOGICAL Hx Falls: Yes - GASTROINTESTINAL Hx Gastrointestinal Disorders: Yes Hx Gall Bladder Disease: Yes (cholelithiasis) Hx Gastroesophageal Reflux: Yes - GENITOURINARY/GYNECOLOGICAL Hx Genitourinary Disorders: Yes Hx Urinary Tract Infection: Yes Other/Comment: pyelonephritis - PSYCHIATRIC Hx Psychophysiologic Disorder: No Hx Substance Use: No - SURGICAL HISTORY Hx Cardiac Catheterization: Yes (x 1 stent) Hx Cholecystectomy: No Hx Coronary Stent: Yes - ANESTHESIA Hx Anesthesia: Yes Hx Anesthesia Reactions: No Hx Malignant Hyperthermia: No Meds Allergies/Adverse Reactions: Allergies Allergy/AdvReac Type Severity Reaction Status Date / Time No Known Allergies Allergy Verified 03/07/18 05:24 - Medications Medications: Current Medications Acetaminophen (Tylenol 325mg Tab) 650 mg PO Q4H PRN PRN Reason: Fever >100.4 F Acetaminophen (Tylenol 325mg Tab) 650 mg PO Q4H PRN PRN Reason: Pain, moderate (4-7) Aspirin (Ecotrin) 81 mg PO DAILY [facility] Last Admin: 09/19/18 10:17 Dose: 81 mg Diltiazem HCl (Cardizem Cd) 120 mg PO DAILY [facility] Last Admin: 09/19/18 10:17 Dose: 120 mg Fluticasone Propionate (Flonase) 1 actuation NS Q12 [facility] Last Admin: 09/19/18 22:39 Dose: 1 spr Hydralazine HCl (Apresoline) 10 mg PO QID PRN PRN Reason: Systolic Blood Pressure Last Admin: 09/19/18 20:56 Dose: 10 mg Hydromorphone HCl (Dilaudid) 0.5 mg IVP Q4H PRN PRN Reason: Pain, Mild (1-3) Last Admin: 09/20/18 00:33 Dose: 0.5 mg Sodium Chloride (Sodium Chloride 0.9%) 1,000 mls @ 50 mls/hr IV .Q20H [facility] Last Admin: 09/19/18 17:25 Dose: 50 mls/hr Ceftriaxone Sodium (Rocephin 1 Gram Ivpb) 1 gm in 100 mls @ 100 mls/hr IVPB DAILY [facility]; Protocol Loratadine (Claritin) 10 mg PO DAILY [facility] Last Admin: 09/19/18 10:18 Dose: 10 mg Losartan Potassium (Cozaar) 50 mg PO DAILY [facility] Meclizine HCl (Antivert) 12.5 mg PO TID [facility] Last Admin: 09/19/18 17:24 Dose: 12.5 mg Metoprolol Tartrate (Lopressor) 50 mg PO BRKDIN [facility] Ursodiol (Actigall) 300 mg PO BID [facility] Last Admin: 09/19/18 17:25 Dose: 300 mg Physical Exam - Constitutional Appears: Non-toxic, No Acute Distress - Head Exam Head Exam: NORMAL INSPECTION, NORMOCEPHALIC - Eye Exam Eye Exam: Normal appearance Pupil Exam: NORMAL ACCOMODATION - ENT Exam ENT Exam: Mucous Membranes Moist, Normal Exam - Respiratory Exam Respiratory Exam: Clear to Auscultation Bilateral, NORMAL BREATHING PATTERN - Cardiovascular Exam Cardiovascular Exam: +S1, +S2 Additional comments: PPM - GI/Abdominal Exam GI & Abdominal Exam: Normal Bowel Sounds - Extremities Exam Extremities exam: Positive for: full ROM - Neurological Exam Neurological exam: Alert, Oriented x3 - Psychiatric Exam Psychiatric exam: Normal Affect, Normal Mood - Skin Skin Exam: Dry, Normal Color, Warm Results - Vital Signs Recent Vital Signs: Last Vital Signs Temp 98.9 F 09/19/18 22:00 Pulse 113 H 09/19/18 22:00 Resp 20 09/19/18 22:00 BP 187/110 H 09/19/18 22:00 Pulse Ox 98 09/19/18 22:00 - Labs Result Diagrams: 09/20/18 06:30 09/20/18 06:30 Labs: Laboratory Results - last 24 hr 09/20/18 09/20/18 09/20/18 06:30 06:30 06:30 WBC 10.2 RBC 5.60 Hgb 17.7 H Hct 51.8 H MCV 92.5 MCH 31.6 MCHC 34.2 RDW 13.1 Plt Count 332 MPV 8.6 Sodium 136 Potassium 4.7 Chloride 104 Carbon Dioxide 25 Anion Gap 13 BUN 9 Creatinine 0.8 Est GFR ( Amer) > 60 Est GFR (Non-Af Amer) > 60 Random Glucose 123 H Calcium 9.5 Iron 215 H TIBC 318 % Saturation 68 H Triglycerides 133 Cholesterol 183 LDL Cholesterol Direct 65 HDL Cholesterol 91 H Assessment & Plan - Assessment and Plan (Free Text) Assessment: Brief history of present illness:A 77 year old female who came in to the ER due to dysuria and left flank pain and lightheadedness. History of PPM (07/11/2017)for sick sinus syndrome. atrial fibrillation on Eliquis, coronary artery disease post stents (09/28/2007), pyelonephritis, neuropathy, pre-diabetic, and hypertension,COPD, Sciatica,GERD, cholelithiasis. Consult was called due to uncontrolled blood pressure. Uncontrolled hypertnesion. Will resume Lopressor. Review of previous cardiac work up: 09/28/2017- cardiac catheterization: Patent stent in proximal LAD Moderate disease in D2 diffuse 55%, non flow limiting, small caliber vessel LVEF 60-65%, Hx of Afib, PPM (SSS) 04/12/18- Echo done: Normal LV size, LVEF 65% Mild AR, Mild TR, RVSP 28 mmHg Intact pacemaker leads Plan: Denies chest pain or shortness of breath Uncontrolled blood pressure Will add Lopressor 50 mg BID On ASA 81 mg daily,Cardizem 120 mg daily,Cozaar 50 mg BID Continue current treatment Continue current medications Further recommendations during hospital course Will follow up Plan and treatment discussed with Dr. Odonnell Thank you Dr. Marcus for the opportunity in taking care of Johanne Pena. - Date & Time Date: 09/20/18 Time: 06:35
[2018-09-20 08:13] VITALS: RESP 18; TEMP 98.2; O2SAT 96
[2018-09-20] MEDS ORDERED: Bisacodyl 5mg EC Tab PO ONE (09:51)
[2018-09-20] MEDS ORDERED: cefTRIAXone 1 gm 1 GM/100 ML BAG IVPB SCH (10:00)
[2018-09-20] MEDS: diltiaZEM 120 mg/24 Hours CD Cap PO SCH (10:05)
[2018-09-20 10:11] VITALS: BP 152/91; PULSE 94
[2018-09-20] MEDS: Fluticasone Nasal 50 mcg/Spray NS SCH (10:28)
[2018-09-20 13:57] LABS: FOLATE 16.9 ng/mL
--- NOTE | 2018-09-20 16:46 | CON ---
DATE: 09/20/2018 CHIEF COMPLAINT: The patient with a history of overactive bladder and recurrent urinary tract infections. HISTORY OF PRESENT ILLNESS: This is a 77-year-old female with a history of AFib on Eliquis, pacemaker, coronary artery disease, recurrent UTIs, neuropathic hypertension, who presented to the [facility] with 3-day complaint of dysuria and leg pain. Over the last 2-3 months, she has had recurrent urinary tract infections confirmed with culture. She has been treated with various antibiotics including Keflex, Cipro, Bactrim and Levaquin. She feels better after the courses of antibiotics within a few days she has return of her symptoms. Her urinary tract infection symptoms include dysuria, foul-smelling urine and increasing frequency. At baseline, she is also noted to have a history of overactive bladder. She has seen another urologist, Dr. Maldonado, who has evaluated her with urodynamics and cystoscopy. She has been on Myrbetriq intermittently, which helps somewhat; however, she has never been on an appropriate course of Myrbetriq. She has only been on Myrbetriq for utmost 2 weeks at a time and within those 2 weeks that she has been on continuous therapy, she has noted improvement in her overactive bladder symptoms. Notably, she has seen improvement in her nocturia as well as some of her urge symptoms. She has never been on any other therapy for overactive bladder. In addition, her previous urologist, Dr. 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 She denies any fevers associated with her UTIs. She denies any current flank pain. She does have at baseline significant spinal and hip arthritis which does cause her to have discomfort; however, this is distinct from any flank pain. PAST MEDICAL HISTORY: Hypertension, pacemaker, AFib on Eliquis, COPD, sciatica, cholelithiasis, and status post coronary stents. PAST SURGICAL HISTORY: None. FAMILY HISTORY: She has a sister and a daughter with history of breast cancer, otherwise noncontributory. HABITS: She is a nonsmoker. She does not use drugs and she does not drink alcohol. ALLERGIES: THE PATIENT HAS NO KNOWN DRUG ALLERGIES. HOME MEDICATIONS: She is on Eliquis, she is on Pepcid and albuterol and baby aspirin. REVIEW OF SYSTEMS: The patient was seen and examined at bedside, looking comfortable. She denies any fatigue, weight change or fevers. She denies any visual changes. She denies any photophobia. She denies any hearing changes. She denies any . She has occasional shortness of breath, but she denies any cough or sputum production. She does note some back pain that she says that this is consistent with her history of arthritis, this is not CVA tenderness. She does note history of constipation. PHYSICAL EXAMINATION: VITAL SIGNS: Her vitals signs are normal and stable today. She is afebrile. ABDOMEN: On abdominal exam, she is soft, nontender and nondistended. She has no CVA tenderness on the exam; however, she does have some palpation tenderness consistent with her history of arthritis. LABORATORY DATA: Her white count is 9 with creatinine of 0.8. IMAGING: She had a CT of the abdomen and pelvis which was unremarkable except for noting a stable left atrophied kidney with no hydronephrosis, there were no stones noted and her ureter and bladder were also noted to be normal in the CAT scan. ASSESSMENT AND PLAN: This is a 77-year-old female with a history of recurrent urinary tract infections and overactive bladder. I discussed with her options for treating her recurrent urinary tract infections including completing a course of antibiotics for this current infection and then transitioning to suppression antibiotics. I explained that suppression antibiotics can help in preventing these recurrent urinary tract infections from returning. I would suggest she try a course of Keflex 250 mg nightly for about 6 weeks, at which time, we can try to stop the suppression antibiotics and see if she has feared her infection. In addition, I also discussed with her the nature of vaginal atrophy in the setting of recurrent urinary tract infections, I suggested that may be she see a travel professional to see if she would be eligible for vaginal estrogen cream to help replenish her vaginal mucosa which may help reduce her current urinary tract infections. However, given her daughter's and sister's history of breast cancer, I thought that she should first see her travel professional as to make sure there are no contraindications to her having any vaginal estrogen replacement therapy. We also discussed how to human resources compliance manager her overactive bladder. We discussed medical management with beta-3 agonist such as Myrbetriq as well as with anticholinergics. We also discussed the option such as intravascular Botox should medical management fail. I felt that she has not given Myrbetriq long enough chance to work. She has only been on Myrbetriq for about 2 weeks continuously at any given point in time, which is probably not enough to see the full benefit of the Myrbetriq, I suggested that she continuously take 50 mg of Myrbetriq daily for at least a month before we decide if she is responding to therapy or not. If she does respond to therapy with decrease in her frequency and urgency and episodes of urge incontinence, then I would encourage her to continue to take Myrbetriq on daily basis. If Myrbetriq does not help to improve her symptomatology, then we can consider switching her to anticholinergic. However, the anticholinergic does have constipation and as a significant side effect and the patient has noted that she does have a baseline constipation; therefore, we would have to be aggressive in managing her constipation should she require an anticholinergic to try to manage her OAB. Should medical management fail, we also briefly discussed the option of intravascular Botox. However, she is not ready for this yet as she has not medical options. I offered to see her in my office, I gave her my office number and address. I am happy to see her at the followup to further discuss these treatment options. Should you have any questions, feel free to call my office at [phone]. Joni Candelaria M.D. (Delete this signature block when dictator is a preceptor.)
--- NOTE | 2018-09-20 19:50 | CON ---
DATE: 09/20/2018 REASON FOR CONSULTATION: Uncontrolled hypertension, admitted with dysuria and flank pain. Admitting blood pressure was 175/92. 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 The patient admitted with dysuria and uncontrolled hypertension. RECOMMENDATIONS: We will adjust on hypertensive medication, first we will increase metoprolol to 50 b.i.d., continue Cardizem. The patient is with hydralazine p.r.n. education for hydralazine. We will put Eliquis 5 p.o. b.i.d. We will resume back Eliquis. We will follow with you. Thank you Dr. Marcus for providing us the opportunity in taking care of the patient, Susana Pena. Eleazar Odonnell MD
--- NOTE | 2018-09-22 00:48 | DS ---
The patient was seen and examined at the bedside on 09/20/2018. CHIEF COMPLAINT: Urinary problem. HISTORY OF PRESENT ILLNESS: Ms. Susana Pena is a 77-year-old female with the past medical history of pacemaker, atrial fibrillation on Eliquis, angioplasty, pyelonephritis, neuropathy, pulmonary hypertension, came to the emergency department complaining about dysuria and left flank pain resulting in lightheadedness and high blood pressure. Her daughter Charlene called my office and we called pharmacy for Levaquin and Pyridium. The patient took medication, but not feeling relieved and came in the hospital. CAT scan of abdomen and pelvis done. Urology consult called with . He saw the patient and called me and cleared the patient for discharge. The patient seen by the sales ledger clerk also. The patient will be follow up with the urologist as outpatient. PAST MEDICAL HISTORY: As above. Hypertension, pacemaker, COPD, sciatica, pyelonephritis, cholelithiasis, multiple times of catheterization, and coronary artery disease. FAMILY HISTORY: Father and mother noncontributory. HABITS: Never smoked. No drugs. No ethanol. ALLERGIES: THE PATIENT IS NOT ALLERGIC WITH ANY MEDICATIONS. HOME MEDICATIONS: Reviewed by me. REVIEW OF SYSTEMS: The patient was seen and examined at the bedside. Looking comfortable. No fever. No chills. No hematuria. No hematochezia. No swelling of the legs. No chest pain. No palpitation. No headache. No dizziness. Feeling better. PHYSICAL EXAMINATION: VITAL SIGNS: Temperature 98.2, pulse 94, blood pressure 152/91, respiratory rate 18. HEENT: Head is normocephalic and atraumatic. Eyes; PERRLA. Extraocular muscles are intact. Conjunctivae clear. Nose patent. Mucous membrane moist. NECK: Supple. No carotid bruits. No JVD or thyromegaly. CHEST: Bilaterally symmetrical. HEART: S1 and S2 positive. LUNGS: Clear to auscultation. ABDOMEN: Soft. Bowel sounds present. No organomegaly. EXTREMITIES: No edema. No cyanosis. NEUROLOGIC: The patient is awake, alert, and moving all 4 extremities. No focal deficits. LABORATORY DATA: White blood cells 10.2, hemoglobin 17.7, hematocrit 51.8, platelets 332. Sodium 136, potassium 4.7, BUN 9, creatinine 0.8, glucose 123. Iron 215. ASSESSMENT AND PLAN: Ms. Susana Pena is a 77-year-old lady with polycythemia, hyperchloremia, hyperglycemia, abnormal liver function test, has proteinuria, hematuria came with urinary problem. CAT scan of the abdomen and pelvis done reviewed by me, seen by Dr. , urologist. The patient has a history of recurrent urinary tract infection and overreactive bladder. has a discussion done with the patient about recurrent urinary tract infection and truly completing a course of antibiotic for this current infection and then transiting it to suppressive antibiotic. Suppressive antibiotic will have to prevent these recurrent urinary tract infection from returning. He has suggested a course of Keflex 250 mg nightly for 6 weeks at which time she can try to stop these suppressive antibiotics and see if she can feared her infection. In addition, discussion done for vaginal atrophy in the setting of the recurrent urinary tract infection. She was asked to see prosthetist for vaginal estrogen. Discussed done with the urologist to repeat labs. Followup as outpatient. We will discharge the patient. Pricila Marcus MD
== END 2018-09-20 14:21 | disposition home or self-care (01) ==
LOC: ED 18:52 → ERH 21:42 → 5RSO 22:57
PROVIDERS: ADMIT Internal Medicine; ATTEND Internal Medicine
DX: N39.0 Urinary tract infection, site not specified (principal); N32.81 Overactive bladder; I48.0 Paroxysmal atrial fibrillation; I12.9 Hypertensive chronic kidney disease with stage 1 through stage 4 chronic kidney disease, or unspecified chronic kidney disease; N18.9 Chronic kidney disease, unspecified; R73.03 Prediabetes; G62.9 Polyneuropathy, unspecified; K21.9 Gastro-esophageal reflux disease without esophagitis; J44.9 Chronic obstructive pulmonary disease, unspecified; N95.2 Postmenopausal atrophic vaginitis; I27.20 Pulmonary hypertension, unspecified; K80.20 Calculus of gallbladder without cholecystitis without obstruction; I25.10 Atherosclerotic heart disease of native coronary artery without angina pectoris; D75.1 Secondary polycythemia; N27.0 Small kidney, unilateral; M16.10 Unilateral primary osteoarthritis, unspecified hip; M47.9 Spondylosis, unspecified; M79.605 Pain in left leg; R42 Dizziness and giddiness; I49.5 Sick sinus syndrome; Z95.0 Presence of cardiac pacemaker; Z95.5 Presence of coronary angioplasty implant and graft; Z79.02 Long term (current) use of antithrombotics/antiplatelets; Z79.82 Long term (current) use of aspirin
CPT/HCPCS: 36415; 74176; 80048; 80053; 80061; 81001; 82607; 82746; 83036; 83540; 83550; 83690; 84443; 84484; 85025; 85027; 87086; 87804; 93005; 96365; 96375; 99284; G0378; J0696; J1170; J1885; J2270; J7030

== ENCOUNTER → 2019-01-04 | Outpatient (CLI) | payer MEDICARE | LOC: RAD 08:13 ==

== ENCOUNTER 2019-02-12 13:05 | Inpatient (IN) | payer MEDICARE, OTHER ==
--- NOTE | 2019-02-12 13:49 | ED PDOC ---
Arrival/HPI - General Chief Complaint: Shortness Of Breath Time Seen by Provider: 02/12/19 13:11 Historian: Patient - History of Present Illness Narrative History of Present Illness (Text): 02/12/19 13:43 78yr old female with a history of asthma, COPD, atrial fibrillation on Eliquis presents today for 3-day history of shortness of breath, dyspnea on exertion, and a tightness across the anterior chest. Patient also states she has had bilateral lower leg swelling for the past 3 days. Patient was seen by her baler today for regular visit and was sent into the emergency room for evaluation. Patient denies fevers or chills. No back pain. No dizziness or weakness. No abdominal pain. No nausea or vomiting. Patient states she has been trying her rescue inhaler at home with minimal improvement in her symptoms. Past Medical History - Provider Review Nursing Documentation Reviewed: Yes - Travel History Have you recently traveled outside [place] w/in the past 3 mons?: No - Past History Past History: No Previous - Infectious Disease Hx of Infectious Diseases: None - Tetanus Immunization Tetanus Immunization: Unknown - Cardiac Hx Cardiac Arrhythmia: Yes (A Fib.) Hx Hypertension: Yes Hx Pacemaker: Yes - Pulmonary Hx Respiratory Disorders: No Hx Chronic Obstructive Pulmonary Disease (COPD): Yes - Neurological Hx Neurological Disorder: No Other/Comment: sciatica - HEENT Hx Cataracts: Yes (Tom.- 1998) - Renal Hx Renal Disorder: Yes Hx Pyelonephritis: Yes - Endocrine/Metabolic Hx Endocrine Disorders: No - Hematological/Oncological Hx Blood Disorders: No - Integumentary Hx Dermatological Disorder: No - Musculoskeletal/Rheumatological Hx Falls: Yes - Gastrointestinal Hx Gastrointestinal Disorders: Yes Hx Gall Bladder Disease: Yes (cholelithiasis) Hx Gastroesophageal Reflux: Yes - Genitourinary/Gynecological Hx Genitourinary Disorders: Yes Hx Urinary Tract Infection: Yes Other/Comment: pyelonephritis - Psychiatric Hx Psychophysiologic Disorder: No Hx Substance Use: No - Surgical History Hx Cardiac Catheterization: Yes (x 1 stent) Hx Cholecystectomy: No Hx Coronary Stent: Yes - Anesthesia Hx Anesthesia: Yes Hx Anesthesia Reactions: No Hx Malignant Hyperthermia: No - Suicidal Assessment Feels Threatened In Home Enviroment: No Family/Social History - Physician Review Nursing Documentation Reviewed: Yes Family/Social History: Unknown Family HX Smoking Status: Never Smoked Hx Alcohol Use: No Hx Substance Use: No Hx Substance Use Treatment: No Allergies/Home Meds Allergies/Adverse Reactions: Allergies No Known Allergies Allergy (Verified 03/07/18 05:24) Home Medications: Home Meds Medication Instructions Recorded Confirmed Aspirin [Ecotrin] 81 mg PO DAILY 05/15/16 03/07/18 Famotidine [Pepcid] 20 mg PO BID 05/15/16 03/07/18 Ursodiol [Actigall] 300 mg PO BID 05/15/16 03/07/18 Albuterol HFA [Ventolin HFA 90 2 puff IH PRN PRN 01/01/18 03/07/18 mcg/actuation (8 g)] Review of Systems - Review of Systems Constitutional: absent: Fatigue, Fevers Respiratory: SOB, Cough Cardiovascular: Chest Pain, HICKEY. absent: Palpitations, Calf Pain Gastrointestinal: absent: Abdominal Pain, Constipation, Diarrhea, Nausea, Vomiting Genitourinary Female: Frequency. absent: Dysuria, Hematuria Musculoskeletal: Other (b/l leg swelling). absent: Arthralgias, Back Pain, Neck Pain Skin: absent: Rash, Pruritis Neurological: absent: Headache, Dizziness Psychiatric: absent: Anxiety, Depression, Suicidal Ideation Physical Exam Vital Signs Reviewed: Yes Vital Signs Temp Pulse Resp BP Pulse Ox 02/12/19 13:06 97.5 F L 68 18 191/99 H 93 L Temperature: Afebrile Blood Pressure: Hypertensive Pulse: Regular Respiratory Rate: Normal Appearance: Positive for: Well-Appearing, Non-Toxic, Comfortable Pain Distress: None Mental Status: Positive for: Alert and Oriented X 3 - Systems Exam Head: Present: Atraumatic Mouth: Present: Moist Mucous Membranes Neck: Present: Normal Range of Motion Respiratory/Chest: Present: Good Air Exchange, Wheezes, Rales. No: Clear to Auscultation, Respiratory Distress, Accessory Muscle Use Cardiovascular: Present: Regular Rate and Rhythm. No: Tachycardic Abdomen: No: Tenderness, Distention, Rebound, Guarding Upper Extremity: Present: Normal Inspection Lower Extremity: Present: Edema (+ 2+ pitting edema bilaterally in lower legs.) Neurological: Present: GCS=15, Speech Normal Skin: Present: Warm, Dry, Normal Color. No: Rashes Psychiatric: Present: Alert, Oriented x 3 Medical Decision Making ED Course and Treatment: 02/12/19 13:50 Pt with chest pain, SOB, HICKEY, bilateral leg swelling x 3 days cbc; wbc:11.3 cmp; wnl trop: wnl BNP; 1070 ekg; normal sinus rhythm at 63 bpm diffuse t wave inversions cxr: FINDINGS: LUNGS: No active pulmonary disease. PLEURA: No significant pleural effusion identified, no pneumothorax apparent. CARDIOVASCULAR: Aortic calcification Mild cardiomegaly no pulmonary vascular congestion. OSSEOUS STRUCTURES: No significant abnormalities. VISUALIZED UPPER ABDOMEN: Normal. OTHER FINDINGS: Single lead pacemaker IMPRESSION: No active disease. pt reassessment; pt resting comfortably in ER ; lasix 20mg given Ivp asa po pt given rocephin for UTI case discussed with Dr. Marcus will Admit observational status to Tele for chest pain r/o acs. impression; chest pain, elevated BNP, UTI Admit observational status to tele; Dr. marcus 02/12/19 15:35 - RAD Interpretation Radiology Orders: 02/12/19 13:32 CHEST PORTABLE [RAD] Stat Disposition/Present on Arrival - Present on Arrival Any Indicators Present on Arrival: No History of DVT/PE: No History of Uncontrolled Diabetes: No Urinary Catheter: No History of Decub. Ulcer: No History Surgical Site Infection Following: None - Disposition Have Diagnosis and Disposition been Completed?: Yes Diagnosis: Chest pain, Shortness of breath, HTN (hypertension), Elevated brain natriuretic peptide (BNP) level, UTI (urinary tract infection) Disposition: HOSPITALIZED Disposition Time: 14:00 Patient Plan: Observation Patient Problems: Current Active Problems Problem Status Onset Chest pain Acute Elevated brain natriuretic peptide (BNP) level Acute Shortness of breath Acute HTN (hypertension) Chronic Condition: FAIR Discharge Instructions (ExitCare): Chest Pain (ED) Forms: [employer] ([place] Islander)
--- NOTE | 2019-02-12 14:19 | RAD ---
Date of service: 02/12/2019 HISTORY: sob/rdz/cp COMPARISON: 04/10/2018 TECHNIQUE: 1 view obtained. FINDINGS: LUNGS: No active pulmonary disease. PLEURA: No significant pleural effusion identified, no pneumothorax apparent. CARDIOVASCULAR: Aortic calcification Mild cardiomegaly no pulmonary vascular congestion. OSSEOUS STRUCTURES: No significant abnormalities. VISUALIZED UPPER ABDOMEN: Normal. OTHER FINDINGS: Single lead pacemaker IMPRESSION: No active disease.
[2019-02-12 14:26] LABS: BASO # 0.04 K/mm3 (0.0-2.0); BASO % 0.4 % (0.0-3.0); EOS # 0.4 (0.0-0.7); EOS % 3.8 % (1.5-5.0); HEMOGLOBIN 14.8 g/dL (12.0-16.0); LYMPH % 17.8 % (22.0-35.0); MEAN CELL VOLUME 93.2 fl (80.0-105.0); MEAN CORPUSCULAR HEMOGLOBIN 31.3 pg (25.0-35.0); MEAN CORPUSCULAR HGB CONC 33.6 g/dl (31.0-37.0); MEAN PLATELET VOLUME 8.4 fl (7.0-11.0); MONO # 1.1 (0.1-0.6); MONO % 9.9 % (1.0-6.0); RBC 4.73 10^6/uL (3.5-6.1); RED CELL DISTRIBUTION WIDTH 12.5 % (11.5-14.5); WHITE BLOOD COUNT 11.3 10^3/uL (4.5-11.0)
[2019-02-12 14:36] LABS: ALB/GLOB RATIO 1.2 (1.1-1.8); ALBUMIN 4.2 g/dL (3.0-4.8); ALT/SGPT 31 U/L (7-56); AST/SGOT 48 U/L (14-36); B-TYPE NATRIURETIC PEPTIDE 1070 pg/mL (0-450); BLOOD UREA NITROGEN 19 mg/dL (7-21); CALCIUM 9.2 mg/dL (8.4-10.5); GFR NON-AFRICAN AMERICAN 43
[2019-02-12 14:40] LABS: TROPONIN I < 0.01 ng/mL
[2019-02-12 15:16] LABS: PH,URINE 6.5 (4.7-8.0); URINE BILIRUBIN NEGATIVE (NEGATIVE); URINE BLOOD TRACE-INTACT (NEGATIVE); URINE GLUCOSE (UA) NEGATIVE (NEGATIVE); URINE LEUKOCYTE ESTERASE MODERATE Leu/uL (NEGATIVE); URINE PROTEIN 30 mg/dL (<30 mg/dL); URINE UROBILINOGEN 0.2 E.U./dL (<1 E.U./dL)
[2019-02-12 15:17] LABS: URINE APPEARANCE CLEAR (CLEAR); URINE COLOR LIGHT YELLOW (YELLOW)
[2019-02-12 15:20] LABS: URINE RBC 0 - 2 /hpf (0-2)
[2019-02-12] MEDS ORDERED: cefTRIAXone 1 gm 1 GM/100 ML BAG IVPB STA (15:34)
[2019-02-12 15:48] LABS: INR 1.38; PARTIAL THROMBOPLASTIN TIME 40.3 Seconds (26.9-38.3); PROTHROMBIN TIME 15.3 SECONDS (9.4-12.5)
[2019-02-12] MEDS ORDERED: Albuterol 0.5% Inhal Sol (2.5 mg/0.5 ml) UD IH PRN (16:51)
--- NOTE | 2019-02-12 19:00 | CARD ---
APPROVED REPORT Date of service: 02/12/2019 EKG Measurement Heart [id number] <Conclusion> Normal sinus rhythm Biatrial enlargement ST & T wave abnormalities diffuse Abnormal ECG
[2019-02-12 22:56] VITALS: BMI 29.6
[2019-02-12] MEDS ORDERED: Pneumococcal 23-Valent Vaccine IM ONE (22:57)
[2019-02-13] MEDS: Arformoterol 15 mcg/2 ml Inh Sol IH SCH ×2 (07:45→20:30)
[2019-02-13] MEDS: Budesonide 0.5 mg/2 ml Inhal Susp UD IH SCH ×2 (07:45→20:30)
[2019-02-13] MEDS: diltiaZEM 120 mg/24 Hours CD Cap PO SCH (10:41)
[2019-02-13] MEDS: Fluticasone Nasal 50 mcg/Spray NS SCH (13:54)
--- NOTE | 2019-02-13 15:29 | CON ---
DATE: 02/13/2019 PULMONARY CONSULT NOTE REFERRING PHYSICIAN: Dr. Marcus. REASON FOR CONSULT: Shortness of breath, COPD and asthma. HISTORY OF PRESENT ILLNESS: This is a 78-year-old female with past medical history significant for asthma, COPD, atrial fibrillation who presented to the emergency room sent from our office on Thursday. The patient had reported bilateral lower extremities swelling for the past three days, increase in shortness of breath and tightness across her chest. The patient also reported that she had been on vacation visiting [place] and other [facility] to see her family members. She report using rescue inhaler with no improvement for the symptoms. Sent to the emergency room from her office for evaluation. PAST MEDICAL HISTORY: COPD, cardiomyopathy, cardiac arrhythmia requiring pacemaker, coronary artery disease, history of coronary stent. ALLERGIES: NO KNOWN ALLERGIES. SOCIAL HISTORY: Nonsmoker. No EtOH abuse. No illicit drug use. FAMILY HISTORY: No significant cardiopulmonary disease reported. MEDICATIONS: Reviewed. Tylenol 650 every 4 hours p.r.n., albuterol inhaler 2 puff inhalation, Eliquis 5 mg twice a day, aspirin 81 mg daily, Lipitor 20 mg at dinner, Tylenol 650 every 4 hours p.r.n., Ventolin HFA 2 puff inhalation p.r.n., Eliquis 5 mg twice a day, aspirin 81 mg daily, Cardizem 120 mg daily, Pepcid 20 mg daily, Flonase nasal spray every 2 hours, Lasix 40 mg every 2 hours, Neurontin 300 mg daily, hydralazine 10 mg four times a day p.r.n., Claritin 10 mg daily, Cozaar 50 mg daily, Antivert 12.5 mg three times a day, Lopressor 50 mg breakfast at dinner, Singulair 10 mg at bedtime and ursodiol 300 mg twice a day. REVIEW OF SYSTEMS: No headache, rhinitis, chest pain, abdominal pain, nausea, vomiting, diarrhea and leg pain reported. The patient reports that a deep swelling to bilateral lower extremity appears less. Reports that she does have shortness of breath, that is on and off for exertion. No coughing. PHYSICAL EXAMINATION: VITAL SIGNS: Blood pressure 120/84, pulse 76, temperature 97.5 and oxygen saturation 95% on room air. GENERAL: No acute distress. HEENT: Moist mucous membrane. Mallampati score of 4. Crowded airway. NECK: Supple. No JVD. LUNGS: Crackles at the bases. CARDIOVASCULAR: S1 and S2. ABDOMEN: Soft and nontender. No distention. No organomegaly. EXTREMITIES: Bilateral lower extremity edema some improvement. NEUROLOGIC: Awake, alert and verbal. Following commands. LABORATORY DATA: Reviewed. WBC 11.3, RBC 4.73, hemoglobin 43.8, hematocrit 44.1 and platelets 297. ASSESSMENT: PT 15.3, INR 1.3 and APTT 40.3. Sodium 134, potassium 4.7, chloride 100, carbon dioxide 28, anion gap 11, BUN 19, creatinine 1.2, GFR 23, random glucose 105, calcium 9.2, total bilirubin 1.1, AST 48, ALT 31, alkaline phosphatase 101, lactate dehydrogenase 753, total creatine kinase 104, troponin less than 0.01, proBNP 1070, total protein 7.7, albumin 4.2, globulin 3.6 and albumin-globulin ratio 1.2. Urinalysis shows urine protein 30, urine blood trace. Urine leukocyte esterase moderate, urine WBC 5-10. Chest x-ray, no active disease. EKG normal sinus rhythm. IMPRESSION AND PLAN: Chronic obstructive lung disease, suspected sleep apnea syndrome, history of cardiac arrhythmia requiring pacemaker implants, history of coronary artery disease and history of stent. The patient came to the ER with lower extremity swelling and increasing shortness of breath. We will add Brovana and Pulmicort nebulizer treatment. The patient currently on anticoagulation therapy. Continue Pepcid, gastric prophylaxis. We recommend the patient has echocardiogram to evaluate right ventricular and left ventricular function. I did look at the patient's last echocardiogram which was dated on 03/13/2018, results were unremarkable, but there is questionable where the patient's edema is coming from, his cardiac function is normal. We will recommend new echocardiogram is done. We will order venous Doppler and D-dimer to be done as the patient also reports that she travels recently out of state. Sleep apnea precaution, head of bed elevated at 45 degrees. The patient was due to have sleep study done, but due to traveling she was unable to have sleep study done as outpatient. Recommend sleep study to evaluate sleep apnea syndrome. The patient was seen and examined with Dr. Cruz. Discussed assessment and plan as described above. The patient was seen and examined with Yong Garcia nurse practitioner. Discussed assessment and plan as described above. Thank you for this consult and we will follow with you. Radha Beach APN Eleazar Cruz MD TOM[facility]
[2019-02-13] MEDS: TOBRADEX EYE OS SCH (17:28)
--- NOTE | 2019-02-14 02:04 | HP ---
DATE OF EXAM: 02/13/2019 The patient was seen and examined at the bedside on 02/13/2019. CHIEF COMPLAINT: Shortness of breath and swelling of the legs. HISTORY OF PRESENT ILLNESS: Ms. Susana Pena is a 78-year-old female with past medical history of asthma, COPD, atrial fibrillation, on Eliquis, came to emergency department for 3 days history of shortness of breath, dyspnea on exertion, and tightness across the anterior chest wall. The patient states that she had bilateral swelling from past 3 days. The patient was seen actually in Dr. Cruz's office for regular visit and was sent to the emergency room for evaluation after listening her complaints and for her examination. No fevers. No chills. No hematuria. No hematochezia. We admitted the patient, called for Pulmonary and Cardiology consult, Lasix given, the patient started feeling better, and went for ultrasound. PAST MEDICAL HISTORY: Atrial fibrillation, pacemaker, hypertension, COPD, history of cataract surgery, pyelonephritis, history of cholelithiasis, and multiple times UTI. FAMILY HISTORY: Father and mother noncontributory. HABITS: Never smoked. No drugs. No ethanol. ALLERGIES: THE PATIENT IS NOT ALLERGIC WITH ANY MEDICATIONS. HOME MEDICATIONS: Aspirin, Pepcid, Actigall, and albuterol. REVIEW OF SYSTEMS: The patient was seen and examined at the bedside, looking comfortable. No fevers. No chills. No hematuria or hematochezia. Still having shortness of breath even going to the bathroom, is not able to do her ADLs. PHYSICAL EXAMINATION: VITAL SIGNS: Blood pressure 120/80, pulse 70, temperature 97.6, and oxygen saturation 96%. HEENT: Head is normocephalic and atraumatic. Eyes; PERRLA. Extraocular muscles are intact. Conjunctivae clear. Nose patent. Mucous membranes moist. NECK: Supple. No carotid bruits. No JVD or thyromegaly. CHEST: Bilaterally symmetrical. HEART: S1 and S2 positive. LUNGS: Clear to auscultation. ABDOMEN: Soft. Bowel sounds present. No organomegaly. EXTREMITIES: No edema. No cyanosis. NEUROLOGIC: The patient is awake, alert, and moving all 4 extremities. No focal deficits. LABORATORY DATA: White blood cell 11.3, hemoglobin 14.8, hematocrit 44.1, and platelets 297. Sodium 137, potassium 4.7, BUN 19, and creatinine 1.2. ASSESSMENT AND PLAN: Ms. Susana Pena is a 78-year-old lady with leukocytosis, abnormal liver function test, history of cholelithiasis, is on estradiol, came with congestive heart failure exacerbation, BNP is high, proteinuria, hematuria, urinary tract infection, history of multiple medical problems, chronic obstructive pulmonary disease, cardiomyopathy, cardiac arrhythmias, requiring pacemaker, coronary artery disease, and history of coronary stents. Continue Pepcid for gastric prophylaxis. Pulmonary wrote echocardiography. D-dimer and Dopplers of the legs ordered. Appreciated Dr. Cruz's nurse practitioner's input. Repeat labs. We will follow up. rPicila Marcus MD TOMAS
[2019-02-14 06:44] LABS: MEAN CELL VOLUME 93.3 fl (80.0-105.0); MEAN CORPUSCULAR HEMOGLOBIN 31.6 pg (25.0-35.0); MEAN CORPUSCULAR HGB CONC 33.8 g/dl (31.0-37.0); MEAN PLATELET VOLUME 8.5 fl (7.0-11.0); RBC 5.7 10^6/uL (3.5-6.1); RED CELL DISTRIBUTION WIDTH 12.6 % (11.5-14.5); WHITE BLOOD COUNT 9.6 10^3/uL (4.5-11.0)
[2019-02-14 06:57] LABS: CALCIUM 9.2 mg/dL (8.4-10.5)
[2019-02-14 07:05] LABS: IRON 80 ug/dL (45-180)
[2019-02-14 07:14] LABS: % IRON SATURATION 19 % (20-55); TOTAL IRON BINDING CAPACITY 424 ug/dL (265-497)
[2019-02-14] MEDS: Budesonide 0.5 mg/2 ml Inhal Susp UD IH SCH ×2 (07:45→19:37)
[2019-02-14] MEDS: Arformoterol 15 mcg/2 ml Inh Sol IH SCH ×2 (07:45→19:37)
[2019-02-14 09:50] LABS: TROPONIN I 0.02 ng/mL
[2019-02-14] MEDS ORDERED: cefTRIAXone 1 gm 1 GM/100 ML BAG IVPB SCH (10:00)
[2019-02-14] MEDS: TOBRADEX EYE OS SCH ×3 (10:41→18:32)
[2019-02-14] MEDS: Fluticasone Nasal 50 mcg/Spray NS SCH (10:47)
[2019-02-14] MEDS: diltiaZEM 120 mg/24 Hours CD Cap PO SCH (10:47)
[2019-02-14 13:20] LABS: FOLATE 16.7 ng/mL
--- NOTE | 2019-02-14 13:31 | CP.PCM.PCO ---
Physician Communication Note - Physician Communication Note Physician Communication Note: cardiology consult pending, repeat labs in am, UTI continue jesus
[2019-02-14 14:13] VITALS: O2SAT 98
--- NOTE | 2019-02-14 14:27 | PN ---
DATE: 02/14/2019 REFERRING PHYSICIAN: Dr. Marcus. SUBJECTIVE: The patient is seen, lying in bed, family at bedside. No acute distress. No overnight events reported. The patient reports feeling better this morning. Shortness of breath improved. Has occasional cough. No headache, rhinitis, chest pain, abdominal pain, nausea, vomiting, diarrhea, leg pain reported. The patient does report improvement in lower extremity swelling. OBJECTIVE: GENERAL: No acute distress. VITAL SIGNS: Blood pressure 112/64, pulse 77, temperature 98, oxygen saturation 95% on room air. HEENT: Moist mucous membrane. Mallampati score of 4. Crowded airway. NECK: Supple. No JVD. LUNGS: Fair airflow bilaterally. CARDIOVASCULAR: S1, S2. ABDOMEN: Soft, nontender. No distention. No organomegaly. EXTREMITIES: No bilateral lower extremity edema. NEUROLOGIC: Awake, alert, verbal. Following commands. MEDICATIONS: Reviewed. Tylenol 650 every 4 hours p.r.n., albuterol 2 mg inhalation three times a day, Eliquis 5 mg twice a day, Brovana 15 mcg inhalation every 12 hours, aspirin 81 mg daily, Lipitor 20 mg at dinner, Pulmicort 0.5 mg every 12 hours, Vantin 200 mg daily, Cardizem 120 mg daily, Pepcid 20 mg daily, Flonase nasal spray daily, Lasix 40 mg IV push every 12 hours, gabapentin 300 mg daily, hydralazine 10 mg four times a day p.r.n., Claritin 10 mg daily, Cozaar 50 mg daily, meclizine 12.5 mg three times a day, metoprolol tartarate 50 mg breakfast and dinner, Singulair 10 mg at bedtime, ursodiol 300 mg twice a day. LABORATORY DATA: Reviewed. WBC 11.6, RBC 5.7, hemoglobin 18, hematocrit 53.2, platelets 310. D-dimer less than 200. Sodium 140, potassium 4.5, chloride 96, carbon dioxide 32, anion gap 17, BUN 27, creatinine 1.3, GFR 40, random glucose 124, hemoglobin A1c 6.4, calcium 9.2. Iron 80, TIBC 424, percent saturation 19, lactate dehydrogenase 635, total creatine kinase 118, troponin 0.02, proBNP 506, triglycerides 143, cholesterol 139, LDL cholesterol 43, HDL cholesterol 52. TSH 1.38. Urine culture final positive E. coli. Extremity ultrasound, no sonographic evidence of deep venous thrombosis in bilateral lower extremities. IMPRESSION AND PLAN: Chronic obstructive lung disease, suspected sleep apnea syndrome, history of cardiac arrhythmia requiring pacemaker implants, history of coronary artery disease, history of cardiac stents. Pulmonary point of view, continue inhaled bronchodilators, gastric prophylaxis. The patient currently on anticoagulation therapy. The patient is pending Cardiology consult. Will order Echocardiogram to be done to evaluate heart function. Sleep apnea precautions, head of bed elevated 45 degrees. The patient was due to have sleep study done as outpatient, but due to recent traveling she was unable to have sleep study done. So, we will recommend sleep study as outpatient. The patient was seen and examined with Dr. Cruz. Discussed assessment and plan as described above. The patient was seen and examined with Yong Garcia, nurse practitioner. Discussed assessment and plan as described above. Thank you for this consult. We will follow with you. Radha Beach APN Eleazar Cruz MD TOM[facility]
--- NOTE | 2019-02-14 18:57 | CARD ---
APPROVED REPORT Date of service: 02/14/2019 EXAM: Two-dimensional and M-mode echocardiogram with Doppler and color Doppler. INDICATION LVFX,R/O VALVULAR DISEASE 2D DIMENSIONS Left Atrium (2D)3.7 (1.6-4.0cm)IVSd1.4 (0.7-1.1cm) LVDd3.5 (3.9-5.9cm)PWd1.1 (0.7-1.1cm) LVDs2.6 (2.5-4.0cm)FS (%) 26.7 % LVEF (%)53.3 (>50%) M-Mode DIMENSIONS Aortic Root3.00 (2.2-3.7cm)Aortic Cusp Exc.1.60 (1.5-2.0cm) Aortic Valve AoV Peak Xdoqqstc628.0cm/Susan Peak GR.6mmHgAI P 1/2 [id number] Mitral Valve MV E Tjantdgl77.8cm/sMV A Gkwaxdpq92.4cm/sE/A ratio1.6 TDI Lateral E' Peak V5.36cm/sMedial E' Peak V6.53cm/sE/Lateral E'11.2 E/Medial E'9.2 Pulmonary Valve PV Peak Btuthbhb51.3cm/sPV Peak Grad.1mmHg Tricuspid Valve TR Peak [id number]/sRAP [id number] Peak Gr.38mmHg [id number] LEFT VENTRICLE The left ventricle is normal size. There is borderline concentric left ventricular hypertrophy. The left ventricular function is normal.EF-55% There is normal LV segmental wall motion. A Fib/A flutter at the time of study. No left ventricle thrombus noted on this study. There is no ventricular septal defect visualized. There is no left ventricular aneurysm. There is no mass noted in the left ventricle. RIGHT VENTRICLE The right ventricle is normal size. There is normal right ventricular wall thickness. The right ventricular systolic function is normal. ATRIA The left atrium size is normal. The right atrium size is normal. The interatrial septum is intact with no evidence for an atrial septal defect. AORTIC VALVE The aortic valve is calcified but opens well. There is trace to mild aortic regurgitation. There is no aortic valvular stenosis. There is no aortic valvular vegetation. MITRAL VALVE The mitral valve is thickened but opens well. Mitral regurgitation is mild. There is no mitral valve stenosis. There is no evidence of mitral valve prolapse. TRICUSPID VALVE The tricuspid valve leaflets are thickened , but open well. There is mild to moderate tricuspid regurgitation.RVSP-48 mmof Hg. There is no tricuspid valve stenosis. There is no tricuspid valve prolapse or vegetation. PULMONIC VALVE The pulmonic valve is not well visualized. GREAT VESSELS The aortic root is normal in size. The ascending aorta is normal in size. The pulmonary artery is normal. The IVC is normal in size and collapses >50% with inspiration. PERICARDIAL EFFUSION There is no pleural effusion. There is no pericardial effusion. <Conclusion> The left ventricle is normal size. There is borderline concentric left ventricular hypertrophy. The left ventricular function is normal.EF-55% Mitral regurgitation is mild. There is mild to moderate tricuspid regurgitation.RVSP-48 mmof Hg. The IVC is normal in size and collapses >50% with inspiration. There is no pericardial effusion. The aortic valve is calcified but opens well.
--- NOTE | 2019-02-15 00:40 | CON ---
DATE: 02/14/2019 CONSULT SERVICE: Cardiology. REASON FOR CONSULTATION: Cardiac evaluation of a patient with shortness of breath, elevated brain natriuretic peptide, history of coronary artery disease, history of paroxysmal atrial fibrillation status post pacemaker, status post multiple stents. BRIEF CLINICAL HISTORY: This is a 78-year-old female with past medical history significant for asthma, COPD, atrial fibrillation on Eliquis, came to the emergency room after being sent by Dr. Cruz when the patient was found on Thursday at his office, the patient was found to be with shortness of breath. The patient was sent for evaluation. The patient denies any chest pain, denies any shortness of breath and denies any palpitation. PAST MEDICAL HISTORY: Significant for atrial fibrillation, pacemaker, falls, syncope, hypertension, COPD, history of coronary artery disease, history of multiple stents, history of recurrent UTI's, history of cholelithiasis. PAST SURGICAL HISTORY: Significant for pacemaker placement. The patient had a permanent pacemaker on 07/11/2017 for a history of paroxysmal atrial fibrillation on anticoagulation, history of coronary stent on 09/28/2017, history of pyelonephritis, history of neuropathy, history of diabetic neuropathy. RECENT CARDIAC WORKUP: As follows; history of cardiac catheterization on 09/28/2017, patent stent in proximal LAD, moderate disease in D2, 55% stenosis, non-flow limiting and medication treatment recommended, ejection fraction of 65%, history of atrial fibrillation. History of last echo on 04/12/2018, that revealed a normal ejection fraction of 55% to 60%, mild aortic regurgitation, mild tricuspid regurgitation, RV systolic pressure 28, intact pacemaker lead. CURRENT MEDICATION: The patient at home was taking metformin, Cardizem, Actigall, Benicar 20 mg daily, loratadine, atorvastatin, Eliquis, albuterol. REVIEW OF SYSTEMS: As per history of present illness. PHYSICAL EXAMINATION: As follows; VITAL SIGNS: Temperature afebrile, heart rate 77, blood pressure 112/64. HEENT: PERRLA. Extraocular muscles intact. NECK: Supple. No carotid bruit or thyromegaly. CHEST: Clear to auscultation. HEART: S1 and S2 regular. ABDOMEN: Soft. EXTREMITIES: Clubbing and cyanosis negative. LABORATORY DATA: WBC 9.6, hemoglobin of 18, hematocrit of 53.2, platelet count of 310. Chemistries show sodium of 140, potassium of 4.5, chloride of 96, carbon dioxide of 32, anion gap of 17, BUN of 27, creatinine of 1.3. Troponin remains negative at 0.01 x3 and 0.2. EKG shows V-paced rhythm. Initially normal sinus, but the patient later on was found with atrial flutter. IMPRESSION: A 78-year-old female with a past medical history significant for paroxysmal atrial fibrillation, flutter, status post sick sinus syndrome status post permanent pacemaker in 2017, history of last catheterization on 09/28/2017, patent stent. Last echocardiogram done on 04/12/2018 revealed rwzy-aj-qssbejwr aortic regurgitation, mitral regurgitation, and tricuspid regurgitation. RECOMMENDATIONS: Continue gentle diuretics, change to p.o. Lasix. Check for orthostatic hypotension. If it remains stable we will discontinue telemetry. Continue Eliquis, continue baseline medication. No further cardiac workup is planned or warranted. If she remains stable okay to be discharged from Cardiology point of view. The patient is not clinically in failure now. Chest x-ray reviewed. BNP reviewed. After the Lasix, the patient significantly improved the symptoms, we will change the Lasix to p.o. from tomorrow. We will follow with you. Eleazar Odonnell MD
[2019-02-15 07:20] LABS: BASO # 0.05 K/mm3 (0.0-2.0); BASO % 0.5 % (0.0-3.0); EOS # 0.5 (0.0-0.7); EOS % 4.9 % (1.5-5.0); HEMOGLOBIN 16.7 g/dL (12.0-16.0); LYMPH # 3.2 (1.2-3.4); LYMPH % 33.7 % (22.0-35.0); MEAN CELL VOLUME 94.1 fl (80.0-105.0); MEAN CORPUSCULAR HEMOGLOBIN 31.6 pg (25.0-35.0); MEAN CORPUSCULAR HGB CONC 33.5 g/dl (31.0-37.0); MEAN PLATELET VOLUME 8.6 fl (7.0-11.0); MONO % 10.1 % (1.0-6.0); RBC 5.29 10^6/uL (3.5-6.1); RED CELL DISTRIBUTION WIDTH 12.5 % (11.5-14.5); WHITE BLOOD COUNT 9.5 10^3/uL (4.5-11.0)
--- NOTE | 2019-02-15 07:36 | PN ---
This case was discussed with Dr. Marcus she is inagreement with treatment plan. DATE: 02/14/2019 SUBJECTIVE: This is a 78-year-old patient who was seen in pulmonology office with complaints of shortness of breath, chest pain. Urinalysis showed she was positive for UTI. She has past medical history of hypertension, hyperlipidemia, CAD, type 2 diabetes, pyelonephritis and kidney disease. The patient was seen at the bedside today. at bedside. The patient is alert, oriented. Looked comfortable. She was ambulating around the room. Gait was steady. The patient denied chest pain, shortness of breath, abdominal pain, dysuria, hematuria, hematochezia, fevers, or chills. The patient is afebrile. PHYSICAL EXAMINATION: VITAL SIGNS: Temperature 98, pulse rate 87, blood pressure 105/65, respiratory rate 20, saturation 98% on room air. HEENT: Normocephalic and atraumatic, PERRLA. Mucous membranes are moist. NECK: Supple. No thyromegaly. Normal inspection. RESPIRATORY: Clear to auscultation. No wheeze. No rhonchi. CARDIOVASCULAR: S1, S2. No JVD. ABDOMEN: Soft, distended. No organomegaly. Positive bowel sounds. EXTREMITIES: The patient moving all extremities. No edema, no cyanosis. SKIN: Intact. NEUROLOGIC: The patient alert and oriented x3. No cognitive deficits. MEDICATIONS: She continues Tylenol p.r.n., albuterol, Eliquis, Brovana, Ecotrin, Lipitor, Pulmicort capsule, Vantin p.o. daily, Cardizem, Pepcid, Flonase, Neurontin, hydralazine, Claritin, Cozaar, Antivert, Lopressor, Singulair. LABORATORY DATA: White blood cells 9.6, hemoglobin 8, hematocrit 53.2, platelet count 310. Sodium 140, potassium 4.5, BUN 27, creatinine 1.3, hemoglobin A1c 6.4. BNP down from 1017, now 506. Microbiology, urine culture positive for E. Coli. ASSESSMENT AND PLAN: This is a 78-year-old female came in with shortness of breath, has history of chronic obstructive pulmonary disease, hypertension. Urinalysis culture positive for urinary tract infection. The patient continues p.o. antibiotics Vantin 200 mg daily. Infectious Disease is on the case. Pulmonology is on the case. The patient seen by Cardiology and cleared. The patient had elevated BNP of 1017, now 518. Lasix 40 mg intravenous piggyback was initiated every 12 hours. BUN 27 today, creatinine 1.3, and Lasix is on hold today. The patient is on p.o. antibiotics. If ID clears we can discharge the patient tomorrow We will follow up. Marco Castro APN Pricila Marcus MD MTDConnie
[2019-02-15 07:43] LABS: ALB/GLOB RATIO 1.1 (1.1-1.8); ALBUMIN 4.1 g/dL (3.0-4.8); CALCIUM 9.1 mg/dL (8.4-10.5)
[2019-02-15] MEDS: Budesonide 0.5 mg/2 ml Inhal Susp UD IH SCH (07:51)
[2019-02-15] MEDS: Arformoterol 15 mcg/2 ml Inh Sol IH SCH (07:51)
[2019-02-15] MEDS ORDERED: Cefpodoxime (Vantin) 200 mg Tab PO SCH (10:00)
[2019-02-15] MEDS: diltiaZEM 120 mg/24 Hours CD Cap PO SCH (10:14)
[2019-02-15] MEDS: TOBRADEX EYE OS SCH ×3 (10:22→18:05)
[2019-02-15] MEDS: Fluticasone Nasal 50 mcg/Spray NS SCH (10:22)
--- NOTE | 2019-02-15 12:25 | PN ---
DATE: 02/15/2019 REASON FOR CONSULTATION AND FOLLOWUP: For cardiac evaluation, admitted with shortness of breath, elevated BNP, history of coronary artery disease, history of paroxysmal atrial fibrillation status post permanent pacemaker, history of multiple stent. SUBJECTIVE: Patient denies chest pain, shortness of breath, or palpitations. is at the bedside. OBJECTIVE: GENERAL: Not in apparent distress. VITAL SIGNS: Temperature afebrile, heart rate 61, blood pressure 115/77. HEENT: PERRLA. Extraocular muscles intact. NECK: Supple. No carotid bruits or thyromegaly. CHEST: Clear to auscultation. HEART: S1 and S2 regular. ABDOMEN: Soft. EXTREMITIES: Clubbing and cyanosis negative. LABORATORY DATA: Blood work as follows. WBC 9.0, hemoglobin of 16, hematocrit of 49.8, platelet count of 325. Chemistry shows sodium of 145, potassium of 5, chloride of 90, carbon dioxide of 32, anion gap of 16, BUN of 39, creatinine of 1.4. Troponin 0.02. IMPRESSION: A 78-year-old female with a past medical history significant for permanent pacemaker in , history of paroxysmal atrial fibrillation on anticoagulation, history of coronary stent, history of multiple urinary tract infections, history of diabetic nephropathy/neuropathy, renal insufficiency. Last catheterization on 09/28/2017 that shows patent stent proximal LAD, moderate disease in D2. Medical treatment is recommended. No flow limiting stenosis noted. Ejection fraction calculated at 65%. No evidence of acute mycoardial infarction. Patient came in this time again with normal sinus, but telemetry shows a flutter and atrial fibrillation. RECOMMENDATIONS: Continue anticoagulation. Patient needs anticoagulation. Patient has sick sinus syndrome and paroxysmal atrial fibrillation. Avoid nephrotoxic medications. Continue Cardizem. Patient need gentle diuretics. Patient was started on diuretics and p.o. changed to p.o. diuretics 12.5 from today and discontinue telemetry. Continue antibiotics for urinary tract infection. Urine shows Escherichia coli. Infectious Disease is pending. We will discontinue telemetry. Continue metoprolol. Thank you Dr. Marcus, for providing us the opportunity in taking care of the patient, Susana Pena. Eleazar Odonnell MD [facility] # [id number]
--- NOTE | 2019-02-15 13:07 | PN ---
DATE: 02/15/2019 PULMONARY PROGRESS NOTE REFERRING PHYSICIAN: Dr. Marcus. SUBJECTIVE: The patient is seen, lying in bed, no acute distress. No overnight events reported. Reports feeling well this morning. Improvement in shortness of breath and cough. No headache, rhinitis, chest pain, abdominal pain, nausea, vomiting, diarrhea, leg pain, leg swelling reported. OBJECTIVE: GENERAL: No acute distress. VITAL SIGNS: Blood pressure 121/76, pulse 81, temperature 98.4. HEENT: Moist mucous membrane. Mallampati score of 4. Crowded airway. NECK: Supple. No JVD. LUNGS: Few crackles at the bases. CARDIOVASCULAR: S1, S2. ABDOMEN: Soft, nontender. No distention. No organomegaly. EXTREMITIES: No bilateral lower extremity edema. NEUROLOGIC: Awake, alert, verbal. Following commands. MEDICATIONS: Reviewed. Tylenol 650 every 4 hours p.r.n. moderate pain, albuterol sulfate 2 mg inhalation 3 times a day, Eliquis 5 mg twice a day, Brovana 15 mcg inhalation every 12 hours, aspirin 81 mg daily, Lipitor 20 mg at dinner, Pulmicort 0.5 mg inhalation every 12 hours, Vantin 200 mg daily, Cardizem 120 mg daily, Pepcid 20 mg daily, Flonase nasal spray daily, Lasix 40 mg IV push every 12 hours, gabapentin 300 mg daily, hydralazine 10 mg 4 times a day p.r.n., hydrochlorothiazide 12.5 mg daily, Claritin 10 mg daily, Cozaar 50 mg daily, Antivert 12.5 mg 3 times a day, Lopressor 50 mg breakfast and dinner, Singulair 10 mg at bedtime, and ursodiol 300 mg twice a day. LABORATORY DATA: Reviewed. WBC 9.5, RBC 5.29, hemoglobin 16.7, hematocrit 49.8, and platelets 325. Sodium 141, potassium 5, chloride 98, carbon dioxide 32, anion gap 16, BUN 39, creatinine 1.4, GFR 36, random glucose 104, calcium 9.1, phosphorus 5, magnesium 2.4. AST 43, ALT 26, alkaline phosphatase 101, total protein 77, albumin 4.1, globulin 3.7, and albumin globulin ratio 1.1. Echocardiogram shows ejection fraction 55%, mitral regurgitation, [id number] tricuspid regurgitation, RVSP 48, aortic valve was calcified, but opens well. IMPRESSION AND PLAN: Chronic obstructive lung disease, suspected sleep apnea syndrome, urinary tract infection, right heart failure. The patient has significant edema, which has improved at the time of admission; history of cardiac arrhythmia requiring pacemaker implants, history of coronary artery disease. Continue inhaled bronchodilators, gastric prophylaxis. The patient is on anticoagulation therapy. Recommend the patient have sleep study as outpatient due to suspected sleep apnea syndrome. Continue Cardiology followup. The patient was seen and examined with Dr. Cruz. Discussed assessment and plan as described above. The patient was seen and examined by Radha Beach, nurse practitioner. Discussed assessment and plan as described above. Thank you for this consult. We will follow with you. Radha Beach APN Eleazar Cruz MD
--- NOTE | 2019-02-15 13:35 | CP.PCM.PCO ---
Physician Communication Note - Physician Communication Note Physician Communication Note: cleared for dc per cardio and pulm, will dc and write Rx
[2019-02-15 18:06] VITALS: BP 126/75
[2019-02-15 18:07] VITALS: PULSE 58; RESP 16; TEMP 97.9
--- NOTE | 2019-02-16 01:21 | DS ---
The patient was seen and examined at the bedside on 02/15/2019. CHIEF COMPLAINT: Shortness of breath and swelling of the leg. HISTORY OF PRESENT ILLNESS: Ms. Susana Pena is a 78-year-old my private patient with history of asthma; COPD; atrial fibrillation, on Eliquis; and was seen in Dr. Cruz's office for shortness of breath. The patient has shortness of breath and swelling of the leg starting three days ago, Dr. Cruz sent the patient to the hospital and sometimes she was feeling tightness in the chest also. We admitted the patient, did extremity ultrasound. No sonographic evidence of deep vein thrombosis in the visualized segments of both lower extremities as per radiologist. Echocardiography done, seen by Dr. Cruz and licensed mortgage loan officer. The patient has UTI, Vantin given. After getting clearance from Pulmonary and Cardiology, we discharged the patient home today. Son and was on the bedside, length of time discussion done. Meds provided by Melissa Beltran at the bedside. Followup in the primary care physician's office. PAST MEDICAL HISTORY: Atrial fibrillation, on Eliquis; pacemaker; hypertension; COPD; history of cataract surgery; pyelonephritis; cholelithiasis multiple times; and UTI. FAMILY HISTORY: Father and mother noncontributory. HABITS: Never smoked. No drugs. No ethanol. ALLERGIES: THE PATIENT IS NOT ALLERGIC WITH ANY MEDICATIONS. HOME MEDICATIONS: Reviewed by me. REVIEW OF SYSTEMS: The patient was seen and examined at the bedside, looking comfortable. Son and is on the bedside. Shortness of breath getting better. Swelling of the legs getting better. No fever. No chills. No hematuria. No hematochezia. No shortness of breath. Chest pain improved. PHYSICAL EXAMINATION: VITAL SIGNS: Blood pressure 120/76, pulse 61, temperature 98.4, and respiratory rate 18. HEENT: Head; normocephalic and atraumatic. Eyes; PERRLA. Extraocular muscles intact. Conjunctivae clear. Nose patent. Mucous membranes moist. NECK: Supple. No carotid bruits. No JVD. No thyromegaly. CHEST: Bilaterally symmetrical. HEART: S1 and S2 positive. LUNGS: Clear to auscultation. ABDOMEN: Soft. Bowel sounds present. No organomegaly. EXTREMITIES: No edema. No cyanosis. NEUROLOGIC: The patient awake and alert. Moving all four extremities. No focal deficits. MEDICATIONS: Tylenol, albuterol, Eliquis, Brovana, Pulmicort, Vantin, Cardizem, Pepcid, Lasix, hydralazine, and Cozaar. LABORATORY DATA: White blood cell 9.5, hemoglobin 16.7, hematocrit 49.8, and platelets 324. Sodium 141 and potassium 5. AST 43 and ALT 26. ASSESSMENT AND PLAN: Ms. Susana Pena is a 78-year-old female with multiple medical problems exacerbation of congestive heart failure, chronic obstructive pulmonary disease, sleep apnea syndrome, urinary tract infection, getting Vantin, and right heart failure. Edema of the legs improved with water pill. Has cardiac arrhythmias, requiring pacemaker, is on Eliquis, history of coronary artery disease, inhaled bronchodilators. Gastric prophylaxis. Gastric and deep vein thrombosis prophylaxes. Repeat labs. Discharged home. Length of time discussion done with the patient's and son. All questions answered. Melissa Beltran, nurse practitioner discharged the patient. Pricila Marcus MD
== END 2019-02-15 19:42 | disposition home or self-care (01) | DRG 292 ==
LOC: ED 13:05 → ERH 15:32 → 2RNO 17:37 → OBSVTOIN 02-13 19:54
PROVIDERS: ADMIT Internal Medicine; ATTEND Internal Medicine
DX: I11.0 Hypertensive heart disease with heart failure (principal); N39.0 Urinary tract infection, site not specified; I48.92 Unspecified atrial flutter; I42.9 Cardiomyopathy, unspecified; Z79.82 Long term (current) use of aspirin; R07.9 Chest pain, unspecified; Z95.5 Presence of coronary angioplasty implant and graft; J44.9 Chronic obstructive pulmonary disease, unspecified; I25.10 Atherosclerotic heart disease of native coronary artery without angina pectoris; R94.5 Abnormal results of liver function studies; R31.9 Hematuria, unspecified; R80.9 Proteinuria, unspecified; K80.20 Calculus of gallbladder without cholecystitis without obstruction; E11.40 Type 2 diabetes mellitus with diabetic neuropathy, unspecified; E78.5 Hyperlipidemia, unspecified; Z79.01 Long term (current) use of anticoagulants; Z87.440 Personal history of urinary (tract) infections; I50.22 Chronic systolic (congestive) heart failure; E11.21 Type 2 diabetes mellitus with diabetic nephropathy; G47.30 Sleep apnea, unspecified; I08.3 Combined rheumatic disorders of mitral, aortic and tricuspid valves; I48.0 Paroxysmal atrial fibrillation; I50.810 Right heart failure, unspecified; K21.9 Gastro-esophageal reflux disease without esophagitis; Z95.0 Presence of cardiac pacemaker; Z98.49 Cataract extraction status, unspecified eye; B96.20 Unspecified Escherichia coli [E. coli] as the cause of diseases classified elsewhere